=== PATIENT | female | born 1935 | race African-American/Black ===

== ENCOUNTER 2018-01-10 18:03 | Inpatient (IN) ==
--- NOTE | 2018-01-10 20:25 | XR ---
EXAM DATE: 01/10/2018 8:13 PM EDT AGE/SEX: 82 years / Female INDICATIONS: . Chest discomfort; fall today. CLINICAL DATA: This is the patient's initial encounter. Patient reports that signs and symptoms have been present for 1 day and indicates a pain score of 0/10. MEDICAL/SURGICAL HISTORY: None. . Defibrillator. COMPARISON: [facility] [place], CHEST SINGLE AP, 09/27/2014. . FINDINGS: PA and lateral views of the chest demonstrate the lungs to be symmetrically aerated without evidence of mass, infiltrate or effusion. Minimal basilar atelectasis. The cardiomediastinal contours are enla rged. Pacer lead in right ventricle. CONCLUSION: Minimal basilar atelectasis. Cardiomegaly. Pacer lead in right ventricle. Electronically signed by: Juice Jones MD 01/10/2018 8:24 PM EDT
--- NOTE | 2018-01-10 20:54 | ED ---
HPI General Chief complaint: Nausea/Vomiting/Diarrhea Stated complaint: Fall Time Seen by Provider: 01/10/18 19:28 Source: patient Mode of arrival: ambulatory Limitations: no limitations History of Present Illness HPI Narrative: Patient is a 82-year-old female that presents for the evaluation of diarrhea. The patient states she developed some abdominal pain that was mainly located to the bilateral lower quadrants. The patient states that the pain is dull and she rates the pain a 10/10 on a pain scale. She states that the abdominal pain feels better when she is laying down. The patient also states that she has been having diarrhea that started yesterday and has been constant ever since. Patient denies any blood in the stool. Upon further evaluation of the patient she reveals that she fell while in her home on Sunday. The patient reports that she lives alone but at the time of the fall another person was present within the home to assist her. The patient states that she began to feel weak in her legs and feels as if she just collapsed. The patient reports that she remembers falling and does not feel that she lost consciousness. Upon review of symptoms the patient reports fatigue but denies any chest pain, nausea, or vomiting. She does state that she has been feeling some shortness of breath and feels as if she has been more confused lately. She also reports generalized muscle weakness in both her arms and legs. The patient' s God-daughter is present with the patient and helps the patient provide the history. Related Data Home Medications Medication Instructions Recorded Confirmed acetaminophen [Tylenol] 325 mg PO Q6H PRN 01/10/18 01/10/18 aspirin [Aspirin Low Dose] 81 mg PO DAILY 01/10/18 01/10/18 atorvastatin 40 mg PO DAILY 01/10/18 01/10/18 bumetanide 2 mg PO DAILY 01/10/18 01/10/18 calcitriol 0.25 mcg PO Q OTHER DAY 01/10/18 01/10/18 carvedilol 12.5 mg PO BID 01/10/18 01/10/18 ciclopirox 1 applic TOPICAL BID 01/10/18 01/10/18 gabapentin 300 mg PO QPM 01/10/18 01/10/18 insulin glargine [Lantus U-100 10 unit SUB-Q HS 01/10/18 01/10/18 Insulin] insulin glargine [Lantus U-100 15 unit SUB-Q AC 01/10/18 01/10/18 Insulin] insulin lispro [Humalog KwikPen 100 unit SUB-Q DAILY 01/10/18 01/10/18 Insulin] levothyroxine 25 mcg PO DAILY 01/10/18 01/10/18 rivaroxaban [Xarelto] 15 mg PO DAILY 01/10/18 01/10/18 sulfasalazine 0.5 g PO BID 01/10/18 01/10/18 Allergies Allergy/AdvReac Type Severity Reaction Status Date / Time amoxicillin Allergy Rash Verified 01/10/18 18:45 methylprednisolone Allergy Itching Verified 01/10/18 18:45 lisinopril AdvReac Cough Verified 01/10/18 18:45 MRI PRECAUTION AdvReac Severe PACEMAKER Uncoded 05/04/16 10:37 (RV) 02/08/10 Review of Systems ROS: all other systems reviewed are negative [facility] Medical History Medical History Anemia (Acute) Atherosclerosis of aorta (Acute) CVA (cerebral vascular accident) (Acute) Cardiac defibrillator in place (Acute) Cardiomyopathy (Acute) Cervicalgia (Acute) Chronic kidney disease (Acute) Depression (Acute) Diabetes (Acute) GERD (gastroesophageal reflux disease) (Acute) Gastroenteritis (Acute) HTN (hypertension) (Acute) Hemiplegia affecting dominant side, post-stroke (Acute) Hyperlipidemia (Acute) Hypoglycemia (Acute) Hypothyroid (Acute) Left ventricular failure (Acute) Morbid obesity (Acute) Myocardial infarct, old (Acute) Other cervical disc degeneration, unspecified cervical region (Acute) Peripheral neuropathy (Acute) Social History Social History Substance History: No History of Abuse Smoking Status: Never smoker How Often Do You Have a Drink Containing Alcohol: Never Recent Travel in [facility] within the Last 8 Weeks: No Recent Out of Country Travel within the Last 8 Weeks: No Immunization History Tetanus Immunization: Unsure Hx Influenza Vaccine This Season: Yes Exam Narrative Exam Narrative: GENERAL: Well appearing. SKIN: Focused skin assessment warm/dry. HEAD: Atraumatic. Normocephalic. EYES: Pupils equal and round. No scleral icterus. No injection or drainage. ENT: No nasal bleeding or discharge. Mucous membranes pink and moist. Tongue is midline. No uvula deviation. NECK: Trachea midline. No JVD. CARDIOVASCULAR: Regular rate and rhythm. No murmur appreciated. RESPIRATORY: No accessory muscle use. Clear to auscultation. Breath sounds equal bilaterally. GASTROINTESTINAL: Abdomen soft, non-tender, nondistended. Hepatic and splenic margins not palpable. MUSCULOSKELETAL: No obvious deformities. No clubbing. No cyanosis. No edema. Full range of motion of the upper and lower extremities bilaterally. Patient does have 1+ pitting edema in the lower extremities. NEUROLOGICAL: Awake and alert. No obvious cranial nerve deficits. Motor grossly within normal limits. Normal speech. PSYCHIATRIC: Appropriate mood and affect; insight and judgment normal. Procedures Hemaprompt Stool Procedural Steps Taken: specimen placed in appropriate test area, developer placed on specimen and control areas and controls appropriately positive and negative Hemaprompt Stool Result: positive Course Initial Documented Vital Signs Temperature 97.9 F 01/10/18 18:11 Pulse Rate 77 01/10/18 18:11 Respiratory Rate 16 01/10/18 18:11 Blood Pressure 136/63 01/10/18 18:11 Pulse Oximetry 97 01/10/18 18:11 Last Documented Vital Signs Temperature 97.9 F 01/10/18 18:11 Pulse Rate 82 01/10/18 21:23 Respiratory Rate 17 01/10/18 21:23 Blood Pressure 124/58 L 01/10/18 21:23 Pulse Oximetry 100 01/10/18 21:23 Medical Decision Making [facility] Narrative Medical decision making narrative: 82-year-old female that presents to the ED for evaluation of nausea vomiting diarrhea as well as weakness and multiple falls and confusion. Patient was properly examined and was found to have signs and symptoms which appear to be consistent with what appears to be infectious diarrhea as well as confusion. She does appear to be slightly altered. Labs and imaging were ordered. Labs and imaging showed what appears to be colitis, CHF exacerbation, hyperglycemia, acute kidney injury, positive troponin. At this time recommendations for admission. Patient was started on Protonix. Patient did had positive Hemoccult. Likely from the colitis. Patient is not significantly anemic. She does take Xarelto however. Patient was started on Flagyl, given 500 bolus of fluid. Family and patient understand need for admission and further treatment. They agree with plan. Patient was admitted after Dr. Guillermo agreed to admission. Medical Screen Exam Complete: Yes Emergency Medical Condition: Yes Differential Diagnosis Differential Diagnosis: C. difficile versus diarrhea versus nausea and vomiting versus abdominal pain versus diverticulitis versus weakness versus altered mental status Medical Records Medical records reviewed: Yes I reviewed the patient's medical records. Lab Data Lab results reviewed: Yes I reviewed the patient's lab results. Lab results narrative: lactic acid elevated troponin elevated CK elevated BNP in the 2500s Result diagrams: 01/10/18 20:55 01/10/18 20:55 Lab Results 01/10/18 01/10/18 01/10/18 Range/Units 20:55 20:55 20:55 WBC 6.6 (4.0-11.0) th/mm3 RBC 3.68 L (4.00-5.30) mil/mm3 Hgb 11.1 L (11.6-15.3) gm/dL Hct 34.6 L (35.0-46.0) % MCV 94.1 (80.0-100.0) fL MCH 30.2 (27.0-34.0) pg MCHC 32.1 (32.0-36.0) % RDW 18.9 H (11.6-17.2) % Plt Count 239 (150-450) th/mm3 MPV 7.6 (7.0-11.0) fL Neut % (Auto) 66.5 (16.0-70.0) % Lymph % (Auto) 18.2 (9.0-44.0) % [place] % (Auto) 13.7 H (0.0-8.0) % Eos % (Auto) 0.9 (0.0-4.0) % Baso % (Auto) 0.7 (0.0-2.0) % Neut # (Auto) 4.4 (1.8-7.7) th/mm3 Lymph # (Auto) 1.2 (1.0-4.8) th/mm3 [place] # (Auto) 0.9 (0.0-0.9) th/mm3 Eos # (Auto) 0.1 (0.0-0.4) th/mm3 Baso # (Auto) 0.0 (0.0-0.2) th/mm3 WBC Differential . Differential Comment Auto diff final PT (9.8-11.6) sec INR Ratio APTT (24.3-30.1) sec Sodium 139 (136-145) meq/L Potassium 3.6 (3.5-5.1) meq/L Chloride 101 (98-107) meq/L Carbon Dioxide 26.1 (21.0-32.0) meq/L Anion Gap 12 (5-15) meq/L BUN 52 H (7-18) mg/dL Creatinine 2.94 H (0.50-1.00) mg/dL Estimated GFR 19 L (>89) mL/min POC Glucose (68-110) mg/dl Random Glucose 353 H (74-106) mg/dL Lactic Acid 2.6 H (0.4-2.0) mmol/L Calcium 8.3 L (8.5-10.1) mg/dL Total Bilirubin 1.2 H (0.2-1.0) mg/dL AST 44 H (15-37) U/L ALT 23 (10-53) U/L Alkaline Phosphatase 138 H (45-117) U/L Total Creatine Kinase 945 H (26-192) U/L CK-MB (CK-2) 6.8 H (0.5-3.6) ng/mL CK-MB (CK-2) % 0.7 (0.0-4.0) % Troponin I 0.08 H (0.02-0.05) ng/mL B-Natriuretic Peptide (0-100) pg/mL Total Protein 6.5 (6.4-8.2) g/dL Albumin 2.8 L (3.4-5.0) g/dL Lipase 55 L (73-393) U/L Urine Color (Yellw/Straw) Urine Clarity (Clear) Urine pH (5.0-8.5) Ur Specific [place] (1.002-1.035) Urine Protein (Neg-Trace) mg/dL Urine Glucose (UA) (Negative) mg/dL Urine Ketones (Negative) mg/dL Urine Occult Blood (Negative) Urine Nitrate (Negative) Urine Bilirubin (Negative) Urine Urobilinogen (Less than 2) mg/dL Ur Leukocyte Esterase (Negative) Urine RBC (0-3) /hpf Urine WBC (0-5) /hpf Ur Squamous Epith Cells (0-5) /hpf Urine Bacteria (None) /hpf Hyaline Casts (0-3) /lpf Micro UA Comment Ur Microscopic Review Urine Culture Comments 01/10/18 01/10/18 01/10/18 Range/Units 20:55 20:55 21:05 WBC (4.0-11.0) th/mm3 RBC (4.00-5.30) mil/mm3 Hgb (11.6-15.3) gm/dL Hct (35.0-46.0) % MCV (80.0-100.0) fL MCH (27.0-34.0) pg MCHC (32.0-36.0) % RDW (11.6-17.2) % Plt Count (150-450) th/mm3 MPV (7.0-11.0) fL Neut % (Auto) (16.0-70.0) % Lymph % (Auto) (9.0-44.0) % [place] % (Auto) (0.0-8.0) % Eos % (Auto) (0.0-4.0) % Baso % (Auto) (0.0-2.0) % Neut # (Auto) (1.8-7.7) th/mm3 Lymph # (Auto) (1.0-4.8) th/mm3 [place] # (Auto) (0.0-0.9) th/mm3 Eos # (Auto) (0.0-0.4) th/mm3 Baso # (Auto) (0.0-0.2) th/mm3 WBC Differential Differential Comment PT 14.1 H (9.8-11.6) sec INR 1.4 Ratio APTT 30.3 H (24.3-30.1) sec Sodium (136-145) meq/L Potassium (3.5-5.1) meq/L Chloride (98-107) meq/L Carbon Dioxide (21.0-32.0) meq/L Anion Gap (5-15) meq/L BUN (7-18) mg/dL Creatinine (0.50-1.00) mg/dL Estimated GFR (>89) mL/min POC Glucose (68-110) mg/dl Random Glucose (74-106) mg/dL Lactic Acid (0.4-2.0) mmol/L Calcium (8.5-10.1) mg/dL Total Bilirubin (0.2-1.0) mg/dL AST (15-37) U/L ALT (10-53) U/L Alkaline Phosphatase (45-117) U/L Total Creatine Kinase (26-192) U/L CK-MB (CK-2) (0.5-3.6) ng/mL CK-MB (CK-2) % (0.0-4.0) % Troponin I (0.02-0.05) ng/mL B-Natriuretic Peptide 2587 H (0-100) pg/mL Total Protein (6.4-8.2) g/dL Albumin (3.4-5.0) g/dL Lipase (73-393) U/L Urine Color Yellow (Yellw/Straw) Urine Clarity Clear (Clear) Urine pH 5.0 (5.0-8.5) Ur Specific [place] 1.013 (1.002-1.035) Urine Protein Negative (Neg-Trace) mg/dL Urine Glucose (UA) 500 or greater (Negative) mg/dL Urine Ketones Negative (Negative) mg/dL Urine Occult Blood Negative (Negative) Urine Nitrate Negative (Negative) Urine Bilirubin Negative (Negative) Urine Urobilinogen 4 or greater (Less than 2) mg/dL Ur Leukocyte Esterase Negative (Negative) Urine RBC Less than 1 (0-3) /hpf Urine WBC Less than 1 (0-5) /hpf Ur Squamous Epith Cells 1 (0-5) /hpf Urine Bacteria Moderate H (None) /hpf Hyaline Casts 50 (0-3) /lpf Micro UA Comment Culture indicated Ur Microscopic Review Not Reportable Urine Culture Comments Culture indicated 01/10/18 Range/Units 21:36 WBC (4.0-11.0) th/mm3 RBC (4.00-5.30) mil/mm3 Hgb (11.6-15.3) gm/dL Hct (35.0-46.0) % MCV (80.0-100.0) fL MCH (27.0-34.0) pg MCHC (32.0-36.0) % RDW (11.6-17.2) % Plt Count (150-450) th/mm3 MPV (7.0-11.0) fL Neut % (Auto) (16.0-70.0) % Lymph % (Auto) (9.0-44.0) % [place] % (Auto) (0.0-8.0) % Eos % (Auto) (0.0-4.0) % Baso % (Auto) (0.0-2.0) % Neut # (Auto) (1.8-7.7) th/mm3 Lymph # (Auto) (1.0-4.8) th/mm3 [place] # (Auto) (0.0-0.9) th/mm3 Eos # (Auto) (0.0-0.4) th/mm3 Baso # (Auto) (0.0-0.2) th/mm3 WBC Differential Differential Comment PT (9.8-11.6) sec INR Ratio APTT (24.3-30.1) sec Sodium (136-145) meq/L Potassium (3.5-5.1) meq/L Chloride (98-107) meq/L Carbon Dioxide (21.0-32.0) meq/L Anion Gap (5-15) meq/L BUN (7-18) mg/dL Creatinine (0.50-1.00) mg/dL Estimated GFR (>89) mL/min POC Glucose 376 H (68-110) mg/dl Random Glucose (74-106) mg/dL Lactic Acid (0.4-2.0) mmol/L Calcium (8.5-10.1) mg/dL Total Bilirubin (0.2-1.0) mg/dL AST (15-37) U/L ALT (10-53) U/L Alkaline Phosphatase (45-117) U/L Total Creatine Kinase (26-192) U/L CK-MB (CK-2) (0.5-3.6) ng/mL CK-MB (CK-2) % (0.0-4.0) % Troponin I (0.02-0.05) ng/mL B-Natriuretic Peptide (0-100) pg/mL Total Protein (6.4-8.2) g/dL Albumin (3.4-5.0) g/dL Lipase (73-393) U/L Urine Color (Yellw/Straw) Urine Clarity (Clear) Urine pH (5.0-8.5) Ur Specific [place] (1.002-1.035) Urine Protein (Neg-Trace) mg/dL Urine Glucose (UA) (Negative) mg/dL Urine Ketones (Negative) mg/dL Urine Occult Blood (Negative) Urine Nitrate (Negative) Urine Bilirubin (Negative) Urine Urobilinogen (Less than 2) mg/dL Ur Leukocyte Esterase (Negative) Urine RBC (0-3) /hpf Urine WBC (0-5) /hpf Ur Squamous Epith Cells (0-5) /hpf Urine Bacteria (None) /hpf Hyaline Casts (0-3) /lpf Micro UA Comment Ur Microscopic Review Urine Culture Comments Imaging Data Attestation: I personally reviewed and interpreted this imaging study as follows : Radiologist's impression: Chest X-Ray 01/10/18 19:53 CONCLUSION: Minimal basilar atelectasis. Cardiomegaly. Pacer lead in right ventricle. Head CT 01/10/18 19:57 CONCLUSION: 1. No acute intracranial abnormalities. . Abdomen/Pelvis CT 01/10/18 21:48 CONCLUSION: 1. Questionable mild thickening of the left colon which may indicate a mild colitis. 2. Moderate anasarca. Small left pleural effusion. Multiple layering gallstones. ECG Data EKG Prior to Arrival: No Attestation: I personally reviewed and interpreted this ECG as follows: Interpretation: EKG shows sinus rhythm with no sign of acute ischemia and arrhythmia read by me and attending. Discharge Plan Physicians Team ED Provider: Toni Leggett ED Midlevel Provider: Jose Moya Primary Care Provider: UNKNOWN, Rxs /Orders / Referrals /Forms Prescriptions: No Action atorvastatin 40 mg Tablet 40 mg PO DAILY RF: 0 acetaminophen [Tylenol] 325 mg Tablet 325 mg PO Q6H PRN (Reason: Pain) RF: 0 carvedilol 12.5 mg Tablet 12.5 mg PO BID RF: 0 insulin glargine [Lantus U-100 Insulin] 100 unit/mL Solution 10 unit SUB-Q HS RF: 0 insulin glargine [Lantus U-100 Insulin] 100 unit/mL Solution 15 unit SUB-Q AC RF: 0 sulfasalazine 500 mg Tablet 0.5 g PO BID RF: 0 bumetanide 2 mg Tablet 2 mg PO DAILY RF: 0 aspirin [Aspirin Low Dose] 81 mg Tablet,Delayed Release (Dr/Ec) 81 mg PO DAILY RF: 0 levothyroxine 25 mcg Tablet 25 mcg PO DAILY RF: 0 calcitriol 0.25 mcg Capsule 0.25 mcg PO Q OTHER DAY RF: 0 insulin lispro [Humalog KwikPen Insulin] 100 unit/mL Insulin Pen 100 unit SUB-Q DAILY RF: 0 ciclopirox 0.77 % Cream 1 applic TOPICAL BID RF: 0 gabapentin 300 mg Tablet Extended Release 24 Hr 300 mg PO QPM RF: 0 rivaroxaban [Xarelto] 15 mg Tablet 15 mg PO DAILY RF: 0 Discharge Interventions Interventions: Vital Signs Last Done: 01/10/18 21:23 Status ED Status: With Doctor
[2018-01-10 21:15] LABS: Baso % (Auto) 0.7 % (0.0-2.0); Eos # (Auto) 0.1 th/mm3 (0.0-0.4); Eos % (Auto) 0.9 % (0.0-4.0); Hematocrit 34.6 % (35.0-46.0); Hemoglobin 11.1 gm/dL (11.6-15.3); Lymph # (Auto) 1.2 th/mm3 (1.0-4.8); Lymph % (Auto) 18.2 % (9.0-44.0); Mean Corpuscular HGB Conc 32.1 % (32.0-36.0); Mean Corpuscular Hemoglobin 30.2 pg (27.0-34.0); Mean Corpuscular Volume 94.1 fL (80.0-100.0); Mean Platelet Volume 7.6 fL (7.0-11.0); Mono # (Auto) 0.9 th/mm3 (0.0-0.9); Mono % (Auto) 13.7 % (0.0-8.0); Neut # (Auto) 4.4 th/mm3 (1.8-7.7); Neut % (Auto) 66.5 % (16.0-70.0); Platelet Count 239 th/mm3 (150-450); Red Blood Count 3.68 mil/mm3 (4.00-5.30); Red Cell Distribution Width 18.9 % (11.6-17.2); White Blood Count 6.6 th/mm3 (4.0-11.0)
[2018-01-10 21:20] LABS: Activated Partial Thrombo Time 30.3 sec (24.3-30.1); INR 1.4 Ratio; Prothrombin Time 14.1 sec (9.8-11.6)
[2018-01-10 21:37] LABS: Albumin 2.8 g/dL (3.4-5.0); Anion Gap 12 meq/L (5-15); Blood Urea Nitrogen 52 mg/dL (7-18); Calcium 8.3 mg/dL (8.5-10.1); Carbon Dioxide 26.1 meq/L (21.0-32.0); Chloride 101 meq/L (98-107); Glomerular Filtration Rate 19 mL/min (>89); Glucose,Random 353 mg/dL (74-106); Lipase 55 U/L (73-393); Potassium 3.6 meq/L (3.5-5.1); Sodium 139 meq/L (136-145)
[2018-01-10 21:38] LABS: Alanine Aminotransferase 23 U/L (10-53); Aspartate Aminotransferase 44 U/L (15-37)
[2018-01-10 21:42] LABS: Bacteria,Urine Moderate /hpf; Bilirubin,Urine Negative (Negative); Clarity,Urine Clear (Clear); Color,Urine Yellow (Yellw/Straw); Glucose,Urine (UA) 500 or Greater mg/dL (Negative); Hyaline Casts,Urine 50 /lpf (0-3); Leukocyte Esterase,Urine Negative (Negative); Nitrite,Urine Negative (Negative); Specific Gravity,Urine 1.013 (1.002-1.035); Squamous Epithelial Cell,Urine 1 /hpf (0-5); Urobilinogen,Urine 4 or Greater mg/dL (Less than 2)
[2018-01-10 21:42] LABS: Alkaline Phosphatase 138 U/L (45-117); Creatine Kinase 945 U/L (26-192); Total Protein 6.5 g/dL (6.4-8.2); Troponin I 0.08 ng/mL (0.02-0.05)
[2018-01-10 21:54] LABS: CKMB Percent 0.7 % (0.0-4.0); Creatine Kinase MB 6.8 ng/mL (0.5-3.6)
[2018-01-10] MEDS ORDERED: Sodium Chlor 0.9% Inj 500 ML IV.SIG SCH (22:00)
--- NOTE | 2018-01-10 22:07 | CT ---
EXAM DATE: 01/10/2018 10:04 PM EDT AGE/SEX: 82 years / Female INDICATIONS: Weakness. CLINICAL DATA: This is the patient's initial encounter. Patient reports that signs and symptoms have been present for 1 day and indicates a pain score of 5/10. MEDICAL/SURGICAL HISTORY: Hypertension. Diabetes. Renal disease. Defibrillator. RADIATION DOSE: 56.35 CTDI (mGy) COMPARISON: . TECHNIQUE: CT of the head without contrast. Using automated exposure control and adjustment of the mA and/or kV according to patient size, radiation dose was kept as low as reasonably achievable to ob tain optimal diagnostic quality images. DICOM format image data is available electronically for revi ew and comparison. FINDINGS: Cerebrum: The ventricles are normal for age. No evidence of midline shift, mass lesion, hemorrhage or acute infarction. No extraaxial fluid collections are seen. Posterior Fossa: The cerebellum and brainstem are intact. The 4th ventricle is midline. The cerebe llopontine angle is unremarkable. Extracranial: The visualized portion of the orbits is intact. Skull: The calvaria is intact. No evidence of skull fracture. CONCLUSION: 1. No acute intracranial abnormalities. . Electronically signed by: Juice Jones MD 01/10/2018 10:06 PM EDT
[2018-01-10] MEDS ORDERED: Morphine Inj 4 MG/ML Vial IV.PUSH ONE (22:22)
--- NOTE | 2018-01-10 22:28 | CT ---
EXAM DATE: 01/10/2018 10:20 PM EDT AGE/SEX: 82 years / Female INDICATIONS: Weakness. Nausea and diarrhea. Left lower quadrant abdominal pain. CLINICAL DATA: This is the patient's initial encounter. Patient reports that signs and symptoms have been present for 1 day and indicates a pain score of 5/10. MEDICAL/SURGICAL HISTORY: Hypertension. Gastroesophageal reflux disease. Diabetes. Renal dis ease. Defibrillator. RADIATION DOSE: 18.00 CTDI (mGy) COMPARISON: [facility] – [place], CT ABDOMEN & PELVIS W/O CONTRAST, 04/07/2015. . TECHNIQUE: Multiple contiguous axial images were obtained through the abdomen. Images were obtained using multiple row detector helical technique. Using automated exposure control and adjustment of the mA and/or kV according to patient size, radiation dose was kept as low as reasonably achievable to o btain optimal diagnostic quality images. DICOM format image data is available electronically for rev iew and comparison. FINDINGS: There is a small left-sided pleural effusion with some basilar atelectasis. No right effusion. Heart size enlarged. Pacer lead overlies right ventricle. No acute findings in the liver, spleen, kidneys or pancreas. Adrenal glands are mildly enlarged stabl e from 2015. Multiple layering gallstones. No pelvic mass or free fluid. Moderate anasarca. CONCLUSION: 1. Questionable mild thickening of the left colon which may indicate a mild colitis. 2. Moderate anasarca. Small left pleural effusion. Multiple layering gallstones. Electronically signed by: Juice Jones MD 01/10/2018 10:27 PM EDT
[2018-01-10] MEDS ORDERED: Pantoprazole Inj 40 MG Vial IV.PUSH ONE (22:35)
[2018-01-10] MEDS ORDERED: Acetaminophen 325 MG Tablet PO PRN (23:26)
[2018-01-10] MEDS ORDERED: Bisacodyl 10 MG Supp RECTAL PRN (23:26)
[2018-01-10] MEDS ORDERED: Dextrose 50% in Water 50 ML Vial IV.PUSH PRN (23:46)
--- NOTE | 2018-01-10 23:50 | P.HP ---
History of Present Illness Service: [facility] Primary Care Physician: UNKNOWN History of Present Illness: 82-year-old female with past medical history significant for anemia, CHF with defibrillator placement, previous CVA, chronic kidney disease, diabetes, GERD, hypertension, hyperlipidemia, hypothyroidism and CAD presents to the emergency department for the evaluation of diarrhea. The patient states she developed abdominal pain and diarrhea that began yesterday. She denies any dark, tarry stools. She also reports that she had a fall while in her home on Sunday. The patient's goddaughter is bedside who reports that the patient has not been taking care of herself well and it is unknown if she has been compliant with her medications. She reports increased weakness, confusion and bilateral lower extremity pain. The patient is anticoagulated on Xarelto however denies any history of blood clots or atrial fibrillation. She denies chest pain or shortness of breath. No emesis. No fever/chills. No lateralizing signs/ symptoms. Endorses intermittent weakness. No lateralizing signs/symptoms. Inpatient Certification: I certify that the inpatient services were ordered in accordance with Medicare regulations governing the order. This includes certification that hospital inpatient services are reasonable and necessary and in the case of services not specified as inpatient-only under 42 CFR 419.22(n), that they are appropriately provided as inpatient services in accordance to with the 2-midnight benchmark under 43 CFR 412.3(e) Estimated Total Length of Stay (Days): 3 Plans for Post Hospital Care: Not yet determined Review of Systems All other systems reviewed negative except as stated in HPI [facility] - History History Provided By: Patient, Family Member - Medical History Medical History: Medical History (Last Updated 01/10/18 @ 23:41 by Lizeth Guillermo MD) Anemia Atherosclerosis of aorta CVA (cerebral vascular accident) Cardiac defibrillator in place Cardiomyopathy Cervicalgia Chronic kidney disease Depression Diabetes GERD (gastroesophageal reflux disease) Gastroenteritis HTN (hypertension) Hemiplegia affecting dominant side, post-stroke History of implantable cardiac defibrillator (ICD) Hyperlipidemia Hypoglycemia Hypothyroid Left ventricular failure Morbid obesity Myocardial infarct, old Other cervical disc degeneration, unspecified cervical region Peripheral neuropathy - Surgical History Surgical History: Surgical History (Last Updated 01/10/18 @ 23:41 by Lizeth Guillermo MD) History of neck surgery - Tobacco History Smoking Status: Never smoker - Alcohol History How Often Do You Have a Drink Containing Alcohol: Never - Substance Use History Substance History: No History of Abuse - Travel History Recent Travel in the [place] Within the Last 8 Weeks: No Recent Travel Out of the Country Within the Last 8 Weeks: No - Immunization History Tetanus Immunization: Unsure Hx Influenza Vaccine This Season: Yes Medications and Allergies Active Medications: Active Medications Sodium Chloride (Ns Inj) 500 mls @ 0 mls/hr IV.SIG BOLUS EDIL Last Admin: 01/10/18 22:00 Dose: 500 mls/hr Sodium Chloride (Ns Flush) 2 ml IV.FLUSH PRN PRN PRN Reason: FLUSH AFTER USING IV ACCESS Allergies Allergy/AdvReac Type Severity Reaction Status Date / Time amoxicillin Allergy Rash Verified 01/10/18 18:45 methylprednisolone Allergy Itching Verified 01/10/18 18:45 lisinopril AdvReac Cough Verified 01/10/18 18:45 MRI PRECAUTION AdvReac Severe PACEMAKER Uncoded 05/04/16 10:37 (RV) 02/08/10 Home Medications Medication Instructions Recorded Confirmed Type acetaminophen [Tylenol] 325 mg PO Q6H PRN 01/10/18 01/10/18 History aspirin [Aspirin Low Dose] 81 mg PO DAILY 01/10/18 01/10/18 History atorvastatin 40 mg PO DAILY 01/10/18 01/10/18 History bumetanide 2 mg PO DAILY 01/10/18 01/10/18 History calcitriol 0.25 mcg PO Q OTHER DAY 01/10/18 01/10/18 History carvedilol 12.5 mg PO BID 01/10/18 01/10/18 History ciclopirox 1 applic TOPICAL BID 01/10/18 01/10/18 History gabapentin 300 mg PO QPM 01/10/18 01/10/18 History insulin glargine [Lantus U-100 10 unit SUB-Q HS 01/10/18 01/10/18 History Insulin] insulin glargine [Lantus U-100 15 unit SUB-Q AC 01/10/18 01/10/18 History Insulin] insulin lispro [Humalog KwikPen 100 unit SUB-Q DAILY 01/10/18 01/10/18 History Insulin] levothyroxine 25 mcg PO DAILY 01/10/18 01/10/18 History rivaroxaban [Xarelto] 15 mg PO DAILY 01/10/18 01/10/18 History sulfasalazine 0.5 g PO BID 01/10/18 01/10/18 History Exam Vital signs: Vital Signs 01/10/18 18:11 01/10/18 21:23 Temperature 97.9 F Pulse Rate 77 82 Respiratory Rate 16 17 Blood Pressure 136/63 124/58 L Pulse Oximetry 97 100 Intake & Output 01/10/18 01/10/18 01/11/18 06:59 18:59 06:59 Weight 101.605 kg Narrative: Gen.: No acute distress Head: Normocephalic. Atraumatic. EENT: Pupils equal round and reactive to light. Nose without drainage. Airway intact. Throat without injection. Cardiovascular: Regular rate and rhythm. No murmurs, rubs or gallops. Respiratory: Lungs clear to auscultation bilaterally. No wheezes or rhonchi. Abdomen: Soft, nontender, nondistended. No peritoneal signs. Musculoskeletal: No gross deformities. 1+ pitting edema in the bilateral lower extremities. Skin: No obvious rashes or erythema. Neuro: Sensory and motor grossly intact. Cranial nerves II through XII grossly intact. Results - Labs CBC & Chem 7: 01/10/18 20:55 01/10/18 20:55 Labs: Laboratory Results - last 24 hr 01/10/18 01/10/18 01/10/18 20:55 20:55 20:55 WBC 6.6 RBC 3.68 L Hgb 11.1 L Hct 34.6 L MCV 94.1 MCH 30.2 MCHC 32.1 RDW 18.9 H Plt Count 239 MPV 7.6 Neut % (Auto) 66.5 Lymph % (Auto) 18.2 [place] % (Auto) 13.7 H Eos % (Auto) 0.9 Baso % (Auto) 0.7 Neut # (Auto) 4.4 Lymph # (Auto) 1.2 [place] # (Auto) 0.9 Eos # (Auto) 0.1 Baso # (Auto) 0.0 WBC Differential . Differential Comment Auto diff final PT INR APTT Sodium 139 Potassium 3.6 Chloride 101 Carbon Dioxide 26.1 Anion Gap 12 BUN 52 H Creatinine 2.94 H Estimated GFR 19 L POC Glucose Random Glucose 353 H Lactic Acid 2.6 H Calcium 8.3 L Total Bilirubin 1.2 H AST 44 H ALT 23 Alkaline Phosphatase 138 H Total Creatine Kinase 945 H CK-MB (CK-2) 6.8 H CK-MB (CK-2) % 0.7 Troponin I 0.08 H B-Natriuretic Peptide Total Protein 6.5 Albumin 2.8 L Lipase 55 L Urine Color Urine Clarity Urine pH Ur Specific Golf Urine Protein Urine Glucose (UA) Urine Ketones Urine Occult Blood Urine Nitrate Urine Bilirubin Urine Urobilinogen Ur Leukocyte Esterase Urine RBC Urine WBC Ur Squamous Epith Cells Urine Bacteria Hyaline Casts Micro UA Comment Ur Microscopic Review Urine Culture Comments 01/10/18 01/10/18 01/10/18 20:55 20:55 21:05 WBC RBC Hgb Hct MCV MCH MCHC RDW Plt Count MPV Neut % (Auto) Lymph % (Auto) [place] % (Auto) Eos % (Auto) Baso % (Auto) Neut # (Auto) Lymph # (Auto) [place] # (Auto) Eos # (Auto) Baso # (Auto) WBC Differential Differential Comment PT 14.1 H INR 1.4 APTT 30.3 H Sodium Potassium Chloride Carbon Dioxide Anion Gap BUN Creatinine Estimated GFR POC Glucose Random Glucose Lactic Acid Calcium Total Bilirubin AST ALT Alkaline Phosphatase Total Creatine Kinase CK-MB (CK-2) CK-MB (CK-2) % Troponin I B-Natriuretic Peptide 2587 H Total Protein Albumin Lipase Urine Color Yellow Urine Clarity Clear Urine pH 5.0 Ur Specific Golf 1.013 Urine Protein Negative Urine Glucose (UA) 500 or greater Urine Ketones Negative Urine Occult Blood Negative Urine Nitrate Negative Urine Bilirubin Negative Urine Urobilinogen 4 or greater Ur Leukocyte Esterase Negative Urine RBC Less than 1 Urine WBC Less than 1 Ur Squamous Epith Cells 1 Urine Bacteria Moderate H Hyaline Casts 50 Micro UA Comment Culture indicated Ur Microscopic Review Not Reportable Urine Culture Comments Culture indicated 01/10/18 21:36 WBC RBC Hgb Hct MCV MCH MCHC RDW Plt Count MPV Neut % (Auto) Lymph % (Auto) [place] % (Auto) Eos % (Auto) Baso % (Auto) Neut # (Auto) Lymph # (Auto) [place] # (Auto) Eos # (Auto) Baso # (Auto) WBC Differential Differential Comment PT INR APTT Sodium Potassium Chloride Carbon Dioxide Anion Gap BUN Creatinine Estimated GFR POC Glucose 376 H Random Glucose Lactic Acid Calcium Total Bilirubin AST ALT Alkaline Phosphatase Total Creatine Kinase CK-MB (CK-2) CK-MB (CK-2) % Troponin I B-Natriuretic Peptide Total Protein Albumin Lipase Urine Color Urine Clarity Urine pH Ur Specific [place] Urine Protein Urine Glucose (UA) Urine Ketones Urine Occult Blood Urine Nitrate Urine Bilirubin Urine Urobilinogen Ur Leukocyte Esterase Urine RBC Urine WBC Ur Squamous Epith Cells Urine Bacteria Hyaline Casts Micro UA Comment Ur Microscopic Review Urine Culture Comments - Imaging Impressions Chest X-Ray 01/10/18 19:53 CONCLUSION: Minimal basilar atelectasis. Cardiomegaly. Pacer lead in right ventricle. Head CT 01/10/18 19:57 CONCLUSION: 1. No acute intracranial abnormalities. . Abdomen/Pelvis CT 01/10/18 21:48 CONCLUSION: 1. Questionable mild thickening of the left colon which may indicate a mild colitis. 2. Moderate anasarca. Small left pleural effusion. Multiple layering gallstones. Caprini VTE Risk Assessment Caprini VTE Risk Assessment: Moderate/High Risk (score >= 2) Caprini Risk Assessment Model: Point Value = 1 Point Value = 2 Point Value = 3 Point Value = 5 Age 41-60 Minor surgery BMI > 25 kg/m2 Swollen legs Varicose veins or History of unexplained or recurrent spontaneous Oral contraceptives or hormone replacement Sepsis (< 1 month) Serious lung disease, including pneumonia (< 1 month) Abnormal pulmonary function Acute myocardial infarction Congestive heart failure (< 1 month) History of inflammatory bowel disease Medical patient at bed rest Age 61-74 Arthroscopic surgery Major open surgery (> 45 min) Laparoscopic surgery (> 45 min) Malignancy Confined to bed (> 72 hours) Immobilizing plaster cast Central venous access Age >= 75 History of VTE Family history of VTE Factor V Leiden Prothrombin [id number] Lupus anticoagulant Anticardiolipin antibodies Elevated serum homocysteine Heparin-induced thrombocytopenia Other congenital or acquired thrombophilia Stroke (< 1 month) Elective arthroplasty Hip, pelvis, or leg fracture Acute spinal cord injury (< 1 month) Prophylaxis Regimen: Total Risk Factor Score Risk Level Prophylaxis Regimen 0-1 Low Early ambulation 2 Moderate Order ONE of the following: *Sequential Compression Device (SCD) *Heparin 5000 units SQ BID 3-4 Higher Order ONE of the following medications: *Heparin 5000 units SQ TID *Enoxaparin/Lovenox 40 mg SQ daily (WT < 150 kg, CrCl > 30 mL/min) *Enoxaparin/Lovenox 30 mg SQ daily (WT < 150 kg, CrCl > 10-29 mL/min) *Enoxaparin/Lovenox 30 mg SQ BID (WT < 150 kg, CrCl > 30 mL/min) AND/OR *Sequential Compression Device (SCD) 5 or more Highest Order ONE of the following medications: *Heparin 5000 units SQ TID (Preferred with Epidurals) *Enoxaparin/Lovenox 40 mg SQ daily (WT < 150 kg, CrCl > 30 mL/min) *Enoxaparin/Lovenox 30 mg SQ daily (WT < 150 kg, CrCl > 10-29 mL/min) *Enoxaparin/Lovenox 30 mg SQ BID (WT < 150 kg, CrCl > 30 mL/min) AND *Sequential Compression Device (SCD) Assessment and Plan - Plan Assessment and plan: 1. Abdominal pain/diarrhea CT the abdomen/pelvis shows questionable mild thickening of the left colon which may indicate a mild colitis C. difficile panel pending Cipro/Flagyl Hemoccult positive in the emergency department Gastroenterology consulted, appreciate recommendations IV Protonix 2. Chronic kidney disease Creatinine 2.9 Most recent creatinine was 2.2 in 2016 Monitor renal function 3. CHF EF of 25-30% BNP 2587 Chest x-ray without signs of pulmonary edema, personally reviewed Status post defibrillator placement Continue home medications IV Bumex 4. Diabetes mellitus Continue home Lantus Sliding-scale insulin Monitor blood glucose 5. Hypertension/hyperlipidemia/hypothyroidism Continue home medication 6. History of CVA Patient anticoagulated on Xarelto Unclear exactly why as patient and her granddaughter do not know but they do state that she takes it daily 7. Elevated troponin Likely secondary to heart failure ACS rule out pending; serial troponins/EKGs 8. Elevated lactic acid Status post 500 cc bolus in the ED Repeat pending No signs of sepsis FEN N.p.o. Electrolytes: Monitor and replete as needed Xarelto
[2018-01-11] MEDS: Pantoprazole Inj 40 MG Vial IV.PUSH SCH ×2 (00:31→12:29)
[2018-01-11] MEDS: Ciprofloxacin 400 MG/200 ML 400 MG/200 ML PIGGYBACK IV.SIG SCH (00:32)
[2018-01-11] MEDS: Insulin NovoLIN Regular Correctional Sugar Inj SQ SCH ×5 (03:34→20:47)
[2018-01-11 05:13] LABS: Hematocrit 34.4 % (35.0-46.0); Hemoglobin 11.2 gm/dL (11.6-15.3); Mean Corpuscular HGB Conc 32.4 % (32.0-36.0); Mean Corpuscular Hemoglobin 30.2 pg (27.0-34.0); Mean Corpuscular Volume 93.1 fL (80.0-100.0); Mean Platelet Volume 7.6 fL (7.0-11.0); Platelet Count 231 th/mm3 (150-450); Red Cell Distribution Width 18.5 % (11.6-17.2); White Blood Count 6.3 th/mm3 (4.0-11.0)
[2018-01-11 05:35] LABS: Alanine Aminotransferase 22 U/L (10-53); Albumin 2.8 g/dL (3.4-5.0); Anion Gap 13 meq/L (5-15); Aspartate Aminotransferase 40 U/L (15-37); Blood Urea Nitrogen 53 mg/dL (7-18); Carbon Dioxide 24.2 meq/L (21.0-32.0); Chloride 101 meq/L (98-107); Glomerular Filtration Rate 20 mL/min (>89); Glucose,Random 236 mg/dL (74-106); Potassium 3.5 meq/L (3.5-5.1); Sodium 138 meq/L (136-145)
[2018-01-11 05:40] LABS: Alkaline Phosphatase 121 U/L (45-117); Creatine Kinase 854 U/L (26-192); Total Protein 6.6 g/dL (6.4-8.2); Troponin I 0.08 ng/mL (0.02-0.05)
[2018-01-11 05:52] LABS: CKMB Percent 0.7 % (0.0-4.0); Creatine Kinase MB 5.6 ng/mL (0.5-3.6)
[2018-01-11 06:36] LABS: Eosinophils 2 % (0-4); Lymphocytes 16 % (9-44); Monocytes 11 % (0-8); Platelet Estimate Normal (Normal); Platelet Morphology Normal (Normal)
[2018-01-11] MEDS: Insulin Detemir Inj 1,000 UNIT/10 ML Vial SQ SCH ×3 (09:09→20:47)
[2018-01-11] MEDS: Carvedilol 12.5 MG Tablet PO SCH ×3 (09:11→22:16)
[2018-01-11] MEDS: Senna/Docusate Sodium 8.6/50 MG Tablet PO SCH ×2 (09:11→20:47)
[2018-01-11] MEDS: Rivaroxaban 15 MG Tablet PO SCH ×2 (09:12→09:42)
--- NOTE | 2018-01-11 10:02 | P.CONGI ---
History of Present Illness Consult date: 01/11/18 Consult reason: Diarrhea,Colitis and Heme positive stools Chief complaint: Acute Colitis, BOUCHRA, CHF Exacerbation, DM History of Present Illness: is an 82-year-old female with past medical history significant for Anemia, congestive heart failure, CVA ,chronic kidney disease, diabetes, GERD hypertension, hyperlipidemia, hypothyroidism and coronary artery disease. Patient presented to the emergency room yesterday January 10, 2018 with complaint of Diarrhea. Patient reports onset of diarrhea 4 days ago with nausea and no vomiting she reports that stools were brown with no obvious noted blood. Stools were heme positive upon arrival to ER with hemoglobin 11.1 hematocrit 34.6. Patient states she has not had any further loose stools since yesterday afternoon. Patient currently on Xarelto for atrial fibrillation and Hx CVA. I spoke with patient's RN who stated patient is in sinus rhythm at this time. Patient states that along with diarrhea for 4 days she has felt achy and weak reports chills but denies fever. Patient denies any use of antibiotics recently denies any sick contacts and also denies any travel outside of the country. Denies any known family history of gastrointestinal cancers. Patient states last colonoscopy was done 5 years ago and she was not informed that she had any polyps. EGD was done at that time per patient which she states was also normal. She states she does not currently have a GI doctor following her. Patient denies smoking or EtOH use. She denies the use of NSAIDs and states she takes aspirin 81 mg daily. 01/11/2018 labs reveal WBC 6.3 hemoglobin 11.2 hematocrit 34.4 INR 1.4 total bilirubin 1.1 AST 40 ALT 22 alkaline phosphatase 121 with a total creatinine kinase of 854 and a troponin of 0.08 of note patient had elevated BNP of 2587. I spoke with patient's RN who stated patient is in sinus rhythm at this time. 01/10/[address] of the abdomen and pelvis with the following findings--> There is a small left-sided pleural effusion with some basilar atelectasis. No right effusion. Heart size enlarged. Pacer lead overlies right ventricle.No acute findings in the liver, spleen, kidneys or pancreas. Adrenal glands are mildly enlarged stable from 2015. Multiple layering gallstones.No pelvic mass or free fluid. Moderate anasarca. Conclusion --> Questionable mild thickening of the left colon which may indicate a mild colitis. Moderate anasarca. Small left pleural effusion. Multiple layering gallstones. Due to CT findings of questionable colitis patient is currently receiving ciprofloxacin 400 mg IV every 24 hours as well as Flagyl 500 mg IV every 8 hours. <Betzaida Barone - Last Filed: 01/11/18 15:00> Review of Systems Constitutional: Reports lack of energy, Reports weakness, Denies anorexia, Denies excessive sweating, Denies fever(s), Denies weight loss Cardiovascular: Reports leg swelling, Denies chest pain, Denies chest pain at rest, Denies chest pain with activity, Denies fainting, Denies generalized swelling, Denies shortness of breath Respiratory: Denies cough, Denies shortness of breath Gastrointestinal: Reports nausea, Denies abdominal pain, Denies black, tarry stools, Denies bright, red blood in stools, Denies difficulty swallowing, Denies feeling full early, Denies heartburn, Denies incontinent of stools, Denies pain with swallowing, Denies vomiting Genitourinary: Denies blood in urine Musculoskeletal: Reports joint pain, Reports muscle weakness Neurologic: Denies dizziness, Denies fainting Hematologic/Lymphatic: Denies easy bleeding <Betzaida Barone - Last Filed: 01/11/18 15:00> PMFSH - History History Provided By: Patient - Medical History Medical History: Medical History (Last Reviewed 01/11/18 @ 06:40 by Suresh Jain) Anemia Atherosclerosis of aorta CVA (cerebral vascular accident) Cardiac defibrillator in place Cardiomyopathy Cervicalgia Chronic kidney disease Depression Diabetes GERD (gastroesophageal reflux disease) Gastroenteritis HTN (hypertension) Hemiplegia affecting dominant side, post-stroke History of implantable cardiac defibrillator (ICD) Hyperlipidemia Hypoglycemia Hypothyroid Left ventricular failure Morbid obesity Myocardial infarct, old Other cervical disc degeneration, unspecified cervical region Peripheral neuropathy - Surgical History Surgical History: Surgical History (Last Reviewed 01/11/18 @ 06:40 by Suresh Jain) History of neck surgery - Tobacco History Second Hand Smoke Exposure: No Smoking Status: Never smoker - Alcohol History How Often Do You Have a Drink Containing Alcohol: Never - Substance Use History Substance History: No History of Abuse - Travel History Recent Travel in the [place] Within the Last 8 Weeks: No Recent Travel Out of the Country Within the Last 8 Weeks: No - Immunization History Tetanus Immunization: Unsure Hx Influenza Vaccine This Season: Yes <Betzaida Barone - Last Filed: 01/11/18 15:00> - Medical History Medical History: Medical History (Last Reviewed 01/11/18 @ 06:40 by Suresh Jain) Anemia Atherosclerosis of aorta CVA (cerebral vascular accident) Cardiac defibrillator in place Cardiomyopathy Cervicalgia Chronic kidney disease Depression Diabetes GERD (gastroesophageal reflux disease) Gastroenteritis HTN (hypertension) Hemiplegia affecting dominant side, post-stroke History of implantable cardiac defibrillator (ICD) Hyperlipidemia Hypoglycemia Hypothyroid Left ventricular failure Morbid obesity Myocardial infarct, old Other cervical disc degeneration, unspecified cervical region Peripheral neuropathy - Surgical History Surgical History: Surgical History (Last Reviewed 01/11/18 @ 06:40 by Suresh Jain) History of neck surgery <Ryan Loya - Last Filed: 01/11/18 19:26> Medications and Allergies Active Medications: Active Medications Acetaminophen (Tylenol) 650 mg PO Q4H PRN PRN Reason: Temp > 100.4 Al Hydroxide/Mg Hydroxide (Milk Of Asanalyssa Sims) 30 ml PO Q12H PRN PRN Reason: Mild Constipation Aspirin (Ecotrin) 81 mg PO DAILY [facility] Last Admin: 01/11/18 09:11 Dose: 81 mg Atorvastatin Calcium (Lipitor) 40 mg PO DAILY [facility] Last Admin: 01/11/18 09:11 Dose: 40 mg Bisacodyl (Dulcolax Supp) 10 mg RECTAL DAILY PRN PRN Reason: SEVERE CONSITIPATION Bumetanide (Bumex Inj) 1 mg IV.PUSH BID@0900,1800 [facility] Last Admin: 01/11/18 09:11 Dose: 1 mg Carvedilol (Coreg) 12.5 mg PO BID [facility] Last Admin: 01/11/18 09:11 Dose: 12.5 mg Dextrose (D50w Vial) 50 ml IV.PUSH UNSCH PRN PRN Reason: PER HYPOGLYCEMIA PROTOCOL Gabapentin (Neurontin) 300 mg PO QPM [facility] Glucagon (Glucagon Inj) 1 mg OTHER PRN PRN PRN Reason: for Hypoglycemia Protocol Sodium Chloride (Ns Inj) 500 mls @ 0 mls/hr IV.SIG BOLUS [facility] Last Infusion: 01/11/18 00:11 Dose: Infused Ciprofloxacin/Dextrose (Cipro 400 Mg/200 Ml Inj) 400 mg in 200 mls @ 200 mls/ hr IV.SIG Q24H [facility] Last Infusion: 01/11/18 01:39 Dose: Infused Metronidazole/Sodium Chloride (Flagyl 500 Mg Inj) 100 mls @ 100 mls/hr IV.SIG Q8H [facility] Last Admin: 01/11/18 09:10 Dose: 100 mls/hr Insulin Detemir (Levemir Inj) 10 unit SQ HS EDIL Insulin Detemir (Levemir Inj) 15 unit SQ AC [facility] Last Admin: 01/11/18 09:09 Dose: Not Given Insulin Human Regular (Novolin R Correctional Sugar Inj) 0 units SQ ACHS AND 3AM [facility]; Protocol Last Admin: 01/11/18 09:20 Dose: Not Given Lactulose (Lactulose Liq) 30 ml PO DAILY PRN PRN Reason: SEVERE CONSITIPATION Levothyroxine Sodium (Synthroid) 25 mcg PO DAILY@0600 [facility] Last Admin: 01/11/18 05:29 Dose: Not Given Ondansetron HCl (Zofran Inj) 4 mg IV.PUSH Q6H PRN PRN Reason: NAUSEA OR VOMITING Pantoprazole Sodium (Protonix Inj) 40 mg IV.PUSH Q12H [facility] Last Admin: 01/11/18 00:31 Dose: Not Given Rivaroxaban (Xarelto) 15 mg PO DAILY [facility] Last Admin: 01/11/18 09:12 Dose: Not Given Senna/Docusate Sodium (Conchis-Colace) 1 tab PO BID [facility] Last Admin: 01/11/18 09:11 Dose: Not Given Sennosides (Senokot) 17.2 mg PO Q12H PRN PRN Reason: Moderate Constipation Sodium Chloride (Ns Flush) 2 ml IV.FLUSH PRN PRN PRN Reason: FLUSH AFTER USING IV ACCESS <Betzaida Barone - Last Filed: 01/11/18 15:00> Active Medications: Active Medications Acetaminophen (Tylenol) 650 mg PO Q4H PRN PRN Reason: Temp > 100.4 Al Hydroxide/Mg Hydroxide (Milk Of Magnesia Liq) 30 ml PO Q12H PRN PRN Reason: Mild Constipation Aspirin (Ecotrin) 81 mg PO DAILY [facility] Last Admin: 01/11/18 09:11 Dose: 81 mg Atorvastatin Calcium (Lipitor) 40 mg PO DAILY [facility] Last Admin: 01/11/18 09:11 Dose: 40 mg Bisacodyl (Dulcolax Supp) 10 mg RECTAL DAILY PRN PRN Reason: SEVERE CONSITIPATION Bumetanide (Bumex Inj) 1 mg IV.PUSH BID@0900,1800 [facility] Last Admin: 01/11/18 17:38 Dose: 1 mg Carvedilol (Coreg) 12.5 mg PO BID [facility] Last Admin: 01/11/18 09:11 Dose: 12.5 mg Dextrose (D50w Vial) 50 ml IV.PUSH UNSCH PRN PRN Reason: PER HYPOGLYCEMIA PROTOCOL Gabapentin (Neurontin) 300 mg PO QPM [facility] Last Admin: 01/11/18 17:38 Dose: 300 mg Glucagon (Glucagon Inj) 1 mg OTHER PRN PRN PRN Reason: for Hypoglycemia Protocol Sodium Chloride (Ns Inj) 500 mls @ 0 mls/hr IV.SIG BOLUS [facility] Last Infusion: 01/11/18 00:11 Dose: Infused Ciprofloxacin/Dextrose (Cipro 400 Mg/200 Ml Inj) 400 mg in 200 mls @ 200 mls/ hr IV.SIG Q24H [facility] Last Infusion: 01/11/18 01:39 Dose: Infused Metronidazole/Sodium Chloride (Flagyl 500 Mg Inj) 100 mls @ 100 mls/hr IV.SIG Q8H [facility] Last Infusion: 01/11/18 18:36 Dose: Infused Insulin Detemir (Levemir Inj) 5 unit SQ BID [facility] Insulin Human Regular (Novolin R Correctional Sugar Inj) 0 units SQ ACHS AND 3AM EDIL; Protocol Last Admin: 01/11/18 17:39 Dose: 5 units Lactulose (Lactulose Liq) 30 ml PO DAILY PRN PRN Reason: SEVERE CONSITIPATION Levothyroxine Sodium (Synthroid) 25 mcg PO DAILY@0600 [facility] Last Admin: 01/11/18 05:29 Dose: Not Given Ondansetron HCl (Zofran Inj) 4 mg IV.PUSH Q6H PRN PRN Reason: NAUSEA OR VOMITING Pantoprazole Sodium (Protonix Inj) 40 mg IV.PUSH Q12H [facility] Last Admin: 01/11/18 12:29 Dose: 40 mg Rivaroxaban (Xarelto) 15 mg PO DAILY [facility] Last Admin: 01/11/18 09:42 Dose: 15 mg Senna/Docusate Sodium (Conchis-Colace) 1 tab PO BID [facility] Last Admin: 01/11/18 09:11 Dose: Not Given Sennosides (Senokot) 17.2 mg PO Q12H PRN PRN Reason: Moderate Constipation Sodium Chloride (Ns Flush) 2 ml IV.FLUSH PRN PRN PRN Reason: FLUSH AFTER USING IV ACCESS <Ryan Loya E - Last Filed: 01/11/18 19:26> Allergies Allergy/AdvReac Type Severity Reaction Status Date / Time amoxicillin Allergy Rash Verified 01/10/18 18:45 methylprednisolone Allergy Itching Verified 01/10/18 18:45 lisinopril AdvReac Cough Verified 01/10/18 18:45 MRI PRECAUTION AdvReac Severe PACEMAKER Uncoded 05/04/16 10:37 (RV) 02/08/10 Home Medications Medication Instructions Recorded Confirmed Type acetaminophen [Tylenol] 325 mg PO Q6H PRN 01/10/18 01/10/18 History aspirin [Aspirin Low Dose] 81 mg PO DAILY 01/10/18 01/10/18 History atorvastatin 40 mg PO DAILY 01/10/18 01/10/18 History bumetanide 2 mg PO DAILY 01/10/18 01/10/18 History calcitriol 0.25 mcg PO Q OTHER DAY 01/10/18 01/10/18 History carvedilol 12.5 mg PO BID 01/10/18 01/10/18 History ciclopirox 1 applic TOPICAL BID 01/10/18 01/10/18 History gabapentin 300 mg PO QPM 01/10/18 01/10/18 History insulin glargine [Lantus U-100 10 unit SUB-Q HS 01/10/18 01/10/18 History Insulin] insulin glargine [Lantus U-100 15 unit SUB-Q AC 01/10/18 01/10/18 History Insulin] insulin lispro [Humalog KwikPen 100 unit SUB-Q DAILY 01/10/18 01/10/18 History Insulin] levothyroxine 25 mcg PO DAILY 01/10/18 01/10/18 History rivaroxaban [Xarelto] 15 mg PO DAILY 01/10/18 01/10/18 History sulfasalazine 0.5 g PO BID 01/10/18 01/10/18 History Exam Vital signs: Vital Signs 01/10/18 18:11 01/10/18 21:23 01/11/18 00:38 Temperature 97.9 F Pulse Rate 77 82 77 Respiratory Rate 16 17 17 Blood Pressure 136/63 124/58 L 106/54 L Pulse Oximetry 97 100 97 01/11/18 01:25 01/11/18 02:05 01/11/18 04:00 Temperature 97.7 F 97.3 F L Pulse Rate 76 79 76 Respiratory Rate 17 18 18 Blood Pressure 111/53 L 126/56 L 150/66 H Pulse Oximetry 97 94 L 95 01/11/18 08:00 Temperature 97.8 F Pulse Rate 75 Respiratory Rate 20 Blood Pressure 138/68 Pulse Oximetry 99 Intake & Output 01/10/18 01/11/18 01/11/18 18:59 06:59 18:59 Intake Total 800 / 800 Output Total 0 / 0 Balance 800 / 800 Weight 101.605 kg 103.2 kg Intake: IV 800 / 800 Cipro 400 MG/200 ML Inj 400 mg 200 / 200 In 200 ml @ 200 mls/hr IV.SIG Q24H [facility] Rx#:[id number] NS Inj 500 ML @ Wide Open IV. 500 / 500 SIG BOLUS [facility] Rx#:[id number] Flagyl 500 MG Inj 100 ML @ 100 100 / 100 mls/hr IV.SIG ONCE ONE Rx#: [id number] Oral 0 / 0 Output: Urine 0 / 0 Other: # Bowel Movements 0 - Constitutional no acute distress - Routine HEENT Exam Head: Present: normocephalic Eye: Absent: conjunctival icterus ENT: Present: mucous membranes dry - Routine Neck Exam Present: supple - Routine Chest/Breast/Axilla Exam Chest wall: Absent: tenderness - Routine Respiratory Exam Present: CTA bilaterally. Absent: accessory muscle use - Routine Cardiovascular Exam Present: RRR - Routine Abdominal Exam Present: soft, normoactive bowel sounds. Absent: tenderness, distended, guarding, firm - Routine Extremities Exam Present: edema, pulses intact. Absent: cyanosis - Routine Skin Exam Present: dry, warm. Absent: jaundice - Routine Neurological Exam Present: alert, oriented X3 <Barone,Betzaida - Last Filed: 01/11/18 15:00> Vital signs: Vital Signs 01/10/18 21:23 01/11/18 00:38 01/11/18 01:25 Temperature Pulse Rate 82 77 76 Respiratory Rate 17 17 17 Blood Pressure 124/58 L 106/54 L 111/53 L Pulse Oximetry 100 97 97 01/11/18 02:05 01/11/18 04:00 01/11/18 08:00 Temperature 97.7 F 97.3 F L 97.8 F Pulse Rate 79 76 72 Respiratory Rate 18 18 20 Blood Pressure 126/56 L 150/66 H 138/68 Pulse Oximetry 94 L 95 99 01/11/18 12:00 01/11/18 16:00 Temperature 97.5 F L 97.8 F Pulse Rate 76 71 Respiratory Rate 21 22 Blood Pressure 155/67 H 123/65 Pulse Oximetry 99 98 Intake & Output 01/11/18 01/11/18 01/12/18 06:59 18:59 06:59 Intake Total 800 / 800 200 / 200 Output Total 0 / 0 Balance 800 / 800 200 / 200 Weight 103.2 kg Intake: IV 800 / 800 200 / 200 Cipro 400 MG/200 ML Inj 400 mg 200 / 200 In 200 ml @ 200 mls/hr IV.SIG Q24H [facility] Rx#:[id number] NS Inj 500 ML @ Wide Open IV. 500 / 500 SIG BOLUS [facility] Rx#:[id number] Flagyl 500 MG Inj 100 ML @ 100 100 / 100 200 / 200 mls/hr IV.SIG Q8H [facility] Rx#: [id number] Oral 0 / 0 0 / 0 Output: Urine 0 / 0 Other: # Incontinent Voids 2 # Bowel Movements 0 <Ryan Loya E - Last Filed: 01/11/18 19:26> Results - Labs CBC & Chem 7: 01/11/18 04:56 01/11/18 04:56 Labs: Laboratory Results - last 24 hr 01/10/18 01/10/18 01/10/18 20:55 20:55 20:55 WBC 6.6 RBC 3.68 L Hgb 11.1 L Hct 34.6 L MCV 94.1 MCH 30.2 MCHC 32.1 RDW 18.9 H Plt Count 239 MPV 7.6 Prelim Diff (Auto) Neut % (Auto) 66.5 Lymph % (Auto) 18.2 [place] % (Auto) 13.7 H Eos % (Auto) 0.9 Baso % (Auto) 0.7 Neut # (Auto) 4.4 Lymph # (Auto) 1.2 [place] # (Auto) 0.9 Eos # (Auto) 0.1 Baso # (Auto) 0.0 WBC Differential . Seg Neuts % (Manual) Lymphocytes % (Manual) Monocytes % (Manual) Eosinophils % (Manual) Basophils % (Manual) Abs Neuts (Manual) Differential Comment Auto diff final Platelet Estimate Platelet Morphology PT INR APTT Sodium 139 Potassium 3.6 Chloride 101 Carbon Dioxide 26.1 Anion Gap 12 BUN 52 H Creatinine 2.94 H Estimated GFR 19 L POC Glucose Random Glucose 353 H Lactic Acid 2.6 H Calcium 8.3 L Total Bilirubin 1.2 H AST 44 H ALT 23 Alkaline Phosphatase 138 H Total Creatine Kinase 945 H CK-MB (CK-2) 6.8 H CK-MB (CK-2) % 0.7 Troponin I 0.08 H B-Natriuretic Peptide Total Protein 6.5 Albumin 2.8 L Lipase 55 L Urine Color Urine Clarity Urine pH Ur Specific [place] Urine Protein Urine Glucose (UA) Urine Ketones Urine Occult Blood Urine Nitrate Urine Bilirubin Urine Urobilinogen Ur Leukocyte Esterase Urine RBC Urine WBC Ur Squamous Epith Cells Urine Bacteria Hyaline Casts Micro UA Comment Ur Microscopic Review Urine Culture Comments Stl C.difficile Tox PCR St C. diff Tox Epid 027 01/10/18 01/10/18 01/10/18 20:55 20:55 20:55 WBC RBC Hgb Hct MCV MCH MCHC RDW Plt Count MPV Prelim Diff (Auto) Neut % (Auto) Lymph % (Auto) [place] % (Auto) Eos % (Auto) Baso % (Auto) Neut # (Auto) Lymph # (Auto) [place] # (Auto) Eos # (Auto) Baso # (Auto) WBC Differential Seg Neuts % (Manual) Lymphocytes % (Manual) Monocytes % (Manual) Eosinophils % (Manual) Basophils % (Manual) Abs Neuts (Manual) Differential Comment Platelet Estimate Platelet Morphology PT 14.1 H INR 1.4 APTT 30.3 H Sodium Potassium Chloride Carbon Dioxide Anion Gap BUN Creatinine Estimated GFR POC Glucose Random Glucose Lactic Acid Calcium Total Bilirubin AST ALT Alkaline Phosphatase Total Creatine Kinase CK-MB (CK-2) CK-MB (CK-2) % Troponin I B-Natriuretic Peptide 2587 H Total Protein Albumin Lipase Urine Color Urine Clarity Urine pH Ur Specific [place] Urine Protein Urine Glucose (UA) Urine Ketones Urine Occult Blood Urine Nitrate Urine Bilirubin Urine Urobilinogen Ur Leukocyte Esterase Urine RBC Urine WBC Ur Squamous Epith Cells Urine Bacteria Hyaline Casts Micro UA Comment Ur Microscopic Review Urine Culture Comments Stl C.difficile Tox PCR Cancelled St C. diff Tox Epid 027 Cancelled 01/10/18 01/10/18 01/11/18 21:05 21:36 00:37 WBC RBC Hgb Hct MCV MCH MCHC RDW Plt Count MPV Prelim Diff (Auto) Neut % (Auto) Lymph % (Auto) [place] % (Auto) Eos % (Auto) Baso % (Auto) Neut # (Auto) Lymph # (Auto) [place] # (Auto) Eos # (Auto) Baso # (Auto) WBC Differential Seg Neuts % (Manual) Lymphocytes % (Manual) Monocytes % (Manual) Eosinophils % (Manual) Basophils % (Manual) Abs Neuts (Manual) Differential Comment Platelet Estimate Platelet Morphology PT INR APTT Sodium Potassium Chloride Carbon Dioxide Anion Gap BUN Creatinine Estimated GFR POC Glucose 376 H 255 H Random Glucose Lactic Acid Calcium Total Bilirubin AST ALT Alkaline Phosphatase Total Creatine Kinase CK-MB (CK-2) CK-MB (CK-2) % Troponin I B-Natriuretic Peptide Total Protein Albumin Lipase Urine Color Yellow Urine Clarity Clear Urine pH 5.0 Ur Specific [place] 1.013 Urine Protein Negative Urine Glucose (UA) 500 or greater Urine Ketones Negative Urine Occult Blood Negative Urine Nitrate Negative Urine Bilirubin Negative Urine Urobilinogen 4 or greater Ur Leukocyte Esterase Negative Urine RBC Less than 1 Urine WBC Less than 1 Ur Squamous Epith Cells 1 Urine Bacteria Moderate H Hyaline Casts 50 Micro UA Comment Culture indicated Ur Microscopic Review Not Reportable Urine Culture Comments Culture indicated Stl C.difficile Tox PCR St C. diff Tox Epid 027 01/11/18 01/11/18 01/11/18 03:10 04:56 04:56 WBC 6.3 RBC 3.70 L Hgb 11.2 L Hct 34.4 L MCV 93.1 MCH 30.2 MCHC 32.4 RDW 18.5 H Plt Count 231 MPV 7.6 Prelim Diff (Auto) Manual diff required Neut % (Auto) Lymph % (Auto) [place] % (Auto) Eos % (Auto) Baso % (Auto) Neut # (Auto) Lymph # (Auto) [place] # (Auto) Eos # (Auto) Baso # (Auto) WBC Differential Manual diff final Seg Neuts % (Manual) 70 Lymphocytes % (Manual) 16 Monocytes % (Manual) 11 H Eosinophils % (Manual) 2 Basophils % (Manual) 1 Abs Neuts (Manual) 4.4 Differential Comment . Platelet Estimate Normal Platelet Morphology Normal PT INR APTT Sodium 138 Potassium 3.5 Chloride 101 Carbon Dioxide 24.2 Anion Gap 13 BUN 53 H Creatinine 2.80 H Estimated GFR 20 L POC Glucose 248 H Random Glucose 236 H D Lactic Acid Calcium 8.0 L Total Bilirubin 1.1 H AST 40 H ALT 22 Alkaline Phosphatase 121 H Total Creatine Kinase 854 H CK-MB (CK-2) 5.6 H CK-MB (CK-2) % 0.7 Troponin I 0.08 H B-Natriuretic Peptide Total Protein 6.6 Albumin 2.8 L Lipase Urine Color Urine Clarity Urine pH Ur Specific [place] Urine Protein Urine Glucose (UA) Urine Ketones Urine Occult Blood Urine Nitrate Urine Bilirubin Urine Urobilinogen Ur Leukocyte Esterase Urine RBC Urine WBC Ur Squamous Epith Cells Urine Bacteria Hyaline Casts Micro UA Comment Ur Microscopic Review Urine Culture Comments Stl C.difficile Tox PCR St C. diff Tox Epid 027 01/11/18 09:20 WBC RBC Hgb Hct MCV MCH MCHC RDW Plt Count MPV Prelim Diff (Auto) Neut % (Auto) Lymph % (Auto) [place] % (Auto) Eos % (Auto) Baso % (Auto) Neut # (Auto) Lymph # (Auto) [place] # (Auto) Eos # (Auto) Baso # (Auto) WBC Differential Seg Neuts % (Manual) Lymphocytes % (Manual) Monocytes % (Manual) Eosinophils % (Manual) Basophils % (Manual) Abs Neuts (Manual) Differential Comment Platelet Estimate Platelet Morphology PT INR APTT Sodium Potassium Chloride Carbon Dioxide Anion Gap BUN Creatinine Estimated GFR POC Glucose 175 H Random Glucose Lactic Acid Calcium Total Bilirubin AST ALT Alkaline Phosphatase Total Creatine Kinase CK-MB (CK-2) CK-MB (CK-2) % Troponin I B-Natriuretic Peptide Total Protein Albumin Lipase Urine Color Urine Clarity Urine pH Ur Specific [place] Urine Protein Urine Glucose (UA) Urine Ketones Urine Occult Blood Urine Nitrate Urine Bilirubin Urine Urobilinogen Ur Leukocyte Esterase Urine RBC Urine WBC Ur Squamous Epith Cells Urine Bacteria Hyaline Casts Micro UA Comment Ur Microscopic Review Urine Culture Comments Stl C.difficile Tox PCR St C. diff Tox Epid 027 - Imaging Impressions Chest X-Ray 01/10/18 19:53 CONCLUSION: Minimal basilar atelectasis. Cardiomegaly. Pacer lead in right ventricle. Head CT 01/10/18 19:57 CONCLUSION: 1. No acute intracranial abnormalities. . Abdomen/Pelvis CT 01/10/18 21:48 CONCLUSION: 1. Questionable mild thickening of the left colon which may indicate a mild colitis. 2. Moderate anasarca. Small left pleural effusion. Multiple layering gallstones. <Betzaida Barone - Last Filed: 01/11/18 15:00> - Labs CBC & Chem 7: 01/11/18 04:56 01/11/18 04:56 Labs: Laboratory Results - last 24 hr 01/10/18 01/10/18 01/10/18 20:55 20:55 20:55 WBC 6.6 RBC 3.68 L Hgb 11.1 L Hct 34.6 L MCV 94.1 MCH 30.2 MCHC 32.1 RDW 18.9 H Plt Count 239 MPV 7.6 Prelim Diff (Auto) Neut % (Auto) 66.5 Lymph % (Auto) 18.2 [place] % (Auto) 13.7 H Eos % (Auto) 0.9 Baso % (Auto) 0.7 Neut # (Auto) 4.4 Lymph # (Auto) 1.2 [place] # (Auto) 0.9 Eos # (Auto) 0.1 Baso # (Auto) 0.0 WBC Differential . Seg Neuts % (Manual) Lymphocytes % (Manual) Monocytes % (Manual) Eosinophils % (Manual) Basophils % (Manual) Abs Neuts (Manual) Differential Comment Auto diff final Platelet Estimate Platelet Morphology PT INR APTT Sodium 139 Potassium 3.6 Chloride 101 Carbon Dioxide 26.1 Anion Gap 12 BUN 52 H Creatinine 2.94 H Estimated GFR 19 L POC Glucose Random Glucose 353 H Lactic Acid 2.6 H Calcium 8.3 L Total Bilirubin 1.2 H AST 44 H ALT 23 Alkaline Phosphatase 138 H Total Creatine Kinase 945 H CK-MB (CK-2) 6.8 H CK-MB (CK-2) % 0.7 Troponin I 0.08 H B-Natriuretic Peptide Total Protein 6.5 Albumin 2.8 L Lipase 55 L Urine Color Urine Clarity Urine pH Ur Specific [place] Urine Protein Urine Glucose (UA) Urine Ketones Urine Occult Blood Urine Nitrate Urine Bilirubin Urine Urobilinogen Ur Leukocyte Esterase Urine RBC Urine WBC Ur Squamous Epith Cells Urine Bacteria Hyaline Casts Micro UA Comment Ur Microscopic Review Urine Culture Comments Stl C.difficile Tox PCR St C. diff Tox Epid 027 01/10/18 01/10/18 01/10/18 20:55 20:55 20:55 WBC RBC Hgb Hct MCV MCH MCHC RDW Plt Count MPV Prelim Diff (Auto) Neut % (Auto) Lymph % (Auto) [place] % (Auto) Eos % (Auto) Baso % (Auto) Neut # (Auto) Lymph # (Auto) [place] # (Auto) Eos # (Auto) Baso # (Auto) WBC Differential Seg Neuts % (Manual) Lymphocytes % (Manual) Monocytes % (Manual) Eosinophils % (Manual) Basophils % (Manual) Abs Neuts (Manual) Differential Comment Platelet Estimate Platelet Morphology PT 14.1 H INR 1.4 APTT 30.3 H Sodium Potassium Chloride Carbon Dioxide Anion Gap BUN Creatinine Estimated GFR POC Glucose Random Glucose Lactic Acid Calcium Total Bilirubin AST ALT Alkaline Phosphatase Total Creatine Kinase CK-MB (CK-2) CK-MB (CK-2) % Troponin I B-Natriuretic Peptide 2587 H Total Protein Albumin Lipase Urine Color Urine Clarity Urine pH Ur Specific [place] Urine Protein Urine Glucose (UA) Urine Ketones Urine Occult Blood Urine Nitrate Urine Bilirubin Urine Urobilinogen Ur Leukocyte Esterase Urine RBC Urine WBC Ur Squamous Epith Cells Urine Bacteria Hyaline Casts Micro UA Comment Ur Microscopic Review Urine Culture Comments Stl C.difficile Tox PCR Cancelled St C. diff Tox Epid 027 Cancelled 01/10/18 01/10/18 01/11/18 21:05 21:36 00:37 WBC RBC Hgb Hct MCV MCH MCHC RDW Plt Count MPV Prelim Diff (Auto) Neut % (Auto) Lymph % (Auto) [place] % (Auto) Eos % (Auto) Baso % (Auto) Neut # (Auto) Lymph # (Auto) [place] # (Auto) Eos # (Auto) Baso # (Auto) WBC Differential Seg Neuts % (Manual) Lymphocytes % (Manual) Monocytes % (Manual) Eosinophils % (Manual) Basophils % (Manual) Abs Neuts (Manual) Differential Comment Platelet Estimate Platelet Morphology PT INR APTT Sodium Potassium Chloride Carbon Dioxide Anion Gap BUN Creatinine Estimated GFR POC Glucose 376 H 255 H Random Glucose Lactic Acid Calcium Total Bilirubin AST ALT Alkaline Phosphatase Total Creatine Kinase CK-MB (CK-2) CK-MB (CK-2) % Troponin I B-Natriuretic Peptide Total Protein Albumin Lipase Urine Color Yellow Urine Clarity Clear Urine pH 5.0 Ur Specific [place] 1.013 Urine Protein Negative Urine Glucose (UA) 500 or greater Urine Ketones Negative Urine Occult Blood Negative Urine Nitrate Negative Urine Bilirubin Negative Urine Urobilinogen 4 or greater Ur Leukocyte Esterase Negative Urine RBC Less than 1 Urine WBC Less than 1 Ur Squamous Epith Cells 1 Urine Bacteria Moderate H Hyaline Casts 50 Micro UA Comment Culture indicated Ur Microscopic Review Not Reportable Urine Culture Comments Culture indicated Stl C.difficile Tox PCR St C. diff Tox Epid 027 01/11/18 01/11/18 01/11/18 03:10 04:56 04:56 WBC 6.3 RBC 3.70 L Hgb 11.2 L Hct 34.4 L MCV 93.1 MCH 30.2 MCHC 32.4 RDW 18.5 H Plt Count 231 MPV 7.6 Prelim Diff (Auto) Manual diff required Neut % (Auto) Lymph % (Auto) [place] % (Auto) Eos % (Auto) Baso % (Auto) Neut # (Auto) Lymph # (Auto) [place] # (Auto) Eos # (Auto) Baso # (Auto) WBC Differential Manual diff final Seg Neuts % (Manual) 70 Lymphocytes % (Manual) 16 Monocytes % (Manual) 11 H Eosinophils % (Manual) 2 Basophils % (Manual) 1 Abs Neuts (Manual) 4.4 Differential Comment . Platelet Estimate Normal Platelet Morphology Normal PT INR APTT Sodium 138 Potassium 3.5 Chloride 101 Carbon Dioxide 24.2 Anion Gap 13 BUN 53 H Creatinine 2.80 H Estimated GFR 20 L POC Glucose 248 H Random Glucose 236 H D Lactic Acid Calcium 8.0 L Total Bilirubin 1.1 H AST 40 H ALT 22 Alkaline Phosphatase 121 H Total Creatine Kinase 854 H CK-MB (CK-2) 5.6 H CK-MB (CK-2) % 0.7 Troponin I 0.08 H B-Natriuretic Peptide Total Protein 6.6 Albumin 2.8 L Lipase Urine Color Urine Clarity Urine pH Ur Specific [place] Urine Protein Urine Glucose (UA) Urine Ketones Urine Occult Blood Urine Nitrate Urine Bilirubin Urine Urobilinogen Ur Leukocyte Esterase Urine RBC Urine WBC Ur Squamous Epith Cells Urine Bacteria Hyaline Casts Micro UA Comment Ur Microscopic Review Urine Culture Comments Stl C.difficile Tox PCR St C. diff Tox Epid 027 01/11/18 01/11/1818 09:20 12:32 12:53 WBC RBC Hgb Hct MCV MCH MCHC RDW Plt Count MPV Prelim Diff (Auto) Neut % (Auto) Lymph % (Auto) [place] % (Auto) Eos % (Auto) Baso % (Auto) Neut # (Auto) Lymph # (Auto) [place] # (Auto) Eos # (Auto) Baso # (Auto) WBC Differential Seg Neuts % (Manual) Lymphocytes % (Manual) Monocytes % (Manual) Eosinophils % (Manual) Basophils % (Manual) Abs Neuts (Manual) Differential Comment Platelet Estimate Platelet Morphology PT INR APTT Sodium Potassium Chloride Carbon Dioxide Anion Gap BUN Creatinine Estimated GFR POC Glucose 175 H 182 H Random Glucose Lactic Acid Calcium Total Bilirubin AST ALT Alkaline Phosphatase Total Creatine Kinase 750 H CK-MB (CK-2) 4.6 H CK-MB (CK-2) % 0.6 Troponin I 0.08 H B-Natriuretic Peptide Total Protein Albumin Lipase Urine Color Urine Clarity Urine pH Ur Specific [place] Urine Protein Urine Glucose (UA) Urine Ketones Urine Occult Blood Urine Nitrate Urine Bilirubin Urine Urobilinogen Ur Leukocyte Esterase Urine RBC Urine WBC Ur Squamous Epith Cells Urine Bacteria Hyaline Casts Micro UA Comment Ur Microscopic Review Urine Culture Comments Stl C.difficile Tox PCR St C. diff Tox Epid 027 01/11/18 01/11/18 01/11/18 12:53 17:38 18:05 WBC RBC Hgb Hct MCV MCH MCHC RDW Plt Count MPV Prelim Diff (Auto) Neut % (Auto) Lymph % (Auto) [place] % (Auto) Eos % (Auto) Baso % (Auto) Neut # (Auto) Lymph # (Auto) [place] # (Auto) Eos # (Auto) Baso # (Auto) WBC Differential Seg Neuts % (Manual) Lymphocytes % (Manual) Monocytes % (Manual) Eosinophils % (Manual) Basophils % (Manual) Abs Neuts (Manual) Differential Comment Platelet Estimate Platelet Morphology PT INR APTT Sodium Potassium Chloride Carbon Dioxide Anion Gap BUN Creatinine Estimated GFR POC Glucose 256 H Random Glucose Lactic Acid 1.9 Calcium Total Bilirubin AST ALT Alkaline Phosphatase Total Creatine Kinase 665 H CK-MB (CK-2) 3.5 CK-MB (CK-2) % 0.5 Troponin I 0.07 H B-Natriuretic Peptide Total Protein Albumin Lipase Urine Color Urine Clarity Urine pH Ur Specific [place] Urine Protein Urine Glucose (UA) Urine Ketones Urine Occult Blood Urine Nitrate Urine Bilirubin Urine Urobilinogen Ur Leukocyte Esterase Urine RBC Urine WBC Ur Squamous Epith Cells Urine Bacteria Hyaline Casts Micro UA Comment Ur Microscopic Review Urine Culture Comments Stl C.difficile Tox PCR St C. diff Tox Epid 027 - Imaging Impressions Chest X-Ray 01/10/18 19:53 CONCLUSION: Minimal basilar atelectasis. Cardiomegaly. Pacer lead in right ventricle. Head CT 01/10/18 19:57 CONCLUSION: 1. No acute intracranial abnormalities. . Abdomen/Pelvis CT 01/10/18 21:48 CONCLUSION: 1. Questionable mild thickening of the left colon which may indicate a mild colitis. 2. Moderate anasarca. Small left pleural effusion. Multiple layering gallstones. <Ryan Loya - Last Filed: 01/11/18 19:26> Assessment and Plan (1) Heme + stool Status: Acute Code(s): R19.5 - Other fecal abnormalities (2) Colitis Status: Acute Code(s): K52.9 - Noninfective gastroenteritis and colitis, unspecified - Plan Mrs. Reid is an 82-year-old female with past medical history significant for anemia, congestive heart failure, CVA ,chronic kidney disease, diabetes, GERD hypertension, hyperlipidemia, hypothyroidism and coronary artery disease. Patient presented to the emergency room yesterday January 10, 2018 with complaint of diarrhea. Patient reports onset of diarrhea 4 days ago with nausea and no vomiting she reports that stools were brown with no obvious noted blood. Stools were heme positive upon arrival to ER with hemoglobin 11.1 hematocrit 34.6. Patient states she has not had any further loose stools since yesterday afternoon. Patient currently on Xarelto for atrial fibrillation. I spoke with patient's RN who stated patient is in sinus rhythm at this time. Patient states that along with diarrhea for 4 days she has felt achy and weak reports chills but denies fever. Patient denies any use of antibiotics recently denies any sick contacts and also denies any travel outside of the country. Denies any known family history of gastrointestinal cancers. Patient states last colonoscopy was done 5 years ago and she was not informed that she had any polyps. EGD was done at that time per patient which she states was also normal. She denies any difficulty swallowing medications or liquids but does report that she does have occasionally a sensation of food feeling stuck in her throat that is resolved by increase fluid intake. Denies coughing choking heartburn or pain with swallowing. She states she does not currently have a GI doctor following her. Patient denies smoking or EtOH use. She denies the use of NSAIDs and states she takes aspirin 81 mg daily. 01/11/2018 labs reveal WBC 6.3 hemoglobin 11.2 hematocrit 34.4 INR 1.4 total bilirubin 1.1 AST 40 ALT 22 alkaline phosphatase 121 with a total creatinine kinase of 854 and a troponin of 0.08 of note patient had elevated BNP of 2587. I spoke with patient's RN who stated patient is in sinus rhythm at this time. 01/10/[address] of the abdomen and pelvis with the following findings-->There is a small left-sided pleural effusion with some basilar atelectasis. No right effusion. Heart size enlarged. Pacer lead overlies right ventricle.No acute findings in the liver, spleen, kidneys or pancreas. Adrenal glands are mildly enlarged stable from 2014. Multiple layering gallstones.No pelvic mass or free fluid. Moderate anasarca. Conclusion --> Questionable mild thickening of the left colon which may indicate a mild colitis. Moderate anasarca. Small left pleural effusion. Multiple layering gallstones. Due to CT findings of questionable colitis patient is currently receiving ciprofloxacin 400 mg IV every 24 hours as well as Flagyl 500 mg IV every 8 hours. Plan: -May have clear liquids today-diabetic diet -Continue to monitor labs with close attention to hemoglobin and hematocrit -Continue IV antibiotics-for colitis -Continue PPI -Avoid NSAIDs and high-dose aspirin -May need to hold Xarelto if Colonoscopy planned -Further recommendations to follow This patient has been seen by myself and Dr. Loya and this note is written on his behalf <Betzaida Barone - Last Filed: 01/11/18 15:00> (1) Heme + stool Status: Acute Code(s): R19.5 - Other fecal abnormalities (2) Colitis Status: Acute Code(s): K52.9 - Noninfective gastroenteritis and colitis, unspecified - Plan Patient seen and examined Agree with above continue with current supportive care Monitor labs Plan on colonoscopy on Sunday <Ryan Loya - Last Filed: 01/11/18 19:26>
--- NOTE | 2018-01-11 12:31 | P.PNIM ---
Subjective Interval history: The patient is lying down in bed. She does not have any significant complaints other than loose stools. No complaints of shortness of breath. Physical Exam Vital signs: Vital Signs 01/10/18 18:11 01/10/18 21:23 01/11/18 00:38 Temperature 97.9 F Pulse Rate 77 82 77 Respiratory Rate 16 17 17 Blood Pressure 136/63 124/58 L 106/54 L Pulse Oximetry 97 100 97 01/11/18 01:25 01/11/18 02:05 01/11/18 04:00 Temperature 97.7 F 97.3 F L Pulse Rate 76 79 76 Respiratory Rate 17 18 18 Blood Pressure 111/53 L 126/56 L 150/66 H Pulse Oximetry 97 94 L 95 01/11/18 08:00 01/11/18 12:00 Temperature 97.8 F 97.5 F L Pulse Rate 72 74 Respiratory Rate 20 21 Blood Pressure 138/68 155/67 H Pulse Oximetry 99 99 Intake & Output 01/10/18 01/11/18 01/11/18 18:59 06:59 18:59 Intake Total 800 / 800 100 / 100 Output Total 0 / 0 Balance 800 / 800 100 / 100 Weight 101.605 kg 103.2 kg Intake: IV 800 / 800 100 / 100 Cipro 400 MG/200 ML Inj 400 mg 200 / 200 In 200 ml @ 200 mls/hr IV.SIG Q24H EDIL Rx#:[id number] NS Inj 500 ML @ Wide Open IV. 500 / 500 SIG BOLUS EDIL Rx#:[id number] Flagyl 500 MG Inj 100 ML @ 100 100 / 100 100 / 100 mls/hr IV.SIG Q8H EDIL Rx#: [id number] Oral 0 / 0 Output: Urine 0 / 0 Other: # Bowel Movements 0 Narrative: General patient in no acute distress HEENT extraocular movements are intact, clear oropharyngeal mucosa, no JVD Cardiovascular S1-S2 audible, RRR, no murmurs rubs or gallops Respiratory clear to auscultation bilaterally Abdomen soft, obese, nontender, nondistended, normal bowel sounds Extremities 2+ pitting edema bilateral lower extremities up to the shins. Neuro patient moves all 4 extremities sensation is intact bilaterally. Patient states she is ambulatory at baseline. Results - Labs CBC & Chem 7: 01/11/18 04:56 01/11/18 04:56 Laboratory Results - last 24 hr 01/10/18 01/10/18 01/10/18 20:55 20:55 20:55 WBC 6.6 RBC 3.68 L Hgb 11.1 L Hct 34.6 L MCV 94.1 MCH 30.2 MCHC 32.1 RDW 18.9 H Plt Count 239 MPV 7.6 Prelim Diff (Auto) Neut % (Auto) 66.5 Lymph % (Auto) 18.2 [place] % (Auto) 13.7 H Eos % (Auto) 0.9 Baso % (Auto) 0.7 Neut # (Auto) 4.4 Lymph # (Auto) 1.2 [place] # (Auto) 0.9 Eos # (Auto) 0.1 Baso # (Auto) 0.0 WBC Differential . Seg Neuts % (Manual) Lymphocytes % (Manual) Monocytes % (Manual) Eosinophils % (Manual) Basophils % (Manual) Abs Neuts (Manual) Differential Comment Auto diff final Platelet Estimate Platelet Morphology PT INR APTT Sodium 139 Potassium 3.6 Chloride 101 Carbon Dioxide 26.1 Anion Gap 12 BUN 52 H Creatinine 2.94 H Estimated GFR 19 L POC Glucose Random Glucose 353 H Lactic Acid 2.6 H Calcium 8.3 L Total Bilirubin 1.2 H AST 44 H ALT 23 Alkaline Phosphatase 138 H Total Creatine Kinase 945 H CK-MB (CK-2) 6.8 H CK-MB (CK-2) % 0.7 Troponin I 0.08 H B-Natriuretic Peptide Total Protein 6.5 Albumin 2.8 L Lipase 55 L Urine Color Urine Clarity Urine pH Ur Specific [place] Urine Protein Urine Glucose (UA) Urine Ketones Urine Occult Blood Urine Nitrate Urine Bilirubin Urine Urobilinogen Ur Leukocyte Esterase Urine RBC Urine WBC Ur Squamous Epith Cells Urine Bacteria Hyaline Casts Micro UA Comment Ur Microscopic Review Urine Culture Comments Stl C.difficile Tox PCR St C. diff Tox Epid 027 01/10/18 01/10/18 01/10/18 20:55 20:55 20:55 WBC RBC Hgb Hct MCV MCH MCHC RDW Plt Count MPV Prelim Diff (Auto) Neut % (Auto) Lymph % (Auto) [place] % (Auto) Eos % (Auto) Baso % (Auto) Neut # (Auto) Lymph # (Auto) [place] # (Auto) Eos # (Auto) Baso # (Auto) WBC Differential Seg Neuts % (Manual) Lymphocytes % (Manual) Monocytes % (Manual) Eosinophils % (Manual) Basophils % (Manual) Abs Neuts (Manual) Differential Comment Platelet Estimate Platelet Morphology PT 14.1 H INR 1.4 APTT 30.3 H Sodium Potassium Chloride Carbon Dioxide Anion Gap BUN Creatinine Estimated GFR POC Glucose Random Glucose Lactic Acid Calcium Total Bilirubin AST ALT Alkaline Phosphatase Total Creatine Kinase CK-MB (CK-2) CK-MB (CK-2) % Troponin I B-Natriuretic Peptide 2587 H Total Protein Albumin Lipase Urine Color Urine Clarity Urine pH Ur Specific [place] Urine Protein Urine Glucose (UA) Urine Ketones Urine Occult Blood Urine Nitrate Urine Bilirubin Urine Urobilinogen Ur Leukocyte Esterase Urine RBC Urine WBC Ur Squamous Epith Cells Urine Bacteria Hyaline Casts Micro UA Comment Ur Microscopic Review Urine Culture Comments Stl C.difficile Tox PCR Cancelled St C. diff Tox Epid 027 Cancelled 01/10/18 01/10/18 01/11/18 21:05 21:36 00:37 WBC RBC Hgb Hct MCV MCH MCHC RDW Plt Count MPV Prelim Diff (Auto) Neut % (Auto) Lymph % (Auto) [place] % (Auto) Eos % (Auto) Baso % (Auto) Neut # (Auto) Lymph # (Auto) [place] # (Auto) Eos # (Auto) Baso # (Auto) WBC Differential Seg Neuts % (Manual) Lymphocytes % (Manual) Monocytes % (Manual) Eosinophils % (Manual) Basophils % (Manual) Abs Neuts (Manual) Differential Comment Platelet Estimate Platelet Morphology PT INR APTT Sodium Potassium Chloride Carbon Dioxide Anion Gap BUN Creatinine Estimated GFR POC Glucose 376 H 255 H Random Glucose Lactic Acid Calcium Total Bilirubin AST ALT Alkaline Phosphatase Total Creatine Kinase CK-MB (CK-2) CK-MB (CK-2) % Troponin I B-Natriuretic Peptide Total Protein Albumin Lipase Urine Color Yellow Urine Clarity Clear Urine pH 5.0 Ur Specific [place] 1.013 Urine Protein Negative Urine Glucose (UA) 500 or greater Urine Ketones Negative Urine Occult Blood Negative Urine Nitrate Negative Urine Bilirubin Negative Urine Urobilinogen 4 or greater Ur Leukocyte Esterase Negative Urine RBC Less than 1 Urine WBC Less than 1 Ur Squamous Epith Cells 1 Urine Bacteria Moderate H Hyaline Casts 50 Micro UA Comment Culture indicated Ur Microscopic Review Not Reportable Urine Culture Comments Culture indicated Stl C.difficile Tox PCR St C. diff Tox Epid 027 01/11/18 01/11/18 01/11/18 03:10 04:56 04:56 WBC 6.3 RBC 3.70 L Hgb 11.2 L Hct 34.4 L MCV 93.1 MCH 30.2 MCHC 32.4 RDW 18.5 H Plt Count 231 MPV 7.6 Prelim Diff (Auto) Manual diff required Neut % (Auto) Lymph % (Auto) [place] % (Auto) Eos % (Auto) Baso % (Auto) Neut # (Auto) Lymph # (Auto) [place] # (Auto) Eos # (Auto) Baso # (Auto) WBC Differential Manual diff final Seg Neuts % (Manual) 70 Lymphocytes % (Manual) 16 Monocytes % (Manual) 11 H Eosinophils % (Manual) 2 Basophils % (Manual) 1 Abs Neuts (Manual) 4.4 Differential Comment . Platelet Estimate Normal Platelet Morphology Normal PT INR APTT Sodium 138 Potassium 3.5 Chloride 101 Carbon Dioxide 24.2 Anion Gap 13 BUN 53 H Creatinine 2.80 H Estimated GFR 20 L POC Glucose 248 H Random Glucose 236 H D Lactic Acid Calcium 8.0 L Total Bilirubin 1.1 H AST 40 H ALT 22 Alkaline Phosphatase 121 H Total Creatine Kinase 854 H CK-MB (CK-2) 5.6 H CK-MB (CK-2) % 0.7 Troponin I 0.08 H B-Natriuretic Peptide Total Protein 6.6 Albumin 2.8 L Lipase Urine Color Urine Clarity Urine pH Ur Specific [place] Urine Protein Urine Glucose (UA) Urine Ketones Urine Occult Blood Urine Nitrate Urine Bilirubin Urine Urobilinogen Ur Leukocyte Esterase Urine RBC Urine WBC Ur Squamous Epith Cells Urine Bacteria Hyaline Casts Micro UA Comment Ur Microscopic Review Urine Culture Comments Stl C.difficile Tox PCR St C. diff Tox Epid 027 01/11/18 09:20 WBC RBC Hgb Hct MCV MCH MCHC RDW Plt Count MPV Prelim Diff (Auto) Neut % (Auto) Lymph % (Auto) [place] % (Auto) Eos % (Auto) Baso % (Auto) Neut # (Auto) Lymph # (Auto) [place] # (Auto) Eos # (Auto) Baso # (Auto) WBC Differential Seg Neuts % (Manual) Lymphocytes % (Manual) Monocytes % (Manual) Eosinophils % (Manual) Basophils % (Manual) Abs Neuts (Manual) Differential Comment Platelet Estimate Platelet Morphology PT INR APTT Sodium Potassium Chloride Carbon Dioxide Anion Gap BUN Creatinine Estimated GFR POC Glucose 175 H Random Glucose Lactic Acid Calcium Total Bilirubin AST ALT Alkaline Phosphatase Total Creatine Kinase CK-MB (CK-2) CK-MB (CK-2) % Troponin I B-Natriuretic Peptide Total Protein Albumin Lipase Urine Color Urine Clarity Urine pH Ur Specific [place] Urine Protein Urine Glucose (UA) Urine Ketones Urine Occult Blood Urine Nitrate Urine Bilirubin Urine Urobilinogen Ur Leukocyte Esterase Urine RBC Urine WBC Ur Squamous Epith Cells Urine Bacteria Hyaline Casts Micro UA Comment Ur Microscopic Review Urine Culture Comments Stl C.difficile Tox PCR St C. diff Tox Epid 027 - Imaging Impressions Chest X-Ray 01/10/18 19:53 CONCLUSION: Minimal basilar atelectasis. Cardiomegaly. Pacer lead in right ventricle. Head CT 01/10/18 19:57 CONCLUSION: 1. No acute intracranial abnormalities. . Abdomen/Pelvis CT 01/10/18 21:48 CONCLUSION: 1. Questionable mild thickening of the left colon which may indicate a mild colitis. 2. Moderate anasarca. Small left pleural effusion. Multiple layering gallstones. Assessment and Plan - Plan 82-year-old female with past medical history significant for anemia, CHF with defibrillator placement, previous CVA, chronic kidney disease, diabetes, GERD, hypertension, hyperlipidemia, hypothyroidism and CAD presents to the emergency department for the evaluation of diarrhea and abdominal pain. States that she lives at home alone and was having loose stools and came into our emergency department because she needed a place to go for help. Assessment and plan: 1. Abdominal pain/diarrhea CT scan of the abdomen and pelvis shows some thickening of the left side of the colon which is concerning for possible colitis. C. difficile has been ordered and is currently pending. The patient is on antibiotics with Cipro and Flagyl. GI has been consulted and they recommend continuing antibiotics, Protonix. They also recommend monitoring the patient's hemoglobin level. There is no significant drop in the patient's hemoglobin from yesterday to today. Patient states that she has brown colored stool over the past few days while at home. 2. Elevated troponin Likely secondary to heart failure. The patient denies having any chest pain. EKG shows sinus rhythm with T-wave inversions in the lateral leads. When compared to an EKG in 2015 the patient also had a similar EKG. We will follow- up the next set of troponins. Continue aspirin, statin, beta-alexa. Cardiology will be consulted to evaluate the patient for elevated troponin level if there is a significant elevation of the patient's troponins. 2. Chronic kidney disease The patient has a creatinine of 2.8 today slightly lower than yesterday. I will continue to monitor the patient's serum creatinine. This is likely progression of chronic kidney disease when her creatinine was 2.2 and 2016. 3. CHF The patient has an ejection fraction of 25-30%. Status post defibrillator placement. BNP was elevated on admission. Chest x-ray does not show any significant pulmonary vascular congestion. She has no compulsive shortness of breath and is currently on room air. She was lying flat in the bed when I evaluated her and she did not have any complaints. Continue aspirin, statin, beta-alexa. She does have some lower extremity edema. Continue IV diuretics. We will switch to p.o. diuretics after she is diuresed. 4. Diabetes mellitus She was initially placed n.p.o. because of the abdominal pain and diarrhea. I decreased patient's insulin dose regimen. We will adjust the patient's insulin medication regimen as needed. Continue Accu-Cheks q. before meals at bedtime. 5. Hypertension/hyperlipidemia/hypothyroidism Continue home medication 6. History of CVA Patient anticoagulated on Xarelto. We will continue Xarelto. At this time is unclear why the patient was started on Xarelto will try to discuss this with the family to obtain more information. 8. Elevated lactic acid Status post 500 cc bolus in the ED Repeat pending No signs of sepsis
[2018-01-11 13:35] LABS: Troponin I 0.08 ng/mL (0.02-0.05)
[2018-01-11 13:47] LABS: CKMB Percent 0.6 % (0.0-4.0); Creatine Kinase MB 4.6 ng/mL (0.5-3.6)
[2018-01-11] MEDS: Gabapentin 300 MG Capsule PO SCH (17:38)
[2018-01-11 18:55] LABS: Troponin I 0.07 ng/mL (0.02-0.05)
[2018-01-11 19:07] LABS: CKMB Percent 0.5 % (0.0-4.0); Creatine Kinase MB 3.5 ng/mL (0.5-3.6)
[2018-01-11] MEDS ORDERED: Insulin Detemir Inj 1,000 UNIT/10 ML Vial SQ SCH (21:00)
[2018-01-12] MEDS: Pantoprazole Inj 40 MG Vial IV.PUSH SCH ×3 (00:42→23:55)
[2018-01-12] MEDS: Ciprofloxacin 400 MG/200 ML 400 MG/200 ML PIGGYBACK IV.SIG SCH (00:42)
--- NOTE | 2018-01-12 00:58 | ECG ---
Date Performed: 01/11/2018 Time Performed: 06:52:56 PTAGE: 82 years EKG: Sinus rhythm . Prolonged QT interval Leftward axis Possible anterior infarct - age undetermined Inferior/lateral S T-T changes may be due to myocardial ischemia Abnormal ECG PREVIOUS TRACING : 01/10/2018 20.22 Since the previous tracing, no significant change noted DOCTOR: Chet Trevino Interpretating Date/Time 01/12/2018 00:57:26
--- NOTE | 2018-01-12 02:06 | MB ---
cc: Chet Trevino DO DATE: 01/11/2018 REASON FOR CONSULTATION: Elevated troponin. HISTORY OF PRESENT ILLNESS: Parul Reid is a pleasant 82-year-old female who sees my partner, Dr. Espinoza, in the office and presented to [facility] due to overall weakness as well as a fall. Apparently, this has been going on for the past few weeks and she just feels generally overall weak. She has recently had diarrhea and that also is part of the reason why she came in. While here, she was noted to have some mild edema and BNP was checked, which was elevated. At that time, they decided to check a troponin and it was minimally elevated at 0.08. I was asked to see the patient due to the elevation in troponin. In seeing her, she is hemodynamically stable without chest pain or shortness of breath. PAST MEDICAL HISTORY: 1. Anemia. 2. History of CVA. 3. Cardiomyopathy. 4. Cervicalgia. 5. Chronic kidney disease. 6. Depression. 7. Diabetes. 8. GERD. 9. Gastroenteritis. 10. Hypertension. 11. Hyperlipidemia. 12. Hypothyroidism. 13. Morbid obesity. 14. Peripheral neuropathy. PAST SURGICAL HISTORY: 1. AICD generator replacement (09/24/2015) with a Med[employer]onic Evera device. 2. Neck surgery. ALLERGIES: 1. AMOXICILLIN. 2. METHYLPREDNISOLONE. 3. LISINOPRIL. MEDICATIONS: 1. Lantus 10 units every night, 15 units every morning. 2. Lipitor 40 mg daily. 3. Xarelto 15 mg daily. 4. Calcitriol 0.25 mcg every other day. 5. Gabapentin 300 mg every night. 6. Bumex 2 mg daily. 7. Coreg 12.5 mg b.i.d. 8. Humalog sliding scale. 9. Sulfasalazine 0.5 g b.i.d. 10. Synthroid 25 mcg daily. 11. Aspirin 81 mg daily. FAMILY HISTORY: Denies sudden cardiac within the family. SOCIAL HISTORY: The patient denies tobacco, alcohol or drug abuse. REVIEW OF SYSTEMS: Fourteen systems were reviewed including osteopathic. Pertinent positives and negatives above, otherwise negative. PHYSICAL EXAMINATION: VITAL SIGNS: Temperature 97.8, heart rate 71, blood pressure 123/65, respirations 20, pulse oximetry 98% on room air. GENERAL: The patient appears well, in no acute distress. Alert, awake and oriented x3. HEENT: Extraocular muscles intact. Mucous membranes moist. NECK: Supple. No JVD at 45 degrees. No carotid bruits heard bilaterally. Carotid upstroke is brisk in nature. HEART: Regular rate and rhythm. Positive first and second heart sounds with no noted murmurs, gallops or rubs. LUNGS: Clear to auscultation bilaterally. No wheezes, rales or rhonchi. ABDOMEN: Soft, nontender, nondistended. No organomegaly noted. EXTREMITIES: Show 1+ pitting edema bilaterally. Femoral and distal pulses are intact bilaterally. NEUROLOGIC: No focal deficits. SKIN: Warm, dry and intact. OSTEOPATHIC: Mild lordosis. No kyphoscoliosis or paraspinal tender points. LABORATORY DATA: Hemoglobin 11.2, hematocrit 34.4, platelets 231. Potassium 3.5, BUN 53, creatinine 2.8. Troponin 0.08. BNP 2587. Electrocardiogram (01/11/2018 at 06:52): Sinus rhythm, mild QT prolongation, leftward axis, anterior infarct, age undetermined, nonspecific ST-T wave changes, no significant change from 09/24/2015. IMPRESSION: 1. Minimally elevated troponin. 2. Elevated BNP without significant signs of congestive heart failure. 3. Acute kidney injury on chronic kidney disease. 4. Abdominal pain with diarrhea. 5. Chronic systolic heart failure with implantable cardioverter-defibrillator in place. 6. Diabetes mellitus. 7. Hypertension. 8. Hyperlipidemia. 9. Obesity with a body mass index of 39. 10. Lactic acidosis. RECOMMENDATIONS: 1. Ms. Reid presented with overall weakness and inability to take care of herself. 2. Troponin was checked and minimally elevated, but this is nonspecific, especially with her elevated creatinine. Overall, she has no symptoms of chest pain or shortness of breath and so would not consider further workup at this time. 3. She does have a history of systolic heart failure and has an ICD in place. 4. She is on Xarelto for an unknown reason, but most likely it is due to her previous stroke as I see no indication of atrial fibrillation in the hospital or office records. 5. No further cardiovascular workup at this time. Thank you for allowing me to see Parul Reid. If there are any questions, please do not hesitate to call. Chet Trevino DO VGP/rw , 11:27 PM , 11:41 PM
[2018-01-12] MEDS: Insulin NovoLIN Regular Correctional Sugar Inj SQ SCH ×5 (03:48→21:14)
[2018-01-12] MEDS: Carvedilol 12.5 MG Tablet PO SCH ×2 (08:51→21:13)
[2018-01-12] MEDS: Rivaroxaban 15 MG Tablet PO SCH (08:52)
[2018-01-12] MEDS: Senna/Docusate Sodium 8.6/50 MG Tablet PO SCH ×2 (08:52→21:13)
[2018-01-12] MEDS: Insulin Detemir Inj 1,000 UNIT/10 ML Vial SQ SCH ×2 (08:56→21:13)
--- NOTE | 2018-01-12 12:15 | P.PNGI ---
Subjective Interval history: Patient is resting in the bed and appears to be feeling gradually better without any nausea vomiting and no acute abdominal pain. Discussed with patient plan colonoscopy Sunday a.m. <Katherin De La Torre - Last Filed: 01/12/18 12:33> Physical Exam Vital signs: Vital Signs 01/11/18 16:00 01/11/18 20:00 01/11/18 22:28 Temperature 97.8 F 97.9 F Pulse Rate 71 69 Respiratory Rate 22 18 Blood Pressure 123/65 96/47 L 105/49 L Pulse Oximetry 98 96 01/12/18 00:00 01/12/18 04:00 01/12/18 08:00 Temperature 97.8 F 97.6 F 97.5 F L Pulse Rate 69 68 68 Respiratory Rate 18 18 16 Blood Pressure 110/53 L 107/56 L 117/64 Pulse Oximetry 97 96 96 Intake & Output 01/11/18 01/12/18 01/12/18 18:59 06:59 18:59 Intake Total 200 / 200 300 / 300 100 / 100 Output Total 0 / 0 Balance 200 / 200 300 / 300 100 / 100 Weight 104.8 kg Intake: IV 200 / 200 300 / 300 100 / 100 Cipro 400 MG/200 ML Inj 400 mg 200 / 200 In 200 ml @ 200 mls/hr IV.SIG Q24H [facility] Rx#:[id number] Flagyl 500 MG Inj 100 ML @ 100 200 / 200 100 / 100 100 / 100 mls/hr IV.SIG Q8H [facility] Rx#: [id number] Oral 0 / 0 0 / 0 Output: Urine 0 / 0 Other: # Incontinent Voids 2 # Bowel Movements 0 - Constitutional morbidly obese, cooperative (Weakness and fatigue) - Routine HEENT Exam Head: Present: normocephalic ENT: Present: mucous membranes moist - Routine Neck Exam Present: supple - Routine Respiratory Exam Present: accessory muscle use (No obvious shortness of breath or wheezing) - Routine Cardiovascular Exam Present: S1, S2 - Routine Abdominal Exam Present: soft (Round, obese, no obvious distention or acute abdominal pain) - Routine Skin Exam Present: intact - Routine Neurological Exam Present: alert <MiamiSamanthaKatherin M - Last Filed: 01/12/18 12:33> Vital signs: Vital Signs 01/11/18 22:28 01/12/18 00:00 01/12/18 04:00 Temperature 97.8 F 97.6 F Pulse Rate 69 68 Respiratory Rate 18 18 Blood Pressure 105/49 L 110/53 L 107/56 L Pulse Oximetry 97 96 01/12/18 08:00 01/12/18 12:00 01/12/18 16:00 Temperature 97.5 F L 97.9 F 98.1 F Pulse Rate 68 65 63 Respiratory Rate 16 18 18 Blood Pressure 117/64 127/63 138/59 L Pulse Oximetry 96 96 95 01/12/18 20:00 Temperature 98.0 F Pulse Rate 64 Respiratory Rate 20 Blood Pressure 122/58 L Pulse Oximetry 94 L Intake & Output 01/12/18 01/12/18 01/13/18 06:59 18:59 06:59 Intake Total 300 / 300 680 / 680 Output Total 0 / 0 0 / 0 Balance 300 / 300 680 / 680 Weight 104.8 kg Intake: IV 300 / 300 200 / 200 Cipro 400 MG/200 ML Inj 400 mg 200 / 200 In 200 ml @ 200 mls/hr IV.SIG Q24H [facility] Rx#:[id number] Flagyl 500 MG Inj 100 ML @ 100 100 / 100 200 / 200 mls/hr IV.SIG Q8H [facility] Rx#: [id number] Oral 0 / 0 480 / 480 Output: Urine 0 / 0 0 / 0 Other: # Bowel Movements 0 0 <Ryan Loya E - Last Filed: 01/12/18 22:24> Results - Labs CBC & Chem 7: 01/11/18 04:56 01/11/18 04:56 Laboratory Results - last 24 hr 01/11/18 01/11/18 01/11/18 12:32 12:53 12:53 POC Glucose 182 H Lactic Acid 1.9 Total Creatine Kinase 750 H CK-MB (CK-2) 4.6 H CK-MB (CK-2) % 0.6 Troponin I 0.08 H 01/11/18 01/11/18 01/11/18 17:38 18:05 20:30 POC Glucose 256 H 215 H Lactic Acid Total Creatine Kinase 665 H CK-MB (CK-2) 3.5 CK-MB (CK-2) % 0.5 Troponin I 0.07 H 01/12/18 01/12/18 03:37 07:26 POC Glucose 172 H 101 Lactic Acid Total Creatine Kinase CK-MB (CK-2) CK-MB (CK-2) % Troponin I Microbiology 01/10/18 21:05 Clean Catch Urine Urine Culture - Final No growth in 48 hours <Katherin De La Torre - Last Filed: 01/12/18 12:33> - Labs CBC & Chem 7: 01/12/18 13:53 01/11/18 04:56 Laboratory Results - last 24 hr 01/12/18 01/12/18 01/12/18 03:37 07:26 13:53 WBC 6.3 RBC 3.30 L Hgb 10.1 L Hct 31.2 L MCV 94.3 MCH 30.6 MCHC 32.4 RDW 17.9 H Plt Count 220 MPV 7.9 Neut % (Auto) 49.9 Lymph % (Auto) 27.8 Hawkins % (Auto) 18.7 H Eos % (Auto) 2.3 Baso % (Auto) 1.3 Neut # (Auto) 3.2 Lymph # (Auto) 1.8 Hawkins # (Auto) 1.2 H Eos # (Auto) 0.1 Baso # (Auto) 0.1 WBC Differential . Differential Comment Auto diff final POC Glucose 172 H 101 01/12/18 19:54 WBC RBC Hgb Hct MCV MCH MCHC RDW Plt Count MPV Neut % (Auto) Lymph % (Auto) Hawkins % (Auto) Eos % (Auto) Baso % (Auto) Neut # (Auto) Lymph # (Auto) Hawkins # (Auto) Eos # (Auto) Baso # (Auto) WBC Differential Differential Comment POC Glucose 214 H Microbiology 01/10/18 21:05 Clean Catch Urine Urine Culture - Final No growth in 48 hours <Ryan Loya - Last Filed: 01/12/18 22:24> Assessment and Plan (1) Heme + stool Status: Acute Code(s): R19.5 - Other fecal abnormalities (2) Colitis Status: Acute Code(s): K52.9 - Noninfective gastroenteritis and colitis, unspecified - Plan Mrs. Reid is an 82-year-old female with past medical history significant for anemia, congestive heart failure, CVA ,chronic kidney disease, diabetes, GERD hypertension, hyperlipidemia, hypothyroidism and coronary artery disease. Patient presented to the emergency room yesterday January 10, 2018 with complaint of diarrhea. Patient reports onset of diarrhea 4 days ago with nausea and no vomiting she reports that stools were brown with no obvious noted blood. Stools were heme positive upon arrival to ER with hemoglobin 11.1 hematocrit 34.6. Patient states she has not had any further loose stools since yesterday afternoon. Patient currently on Xarelto for atrial fibrillation. I spoke with patient's RN who stated patient is in sinus rhythm at this time. Patient states that along with diarrhea for 4 days she has felt achy and weak reports chills but denies fever. Patient denies any use of antibiotics recently denies any sick contacts and also denies any travel outside of the country. Denies any known family history of gastrointestinal cancers. Patient states last colonoscopy was done 5 years ago and she was not informed that she had any polyps. EGD was done at that time per patient which she states was also normal. She denies any difficulty swallowing medications or liquids but does report that she does have occasionally a sensation of food feeling stuck in her throat that is resolved by increase fluid intake. Denies coughing choking heartburn or pain with swallowing. She states she does not currently have a GI doctor following her. Patient denies smoking or EtOH use. She denies the use of NSAIDs and states she takes aspirin 81 mg daily. 01/11/2018 labs reveal WBC 6.3 hemoglobin 11.2 hematocrit 34.4 INR 1.4 total bilirubin 1.1 AST 40 ALT 22 alkaline phosphatase 121 with a total creatinine kinase of 854 and a troponin of 0.08 of note patient had elevated BNP of 2587. I spoke with patient's RN who stated patient is in sinus rhythm at this time. 01/10/[address] of the abdomen and pelvis with the following findings-->There is a small left-sided pleural effusion with some basilar atelectasis. No right effusion. Heart size enlarged. Pacer lead overlies right ventricle.No acute findings in the liver, spleen, kidneys or pancreas. Adrenal glands are mildly enlarged stable from 2014. Multiple layering gallstones.No pelvic mass or free fluid. Moderate anasarca. Conclusion --> Questionable mild thickening of the left colon which may indicate a mild colitis. Moderate anasarca. Small left pleural effusion. Multiple layering gallstones. Due to CT findings of questionable colitis patient is currently receiving ciprofloxacin 400 mg IV every 24 hours as well as Flagyl 500 mg IV every 8 hours. 01/12/2018 patient is sitting up in the bed states she is feeling somewhat better today. Mild decreased appetite but no nausea no vomiting. currently plan for colonoscopy Sunday a.m. will maintain clear liquid ADA diet , hold Xarelto. Current labs show hemoglobin 11.2 stable Plan: Diet clear liquids ADA Hold Xarelto for now Consent for colonoscopy Sunday am. Monitor labs Flagyl, Cipro PPI, bowel regimen Supportive care Further recommendations to follow after colonoscopy Patient has been seen by myself and Dr. Loya, note is written on his behalf <Katherin De La Torre - Last Filed: 01/12/18 12:33> (1) Heme + stool Status: Acute Code(s): R19.5 - Other fecal abnormalities (2) Colitis Status: Acute Code(s): K52.9 - Noninfective gastroenteritis and colitis, unspecified - Plan patient seen and examined agree with above continue current supportive care monitor labs Colonoscopy on Sunday <Ryan Loya - Last Filed: 01/12/18 22:24>
--- NOTE | 2018-01-12 13:08 | ECG ---
Date Performed: 01/10/2018 Time Performed: 20:22:07 PTAGE: 82 years EKG: Sinus rhythm MARKED LEFT AXIS DEVIATION POSSIBLE ANTERIOR MYOCARDIAL INFARCTION MODERATE T-WAVE ABNORMALITY, CONS IDER LATERAL ISCHEMIA ABNORMAL ECG PREVIOUS TRACING : 09/24/2015 07.33 Since the previous tracing, no significant change noted DOCTOR: Chet Trevino Interpretating Date/Time 01/12/2018 13:08:17
--- NOTE | 2018-01-12 14:01 | P.PNCA ---
Subjective Interval history: No events overnight No chest pain/SOB Medications and Allergies Active Medications: Active Medications Acetaminophen (Tylenol) 650 mg PO Q4H PRN PRN Reason: Temp > 100.4 Al Hydroxide/Mg Hydroxide (Milk Of Magnesia Liq) 30 ml PO Q12H PRN PRN Reason: Mild Constipation Aspirin (Ecotrin) 81 mg PO DAILY [facility] Last Admin: 01/12/18 08:52 Dose: 81 mg Atorvastatin Calcium (Lipitor) 40 mg PO DAILY [facility] Last Admin: 01/12/18 08:52 Dose: 40 mg Bisacodyl (Dulcolax Supp) 10 mg RECTAL DAILY PRN PRN Reason: SEVERE CONSITIPATION Bumetanide (Bumex Inj) 1 mg IV.PUSH BID@0900,1800 [facility] Last Admin: 01/12/18 08:58 Dose: 1 mg Carvedilol (Coreg) 12.5 mg PO BID [facility] Last Admin: 01/12/18 08:51 Dose: 12.5 mg Dextrose (D50w Vial) 50 ml IV.PUSH UNSCH PRN PRN Reason: PER HYPOGLYCEMIA PROTOCOL Gabapentin (Neurontin) 300 mg PO QPM [facility] Last Admin: 01/11/18 17:38 Dose: 300 mg Glucagon (Glucagon Inj) 1 mg OTHER PRN PRN PRN Reason: for Hypoglycemia Protocol Sodium Chloride (Ns Inj) 500 mls @ 0 mls/hr IV.SIG BOLUS [facility] Last Infusion: 01/11/18 00:11 Dose: Infused Ciprofloxacin/Dextrose (Cipro 400 Mg/200 Ml Inj) 400 mg in 200 mls @ 200 mls/ hr IV.SIG Q24H [facility] Last Infusion: 01/12/18 02:50 Dose: Infused Metronidazole/Sodium Chloride (Flagyl 500 Mg Inj) 100 mls @ 100 mls/hr IV.SIG Q8H [facility] Last Infusion: 01/12/18 09:52 Dose: Infused Insulin Detemir (Levemir Inj) 5 unit SQ BID [facility] Last Admin: 01/12/18 08:56 Dose: 5 unit Insulin Human Regular (Novolin R Correctional Sugar Inj) 0 units SQ ACHS AND 3AM [facility]; Protocol Last Admin: 01/12/18 12:18 Dose: Not Given Lactulose (Lactulose Liq) 30 ml PO DAILY PRN PRN Reason: SEVERE CONSITIPATION Levothyroxine Sodium (Synthroid) 25 mcg PO DAILY@0600 [facility] Last Admin: 01/12/18 06:14 Dose: 25 mcg Ondansetron HCl (Zofran Inj) 4 mg IV.PUSH Q6H PRN PRN Reason: NAUSEA OR VOMITING Pantoprazole Sodium (Protonix Inj) 40 mg IV.PUSH Q12H [facility] Last Admin: 01/12/18 12:34 Dose: 40 mg Polyethylene Glycol/Electrolytes (Colyte Liq) 240 ml PO Q15M ONE Stop: 01/12/18 15:01 Senna/Docusate Sodium (Conchis-Colace) 1 tab PO BID [facility] Last Admin: 01/12/18 08:52 Dose: 1 tab Sennosides (Senokot) 17.2 mg PO Q12H PRN PRN Reason: Moderate Constipation Sodium Chloride (Ns Flush) 2 ml IV.FLUSH PRN PRN PRN Reason: FLUSH AFTER USING IV ACCESS Allergies Allergy/AdvReac Type Severity Reaction Status Date / Time amoxicillin Allergy Rash Verified 01/10/18 18:45 methylprednisolone Allergy Itching Verified 01/10/18 18:45 lisinopril AdvReac Cough Verified 01/10/18 18:45 MRI PRECAUTION AdvReac Severe PACEMAKER Uncoded 05/04/16 10:37 (RV) 02/08/10 Home Medications Medication Instructions Recorded Confirmed Type acetaminophen [Tylenol] 325 mg PO Q6H PRN 01/10/18 01/10/18 History aspirin [Aspirin Low Dose] 81 mg PO DAILY 01/10/18 01/10/18 History atorvastatin 40 mg PO DAILY 01/10/18 01/10/18 History bumetanide 2 mg PO DAILY 01/10/18 01/10/18 History calcitriol 0.25 mcg PO Q OTHER DAY 01/10/18 01/10/18 History carvedilol 12.5 mg PO BID 01/10/18 01/10/18 History ciclopirox 1 applic TOPICAL BID 01/10/18 01/10/18 History gabapentin 300 mg PO QPM 01/10/18 01/10/18 History insulin glargine [Lantus U-100 10 unit SUB-Q HS 01/10/18 01/10/18 History Insulin] insulin glargine [Lantus U-100 15 unit SUB-Q AC 01/10/18 01/10/18 History Insulin] insulin lispro [Humalog KwikPen 100 unit SUB-Q DAILY 01/10/18 01/10/18 History Insulin] levothyroxine 25 mcg PO DAILY 01/10/18 01/10/18 History rivaroxaban [Xarelto] 15 mg PO DAILY 01/10/18 01/10/18 History sulfasalazine 0.5 g PO BID 01/10/18 01/10/18 History Physical Exam Vital signs: Vital Signs 01/11/18 16:00 01/11/18 20:00 01/11/18 22:28 Temperature 97.8 F 97.9 F Pulse Rate 71 69 Respiratory Rate 22 18 Blood Pressure 123/65 96/47 L 105/49 L Pulse Oximetry 98 96 01/12/18 00:00 01/12/18 04:00 01/12/18 08:00 Temperature 97.8 F 97.6 F 97.5 F L Pulse Rate 69 68 68 Respiratory Rate 18 18 16 Blood Pressure 110/53 L 107/56 L 117/64 Pulse Oximetry 97 96 96 01/12/18 12:00 Temperature 97.9 F Pulse Rate 65 Respiratory Rate 18 Blood Pressure 127/63 Pulse Oximetry 96 Intake & Output 01/11/18 01/12/18 01/12/18 18:59 06:59 18:59 Intake Total 200 / 200 300 / 300 100 / 100 Output Total 0 / 0 Balance 200 / 200 300 / 300 100 / 100 Weight 104.8 kg Intake: IV 200 / 200 300 / 300 100 / 100 Cipro 400 MG/200 ML Inj 400 mg 200 / 200 In 200 ml @ 200 mls/hr IV.SIG Q24H [facility] Rx#:[id number] Flagyl 500 MG Inj 100 ML @ 100 200 / 200 100 / 100 100 / 100 mls/hr IV.SIG Q8H [facility] Rx#: [id number] Oral 0 / 0 0 / 0 Output: Urine 0 / 0 Other: # Incontinent Voids 2 # Bowel Movements 0 Narrative: General patient in no acute distress HEENT extraocular movements are intact, clear oropharyngeal mucosa, no JVD Cardiovascular S1-S2 audible, RRR, no murmurs rubs or gallops Respiratory clear to auscultation bilaterally Abdomen soft, obese, nontender, nondistended, normal bowel sounds Extremities 2+ pitting edema bilateral lower extremities up to the shins. Neuro patient moves all 4 extremities sensation is intact bilaterally. Patient states she is ambulatory at baseline. Results 01/11/18 04:56 01/11/18 04:56 Cardiac Enzymes 01/10/18 01/10/18 01/11/18 Range/Units 20:55 20:55 04:56 AST 44 H 40 H (15-37) U/L CK-MB (CK-2) 6.8 H 5.6 H (0.5-3.6) ng/mL Troponin I 0.08 H 0.08 H (0.02-0.05) ng/mL B-Natriuretic Peptide 2587 H (0-100) pg/mL 01/11/18 01/11/18 Range/Units 12:53 18:05 AST (15-37) U/L CK-MB (CK-2) 4.6 H 3.5 (0.5-3.6) ng/mL Troponin I 0.08 H 0.07 H (0.02-0.05) ng/mL B-Natriuretic Peptide (0-100) pg/mL Coagulation 01/10/18 01/10/18 Range/Units 20:55 20:55 PT 14.1 H (9.8-11.6) sec APTT 30.3 H (24.3-30.1) sec B-Natriuretic Peptide 2587 H (0-100) pg/mL CBC 01/10/18 01/11/18 Range/Units 20:55 04:56 WBC 6.6 6.3 (4.0-11.0) th/mm3 RBC 3.68 L 3.70 L (4.00-5.30) mil/mm3 Hgb 11.1 L 11.2 L (11.6-15.3) gm/dL Hct 34.6 L 34.4 L (35.0-46.0) % Plt Count 239 231 (150-450) th/mm3 Neut # (Auto) 4.4 (1.8-7.7) th/mm3 Lymph # (Auto) 1.2 (1.0-4.8) th/mm3 Leon # (Auto) 0.9 (0.0-0.9) th/mm3 Eos # (Auto) 0.1 (0.0-0.4) th/mm3 Baso # (Auto) 0.0 (0.0-0.2) th/mm3 Comprehensive Metabolic Panel 01/10/18 01/11/18 Range/Units 20:55 04:56 Sodium 139 138 (136-145) meq/L Potassium 3.6 3.5 (3.5-5.1) meq/L Chloride 101 101 (98-107) meq/L Carbon Dioxide 26.1 24.2 (21.0-32.0) meq/L BUN 52 H 53 H (7-18) mg/dL Creatinine 2.94 H 2.80 H (0.50-1.00) mg/dL Calcium 8.3 L 8.0 L (8.5-10.1) mg/dL AST 44 H 40 H (15-37) U/L ALT 23 22 (10-53) U/L Alkaline Phosphatase 138 H 121 H (45-117) U/L Total Protein 6.5 6.6 (6.4-8.2) g/dL Albumin 2.8 L 2.8 L (3.4-5.0) g/dL Intake and Output 01/11/18 01/12/18 01/12/18 22:59 06:59 14:59 Intake Total 100 / 100 300 / 300 100 / 100 Output Total 0 / 0 Balance 100 / 100 300 / 300 100 / 100 Intake: IV 100 / 100 300 / 300 100 / 100 Cipro 400 MG/200 ML Inj 400 mg 200 / 200 In 200 ml @ 200 mls/hr IV.SIG Q24H [facility] Rx#:[id number] Flagyl 500 MG Inj 100 ML @ 100 100 / 100 100 / 100 100 / 100 mls/hr IV.SIG Q8H [facility] Rx#: [id number] Oral 0 / 0 0 / 0 Output: Urine 0 / 0 Other: # Incontinent Voids 2 # Bowel Movements 0 Weight 104.8 kg - Imaging and Cardiology Imaging: Impressions Chest X-Ray 01/10/18 19:53 CONCLUSION: Minimal basilar atelectasis. Cardiomegaly. Pacer lead in right ventricle. Head CT 01/10/18 19:57 CONCLUSION: 1. No acute intracranial abnormalities. . Abdomen/Pelvis CT 01/10/18 21:48 CONCLUSION: 1. Questionable mild thickening of the left colon which may indicate a mild colitis. 2. Moderate anasarca. Small left pleural effusion. Multiple layering gallstones. Assessment and Plan - Assessment (1) Colitis Code(s): K52.9 - Noninfective gastroenteritis and colitis, unspecified Status : Acute (2) Acute kidney injury Code(s): N17.9 - Acute kidney failure, unspecified Status: Acute (3) Elevated troponin I level Code(s): R74.8 - Abnormal levels of other serum enzymes Status: Acute (4) Heme + stool Code(s): R19.5 - Other fecal abnormalities Status: Acute - Plan 1) Colitis Per GI 2) Minimally elevated troponin Non-specific with elevated creatinine No symptoms EKG with no significant change from previous 3) Chronic systolic heart failure with ICD in place 4) Hx of CVA 5) No further cardiovascular work up Will see PRN, call with questions
--- NOTE | 2018-01-12 14:41 | ECG ---
Date Performed: 01/11/2018 Time Performed: 15:51:24 PTAGE: 82 years EKG: Sinus rhythm POSSIBLE ANTERIOR MYOCARDIAL INFARCTION , PROBABLY OLD MODERATE T-WAVE ABNORMALITY, CONSIDER LATERAL ISCHEMIA ABNORMAL ECG Since the PREVIOUS TRACING , no significant change noted PREVIOUS TRACIN01/11/2018 06.52 DOCTOR: Carly Rahman Interpretating Date/Time 01/12/2018 14:35:53
[2018-01-12] MEDS ORDERED: PEG 3350/E-Lyte Soln 4000 ML Bottle PO ONE (15:00)
[2018-01-12 15:17] LABS: Baso # (Auto) 0.1 th/mm3 (0.0-0.2); Baso % (Auto) 1.3 % (0.0-2.0); Eos # (Auto) 0.1 th/mm3 (0.0-0.4); Eos % (Auto) 2.3 % (0.0-4.0); Hematocrit 31.2 % (35.0-46.0); Hemoglobin 10.1 gm/dL (11.6-15.3); Lymph # (Auto) 1.8 th/mm3 (1.0-4.8); Lymph % (Auto) 27.8 % (9.0-44.0); Mean Corpuscular HGB Conc 32.4 % (32.0-36.0); Mean Corpuscular Hemoglobin 30.6 pg (27.0-34.0); Mean Corpuscular Volume 94.3 fL (80.0-100.0); Mean Platelet Volume 7.9 fL (7.0-11.0); Mono # (Auto) 1.2 th/mm3 (0.0-0.9); Mono % (Auto) 18.7 % (0.0-8.0); Neut # (Auto) 3.2 th/mm3 (1.8-7.7); Neut % (Auto) 49.9 % (16.0-70.0); Platelet Count 220 th/mm3 (150-450); Red Cell Distribution Width 17.9 % (11.6-17.2); White Blood Count 6.3 th/mm3 (4.0-11.0)
--- NOTE | 2018-01-12 15:30 | P.PNIM ---
Subjective Interval history: Patient laying down in bed. She does not have current complaints. No chest pain, no shortness of breath. Physical Exam Vital signs: Vital Signs 01/11/18 16:00 01/11/18 20:00 01/11/18 22:28 Temperature 97.8 F 97.9 F Pulse Rate 71 69 Respiratory Rate 22 18 Blood Pressure 123/65 96/47 L 105/49 L Pulse Oximetry 98 96 01/12/18 00:00 01/12/18 04:00 01/12/18 08:00 Temperature 97.8 F 97.6 F 97.5 F L Pulse Rate 69 68 68 Respiratory Rate 18 18 16 Blood Pressure 110/53 L 107/56 L 117/64 Pulse Oximetry 97 96 96 01/12/18 12:00 Temperature 97.9 F Pulse Rate 65 Respiratory Rate 18 Blood Pressure 127/63 Pulse Oximetry 96 Intake & Output 01/11/18 01/12/18 01/12/18 18:59 06:59 18:59 Intake Total 200 / 200 300 / 300 100 / 100 Output Total 0 / 0 Balance 200 / 200 300 / 300 100 / 100 Weight 104.8 kg Intake: IV 200 / 200 300 / 300 100 / 100 Cipro 400 MG/200 ML Inj 400 mg 200 / 200 In 200 ml @ 200 mls/hr IV.SIG Q24H [facility] Rx#:[id number] Flagyl 500 MG Inj 100 ML @ 100 200 / 200 100 / 100 100 / 100 mls/hr IV.SIG Q8H ED[facility] Rx#: [id number] Oral 0 / 0 0 / 0 Output: Urine 0 / 0 Other: # Incontinent Voids 2 # Bowel Movements 0 Narrative: General patient in no acute distress HEENT extraocular movements are intact, clear oropharyngeal mucosa, no JVD Cardiovascular S1-S2 audible, RRR, no murmurs rubs or gallops Respiratory clear to auscultation bilaterally Abdomen soft, obese, nontender, nondistended, normal bowel sounds Extremities 2+ pitting edema bilateral lower extremities up to the shins. Neuro patient moves all 4 extremities sensation is intact bilaterally. Patient states she is ambulatory at baseline. Results - Labs CBC & Chem 7: 01/12/18 13:53 01/11/18 04:56 Laboratory Results - last 24 hr 01/11/18 01/11/18 01/11/18 17:38 18:05 20:30 WBC RBC Hgb Hct MCV MCH MCHC RDW Plt Count MPV Neut % (Auto) Lymph % (Auto) [place] % (Auto) Eos % (Auto) Baso % (Auto) Neut # (Auto) Lymph # (Auto) [place] # (Auto) Eos # (Auto) Baso # (Auto) WBC Differential Differential Comment POC Glucose 256 H 215 H Total Creatine Kinase 665 H CK-MB (CK-2) 3.5 CK-MB (CK-2) % 0.5 Troponin I 0.07 H 01/12/18 01/12/18 01/12/18 03:37 07:26 13:53 WBC 6.3 RBC 3.30 L Hgb 10.1 L Hct 31.2 L MCV 94.3 MCH 30.6 MCHC 32.4 RDW 17.9 H Plt Count 220 MPV 7.9 Neut % (Auto) 49.9 Lymph % (Auto) 27.8 [place] % (Auto) 18.7 H Eos % (Auto) 2.3 Baso % (Auto) 1.3 Neut # (Auto) 3.2 Lymph # (Auto) 1.8 [place] # (Auto) 1.2 H Eos # (Auto) 0.1 Baso # (Auto) 0.1 WBC Differential . Differential Comment Auto diff final POC Glucose 172 H 101 Total Creatine Kinase CK-MB (CK-2) CK-MB (CK-2) % Troponin I Microbiology 01/10/18 21:05 Clean Catch Urine Urine Culture - Final No growth in 48 hours Assessment and Plan - Plan 82-year-old female with past medical history significant for anemia, CHF with defibrillator placement, previous CVA, chronic kidney disease, diabetes, GERD, hypertension, hyperlipidemia, hypothyroidism and CAD presents to the emergency department for the evaluation of diarrhea and abdominal pain. States that she lives at home alone and was having loose stools and came into our emergency department because she needed a place to go for help. Assessment and plan: 1. Abdominal pain/colitis CT scan of the abdomen and pelvis shows some thickening of the left side of the colon which is concerning for possible colitis. The patient is on antibiotics with Cipro and Flagyl. GI has been consulted and they recommend continuing antibiotics, Protonix. Recommendations from GI are to continue to hold Xarelto for colonoscopy on Sunday. N.p.o. past midnight on Sunday. 2. Elevated troponin Likely secondary to heart failure. EKG shows sinus rhythm with T-wave inversions in the lateral leads. When compared to an EKG in 2015 the patient also had a similar EKG. Continue aspirin, statin, beta-alexa. Cardiology was consulted and also believes that the patient's elevated troponins are possibly due to patient's CHF and acute kidney injury. 2. Chronic kidney disease The patient has a creatinine of 2.8 today slightly lower than yesterday. I will continue to monitor the patient's serum creatinine. This is likely progression of chronic kidney disease when her creatinine was 2.2 and 2016. Follow-up a.m. basic metabolic panel. 3. CHF The patient has an ejection fraction of 25-30%. Status post defibrillator placement. BNP was elevated on admission. Chest x-ray does not show any significant pulmonary vascular congestion. She has no compulsive shortness of breath and is currently on room air. She was lying flat in the bed when I evaluated her and she did not have any complaints. Continue aspirin, statin, beta-alexa. She does have some lower extremity edema. Continue IV diuretics. We will switch to p.o. diuretics after she is diuresed. 4. Diabetes mellitus She was initially placed n.p.o. because of the abdominal pain and diarrhea. I decreased patient's insulin dose regimen. We will adjust the patient's insulin medication regimen as needed. Continue Accu-Cheks q. before meals at bedtime. 5. Hypertension/hyperlipidemia/hypothyroidism Continue home medication 6. History of CVA Patient anticoagulated on Xarelto. Xarelto was discontinued and the plan is that have the patient undergo colonoscopy on Sunday as per GI recommendations. It appears that the patient was placed on Xarelto for atrial fibrillation after being diagnosed the CVA. I will discuss this case further in detail with the patient's family. 8. Elevated lactic acid Lactic acid normalized.
[2018-01-12] MEDS: Acetaminophen 325 MG Tablet PO PRN (17:23)
[2018-01-12] MEDS: Gabapentin 300 MG Capsule PO SCH (17:31)
[2018-01-13] MEDS: Ciprofloxacin 400 MG/200 ML 400 MG/200 ML PIGGYBACK IV.SIG SCH (00:52)
[2018-01-13] MEDS: Insulin NovoLIN Regular Correctional Sugar Inj SQ SCH ×5 (03:02→20:13)
[2018-01-13 07:42] LABS: Calcium 7.8 mg/dL (8.5-10.1); Carbon Dioxide 25.4 meq/L (21.0-32.0); Magnesium 1.5 mg/dL (1.5-2.5); Potassium 3.5 meq/L (3.5-5.1)
[2018-01-13] MEDS: Carvedilol 12.5 MG Tablet PO SCH ×2 (08:44→20:12)
[2018-01-13] MEDS: Insulin Detemir Inj 1,000 UNIT/10 ML Vial SQ SCH (08:45)
[2018-01-13] MEDS: Senna/Docusate Sodium 8.6/50 MG Tablet PO SCH ×2 (08:45→20:12)
[2018-01-13] MEDS: Pantoprazole Inj 40 MG Vial IV.PUSH SCH ×2 (11:39→23:34)
--- NOTE | 2018-01-13 13:50 | P.PNGI ---
Subjective Interval history: Patient's resting in the bed notes some nausea but no vomiting, mild lower abdominal discomfort, HGB 10.1 <Katherin De La Torre - Last Filed: 01/13/18 13:55> Physical Exam Vital signs: Vital Signs 01/12/18 16:00 01/12/18 20:00 01/13/18 00:00 Temperature 98.1 F 98.0 F 97.5 F L Pulse Rate 63 65 62 Respiratory Rate 18 20 18 Blood Pressure 138/59 L 122/58 L 111/54 L Pulse Oximetry 95 94 L 99 01/13/18 04:00 01/13/18 08:00 01/13/18 12:00 Temperature 97.4 F L 98.1 F Pulse Rate 62 69 66 Respiratory Rate 20 18 Blood Pressure 121/59 L 131/64 Pulse Oximetry 95 94 L Intake & Output 01/12/18 01/13/18 01/13/18 18:59 06:59 18:59 Intake Total 680 / 680 910 / 910 100 / 100 Output Total 0 / 0 Balance 680 / 680 910 / 910 100 / 100 Weight 107.8 kg Intake: IV 200 / 200 310 / 310 100 / 100 Cipro 400 MG/200 ML Inj 400 mg 210 / 210 In 200 ml @ 200 mls/hr IV.SIG Q24H [facility] Rx#:[id number] Flagyl 500 MG Inj 100 ML @ 100 200 / 200 100 / 100 100 / 100 mls/hr IV.SIG Q8H ED[facility] Rx#: [id number] Oral 480 / 480 600 / 600 Output: Urine 0 / 0 Other: # Bowel Movements 0 5 - Constitutional mild distress, cachectic, chronically ill appearing - Routine HEENT Exam Head: Present: normocephalic - Routine Respiratory Exam Present: accessory muscle use - Routine Cardiovascular Exam Present: S1, S2 - Routine Abdominal Exam Present: soft (Round, no obvious distention, soft bowel sounds, mild abdominal cramping lower of the known) <Katherin De La Torre M - Last Filed: 01/13/18 13:55> Vital signs: Vital Signs 01/12/18 20:00 01/13/18 00:00 01/13/18 04:00 Temperature 98.0 F 97.5 F L 97.4 F L Pulse Rate 65 62 62 Respiratory Rate 20 18 20 Blood Pressure 122/58 L 111/54 L 121/59 L Pulse Oximetry 94 L 99 95 01/13/18 08:00 01/13/18 12:00 01/13/18 16:00 Temperature 98.1 F 98 F 98.7 F Pulse Rate 69 67 66 Respiratory Rate 18 18 18 Blood Pressure 131/64 105/62 113/58 L Pulse Oximetry 94 L 94 L 94 L Intake & Output 01/12/18 01/13/18 01/13/18 18:59 06:59 18:59 Intake Total 680 / 680 910 / 910 200 / 200 Output Total 0 / 0 Balance 680 / 680 910 / 910 200 / 200 Weight 107.8 kg Intake: IV 200 / 200 310 / 310 200 / 200 Cipro 400 MG/200 ML Inj 400 mg 210 / 210 In 200 ml @ 200 mls/hr IV.SIG Q24H ED[facility] Rx#:[id number] Flagyl 500 MG Inj 100 ML @ 100 200 / 200 100 / 100 200 / 200 mls/hr IV.SIG Q8H EDIL Rx#: [id number] Oral 480 / 480 600 / 600 Output: Urine 0 / 0 Other: # Bowel Movements 0 5 <Ryan Loya E - Last Filed: 01/13/18 17:38> Results - Labs CBC & Chem 7: 01/12/18 13:53 01/13/18 06:30 Laboratory Results - last 24 hr 01/12/18 01/12/18 01/13/18 13:53 19:54 03:00 WBC 6.3 RBC 3.30 L Hgb 10.1 L Hct 31.2 L MCV 94.3 MCH 30.6 MCHC 32.4 RDW 17.9 H Plt Count 220 MPV 7.9 Neut % (Auto) 49.9 Lymph % (Auto) 27.8 [place] % (Auto) 18.7 H Eos % (Auto) 2.3 Baso % (Auto) 1.3 Neut # (Auto) 3.2 Lymph # (Auto) 1.8 [place] # (Auto) 1.2 H Eos # (Auto) 0.1 Baso # (Auto) 0.1 WBC Differential . Differential Comment Auto diff final Sodium Potassium Chloride Carbon Dioxide Anion Gap BUN Creatinine Estimated GFR POC Glucose 214 H 128 H Random Glucose Calcium Magnesium 01/13/18 01/13/18 06:30 11:10 WBC RBC Hgb Hct MCV MCH MCHC RDW Plt Count MPV Neut % (Auto) Lymph % (Auto) [place] % (Auto) Eos % (Auto) Baso % (Auto) Neut # (Auto) Lymph # (Auto) [place] # (Auto) Eos # (Auto) Baso # (Auto) WBC Differential Differential Comment Sodium 135 L Potassium 3.5 Chloride 99 Carbon Dioxide 25.4 Anion Gap 11 BUN 58 H Creatinine 3.06 H Estimated GFR 18 L POC Glucose 138 H Random Glucose 111 H Calcium 7.8 L Magnesium 1.5 Microbiology 01/10/18 21:05 Clean Catch Urine Urine Culture - Final No growth in 48 hours <Katherin De La Torre - Last Filed: 01/13/18 13:55> - Labs CBC & Chem 7: 01/12/18 13:53 01/13/18 06:30 Laboratory Results - last 24 hr 01/12/18 01/13/18 01/13/18 19:54 03:00 06:30 Sodium 135 L Potassium 3.5 Chloride 99 Carbon Dioxide 25.4 Anion Gap 11 BUN 58 H Creatinine 3.06 H Estimated GFR 18 L POC Glucose 214 H 128 H Random Glucose 111 H Calcium 7.8 L Magnesium 1.5 01/13/18 01/13/18 11:10 17:16 Sodium Potassium Chloride Carbon Dioxide Anion Gap BUN Creatinine Estimated GFR POC Glucose 138 H 178 H Random Glucose Calcium Magnesium <Ryan Loya - Last Filed: 01/13/18 17:38> Assessment and Plan (1) Heme + stool Status: Acute Code(s): R19.5 - Other fecal abnormalities (2) Colitis Status: Acute Code(s): K52.9 - Noninfective gastroenteritis and colitis, unspecified - Plan 01/12/2018 patient is sitting up in the bed states she is feeling somewhat better today. Mild decreased appetite but no nausea no vomiting. currently plan for colonoscopy Sunday a.m. will maintain clear liquid ADA diet , hold Xarelto. Current labs show hemoglobin 11.2 stable 01/13/2018 patient is tolerating clear liquids , notes mild nausea , no vomiting current hemoglobin mildly decreased at 10.1 was 11.2 last check. No obvious rectal bleeding or hematemesis. Does note some lower abdominal discomfort off and on. Plan for colonoscopy Sunday. Encouraged prep today slowly Plan: Diet clear liquids ADA Hold Xarelto Consent for colonoscopy Sunday am. GoLYTELY prep Monitor labs Flagyl, Cipro continue for now PPI, Supportive care Further recommendations to follow after colonoscopy Patient has been seen by myself and Dr. Loya, note is written on his behalf <Katherin De La Torre - Last Filed: 01/13/18 13:55> (1) Heme + stool Status: Acute Code(s): R19.5 - Other fecal abnormalities (2) Colitis Status: Acute Code(s): K52.9 - Noninfective gastroenteritis and colitis, unspecified - Plan Patient seen and examined Agree with above Continue with current supportive care Monitor labs Plan for colonoscopy tomorrow <Ryan Loya - Last Filed: 01/13/18 17:38>
[2018-01-13] MEDS ORDERED: PEG 3350/E-Lyte Soln 4000 ML Bottle PO ONE (14:00)
[2018-01-13] MEDS ORDERED: Magnesium Sulfate Inj 4 GM in Sodium Chlor 0.9% Inj 92 ML IV.SIG ONE (15:11)
--- NOTE | 2018-01-13 15:14 | P.PNIM ---
Subjective Interval history: Patient is laying down in bed. She does not have any specific complaints today. Physical Exam Vital signs: Vital Signs 01/12/18 16:00 01/12/18 20:00 01/13/18 00:00 Temperature 98.1 F 98.0 F 97.5 F L Pulse Rate 63 65 62 Respiratory Rate 18 20 18 Blood Pressure 138/59 L 122/58 L 111/54 L Pulse Oximetry 95 94 L 99 01/13/18 04:00 01/13/18 08:00 01/13/18 12:00 Temperature 97.4 F L 98.1 F Pulse Rate 62 69 66 Respiratory Rate 20 18 Blood Pressure 121/59 L 131/64 Pulse Oximetry 95 94 L Intake & Output 01/12/18 01/13/18 01/13/18 18:59 06:59 18:59 Intake Total 680 / 680 910 / 910 100 / 100 Output Total 0 / 0 Balance 680 / 680 910 / 910 100 / 100 Weight 107.8 kg Intake: IV 200 / 200 310 / 310 100 / 100 Cipro 400 MG/200 ML Inj 400 mg 210 / 210 In 200 ml @ 200 mls/hr IV.SIG Q24H ED[facility] Rx#:[id number] Flagyl 500 MG Inj 100 ML @ 100 200 / 200 100 / 100 100 / 100 mls/hr IV.SIG Q8H ED[facility] Rx#: [id number] Oral 480 / 480 600 / 600 Output: Urine 0 / 0 Other: # Bowel Movements 0 5 Narrative: General patient in no acute distress HEENT extraocular movements are intact, clear oropharyngeal mucosa, no JVD Cardiovascular S1-S2 audible, RRR, no murmurs rubs or gallops Respiratory clear to auscultation bilaterally Abdomen soft, obese, nontender, nondistended, normal bowel sounds Extremities 2+ pitting edema bilateral lower extremities up to the shins. Neuro patient moves all 4 extremities sensation is intact bilaterally. Patient states she is ambulatory at baseline. Results - Labs CBC & Chem 7: 01/12/18 13:53 01/13/18 06:30 Laboratory Results - last 24 hr 01/12/18 01/12/18 01/13/18 13:53 19:54 03:00 WBC 6.3 RBC 3.30 L Hgb 10.1 L Hct 31.2 L MCV 94.3 MCH 30.6 MCHC 32.4 RDW 17.9 H Plt Count 220 MPV 7.9 Neut % (Auto) 49.9 Lymph % (Auto) 27.8 [place] % (Auto) 18.7 H Eos % (Auto) 2.3 Baso % (Auto) 1.3 Neut # (Auto) 3.2 Lymph # (Auto) 1.8 [place] # (Auto) 1.2 H Eos # (Auto) 0.1 Baso # (Auto) 0.1 WBC Differential . Differential Comment Auto diff final Sodium Potassium Chloride Carbon Dioxide Anion Gap BUN Creatinine Estimated GFR POC Glucose 214 H 128 H Random Glucose Calcium Magnesium 01/13/18 01/13/18 06:30 11:10 WBC RBC Hgb Hct MCV MCH MCHC RDW Plt Count MPV Neut % (Auto) Lymph % (Auto) [place] % (Auto) Eos % (Auto) Baso % (Auto) Neut # (Auto) Lymph # (Auto) [place] # (Auto) Eos # (Auto) Baso # (Auto) WBC Differential Differential Comment Sodium 135 L Potassium 3.5 Chloride 99 Carbon Dioxide 25.4 Anion Gap 11 BUN 58 H Creatinine 3.06 H Estimated GFR 18 L POC Glucose 138 H Random Glucose 111 H Calcium 7.8 L Magnesium 1.5 Assessment and Plan - Plan 82-year-old female with past medical history significant for anemia, CHF with defibrillator placement, previous CVA, chronic kidney disease, diabetes, GERD, hypertension, hyperlipidemia, hypothyroidism and CAD presents to the emergency department for the evaluation of diarrhea and abdominal pain. States that she lives at home alone and was having loose stools and came into our emergency department because she needed a place to go for help. Assessment and plan: 1. Abdominal pain/colitis CT scan of the abdomen and pelvis shows some thickening of the left side of the colon which is concerning for possible colitis. The patient is on antibiotics with Cipro and Flagyl. GI has been consulted and they recommend continuing antibiotics, Protonix. Recommendations from GI are to continue to hold Xarelto for colonoscopy on Sunday. N.p.o. past midnight tonight. The patient's basal insulin was stopped and she will be n.p.o. for colonoscopy tomorrow a.m. GI is following the patient and his start the patient on GoLYTELY for prep for tomorrow. 2. Elevated troponin Likely secondary to heart failure. EKG shows sinus rhythm with T-wave inversions in the lateral leads. When compared to an EKG in 2015 the patient also had a similar EKG. Continue aspirin, statin, beta-alexa. Cardiology was consulted and also believes that the patient's elevated troponins are possibly due to patient's CHF and acute kidney injury. 2. Chronic kidney disease The patient has a creatinine of 3.0 today. I will continue to monitor the patient's serum creatinine. This is likely progression of chronic kidney disease when her creatinine was 2.2 and 2016. Follow-up a.m. basic metabolic panel. If the creatinine continues to up trend consider stopping Bumex. 3. Systolic CHF The patient has an ejection fraction of 25-30%. Status post defibrillator placement. BNP was elevated on admission. Chest x-ray does not show any significant pulmonary vascular congestion. She has no compulsive shortness of breath and is currently on room air. She was lying flat in the bed when I evaluated her and she did not have any complaints. Continue aspirin, statin, beta-alexa. She does have some lower extremity edema. Continue IV diuretics. She has actually gained weight over the past few days as per the documentation. We will switch to p.o. diuretics after she is diuresed. Ins and outs are difficult to assess as the patient is incontinent. We will continue to monitor her weight. 4. Diabetes mellitus Continue to monitor the patient's blood sugars. Basal insulin has been held for tonight she will be n.p.o. past midnight for colonoscopy tomorrow a.m. 5. Hypertension/hyperlipidemia/hypothyroidism Continue home medication 6. History of CVA Patient anticoagulated on Xarelto. Xarelto was discontinued and the plan is that have the patient undergo colonoscopy on Sunday as per GI recommendations. It appears that the patient was placed on Xarelto for atrial fibrillation after being diagnosed the CVA. I will discuss this case further in detail with the patient's family.
[2018-01-13] MEDS: Mag Sulf 1 gm/100 ml Premix 100 ML IV.SIG SCH ×4 (16:56→20:12)
[2018-01-13] MEDS: Gabapentin 300 MG Capsule PO SCH (17:16)
[2018-01-14] MEDS: Ciprofloxacin 400 MG/200 ML 400 MG/200 ML PIGGYBACK IV.SIG SCH (00:44)
[2018-01-14] MEDS: Insulin NovoLIN Regular Correctional Sugar Inj SQ SCH ×5 (02:58→22:40)
[2018-01-14 06:12] LABS: Calcium 7.2 mg/dL (8.5-10.1); Magnesium 2.5 mg/dL (1.5-2.5); Potassium 3.2 meq/L (3.5-5.1)
[2018-01-14 06:25] LABS: Total Protein 5.8 g/dL (6.4-8.2)
[2018-01-14] MEDS ORDERED: Sodium Chlor 0.9% Inj 500 ML IV.CONT ONE (09:00)
[2018-01-14] MEDS ORDERED: Metoprolol Tartrate 25 MG Tablet PO ONE (09:00)
[2018-01-14] MEDS ORDERED: Chlorhexidine Gluconate 2% 1 Pack (2 Cloths) TOPICAL ONE (09:00)
--- NOTE | 2018-01-14 09:40 | GIPROC ---
[facility] [address] [facility]. [facility], [address] COLONOSCOPY PROCEDURE REPORT EXAM DATE: 01/14/2018 PATIENT NAME: Parul Reid MR #: [id number] BIRTHDATE: 1935 ENDOSCOPIST: Dayanara Hawthorne MD ORDER #: [id number] FIRER LOCOMOTIVE: Shazia Ascencio Stienbarger, Terrie, and Andres Dinh STATUS: inpatient INDICATIONS: The patient is a 82 yr old female here for a colonoscopy due to abdominal pain and iron deficiency anemia PROCEDURE PERFORMED: Colonoscopy with biopsy MEDICATIONS: None and Per Anesthesia. PREP QUALITY: The Arthur Bowel Prep Score was Right colon 2, Mid colon 3, and Left colon 3. Total = 8. PREP TYPE:GoLytely ESTIMATED BLOOD LOSS: None CONSENT: The patient understands the risks and benefits of the procedure and understands that these risks include, but are not limited to: sedation, allergic reaction, infection, perforation and/or bleeding. Alternative means of evaluation and treatment include, among others: physical exam, x-rays, and/or surgical intervention. The patient elects to proceed with this endoscopic procedure. medical equipment was checked for proper function. Hand hygiene and appropriate measures for infection prevention was taken. After the risks, benefits and alternatives of the procedure were thoroughly explained, Informed consent was verified, confirmed and timeout was successfully executed by the treatment team. A digital exam revealed external hemorrhoids The Pentax [id number] endoscope was introduced through the anus and advanced to the cecum, which was identified by both the appendix and ileocecal valve. The instrument was then slowly withdrawn as the colon was fully examined. COLON FINDINGS: Moderate diverticulosis was noted in the sigmoid colon. No bleeding was noted from the diverticulosis. A polypoid shaped sessile polyp ranging between 3-5mm in size was found in the transverse colon. A polypectomy was performed with cold forceps. The resection was complete and the polyp tissue was completely retrieved. Retroflexed views revealed internal hemorrhoids and Retroflexed views revealed medium internal hemorrhoids The scope was then completely withdrawn from the patient and the procedure terminated. PROCEDURE WITHDRAWAL TIME:7minutes ADVERSE EVENTS: There were no complications. IMPRESSIONS: 1. Moderate diverticulosis was noted in the sigmoid colon 2. A sessile polyp ranging between 3-5mm in size was found in the transverse colon; polypectomy was performed with cold forceps 3. Retroflexed views revealed internal hemorrhoids 4. Retroflexed views revealed medium internal hemorrhoids 5. Revealed external hemorrhoids RECOMMENDATIONS: 1. Await biopsy results. Biopsy results will not be ready for 7-10 days. If you don't hear from us in two weeks, call our office for results. 2. Continue surveillance 3. Yearly hemoccult 4. Benefiber 2 tsp daily 5. No seeds, nuts and popcorn in diet 6. Xray for Small bowel follow through RECALL: Return 1 year Colonoscopy, pending biopsy results Dayanara Hawthorne MD eSigned: Dayanara Hawthorne MD 01/14/2018 9:40 AM cc: PATIENT NAME: Parul Reid MR#: [id number]
[2018-01-14] MEDS: Carvedilol 12.5 MG Tablet PO SCH ×2 (10:21→22:40)
[2018-01-14] MEDS: Senna/Docusate Sodium 8.6/50 MG Tablet PO SCH ×2 (10:21→22:39)
--- NOTE | 2018-01-14 11:47 | P.PNIM ---
Subjective Interval history: Patient reports feeling tired but no other complaints. Physical Exam Vital signs: Vital Signs 01/13/18 12:00 01/13/18 16:00 01/13/18 20:00 Temperature 98 F 98.7 F 98.0 F Pulse Rate 67 66 63 Respiratory Rate 18 18 18 Blood Pressure 105/62 113/58 L 120/51 L Pulse Oximetry 94 L 94 L 97 01/13/18 23:53 01/14/18 00:00 01/14/18 04:00 Temperature 96.1 F L 96.7 F L Pulse Rate 62 60 59 L Respiratory Rate 18 20 Blood Pressure 131/63 119/58 L Pulse Oximetry 98 95 01/14/18 08:00 01/14/18 09:40 01/14/18 09:49 Temperature 97.3 F L 96.8 F L Pulse Rate 61 58 L Respiratory Rate 16 18 Blood Pressure 120/61 123/59 L Pulse Oximetry 94 L 97 99 01/14/18 10:00 Temperature Pulse Rate Respiratory Rate Blood Pressure Pulse Oximetry 96 Intake & Output 01/13/18 01/14/18 01/14/18 18:59 06:59 18:59 Intake Total 880 / 880 1300 / 1300 300 / 300 Balance 880 / 880 1300 / 1300 300 / 300 Weight 111.1 kg Intake: IV 400 / 400 500 / 500 100 / 100 Cipro 400 MG/200 ML Inj 400 mg 200 / 200 In 200 ml @ 200 mls/hr IV.SIG Q24H [facility] Rx#:[id number] Magnesium Sulfate 1 gm/D5W 100 200 / 200 200 / 200 ml Premix 100 ML @ 100 mls/hr IV.SIG Q1H [facility] Rx#:[id number] Flagyl 500 MG Inj 100 ML @ 100 200 / 200 100 / 100 100 / 100 mls/hr IV.SIG Q8H [facility] Rx#: [id number] Oral 480 / 480 800 / 800 Anesthesia Amount 200 / 200 Other: # Bowel Movements 6 Narrative: General patient in no acute distress HEENT extraocular movements are intact, clear oropharyngeal mucosa, no JVD Cardiovascular S1-S2 audible, RRR, no murmurs rubs or gallops Respiratory: clear to auscultation bilaterally. No wheezing. Abdomen soft, obese, nontender, nondistended, normal bowel sounds Extremities 2+ pitting edema bilateral lower extremities up to the shins. Neuro patient moves all 4 extremities sensation is intact bilaterally. Patient states she is ambulatory at baseline. Results - Labs CBC & Chem 7: 01/12/18 13:53 01/14/18 05:07 Laboratory Results - last 24 hr 01/13/18 01/13/18 01/14/18 17:16 19:45 02:56 Sodium Potassium Chloride Carbon Dioxide Anion Gap BUN Creatinine Estimated GFR POC Glucose 178 H 188 H 139 H Random Glucose Calcium Prot Corrected Calcium Magnesium Total Protein 01/14/18 01/14/18 01/14/18 05:07 08:04 11:18 Sodium 137 Potassium 3.2 L Chloride 99 Carbon Dioxide 24.0 Anion Gap 14 BUN 53 H Creatinine 3.12 H Estimated GFR 17 L POC Glucose 118 H 106 Random Glucose 135 H Calcium 7.2 L* Prot Corrected Calcium 7.9 L Magnesium 2.5 D Total Protein 5.8 L D Assessment and Plan - Plan 82-year-old female with past medical history significant for anemia, CHF with defibrillator placement, previous CVA, chronic kidney disease, diabetes, GERD, hypertension, hyperlipidemia, hypothyroidism and CAD presents to the emergency department for the evaluation of diarrhea and abdominal pain. States that she lives at home alone and was having loose stools and came into our emergency department because she needed a place to go for help. Assessment and plan: 1. Abdominal pain/colitis CT scan of the abdomen and pelvis shows some thickening of the left side of the colon which is concerning for possible colitis. The patient is on antibiotics with Cipro and Flagyl. GI has been consulted and they recommend continuing antibiotics, Protonix. Patient underwent colonoscopy this morning which revealed diverticulosis, polyps and hemorrhoids. Biopsies were taken. Resume diet. Monitor progress. 2. Elevated troponin Likely secondary to heart failure. EKG shows sinus rhythm with T-wave inversions in the lateral leads. When compared to an EKG in 2015 the patient also had a similar EKG. Continue aspirin, statin, beta-alexa. Cardiology was consulted and also believes that the patient's elevated troponins are possibly due to patient's CHF and acute kidney injury. 2. Chronic kidney disease Creatinine worse. This is likely progression of chronic kidney disease when her creatinine was 2.2 and 2016. Follow-up a.m. basic metabolic panel. Creatinine worse today. Change to PO Bumex 3. Systolic CHF The patient has an ejection fraction of 25-30%. Status post defibrillator placement. BNP was elevated on admission. Chest x-ray does not show any significant pulmonary vascular congestion. She has no compulsive shortness of breath and is currently on room air. Transition to PO Bumex. Monitor I/O 4. Diabetes mellitus Continue to monitor the patient's blood sugars. Insulin therapy as ordered. 5. Hypertension/hyperlipidemia/hypothyroidism Continue home medication 6. History of CVA Patient anticoagulated on Xarelto. It appears that the patient was placed on Xarelto for atrial fibrillation after being diagnosed the CVA. Plan to resume Xarelto in AM as there are no signs of active bleeding at this point. Discharge Planning: Will likely need SNF. PT to eval.
[2018-01-14] MEDS: Pantoprazole Inj 40 MG Vial IV.PUSH SCH (11:55)
[2018-01-14] MEDS: Gabapentin 300 MG Capsule PO SCH (18:17)
[2018-01-15] MEDS: Ciprofloxacin 400 MG/200 ML 400 MG/200 ML PIGGYBACK IV.SIG SCH (00:43)
[2018-01-15] MEDS: Pantoprazole Inj 40 MG Vial IV.PUSH SCH ×2 (00:46→15:27)
[2018-01-15] MEDS: Insulin NovoLIN Regular Correctional Sugar Inj SQ SCH ×5 (03:10→22:13)
[2018-01-15] MEDS: Rivaroxaban 15 MG Tablet PO SCH (08:58)
[2018-01-15] MEDS: Senna/Docusate Sodium 8.6/50 MG Tablet PO SCH ×2 (08:59→20:42)
[2018-01-15] MEDS: Carvedilol 12.5 MG Tablet PO SCH ×2 (09:01→20:42)
[2018-01-15 09:04] LABS: Hematocrit 31.8 % (35.0-46.0); Hemoglobin 10.4 gm/dL (11.6-15.3); Mean Corpuscular HGB Conc 32.8 % (32.0-36.0); Mean Corpuscular Hemoglobin 30.4 pg (27.0-34.0); Mean Corpuscular Volume 92.6 fL (80.0-100.0); Mean Platelet Volume 7.3 fL (7.0-11.0); Platelet Count 268 th/mm3 (150-450); Red Blood Count 3.43 mil/mm3 (4.00-5.30); Red Cell Distribution Width 18.2 % (11.6-17.2); White Blood Count 5.5 th/mm3 (4.0-11.0)
[2018-01-15 09:29] LABS: Calcium 7.8 mg/dL (8.5-10.1); Carbon Dioxide 22.6 meq/L (21.0-32.0); Potassium 3.5 meq/L (3.5-5.1)
[2018-01-15 11:01] LABS: INR 1.3 Ratio; Prothrombin Time 13.2 sec (9.8-11.6)
--- NOTE | 2018-01-15 12:07 | P.PNGI ---
Subjective Interval history: Patient's resting in the bed chief complaint some nausea and patient states vomiting but none noted now N.p.o. for small bowel follow-through today current hemoglobin 10.4 <Katherin De La Torre - Last Filed: 01/15/18 12:00> Physical Exam Vital signs: Vital Signs 01/14/18 16:00 01/14/18 20:00 01/15/18 00:00 Temperature 97.4 F L 98.7 F 97.8 F Pulse Rate 58 L 61 62 Respiratory Rate 16 18 18 Blood Pressure 140/65 125/55 L 128/64 Pulse Oximetry 100 97 96 01/15/18 04:00 01/15/18 08:00 Temperature 97.6 F 97.9 F Pulse Rate 62 63 Respiratory Rate 18 18 Blood Pressure 107/51 L 101/46 L Pulse Oximetry 100 96 Intake & Output 01/14/18 01/15/18 01/15/18 18:59 06:59 18:59 Intake Total 540 / 540 400 / 400 100 / 100 Output Total 650 / 650 Balance 540 / 540 -250 / -250 100 / 100 Weight 112.2 kg Intake: IV 100 / 100 400 / 400 100 / 100 Cipro 400 MG/200 ML Inj 400 mg 200 / 200 In 200 ml @ 200 mls/hr IV.SIG Q24H [facility] Rx#:[id number] Flagyl 500 MG Inj 100 ML @ 100 100 / 100 200 / 200 100 / 100 mls/hr IV.SIG Q8H [facility] Rx#: [id number] Oral 240 / 240 Anesthesia Amount 200 / 200 Output: Urine 650 / 650 Other: # Voids 2 # Bowel Movements 2 - Constitutional moderate distress, obese - Routine HEENT Exam Head: Present: normocephalic ENT: Present: mucous membranes dry - Routine Cardiovascular Exam Present: S1, S2 - Routine Abdominal Exam Present: soft (Obese, mild soreness but no obvious pain or discomfort) <Katherin De La Torre - Last Filed: 01/15/18 12:00> Vital signs: Vital Signs 01/14/18 20:00 01/15/18 00:00 01/15/18 04:00 Temperature 98.7 F 97.8 F 97.6 F Pulse Rate 61 62 62 Respiratory Rate 18 18 18 Blood Pressure 125/55 L 128/64 107/51 L Pulse Oximetry 97 96 100 01/15/18 08:00 01/15/18 12:00 01/15/18 16:00 Temperature 97.9 F 97.7 F 97.5 F L Pulse Rate 64 64 62 Respiratory Rate 18 18 18 Blood Pressure 101/46 L 101/49 L 105/63 Pulse Oximetry 96 96 97 Intake & Output 01/14/18 01/15/18 01/15/18 18:59 06:59 18:59 Intake Total 540 / 540 400 / 400 200 / 200 Output Total 650 / 650 Balance 540 / 540 -250 / -250 200 / 200 Weight 112.2 kg Intake: IV 100 / 100 400 / 400 200 / 200 Cipro 400 MG/200 ML Inj 400 mg 200 / 200 In 200 ml @ 200 mls/hr IV.SIG Q24H [facility] Rx#:[id number] Flagyl 500 MG Inj 100 ML @ 100 100 / 100 200 / 200 200 / 200 mls/hr IV.SIG Q8H [facility] Rx#: [id number] Oral 240 / 240 Anesthesia Amount 200 / 200 Output: Urine 650 / 650 Other: # Voids 2 # Bowel Movements 2 <Dayanara Hawthorne - Last Filed: 01/15/18 17:33> Results - Labs CBC & Chem 7: 01/15/18 08:20 01/15/18 08:20 Laboratory Results - last 24 hr 01/14/18 01/15/18 01/15/18 20:32 02:57 07:20 WBC RBC Hgb Hct MCV MCH MCHC RDW Plt Count MPV PT INR Sodium Potassium Chloride Carbon Dioxide Anion Gap BUN Creatinine Estimated GFR POC Glucose 229 H 271 H 218 H Random Glucose Calcium 01/15/18 01/15/18 01/15/18 08:20 08:20 09:58 WBC 5.5 RBC 3.43 L Hgb 10.4 L Hct 31.8 L MCV 92.6 MCH 30.4 MCHC 32.8 RDW 18.2 H Plt Count 268 MPV 7.3 PT 13.2 H INR 1.3 Sodium 132 L Potassium 3.5 Chloride 97 L Carbon Dioxide 22.6 Anion Gap 12 BUN 56 H Creatinine 3.18 H Estimated GFR 17 L POC Glucose Random Glucose 214 H Calcium 7.8 L 01/15/18 11:32 WBC RBC Hgb Hct MCV MCH MCHC RDW Plt Count MPV PT INR Sodium Potassium Chloride Carbon Dioxide Anion Gap BUN Creatinine Estimated GFR POC Glucose 206 H Random Glucose Calcium <Katherin De La Torre - Last Filed: 01/15/18 12:00> - Labs CBC & Chem 7: 01/15/18 08:20 01/15/18 08:20 Laboratory Results - last 24 hr 01/14/18 01/15/18 01/15/18 20:32 02:57 07:20 WBC RBC Hgb Hct MCV MCH MCHC RDW Plt Count MPV PT INR Sodium Potassium Chloride Carbon Dioxide Anion Gap BUN Creatinine Estimated GFR POC Glucose 229 H 271 H 218 H Random Glucose Calcium 01/15/18 01/15/18 01/15/18 08:20 08:20 09:58 WBC 5.5 RBC 3.43 L Hgb 10.4 L Hct 31.8 L MCV 92.6 MCH 30.4 MCHC 32.8 RDW 18.2 H Plt Count 268 MPV 7.3 PT 13.2 H INR 1.3 Sodium 132 L Potassium 3.5 Chloride 97 L Carbon Dioxide 22.6 Anion Gap 12 BUN 56 H Creatinine 3.18 H Estimated GFR 17 L POC Glucose Random Glucose 214 H Calcium 7.8 L 01/15/18 11:32 WBC RBC Hgb Hct MCV MCH MCHC RDW Plt Count MPV PT INR Sodium Potassium Chloride Carbon Dioxide Anion Gap BUN Creatinine Estimated GFR POC Glucose 206 H Random Glucose Calcium <Dayanara Hawthorne - Last Filed: 01/15/18 17:33> Assessment and Plan (1) Heme + stool Status: Acute Code(s): R19.5 - Other fecal abnormalities (2) Colitis Status: Acute Code(s): K52.9 - Noninfective gastroenteritis and colitis, unspecified - Plan 01/12/2018 patient is sitting up in the bed states she is feeling somewhat better today. Mild decreased appetite but no nausea no vomiting. currently plan for colonoscopy Sunday a.m. will maintain clear liquid ADA diet , hold Xarelto. Current labs show hemoglobin 11.2 stable 01/13/2018 patient is tolerating clear liquids , notes mild nausea , no vomiting current hemoglobin mildly decreased at 10.1 was 11.2 last check. No obvious rectal bleeding or hematemesis. Does note some lower abdominal discomfort off and on. Plan for colonoscopy Sunday. Encouraged prep today slowly 01/15/2018. Patient is status post colonoscopy on 01/14/2018 for iron deficiency anemia. Noted moderate diverticulosis polyps with polypectomy, external and internal hemorrhoids. Discussed with patient findings but patient is still not feeling well this morning and still having some nausea and vomiting. Recheck PT /INR originally 1.4 current hemoglobin 10.4. Change patient to n.p.o. for small bowel follow-through. Plan: Diet n.p.o. Small bowel follow-through ordered this a.m. Anti-medics for nausea Monitor labs special attention to hemoglobin and any obvious bleeding Continue to hold Xarelto for now Further recommendations to follow Continue Flagyl and Cipro PPI Patient will need yearly Hemoccult checks Also discussed with her no nuts, seeds or popcorn Patient has been seen by myself and Dr. Hawthorne, note is written on his behalf <Katherin De La Torre - Last Filed: 01/15/18 12:00> (1) Heme + stool Status: Acute Code(s): R19.5 - Other fecal abnormalities (2) Colitis Status: Acute Code(s): K52.9 - Noninfective gastroenteritis and colitis, unspecified - Plan Seen and examined with PIG CASTING MACHINE OPERATOR, states more discomfort and nausea after SBFT. Says could not complete study because she had to have a BM but couldnot do it in radiology. Await results. Monitor labs. The exam, history, and the medical decision-making described in the above note were completed with the assistance of the mid-level provider. I reviewed and agree with the findings presented. I attest that I had a [id number] encounter with the patient on the same day, and personally performed and documented my assessment and findings in the medical record. <Dayanara Hawthorne - Last Filed: 01/15/18 17:33>
--- NOTE | 2018-01-15 14:19 | P.PNIM ---
Subjective Interval history: Patient reports nausea today but denies abdominal pain. Will have a small bowel x-rays today. Physical Exam Vital signs: Vital Signs 01/14/18 16:00 01/14/18 20:00 01/15/18 00:00 Temperature 97.4 F L 98.7 F 97.8 F Pulse Rate 58 L 61 62 Respiratory Rate 16 18 18 Blood Pressure 140/65 125/55 L 128/64 Pulse Oximetry 100 97 96 01/15/18 04:00 01/15/18 08:00 01/15/18 12:00 Temperature 97.6 F 97.9 F 97.7 F Pulse Rate 62 64 64 Respiratory Rate 18 18 18 Blood Pressure 107/51 L 101/46 L 101/49 L Pulse Oximetry 100 96 96 Intake & Output 01/14/18 01/15/18 01/15/18 18:59 06:59 18:59 Intake Total 540 / 540 400 / 400 100 / 100 Output Total 650 / 650 Balance 540 / 540 -250 / -250 100 / 100 Weight 112.2 kg Intake: IV 100 / 100 400 / 400 100 / 100 Cipro 400 MG/200 ML Inj 400 mg 200 / 200 In 200 ml @ 200 mls/hr IV.SIG Q24H [facility] Rx#:[id number] Flagyl 500 MG Inj 100 ML @ 100 100 / 100 200 / 200 100 / 100 mls/hr IV.SIG Q8H [facility] Rx#: [id number] Oral 240 / 240 Anesthesia Amount 200 / 200 Output: Urine 650 / 650 Other: # Voids 2 # Bowel Movements 2 Narrative: General patient in no acute distress HEENT extraocular movements are intact, clear oropharyngeal mucosa, no JVD Cardiovascular S1-S2 audible, RRR, no murmurs rubs or gallops Respiratory: clear to auscultation bilaterally. No wheezing. Abdomen soft, obese, nontender, nondistended, normal bowel sounds Extremities 2+ pitting edema bilateral lower extremities up to the shins. Neuro patient moves all 4 extremities sensation is intact bilaterally. Patient states she is ambulatory at baseline. Results - Labs CBC & Chem 7: 01/15/18 08:20 01/15/18 08:20 Laboratory Results - last 24 hr 01/14/18 01/15/18 01/15/18 20:32 02:57 07:20 WBC RBC Hgb Hct MCV MCH MCHC RDW Plt Count MPV PT INR Sodium Potassium Chloride Carbon Dioxide Anion Gap BUN Creatinine Estimated GFR POC Glucose 229 H 271 H 218 H Random Glucose Calcium 01/15/18 01/15/18 01/15/18 08:20 08:20 09:58 WBC 5.5 RBC 3.43 L Hgb 10.4 L Hct 31.8 L MCV 92.6 MCH 30.4 MCHC 32.8 RDW 18.2 H Plt Count 268 MPV 7.3 PT 13.2 H INR 1.3 Sodium 132 L Potassium 3.5 Chloride 97 L Carbon Dioxide 22.6 Anion Gap 12 BUN 56 H Creatinine 3.18 H Estimated GFR 17 L POC Glucose Random Glucose 214 H Calcium 7.8 L 01/15/18 11:32 WBC RBC Hgb Hct MCV MCH MCHC RDW Plt Count MPV PT INR Sodium Potassium Chloride Carbon Dioxide Anion Gap BUN Creatinine Estimated GFR POC Glucose 206 H Random Glucose Calcium Assessment and Plan - Plan 82-year-old female with past medical history significant for anemia, CHF with defibrillator placement, previous CVA, chronic kidney disease, diabetes, GERD, hypertension, hyperlipidemia, hypothyroidism and CAD presents to the emergency department for the evaluation of diarrhea and abdominal pain. States that she lives at home alone and was having loose stools and came into our emergency department because she needed a place to go for help. Assessment and plan: 1. Abdominal pain/colitis CT scan of the abdomen and pelvis shows some thickening of the left side of the colon which is concerning for possible colitis. The patient is on antibiotics with Cipro and Flagyl. GI has been consulted and they recommend continuing antibiotics, Protonix. Patient underwent colonoscopy which revealed diverticulosis, polyps and hemorrhoids. Biopsies were taken. Resume diet. Monitor progress. Small bowel follow-through today per GI. Continue antiemetics as needed. 2. Elevated troponin Likely secondary to heart failure. EKG shows sinus rhythm with T-wave inversions in the lateral leads. When compared to an EKG in 2015 the patient also had a similar EKG. Continue aspirin, statin, beta-alexa. Cardiology was consulted and also believes that the patient's elevated troponins are possibly due to patient's CHF and acute kidney injury. 2. Chronic kidney disease Creatinine worse. This is likely progression of chronic kidney disease when her creatinine was 2.2 and 2016. Follow-up a.m. basic metabolic panel. Creatinine worse today. Changed to p.o. Bumex yesterday. Continue to monitor 3. Systolic CHF The patient has an ejection fraction of 25-30%. Status post defibrillator placement. BNP was elevated on admission. Chest x-ray does not show any significant pulmonary vascular congestion. Transition to PO Bumex. Monitor I/O 4. Diabetes mellitus Continue to monitor the patient's blood sugars. Insulin therapy as ordered. 5. Hypertension/hyperlipidemia/hypothyroidism Continue home medication 6. History of CVA Patient anticoagulated on Xarelto. It appears that the patient was placed on Xarelto for atrial fibrillation after being diagnosed the CVA. Plan to resume Xarelto in AM as there are no signs of active bleeding at this point. Follow results of small bowel follow-through. Discharge Planning: Will likely need SNF.
[2018-01-15] MEDS: Gabapentin 300 MG Capsule PO SCH (18:20)
[2018-01-16] MEDS: Acetaminophen 325 MG Tablet PO PRN (00:31)
[2018-01-16] MEDS: Ciprofloxacin 400 MG/200 ML 400 MG/200 ML PIGGYBACK IV.SIG SCH (00:34)
[2018-01-16] MEDS: Pantoprazole Inj 40 MG Vial IV.PUSH SCH ×2 (00:39→13:27)
[2018-01-16] MEDS: Insulin NovoLIN Regular Correctional Sugar Inj SQ SCH ×5 (04:31→20:33)
--- NOTE | 2018-01-16 09:24 | P.PNGI ---
Subjective Interval history: Patient awake and alert laying on stretcher, on her way to radiology for small bowel follow-through. Patient denies any discomfort at this time denies nausea vomiting no BM this a.m. per patient. <Betzaida Barone - Last Filed: 01/16/18 10:40> Physical Exam Vital signs: Vital Signs 01/15/18 12:00 01/15/18 16:00 01/15/18 20:00 Temperature 97.7 F 97.5 F L Pulse Rate 64 61 61 Respiratory Rate 18 18 Blood Pressure 101/49 L 105/63 Pulse Oximetry 96 97 01/15/18 20:20 01/16/18 00:00 01/16/18 04:00 Temperature 97.3 F L 97.4 F L 97.5 F L Pulse Rate 61 60 58 L Respiratory Rate 16 18 18 Blood Pressure 115/70 96/47 L 103/43 L Pulse Oximetry 98 97 95 01/16/18 04:30 Temperature Pulse Rate Respiratory Rate Blood Pressure 100/50 L Pulse Oximetry Intake & Output 01/15/18 01/16/18 01/16/18 18:59 06:59 18:59 Intake Total 680 / 680 300 / 300 Balance 680 / 680 300 / 300 Weight 112.6 kg Intake: IV 200 / 200 300 / 300 Cipro 400 MG/200 ML Inj 400 mg 200 / 200 In 200 ml @ 200 mls/hr IV.SIG Q24H [facility] Rx#:[id number] Flagyl 500 MG Inj 100 ML @ 100 200 / 200 100 / 100 mls/hr IV.SIG Q8H [facility] Rx#: [id number] Oral 480 / 480 0 / 0 Other: # Voids 1 1 # Bowel Movements 1 0 - Constitutional no acute distress - Routine HEENT Exam Head: Present: normocephalic - Routine Neck Exam Present: supple - Routine Respiratory Exam Present: CTA bilaterally. Absent: accessory muscle use - Routine Cardiovascular Exam Present: RRR - Routine Abdominal Exam Present: soft, normoactive bowel sounds. Absent: tenderness, distended, guarding, firm - Routine Extremities Exam Present: edema, pulses intact. Absent: cyanosis, clubbing - Routine Skin Exam Present: dry, warm - Routine Neurological Exam Present: alert, oriented X3 - Detailed Neurological Exam: Coma Scale Eye Opening: Spontaneous Verbal Response: Oriented Motor Response: Obey commands Kayla Coma Scale Total: 15 - Routine Psychiatric Exam Present: normal affect, cooperative <Betzaida Barone - Last Filed: 01/16/18 10:40> Vital signs: Vital Signs 01/15/18 16:00 01/15/18 20:00 01/15/18 20:20 Temperature 97.5 F L 97.3 F L Pulse Rate 61 61 61 Respiratory Rate 18 16 Blood Pressure 105/63 115/70 Pulse Oximetry 97 98 01/16/18 00:00 01/16/18 04:00 01/16/18 04:30 Temperature 97.4 F L 97.5 F L Pulse Rate 60 58 L Respiratory Rate 18 18 Blood Pressure 96/47 L 103/43 L 100/50 L Pulse Oximetry 97 95 01/16/18 08:00 01/16/18 12:00 Temperature 97.4 F L 97.5 F L Pulse Rate 64 63 Respiratory Rate 17 15 Blood Pressure 127/60 131/59 L Pulse Oximetry 99 99 Intake & Output 01/15/18 01/16/18 01/16/18 18:59 06:59 18:59 Intake Total 680 / 680 300 / 300 100 / 100 Balance 680 / 680 300 / 300 100 / 100 Weight 112.6 kg Intake: IV 200 / 200 300 / 300 100 / 100 Cipro 400 MG/200 ML Inj 400 mg 200 / 200 In 200 ml @ 200 mls/hr IV.SIG Q24H [facility] Rx#:[id number] Flagyl 500 MG Inj 100 ML @ 100 200 / 200 100 / 100 100 / 100 mls/hr IV.SIG Q8H [facility] Rx#: [id number] Oral 480 / 480 0 / 0 Other: # Voids 1 1 # Bowel Movements 1 0 <Dayanara Hawthorne - Last Filed: 01/16/18 15:45> Results - Labs CBC & Chem 7: 01/15/18 08:20 01/15/18 08:20 Laboratory Results - last 24 hr 01/15/18 01/15/18 01/15/18 08:20 09:58 11:32 PT 13.2 H INR 1.3 Sodium 132 L Potassium 3.5 Chloride 97 L Carbon Dioxide 22.6 Anion Gap 12 BUN 56 H Creatinine 3.18 H Estimated GFR 17 L POC Glucose 206 H Random Glucose 214 H Calcium 7.8 L 09/25/18 20:12 PT INR Sodium Potassium Chloride Carbon Dioxide Anion Gap BUN Creatinine Estimated GFR POC Glucose 175 H Random Glucose Calcium <BaroneBetzaida - Last Filed: 01/16/18 10:40> - Labs CBC & Chem 7: 01/16/18 10:16 01/16/18 10:16 Laboratory Results - last 24 hr 01/15/18 01/16/18 01/16/18 20:12 10:16 10:16 WBC 5.3 RBC 3.67 L Hgb 11.1 L Hct 33.8 L MCV 92.2 MCH 30.2 MCHC 32.7 RDW 18.0 H Plt Count 303 MPV 7.5 Sodium 132 L Potassium 3.5 Chloride 96 L Carbon Dioxide 23.4 Anion Gap 13 BUN 55 H Creatinine 3.08 H Estimated GFR 18 L POC Glucose 175 H Random Glucose 169 H Calcium 8.4 L - Imaging Impressions Upper GI and Small Bowel X-Ray 01/15/18 00:00 CONCLUSION: Slow transit time with contrast not reaching the colon by 7.5 hours. However, the contrast passes through the small intestine excluding small bowel obstruction. Additionally, the small bowel demonstrates a normal appearance. <Dayanara Hawthorne - Last Filed: 01/16/18 15:45> Assessment and Plan (1) Heme + stool Status: Acute Code(s): R19.5 - Other fecal abnormalities (2) Colitis Status: Acute Code(s): K52.9 - Noninfective gastroenteritis and colitis, unspecified - Plan 01/12/2018 patient is sitting up in the bed states she is feeling somewhat better today. Mild decreased appetite but no nausea no vomiting. currently plan for colonoscopy Sunday a.m. will maintain clear liquid ADA diet , hold Xarelto. Current labs show hemoglobin 11.2 stable 01/13/2018 patient is tolerating clear liquids , notes mild nausea , no vomiting current hemoglobin mildly decreased at 10.1 was 11.2 last check. No obvious rectal bleeding or hematemesis. Does note some lower abdominal discomfort off and on. Plan for colonoscopy Sunday. Encouraged prep today slowly 01/15/2018. Patient is status post colonoscopy on 01/14/2018 for iron deficiency anemia. Noted moderate diverticulosis polyps with polypectomy, external and internal hemorrhoids. Discussed with patient findings but patient is still not feeling well this morning and still having some nausea and vomiting. Recheck PT /INR originally 1.4 current hemoglobin 10.4. Change patient to n.p.o. for small bowel follow-through. 01/16/18-patient laying on stretcher awaiting transport to radiology for small bowel follow-through. Patient states she feels much better today. Denies nausea denies vomiting denies abdominal pain at this time. Once again I discussed colonoscopy findings and instructed patient to follow-up for biopsy results after discharge. Patient verbalized understanding. 01/16/18 1030- Small bowel follow through findings --> Slow transit time with contrast not reaching the colon by 7.5 hours. However, the contrast passes through the small intestine excluding small bowel obstruction. Additionally, the small bowel demonstrates a normal appearance. Plan: -Continue to monitor labs-CBC CMP in the a.m. -Note results of small bowel through -Monitor for any bleeding -Continue IV antibiotics Flagyl and Cipro -Continue pantoprazole -Xarelto -Supportive care -Further recommendations to follow This patient has been seen by myself and Dr. Hawthorne and this note is written on his behalf <Betzaida Barone - Last Filed: 01/16/18 10:40> (1) Heme + stool Status: Acute Code(s): R19.5 - Other fecal abnormalities (2) Colitis Status: Acute Code(s): K52.9 - Noninfective gastroenteritis and colitis, unspecified - Plan Seen and examined with PAYMENT MANAGER, sbft normal. Advance diet. Mag citrate for constipation. Can dc home with gi fu. Discussed with Dr Ansari The exam, history, and the medical decision-making described in the above note were completed with the assistance of the mid-level provider. I reviewed and agree with the findings presented. I attest that I had a [id number] encounter with the patient on the same day, and personally performed and documented my assessment and findings in the medical record. <Dayanara Hawthorne - Last Filed: 01/16/18 15:45>
--- NOTE | 2018-01-16 09:33 | FL ---
EXAM DATE: 01/16/2018 12:00 AM EDT AGE/SEX: 82 years / Female INDICATIONS: Anemia. Nausea x 2 days. CLINICAL DATA: This is the patient's subsequent encounter. Patient reports that signs and symptoms h ave been present for 4 - 6 days and indicates a pain score of 4/10. MEDICAL/SURGICAL HISTORY: Gastroesophageal reflux disease. Hypothyroidism. Diabetes. Anemia. Cardiomyopathy. CVA. Chronic kidney disease. Gastroenteritis. Hemiplegia. Myocardial infarction. Tiago crowley. Cervical spine surgery. COMPARISON: [facility] [place], CT ABDOMEN & PELVIS W/O CONTRAST, 01/10/2018. . FLUORO TIME: 0 IMAGE COUNT: 12 FINDINGS: 2 mineralogy teacher views of the abdomen prior to contrast administration demonstrate a nonobstructive bowel gas pattern. The transverse colon is mildly distended with air. There are multiple phleboliths within the pelvis as well as a nonspecific calcification in the left upper quadrant. No renal stones are presen t. Single lead cardiac pacing device/AICD is present and there are degenerative changes of the lumbar spine and hip joints. Following ingestion of oral contrast material, serial images were obtained to follow the course of co ntrast throughout the small bowel. At the jejunum demonstrates normal size and fold pattern without a bnormally displaced loops. No transition point is present. [place] visualized on the 7.5 hour image dem onstrates normal fold pattern without bowel wall thickening or abnormal distention as well. The 21 ho ur delayed image demonstrates that most of the contrast has passed beyond the colon with some remaini ng in the right colon and transverse colon. CONCLUSION: Slow transit time with contrast not reaching the colon by 7.5 hours. However, the contrast passes thr ough the small intestine excluding small bowel obstruction. Additionally, the small bowel demonstrate s a normal appearance. Electronically signed by: Clifford Boudreaux MD 01/16/2018 9:32 AM EDT
[2018-01-16] MEDS: Carvedilol 12.5 MG Tablet PO SCH ×2 (09:53→20:32)
[2018-01-16] MEDS: Rivaroxaban 15 MG Tablet PO SCH (09:53)
[2018-01-16] MEDS: Senna/Docusate Sodium 8.6/50 MG Tablet PO SCH ×2 (09:53→20:32)
[2018-01-16 11:05] LABS: Hematocrit 33.8 % (35.0-46.0); Hemoglobin 11.1 gm/dL (11.6-15.3); Mean Corpuscular HGB Conc 32.7 % (32.0-36.0); Mean Corpuscular Hemoglobin 30.2 pg (27.0-34.0); Mean Corpuscular Volume 92.2 fL (80.0-100.0); Mean Platelet Volume 7.5 fL (7.0-11.0); Platelet Count 303 th/mm3 (150-450); Red Blood Count 3.67 mil/mm3 (4.00-5.30); White Blood Count 5.3 th/mm3 (4.0-11.0)
[2018-01-16 11:25] LABS: Calcium 8.4 mg/dL (8.5-10.1); Carbon Dioxide 23.4 meq/L (21.0-32.0); Potassium 3.5 meq/L (3.5-5.1)
--- NOTE | 2018-01-16 14:20 | P.PNIM ---
Subjective Interval history: Patient reports she is feeling better. She is tolerating her diet currently. Reports she has not had a bowel movement. I discussed with GI. Patient will be given a dose of mag citrate. Physical Exam Vital signs: Vital Signs 01/15/18 16:00 01/15/18 20:00 01/15/18 20:20 Temperature 97.5 F L 97.3 F L Pulse Rate 61 61 61 Respiratory Rate 18 16 Blood Pressure 105/63 115/70 Pulse Oximetry 97 98 01/16/18 00:00 01/16/18 04:00 01/16/18 04:30 Temperature 97.4 F L 97.5 F L Pulse Rate 60 58 L Respiratory Rate 18 18 Blood Pressure 96/47 L 103/43 L 100/50 L Pulse Oximetry 97 95 01/16/18 08:00 01/16/18 12:00 Temperature 97.4 F L 97.5 F L Pulse Rate 64 63 Respiratory Rate 17 15 Blood Pressure 127/60 131/59 L Pulse Oximetry 99 99 Intake & Output 01/15/18 01/16/18 01/16/18 18:59 06:59 18:59 Intake Total 680 / 680 300 / 300 100 / 100 Balance 680 / 680 300 / 300 100 / 100 Weight 112.6 kg Intake: IV 200 / 200 300 / 300 100 / 100 Cipro 400 MG/200 ML Inj 400 mg 200 / 200 In 200 ml @ 200 mls/hr IV.SIG Q24H [facility] Rx#:[id number] Flagyl 500 MG Inj 100 ML @ 100 200 / 200 100 / 100 100 / 100 mls/hr IV.SIG Q8H [facility] Rx#: [id number] Oral 480 / 480 0 / 0 Other: # Voids 1 1 # Bowel Movements 1 0 Narrative: General patient in no acute distress HEENT extraocular movements are intact, clear oropharyngeal mucosa, no JVD Cardiovascular S1-S2 audible, RRR, no murmurs rubs or gallops Respiratory: clear to auscultation bilaterally. No wheezing. Abdomen soft, obese, nontender, nondistended, normal bowel sounds Extremities 2+ pitting edema bilateral lower extremities up to the shins. Neuro patient moves all 4 extremities sensation is intact bilaterally. Generalized weakness. Results - Labs CBC & Chem 7: 01/16/18 10:16 01/16/18 10:16 Laboratory Results - last 24 hr 01/15/18 01/16/18 01/16/18 20:12 10:16 10:16 WBC 5.3 RBC 3.67 L Hgb 11.1 L Hct 33.8 L MCV 92.2 MCH 30.2 MCHC 32.7 RDW 18.0 H Plt Count 303 MPV 7.5 Sodium 132 L Potassium 3.5 Chloride 96 L Carbon Dioxide 23.4 Anion Gap 13 BUN 55 H Creatinine 3.08 H Estimated GFR 18 L POC Glucose 175 H Random Glucose 169 H Calcium 8.4 L - Imaging Impressions Upper GI and Small Bowel X-Ray 01/15/18 00:00 CONCLUSION: Slow transit time with contrast not reaching the colon by 7.5 hours. However, the contrast passes through the small intestine excluding small bowel obstruction. Additionally, the small bowel demonstrates a normal appearance. Assessment and Plan - Plan 82-year-old female with past medical history significant for anemia, CHF with defibrillator placement, previous CVA, chronic kidney disease, diabetes, GERD, hypertension, hyperlipidemia, hypothyroidism and CAD presents to the emergency department for the evaluation of diarrhea and abdominal pain. States that she lives at home alone and was having loose stools and came into our emergency department because she needed a place to go for help. Assessment and plan: 1. Abdominal pain/colitis CT scan of the abdomen and pelvis shows some thickening of the left side of the colon which is concerning for possible colitis. The patient is on antibiotics with Cipro and Flagyl. GI has been consulted and they recommend continuing antibiotics, Protonix. Patient underwent colonoscopy which revealed diverticulosis, polyps and hemorrhoids. Biopsies were taken. Resume diet. Monitor progress. Small bowel follow-through shows slow transit time but no obstruction. Symptoms improving however she has not moved her bowels. Discussed with GI. Patient will be given a dose of mag citrate. Monitor response. 2. Elevated troponin Likely secondary to heart failure. EKG shows sinus rhythm with T-wave inversions in the lateral leads. When compared to an EKG in 2014 the patient also had a similar EKG. Continue aspirin, statin, beta-alexa. Cardiology was consulted and also believes that the patient's elevated troponins are possibly due to patient's CHF and acute kidney injury. 2. Chronic kidney disease Renal function stable. This is likely progression of chronic kidney disease when her creatinine was 2.2 in 2015. Continue p.o. Bumex. Continue to monitor 3. Systolic CHF The patient has an ejection fraction of 25-30%. Status post defibrillator placement. BNP was elevated on admission. Chest x-ray does not show any significant pulmonary vascular congestion. Continue PO Bumex. Monitor I/O 4. Diabetes mellitus Continue to monitor the patient's blood sugars. Insulin therapy as ordered. 5. Hypertension/hyperlipidemia/hypothyroidism Continue home medication 6. History of CVA Patient anticoagulated on Xarelto. It appears that the patient was placed on Xarelto for atrial fibrillation after being diagnosed the CVA Resume Xarelto since there are no signs of active bleeding. Discharge Planning: Plan to DC to SNF in a.m. if she continues to progress well.
[2018-01-16] MEDS ORDERED: Magnesium Citrate Liq 300 ML Bottle PO ONE (15:00)
[2018-01-16] MEDS: Gabapentin 300 MG Capsule PO SCH (17:34)
[2018-01-16 19:33] VITALS: RESP 18
[2018-01-17] MEDS: Pantoprazole Inj 40 MG Vial IV.PUSH SCH ×2 (00:02→13:57)
[2018-01-17] MEDS: Ciprofloxacin 400 MG/200 ML 400 MG/200 ML PIGGYBACK IV.SIG SCH ×2 (00:49→00:51)
[2018-01-17] MEDS: Insulin NovoLIN Regular Correctional Sugar Inj SQ SCH ×4 (02:53→17:18)
[2018-01-17] MEDS: Acetaminophen 325 MG Tablet PO PRN (02:57)
[2018-01-17 07:46] LABS: Baso # (Auto) 0.1 th/mm3 (0.0-0.2); Baso % (Auto) 0.9 % (0.0-2.0); Eos # (Auto) 0.4 th/mm3 (0.0-0.4); Eos % (Auto) 7.1 % (0.0-4.0); Hematocrit 32.8 % (35.0-46.0); Hemoglobin 10.6 gm/dL (11.6-15.3); Lymph # (Auto) 1.3 th/mm3 (1.0-4.8); Lymph % (Auto) 22.4 % (9.0-44.0); Mean Corpuscular HGB Conc 32.2 % (32.0-36.0); Mean Corpuscular Hemoglobin 30.1 pg (27.0-34.0); Mean Corpuscular Volume 93.2 fL (80.0-100.0); Mean Platelet Volume 7.4 fL (7.0-11.0); Mono # (Auto) 0.8 th/mm3 (0.0-0.9); Mono % (Auto) 14.4 % (0.0-8.0); Neut # (Auto) 3.1 th/mm3 (1.8-7.7); Neut % (Auto) 55.2 % (16.0-70.0); Platelet Count 291 th/mm3 (150-450); Red Blood Count 3.51 mil/mm3 (4.00-5.30); Red Cell Distribution Width 17.7 % (11.6-17.2); White Blood Count 5.6 th/mm3 (4.0-11.0)
[2018-01-17 08:16] LABS: Alanine Aminotransferase 15 U/L (10-53); Albumin 2.3 g/dL (3.4-5.0); Anion Gap 11 meq/L (5-15); Aspartate Aminotransferase 26 U/L (15-37); Blood Urea Nitrogen 55 mg/dL (7-18); Calcium 7.9 mg/dL (8.5-10.1); Carbon Dioxide 25.8 meq/L (21.0-32.0); Chloride 97 meq/L (98-107); Glomerular Filtration Rate 16 mL/min (>89); Glucose,Random 172 mg/dL (74-106); Potassium 3.7 meq/L (3.5-5.1); Sodium 134 meq/L (136-145)
[2018-01-17 08:18] LABS: Alkaline Phosphatase 120 U/L (45-117); Total Protein 5.9 g/dL (6.4-8.2)
--- NOTE | 2018-01-17 08:46 | P.PNCA ---
Subjective Interval history: No CP, dyspnea, dizziness, abdominal pain, nausea, palpitations. Medications and Allergies Active Medications: Active Medications Acetaminophen (Tylenol) 650 mg PO Q4H PRN PRN Reason: PAIN 1-10 AND/OR FEVER >101F Last Admin: 01/17/18 02:57 Dose: 650 mg Al Hydroxide/Mg Hydroxide (Milk Of Magnesia Liq) 30 ml PO Q12H PRN PRN Reason: Mild Constipation Aspirin (Ecotrin) 81 mg PO DAILY [facility] Last Admin: 01/16/18 09:53 Dose: 81 mg Atorvastatin Calcium (Lipitor) 40 mg PO DAILY [facility] Last Admin: 01/16/18 09:53 Dose: 40 mg Bisacodyl (Dulcolax Supp) 10 mg RECTAL DAILY PRN PRN Reason: SEVERE CONSITIPATION Bumetanide (Bumex) 1 mg PO DAILY [facility] Last Admin: 01/16/18 09:53 Dose: 1 mg Carvedilol (Coreg) 12.5 mg PO BID [facility] Last Admin: 01/16/18 20:32 Dose: 12.5 mg Dextrose (D50w Vial) 50 ml IV.PUSH UNSCH PRN PRN Reason: PER HYPOGLYCEMIA PROTOCOL Gabapentin (Neurontin) 300 mg PO QPM [facility] Last Admin: 01/16/18 17:34 Dose: 300 mg Glucagon (Glucagon Inj) 1 mg OTHER PRN PRN PRN Reason: for Hypoglycemia Protocol Sodium Chloride (Ns Inj) 500 mls @ 0 mls/hr IV.SIG BOLUS [facility] Last Infusion: 01/11/18 00:11 Dose: Infused Ciprofloxacin/Dextrose (Cipro 400 Mg/200 Ml Inj) 400 mg in 200 mls @ 200 mls/ hr IV.SIG Q24H [facility] Last Infusion: 01/17/18 01:50 Dose: Infused Metronidazole/Sodium Chloride (Flagyl 500 Mg Inj) 100 mls @ 100 mls/hr IV.SIG Q8H [facility] Last Infusion: 01/17/18 01:40 Dose: Infused Insulin Human Regular (Novolin R Correctional Sugar Inj) 0 units SQ ACHS AND 3AM [facility]; Protocol Last Admin: 01/17/18 02:53 Dose: 3 units Lactulose (Lactulose Liq) 30 ml PO DAILY PRN PRN Reason: SEVERE CONSITIPATION Levothyroxine Sodium (Synthroid) 25 mcg PO DAILY@0600 [facility] Last Admin: 01/17/18 05:44 Dose: 25 mcg Ondansetron HCl (Zofran Inj) 4 mg IV.PUSH Q6H PRN PRN Reason: NAUSEA OR VOMITING Last Admin: 01/16/18 15:22 Dose: 4 mg Pantoprazole Sodium (Protonix Inj) 40 mg IV.PUSH Q12H [facility] Last Admin: 01/17/18 00:02 Dose: 40 mg Rivaroxaban (Xarelto) 15 mg PO DAILY [facility] Last Admin: 01/16/18 09:53 Dose: 15 mg Senna/Docusate Sodium (Conchis-Colace) 1 tab PO BID [facility] Last Admin: 01/16/18 20:32 Dose: 1 tab Sennosides (Senokot) 17.2 mg PO Q12H PRN PRN Reason: Moderate Constipation Sodium Chloride (Ns Flush) 2 ml IV.FLUSH PRN PRN PRN Reason: FLUSH AFTER USING IV ACCESS Last Admin: 01/16/18 20:34 Dose: 2 ml Allergies Allergy/AdvReac Type Severity Reaction Status Date / Time amoxicillin Allergy Rash Verified 01/10/18 18:45 methylprednisolone Allergy Itching Verified 01/10/18 18:45 lisinopril AdvReac Cough Verified 01/10/18 18:45 MRI PRECAUTION AdvReac Severe PACEMAKER Uncoded 05/04/16 10:37 (RV) 02/08/10 Home Medications Medication Instructions Recorded Confirmed Type acetaminophen [Tylenol] 325 mg PO Q6H PRN 01/10/18 01/10/18 History aspirin [Aspirin Low Dose] 81 mg PO DAILY 01/10/18 01/10/18 History atorvastatin 40 mg PO DAILY 01/10/18 01/10/18 History bumetanide 2 mg PO DAILY 01/10/18 01/10/18 History calcitriol 0.25 mcg PO Q OTHER DAY 01/10/18 01/10/18 History carvedilol 12.5 mg PO BID 01/10/18 01/10/18 History ciclopirox 1 applic TOPICAL BID 01/10/18 01/10/18 History gabapentin 300 mg PO QPM 01/10/18 01/10/18 History insulin glargine [Lantus U-100 10 unit SUB-Q HS 01/10/18 01/10/18 History Insulin] insulin glargine [Lantus U-100 15 unit SUB-Q AC 01/10/18 01/10/18 History Insulin] insulin lispro [Humalog KwikPen 100 unit SUB-Q DAILY 01/10/18 01/10/18 History Insulin] levothyroxine 25 mcg PO DAILY 01/10/18 01/10/18 History rivaroxaban [Xarelto] 15 mg PO DAILY 01/10/18 01/10/18 History sulfasalazine 0.5 g PO BID 01/10/18 01/10/18 History Physical Exam Vital signs: Vital Signs 01/16/18 12:00 01/16/18 16:00 01/16/18 19:00 Temperature 97.5 F L 97.3 F L 97.2 F L Pulse Rate 63 64 62 Respiratory Rate 15 16 18 Blood Pressure 131/59 L 109/48 L 125/66 Pulse Oximetry 99 98 98 01/16/18 20:00 01/17/18 00:00 01/17/18 04:00 Temperature 97 F L 97.3 F L Pulse Rate 63 60 60 Respiratory Rate 18 18 Blood Pressure 117/58 L 99/50 L Pulse Oximetry 93 L 96 Intake & Output 01/16/18 01/17/18 01/17/18 18:59 06:59 18:59 Intake Total 560 / 560 660 / 660 Balance 560 / 560 660 / 660 Weight 114.4 kg Intake: IV 200 / 200 300 / 300 Cipro 400 MG/200 ML Inj 400 mg 200 / 200 In 200 ml @ 200 mls/hr IV.SIG Q24H [facility] Rx#:[id number] Flagyl 500 MG Inj 100 ML @ 100 200 / 200 100 / 100 mls/hr IV.SIG Q8H [facility] Rx#: [id number] Oral 360 / 360 360 / 360 Other: # Voids 2 5 Date of Last Bowel Movement 01/16/18 # Bowel Movements 0 3 - Constitutional no acute distress - Routine Neck Exam Absent: JVD - Routine Respiratory Exam Present: CTA bilaterally - Routine Cardiovascular Exam Present: RRR, S1, S2. Absent: murmur, gallop - Routine Abdominal Exam Present: soft, normoactive bowel sounds. Absent: tenderness, organomegaly - Routine Extremities Exam Present: edema. Absent: cyanosis, clubbing Comments: 1+ pretibial edema Results 01/17/18 05:55 01/17/18 05:55 Cardiac Enzymes 01/17/18 Range/Units 05:55 AST 26 (15-37) U/L Coagulation 01/15/18 Range/Units 09:58 PT 13.2 H (9.8-11.6) sec CBC 01/15/18 01/16/18 01/17/18 Range/Units 08:20 10:16 05:55 WBC 5.5 5.3 5.6 (4.0-11.0) th/mm3 RBC 3.43 L 3.67 L 3.51 L (4.00-5.30) mil/mm3 Hgb 10.4 L 11.1 L 10.6 L (11.6-15.3) gm/dL Hct 31.8 L 33.8 L 32.8 L (35.0-46.0) % Plt Count 268 303 291 (150-450) th/mm3 Neut # (Auto) 3.1 (1.8-7.7) th/mm3 Lymph # (Auto) 1.3 (1.0-4.8) th/mm3 [place] # (Auto) 0.8 (0.0-0.9) th/mm3 Eos # (Auto) 0.4 (0.0-0.4) th/mm3 Baso # (Auto) 0.1 (0.0-0.2) th/mm3 Comprehensive Metabolic Panel 01/15/18 01/16/18 01/17/18 Range/Units 08:20 10:16 05:55 Sodium 132 L 132 L 134 L (136-145) meq/L Potassium 3.5 3.5 3.7 (3.5-5.1) meq/L Chloride 97 L 96 L 97 L (98-107) meq/L Carbon Dioxide 22.6 23.4 25.8 (21.0-32.0) meq/L BUN 56 H 55 H 55 H (7-18) mg/dL Creatinine 3.18 H 3.08 H 3.33 H (0.50-1.00) mg/dL Calcium 7.8 L 8.4 L 7.9 L (8.5-10.1) mg/dL AST 26 (15-37) U/L ALT 15 (10-53) U/L Alkaline Phosphatase 120 H (45-117) U/L Total Protein 5.9 L (6.4-8.2) g/dL Albumin 2.3 L (3.4-5.0) g/dL Intake and Output 01/16/18 01/17/18 01/17/18 22:59 06:59 14:59 Intake Total 460 / 460 660 / 660 Balance 460 / 460 660 / 660 Intake: IV 100 / 100 300 / 300 Cipro 400 MG/200 ML Inj 400 mg 200 / 200 In 200 ml @ 200 mls/hr IV.SIG Q24H [facility] Rx#:[id number] Flagyl 500 MG Inj 100 ML @ 100 100 / 100 100 / 100 mls/hr IV.SIG Q8H [facility] Rx#: [id number] Oral 360 / 360 360 / 360 Other: # Voids 2 5 Date of Last Bowel Movement 01/16/18 # Bowel Movements 0 3 Weight 114.4 kg - Imaging and Cardiology Imaging: Impressions Upper GI and Small Bowel X-Ray 01/15/18 00:00 CONCLUSION: Slow transit time with contrast not reaching the colon by 7.5 hours. However, the contrast passes through the small intestine excluding small bowel obstruction. Additionally, the small bowel demonstrates a normal appearance. Assessment and Plan - Assessment (1) Elevated troponin I level Code(s): R74.8 - Abnormal levels of other serum enzymes Status: Acute Plan: Stable cardiac status. Agree with Dr. Trevino that minimally elevated troponin is nonspecific especially in setting of severe renal insufficiency. Patient without angina symptoms. No high grade CAD seen on cath at age 72. Recommend conservative therapy with beta alexa, aspirin. Will f/u as needed. (2) Current use of anticoagulant therapy Code(s): Z79.01 - shelter (current) use of anticoagulants Status: Chronic Plan: Office records, old records reviewed. I am unable to find indication for her Xarelto. Will try to have her PCP check into her records. Xarelto was not prescribed by our office. (3) Nonischemic cardiomyopathy Code(s): I42.8 - Other cardiomyopathies Status: Chronic Plan: EF around 25-30%. Patient compensated. No acute CHF. Suspect pedal edema mostly due to chronic deep venous insufficiency. Continue beta alexa, diuretic, no JOSE-I or ARB with her CRI. (4) Hypertension Code(s): I10 - Essential (primary) hypertension Status: Chronic Plan: Stable. Hypertension not active issue. (5) Status post implantation of automatic cardioverter/defibrillator (AICD) Code(s): Z95.810 - Presence of automatic (implantable) cardiac defibrillator Status: Chronic - Plan Code Status: full code Discussed Condition With: patient (4) Hypertension Qualifiers: Hypertension type: essential hypertension Qualified Code(s): I10 - Essential (primary) hypertension
[2018-01-17] MEDS: Rivaroxaban 15 MG Tablet PO SCH (08:51)
[2018-01-17] MEDS: Carvedilol 12.5 MG Tablet PO SCH (08:51)
[2018-01-17] MEDS: Senna/Docusate Sodium 8.6/50 MG Tablet PO SCH (08:52)
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
[2018-01-17 13:37] VITALS: BP 113/48; TEMP 97.3; O2SAT 99
[2018-01-17 16:46] VITALS: PULSE 65
[2018-01-17] MEDS: Gabapentin 300 MG Capsule PO SCH (17:00)
== END 2018-01-17 18:57 ==
LOC: NEPC 18:03 → NEDA 22:56 → N04 01-11 01:43
PROVIDERS: ADMIT Family Medicine; ATTEND Family Medicine
PROC: COLONOS (2018-01-14 09:15)

== ENCOUNTER 2018-01-21 21:59 | Inpatient (IN) ==
--- NOTE | 2018-01-21 22:23 | ED ---
HPI General Chief complaint: Recheck/Abnormal Lab/Rx Stated complaint: Poss AMS Time Seen by Provider: 01/21/18 22:07 History of Present Illness HPI narrative: Patient is an 82-year-old female presents emergency department from [facility] for evaluation of elevated BUN and creatinine increasing altered mental status over the past few days. Patient on arrival is stating "I understand" and is very repetitive to the statements. She has no physical complaints currently. EMS states that she was not very conversant on the way here but [facility] staff said that she normally can carry on a conversation completely. On arrival the patient was discussed with Dr. Bonilla who states that she is probably only about half of her normal mental status currently. He has been following her BUN and creatinine is been more elevated and would like the patient to be admitted to the hospital. Patient has no physical complaints at this time but is very limited on her responses secondary to altered mental status. Related Data Home Medications Medication Instructions Recorded Confirmed acetaminophen [Tylenol] 325 mg PO Q6H PRN 01/10/18 01/21/18 aspirin [Aspirin Low Dose] 81 mg PO DAILY 01/10/18 01/21/18 atorvastatin 40 mg PO DAILY 01/10/18 01/21/18 calcitriol 0.25 mcg PO Q OTHER DAY 01/10/18 01/21/18 carvedilol 12.5 mg PO BID 01/10/18 01/21/18 ciclopirox 1 applic TOPICAL BID 01/10/18 01/21/18 gabapentin 300 mg PO QPM 01/10/18 01/21/18 insulin glargine [Lantus U-100 10 unit SUB-Q HS 01/10/18 01/21/18 Insulin] insulin glargine [Lantus U-100 15 unit SUB-Q AC 01/10/18 01/21/18 Insulin] insulin lispro [Humalog KwikPen 100 unit SUB-Q DAILY 01/10/18 01/21/18 Insulin] levothyroxine 25 mcg PO DAILY 01/10/18 01/21/18 rivaroxaban [Xarelto] 15 mg PO DAILY 01/10/18 01/21/18 sulfasalazine 0.5 g PO BID 01/10/18 01/21/18 Previous Rx's Medication Instructions Recorded bumetanide 1 mg PO DAILY #0 tab 01/17/18 pantoprazole [Protonix] 40 mg PO DAILY #30 tab 01/17/18 Allergies Allergy/AdvReac Type Severity Reaction Status Date / Time amoxicillin Allergy Rash Verified 01/21/18 23:42 methylprednisolone Allergy Itching Verified 01/21/18 23:42 lisinopril AdvReac Cough Verified 01/21/18 23:42 MRI PRECAUTION AdvReac Severe PACEMAKER Uncoded 01/21/18 23:42 (RV) 02/08/10 Review of Systems ROS: all other systems reviewed are negative [facility] Social History Social History Substance History: No History of Abuse Second Hand Smoke Exposure: No Smoking Status: Never smoker Tobacco Type: Cigarettes How Often Do You Have a Drink Containing Alcohol: Never Recent Travel in [facility] within the Last 8 Weeks: No Recent Out of Country Travel within the Last 8 Weeks: No Exam Narrative Exam Narrative: GENERAL: Patient well-developed overweight female in no obvious distress. SKIN: Focused skin assessment warm/dry. HEAD: Atraumatic. Normocephalic. EYES: Pupils equal and round. No scleral icterus. No injection or drainage. ENT: No nasal bleeding or discharge. Mucous membranes pink and moist. NECK: Trachea midline. No JVD. CARDIOVASCULAR: Regular rate and rhythm. No murmur appreciated. RESPIRATORY: No accessory muscle use. Clear to auscultation. Breath sounds equal bilaterally. GASTROINTESTINAL: Abdomen soft, non-tender, nondistended. Hepatic and splenic margins not palpable. MUSCULOSKELETAL: No obvious deformities. No clubbing. No cyanosis. No edema. NEUROLOGICAL: Awake and alert and oriented, following commands in all 4 extremities, no obvious cranial nerve deficit. Very repetitive in questioning. PSYCHIATRIC: Unable to properly assess, very repetitive questioning, altered mental status per Course Initial Documented Vital Signs Pulse Oximetry 98 01/21/18 22:07 Last Documented Vital Signs Temperature 97.2 F L 01/23/18 16:00 Pulse Rate 70 01/24/18 04:00 Respiratory Rate 16 01/23/18 20:00 Blood Pressure 100/70 01/23/18 16:00 Pulse Oximetry 97 01/24/18 08:00 Sign Out Sign Out Data: Patient Sign Out occurred on 01/21/18 at 23:09. Patient's care was discussed, and care was transferred from Tejas Camacho MD to Dolores Huff MD. Sign Out Comment: Patient from long term facility, has elevated BUN and creatinine, Dr. Schroeder like to admit for acute kidney disease and altered mental status. Last updated by Tejas Camacho MD at 01/21/18 22:46 Post-Handoff Eval: The patient's case was checked out to me by Dr. Camacho at the conclusion of his shift. Please see his complete history and physical. The patient was pending laboratory studies. Apparently the patient was difficult to obtain IV access then and was attempted for IV access both by Dr. Camacho and multiple staff members /nurses. Blood was able to be obtained. The patient has remained stable during her initial evaluation. A vascular access consultation was requested for PICC line placement as the patient is going to require admission for careful monitoring and treatment of her diuresis with her chronic renal insufficiency. The patient's diagnostic studies are remarkable for a white count of 8.8, hemoglobin 10.6, platelets 355 with 15.1 monocytes, chemistries are remarkable for sodium of 130, chloride 94, BUN 66 which is compared to her last BUN of 57, creatinine 4.08 which is compared to her last creatinine of 3.7, GFR is similar at 13 compared to 14 previously. Glucose is 195, calcium 8.0, AST 46, troponin I is elevated at 0.08 which is suspected to be related to the patient's renal insufficiency as the patient denies having any complaints of chest pain. Total protein is 6.2, BNP is 2725 which is improved compared to her prior level of 3002. A chest x-ray showed mild basilar consolidation without change compared to prior levels, borderline to mild compensated cardiomegaly that is unchanged, CT scan of the brain shows stable senescent changes without acute intracranial abnormality. A call was placed out to the patient's primary care physician, Dr. Bonilla. The patient's case was discussed with him. He did agree to admit the patient. He agreed with the plan for in and out straight cath for urine as this could be contributing to the patient's altered mentation. The patient's urinalysis did reveal evidence of urinary tract infection with pyuria and bacteriuria. The patient was given Rocephin 1 g IM. I was made aware that a family member was at the bedside of the patient and did discuss the patient's case further with her, Stefanie Rodriguez. She explained to me that she would like to be made involved in all of the decision making regarding this patient. She explains that her cell phone number is [phone]. Medical Decision Making MDM Narrative Medical decision making narrative: Patient room to the emergency department, Dr. Schroeder would like the patient admitted for acute renal failure. She on review of records does have some elevated creatinines in the past as well. I started her on 500 cc of fluid. Chest x-ray, basic labs and will continue to assess. The patient will be discussed with the oncoming provider at 2300 shift change to follow-up labs and disposition the patient appropriately. Medical Screen Exam Complete: Yes Emergency Medical Condition: Yes Differential Diagnosis Differential Diagnosis: These, dehydration, congestive heart failure peer Lab Data Result diagrams: 01/21/18 23:17 01/24/18 07:38 Lab Results 01/21/18 01/21/18 01/21/18 Range/Units 23:17 23:17 23:18 WBC 8.8 (4.0-11.0) th/mm3 RBC 3.52 L (4.00-5.30) mil/mm3 Hgb 10.6 L (11.6-15.3) gm/dL Hct 32.1 L (35.0-46.0) % MCV 91.0 (80.0-100.0) fL MCH 30.0 (27.0-34.0) pg MCHC 32.9 (32.0-36.0) % RDW 17.7 H (11.6-17.2) % Plt Count 355 (150-450) th/mm3 MPV 7.1 (7.0-11.0) fL Neut % (Auto) 66.7 (16.0-70.0) % Lymph % (Auto) 14.5 (9.0-44.0) % [place] % (Auto) 15.1 H (0.0-8.0) % Eos % (Auto) 2.9 (0.0-4.0) % Baso % (Auto) 0.8 (0.0-2.0) % Neut # (Auto) 5.9 (1.8-7.7) th/mm3 Lymph # (Auto) 1.3 (1.0-4.8) th/mm3 [place] # (Auto) 1.3 H (0.0-0.9) th/mm3 Eos # (Auto) 0.3 (0.0-0.4) th/mm3 Baso # (Auto) 0.1 (0.0-0.2) th/mm3 WBC Differential . Differential Comment Auto diff final PT (9.8-11.6) sec INR Ratio Sodium 130 L (136-145) meq/L Potassium 4.4 (3.5-5.1) meq/L Chloride 94 L (98-107) meq/L Carbon Dioxide 23.9 (21.0-32.0) meq/L Anion Gap 12 (5-15) meq/L BUN 66 H (7-18) mg/dL Creatinine 4.08 H (0.50-1.00) mg/dL Estimated GFR 13 L (>89) mL/min POC Glucose (68-110) mg/dl Random Glucose 195 H (74-106) mg/dL Calcium 8.0 L (8.5-10.1) mg/dL Phosphorus (2.5-4.9) mg/dL Iron (50-170) mcg/dL TIBC (250-450) mcg/dL % Saturation (20-50) % Total Bilirubin 0.7 (0.2-1.0) mg/dL AST 46 H (15-37) U/L ALT 17 (10-53) U/L Alkaline Phosphatase 111 (45-117) U/L Troponin I 0.08 H (0.02-0.05) ng/mL B-Natriuretic Peptide 2725 H (0-100) pg/mL Total Protein 6.2 L D (6.4-8.2) g/dL Albumin 2.4 L (3.4-5.0) g/dL Urine Color (Yellw/Straw) Urine Clarity (Clear) Urine pH (5.0-8.5) Ur Specific [place] (1.002-1.035) Urine Protein (Neg-Trace) mg/dL Urine Glucose (UA) (Negative) mg/dL Urine Ketones (Negative) mg/dL Urine Occult Blood (Negative) Urine Nitrate (Negative) Urine Bilirubin (Negative) Urine Urobilinogen (Less than 2) mg/dL Ur Leukocyte Esterase (Negative) Urine RBC (0-3) /hpf Urine WBC (0-5) /hpf Urine WBC Clumps (None) Ur Squamous Epith Cells (0-5) /hpf Urine Bacteria (None) /hpf Hyaline Casts (0-3) /lpf Urine Mucus (Occasional) /lpf Micro UA Comment Ur Microscopic Review Urine Culture Comments 01/22/18 01/22/18 01/22/18 Range/Units 01:25 09:10 12:16 WBC (4.0-11.0) th/mm3 RBC (4.00-5.30) mil/mm3 Hgb (11.6-15.3) gm/dL Hct (35.0-46.0) % MCV (80.0-100.0) fL MCH (27.0-34.0) pg MCHC (32.0-36.0) % RDW (11.6-17.2) % Plt Count (150-450) th/mm3 MPV (7.0-11.0) fL Neut % (Auto) (16.0-70.0) % Lymph % (Auto) (9.0-44.0) % [place] % (Auto) (0.0-8.0) % Eos % (Auto) (0.0-4.0) % Baso % (Auto) (0.0-2.0) % Neut # (Auto) (1.8-7.7) th/mm3 Lymph # (Auto) (1.0-4.8) th/mm3 [place] # (Auto) (0.0-0.9) th/mm3 Eos # (Auto) (0.0-0.4) th/mm3 Baso # (Auto) (0.0-0.2) th/mm3 WBC Differential Differential Comment PT (9.8-11.6) sec INR Ratio Sodium (136-145) meq/L Potassium (3.5-5.1) meq/L Chloride (98-107) meq/L Carbon Dioxide (21.0-32.0) meq/L Anion Gap (5-15) meq/L BUN (7-18) mg/dL Creatinine (0.50-1.00) mg/dL Estimated GFR (>89) mL/min POC Glucose 172 H 191 H (68-110) mg/dl Random Glucose (74-106) mg/dL Calcium (8.5-10.1) mg/dL Phosphorus (2.5-4.9) mg/dL Iron (50-170) mcg/dL TIBC (250-450) mcg/dL % Saturation (20-50) % Total Bilirubin (0.2-1.0) mg/dL AST (15-37) U/L ALT (10-53) U/L Alkaline Phosphatase (45-117) U/L Troponin I (0.02-0.05) ng/mL B-Natriuretic Peptide (0-100) pg/mL Total Protein (6.4-8.2) g/dL Albumin (3.4-5.0) g/dL Urine Color Alexandra (Yellw/Straw) Urine Clarity Cloudy H (Clear) Urine pH 5.0 (5.0-8.5) Ur Specific [place] 1.018 (1.002-1.035) Urine Protein Negative (Neg-Trace) mg/dL Urine Glucose (UA) Negative (Negative) mg/dL Urine Ketones Negative (Negative) mg/dL Urine Occult Blood Small H (Negative) Urine Nitrate Negative (Negative) Urine Bilirubin Negative (Negative) Urine Urobilinogen Less than 2 (Less than 2) mg/dL Ur Leukocyte Esterase Small H (Negative) Urine RBC 3 (0-3) /hpf Urine WBC 43 H (0-5) /hpf Urine WBC Clumps Occasional H (None) Ur Squamous Epith Cells 6 (0-5) /hpf Urine Bacteria Many H (None) /hpf Hyaline Casts 14 (0-3) /lpf Urine Mucus Few H (Occasional) /lpf Micro UA Comment Culture indicated Ur Microscopic Review Not Reportable Urine Culture Comments Culture indicated 01/22/18 01/22/18 01/23/18 Range/Units 16:51 20:34 06:25 WBC (4.0-11.0) th/mm3 RBC (4.00-5.30) mil/mm3 Hgb (11.6-15.3) gm/dL Hct (35.0-46.0) % MCV (80.0-100.0) fL MCH (27.0-34.0) pg MCHC (32.0-36.0) % RDW (11.6-17.2) % Plt Count (150-450) th/mm3 MPV (7.0-11.0) fL Neut % (Auto) (16.0-70.0) % Lymph % (Auto) (9.0-44.0) % [place] % (Auto) (0.0-8.0) % Eos % (Auto) (0.0-4.0) % Baso % (Auto) (0.0-2.0) % Neut # (Auto) (1.8-7.7) th/mm3 Lymph # (Auto) (1.0-4.8) th/mm3 [place] # (Auto) (0.0-0.9) th/mm3 Eos # (Auto) (0.0-0.4) th/mm3 Baso # (Auto) (0.0-0.2) th/mm3 WBC Differential Differential Comment PT (9.8-11.6) sec INR Ratio Sodium 125 L (136-145) meq/L Potassium 4.7 (3.5-5.1) meq/L Chloride 93 L (98-107) meq/L Carbon Dioxide 18.9 L (21.0-32.0) meq/L Anion Gap 13 (5-15) meq/L BUN 70 H (7-18) mg/dL Creatinine 4.16 H (0.50-1.00) mg/dL Estimated GFR 12 L (>89) mL/min POC Glucose 266 H 257 H (68-110) mg/dl Random Glucose 134 H (74-106) mg/dL Calcium 8.2 L (8.5-10.1) mg/dL Phosphorus (2.5-4.9) mg/dL Iron (50-170) mcg/dL TIBC (250-450) mcg/dL % Saturation (20-50) % Total Bilirubin (0.2-1.0) mg/dL AST (15-37) U/L ALT (10-53) U/L Alkaline Phosphatase (45-117) U/L Troponin I (0.02-0.05) ng/mL B-Natriuretic Peptide (0-100) pg/mL Total Protein (6.4-8.2) g/dL Albumin (3.4-5.0) g/dL Urine Color (Yellw/Straw) Urine Clarity (Clear) Urine pH (5.0-8.5) Ur Specific [place] (1.002-1.035) Urine Protein (Neg-Trace) mg/dL Urine Glucose (UA) (Negative) mg/dL Urine Ketones (Negative) mg/dL Urine Occult Blood (Negative) Urine Nitrate (Negative) Urine Bilirubin (Negative) Urine Urobilinogen (Less than 2) mg/dL Ur Leukocyte Esterase (Negative) Urine RBC (0-3) /hpf Urine WBC (0-5) /hpf Urine WBC Clumps (None) Ur Squamous Epith Cells (0-5) /hpf Urine Bacteria (None) /hpf Hyaline Casts (0-3) /lpf Urine Mucus (Occasional) /lpf Micro UA Comment Ur Microscopic Review Urine Culture Comments 01/23/18 01/23/18 01/23/18 Range/Units 07:49 07:56 11:17 WBC (4.0-11.0) th/mm3 RBC (4.00-5.30) mil/mm3 Hgb (11.6-15.3) gm/dL Hct (35.0-46.0) % MCV (80.0-100.0) fL MCH (27.0-34.0) pg MCHC (32.0-36.0) % RDW (11.6-17.2) % Plt Count (150-450) th/mm3 MPV (7.0-11.0) fL Neut % (Auto) (16.0-70.0) % Lymph % (Auto) (9.0-44.0) % [place] % (Auto) (0.0-8.0) % Eos % (Auto) (0.0-4.0) % Baso % (Auto) (0.0-2.0) % Neut # (Auto) (1.8-7.7) th/mm3 Lymph # (Auto) (1.0-4.8) th/mm3 [place] # (Auto) (0.0-0.9) th/mm3 Eos # (Auto) (0.0-0.4) th/mm3 Baso # (Auto) (0.0-0.2) th/mm3 WBC Differential Differential Comment PT 14.7 H (9.8-11.6) sec INR 1.5 Ratio Sodium (136-145) meq/L Potassium (3.5-5.1) meq/L Chloride (98-107) meq/L Carbon Dioxide (21.0-32.0) meq/L Anion Gap (5-15) meq/L BUN (7-18) mg/dL Creatinine (0.50-1.00) mg/dL Estimated GFR (>89) mL/min POC Glucose 147 H 149 H (68-110) mg/dl Random Glucose (74-106) mg/dL Calcium (8.5-10.1) mg/dL Phosphorus (2.5-4.9) mg/dL Iron (50-170) mcg/dL TIBC (250-450) mcg/dL % Saturation (20-50) % Total Bilirubin (0.2-1.0) mg/dL AST (15-37) U/L ALT (10-53) U/L Alkaline Phosphatase (45-117) U/L Troponin I (0.02-0.05) ng/mL B-Natriuretic Peptide (0-100) pg/mL Total Protein (6.4-8.2) g/dL Albumin (3.4-5.0) g/dL Urine Color (Yellw/Straw) Urine Clarity (Clear) Urine pH (5.0-8.5) Ur Specific [place] (1.002-1.035) Urine Protein (Neg-Trace) mg/dL Urine Glucose (UA) (Negative) mg/dL Urine Ketones (Negative) mg/dL Urine Occult Blood (Negative) Urine Nitrate (Negative) Urine Bilirubin (Negative) Urine Urobilinogen (Less than 2) mg/dL Ur Leukocyte Esterase (Negative) Urine RBC (0-3) /hpf Urine WBC (0-5) /hpf Urine WBC Clumps (None) Ur Squamous Epith Cells (0-5) /hpf Urine Bacteria (None) /hpf Hyaline Casts (0-3) /lpf Urine Mucus (Occasional) /lpf Micro UA Comment Ur Microscopic Review Urine Culture Comments 01/23/18 01/23/18 01/23/18 Range/Units 11:59 17:11 22:07 WBC (4.0-11.0) th/mm3 RBC (4.00-5.30) mil/mm3 Hgb (11.6-15.3) gm/dL Hct (35.0-46.0) % MCV (80.0-100.0) fL MCH (27.0-34.0) pg MCHC (32.0-36.0) % RDW (11.6-17.2) % Plt Count (150-450) th/mm3 MPV (7.0-11.0) fL Neut % (Auto) (16.0-70.0) % Lymph % (Auto) (9.0-44.0) % [place] % (Auto) (0.0-8.0) % Eos % (Auto) (0.0-4.0) % Baso % (Auto) (0.0-2.0) % Neut # (Auto) (1.8-7.7) th/mm3 Lymph # (Auto) (1.0-4.8) th/mm3 [place] # (Auto) (0.0-0.9) th/mm3 Eos # (Auto) (0.0-0.4) th/mm3 Baso # (Auto) (0.0-0.2) th/mm3 WBC Differential Differential Comment PT (9.8-11.6) sec INR Ratio Sodium (136-145) meq/L Potassium (3.5-5.1) meq/L Chloride (98-107) meq/L Carbon Dioxide (21.0-32.0) meq/L Anion Gap (5-15) meq/L BUN (7-18) mg/dL Creatinine (0.50-1.00) mg/dL Estimated GFR (>89) mL/min POC Glucose 195 H 146 H 238 H (68-110) mg/dl Random Glucose (74-106) mg/dL Calcium (8.5-10.1) mg/dL Phosphorus (2.5-4.9) mg/dL Iron (50-170) mcg/dL TIBC (250-450) mcg/dL % Saturation (20-50) % Total Bilirubin (0.2-1.0) mg/dL AST (15-37) U/L ALT (10-53) U/L Alkaline Phosphatase (45-117) U/L Troponin I (0.02-0.05) ng/mL B-Natriuretic Peptide (0-100) pg/mL Total Protein (6.4-8.2) g/dL Albumin (3.4-5.0) g/dL Urine Color (Yellw/Straw) Urine Clarity (Clear) Urine pH (5.0-8.5) Ur Specific [place] (1.002-1.035) Urine Protein (Neg-Trace) mg/dL Urine Glucose (UA) (Negative) mg/dL Urine Ketones (Negative) mg/dL Urine Occult Blood (Negative) Urine Nitrate (Negative) Urine Bilirubin (Negative) Urine Urobilinogen (Less than 2) mg/dL Ur Leukocyte Esterase (Negative) Urine RBC (0-3) /hpf Urine WBC (0-5) /hpf Urine WBC Clumps (None) Ur Squamous Epith Cells (0-5) /hpf Urine Bacteria (None) /hpf Hyaline Casts (0-3) /lpf Urine Mucus (Occasional) /lpf Micro UA Comment Ur Microscopic Review Urine Culture Comments 01/24/18 01/24/18 01/24/18 Range/Units 07:38 09:39 12:40 WBC (4.0-11.0) th/mm3 RBC (4.00-5.30) mil/mm3 Hgb (11.6-15.3) gm/dL Hct (35.0-46.0) % MCV (80.0-100.0) fL MCH (27.0-34.0) pg MCHC (32.0-36.0) % RDW (11.6-17.2) % Plt Count (150-450) th/mm3 MPV (7.0-11.0) fL Neut % (Auto) (16.0-70.0) % Lymph % (Auto) (9.0-44.0) % [place] % (Auto) (0.0-8.0) % Eos % (Auto) (0.0-4.0) % Baso % (Auto) (0.0-2.0) % Neut # (Auto) (1.8-7.7) th/mm3 Lymph # (Auto) (1.0-4.8) th/mm3 [place] # (Auto) (0.0-0.9) th/mm3 Eos # (Auto) (0.0-0.4) th/mm3 Baso # (Auto) (0.0-0.2) th/mm3 WBC Differential Differential Comment PT (9.8-11.6) sec INR Ratio Sodium 128 L (136-145) meq/L Potassium 4.6 (3.5-5.1) meq/L Chloride 92 L (98-107) meq/L Carbon Dioxide 23.6 (21.0-32.0) meq/L Anion Gap 12 (5-15) meq/L BUN 72 H (7-18) mg/dL Creatinine 4.18 H (0.50-1.00) mg/dL Estimated GFR 12 L (>89) mL/min POC Glucose 129 H 150 H (68-110) mg/dl Random Glucose 124 H (74-106) mg/dL Calcium 7.8 L (8.5-10.1) mg/dL Phosphorus 3.7 (2.5-4.9) mg/dL Iron 38 L (50-170) mcg/dL TIBC 196 L (250-450) mcg/dL % Saturation 19.4 L (20-50) % Total Bilirubin (0.2-1.0) mg/dL AST (15-37) U/L ALT (10-53) U/L Alkaline Phosphatase (45-117) U/L Troponin I (0.02-0.05) ng/mL B-Natriuretic Peptide (0-100) pg/mL Total Protein (6.4-8.2) g/dL Albumin 2.3 L (3.4-5.0) g/dL Urine Color (Yellw/Straw) Urine Clarity (Clear) Urine pH (5.0-8.5) Ur Specific [place] (1.002-1.035) Urine Protein (Neg-Trace) mg/dL Urine Glucose (UA) (Negative) mg/dL Urine Ketones (Negative) mg/dL Urine Occult Blood (Negative) Urine Nitrate (Negative) Urine Bilirubin (Negative) Urine Urobilinogen (Less than 2) mg/dL Ur Leukocyte Esterase (Negative) Urine RBC (0-3) /hpf Urine WBC (0-5) /hpf Urine WBC Clumps (None) Ur Squamous Epith Cells (0-5) /hpf Urine Bacteria (None) /hpf Hyaline Casts (0-3) /lpf Urine Mucus (Occasional) /lpf Micro UA Comment Ur Microscopic Review Urine Culture Comments Imaging Data Radiologist's impression: Chest X-Ray 01/21/18 22:08 CONCLUSION: Mild basilar consolidation without change. Borderline to mild compensated cardiomegaly unchanged. Head CT 01/22/18 00:00 CONCLUSION: 1. Stable senescent changes without acute intracranial abnormality. . Abdomen/Bladder Ultrasound 01/24/18 18:19 CONCLUSION: 1. Small echogenic kidneys with thinned cortices consistent with medical renal disease. Discharge Plan Discharge Disposition Patient Disposition: 30 Still Patient Discharge Details Diagnosis: Altered mental status, Urinary tract infection Physicians Team ED Provider: Dolores Huff Primary Care Provider: Kulwinder Bonilla Attending Provider: Kulwinder Bonilla Other Providers: Elias Espinal,Agency ; Ramiro Rubio ; Harsha Espinoza ; Luisito Cook Status ED Status: Left Department Discharge Information Discharge Date/Time: 01/22/18 07:37
--- NOTE | 2018-01-21 22:36 | XR ---
EXAM DATE: 01/21/2018 10:08 PM EDT AGE/SEX: 82 years / Female INDICATIONS: Cough. CLINICAL DATA: This is the patient's initial encounter. Patient reports that signs and symptoms have been present for 1 day and indicates a pain score of Nonresponsive. MEDICAL/SURGICAL HISTORY: Non-responsive. Non-responsive. COMPARISON: [facility] [place], CHEST 1V SINGLE AP, 01/19/2018. . FINDINGS: Mild persistent parenchymal consolidation left retrocardiac. No large effusion seen. No pneumothorax. Heart size stable, upper limits of normal to mildly enlarged. Cardiac pacer/defibrillator again noted . CONCLUSION: Mild basilar consolidation without change. Borderline to mild compensated cardiomegaly unchanged. Electronically signed by: Clifford Stewart MD 01/21/2018 10:35 PM EDT
[2018-01-21] MEDS ORDERED: Sodium Chlor 0.9% Inj 500 ML IV.SIG SCH (23:00)
[2018-01-21 23:27] LABS: Baso # (Auto) 0.1 th/mm3 (0.0-0.2); Baso % (Auto) 0.8 % (0.0-2.0); Eos # (Auto) 0.3 th/mm3 (0.0-0.4); Eos % (Auto) 2.9 % (0.0-4.0); Hematocrit 32.1 % (35.0-46.0); Hemoglobin 10.6 gm/dL (11.6-15.3); Lymph # (Auto) 1.3 th/mm3 (1.0-4.8); Lymph % (Auto) 14.5 % (9.0-44.0); Mean Corpuscular HGB Conc 32.9 % (32.0-36.0); Mean Platelet Volume 7.1 fL (7.0-11.0); Mono # (Auto) 1.3 th/mm3 (0.0-0.9); Mono % (Auto) 15.1 % (0.0-8.0); Neut # (Auto) 5.9 th/mm3 (1.8-7.7); Neut % (Auto) 66.7 % (16.0-70.0); Platelet Count 355 th/mm3 (150-450); Red Blood Count 3.52 mil/mm3 (4.00-5.30); Red Cell Distribution Width 17.7 % (11.6-17.2); White Blood Count 8.8 th/mm3 (4.0-11.0)
[2018-01-21 23:51] LABS: Alanine Aminotransferase 17 U/L (10-53); Albumin 2.4 g/dL (3.4-5.0); Alkaline Phosphatase 111 U/L (45-117); Anion Gap 12 meq/L (5-15); Aspartate Aminotransferase 46 U/L (15-37); Blood Urea Nitrogen 66 mg/dL (7-18); Carbon Dioxide 23.9 meq/L (21.0-32.0); Chloride 94 meq/L (98-107); Glomerular Filtration Rate 13 mL/min (>89); Glucose,Random 195 mg/dL (74-106); Potassium 4.4 meq/L (3.5-5.1); Sodium 130 meq/L (136-145); Total Protein 6.2 g/dL (6.4-8.2); Troponin I 0.08 ng/mL (0.02-0.05)
--- NOTE | 2018-01-22 00:59 | CT ---
EXAM DATE: 01/22/2018 12:00 AM EDT AGE/SEX: 82 years / Female INDICATIONS: Altered mental status. CLINICAL DATA: This is the patient's initial encounter. Patient reports that signs and symptoms have been present for 1 day and indicates a pain score of 0/10. MEDICAL/SURGICAL HISTORY: Cerebrovascular disease. Diabetes. Hypertension. Anemia. None. RADIATION DOSE: 56.35 CTDI (mGy) COMPARISON: [facility] [place] HEAD W/O CONTRAST, 01/19/2018. . TECHNIQUE: CT of the head without contrast. Using automated exposure control and adjustment of the mA and/or kV according to patient size, radiation dose was kept as low as reasonably achievable to ob tain optimal diagnostic quality images. DICOM format image data is available electronically for revi ew and comparison. FINDINGS: Cerebrum: Moderate diffuse cerebral atrophy. [id number] periventricular white matter hypodensi ties. The ventricles are normal for degree of atrophy. No evidence of midline shift, mass lesion, hem orrhage or acute infarction. No extraaxial fluid collections are seen. Posterior Fossa: The cerebellum and brainstem are intact. The 4th ventricle is midline. The cerebe llopontine angle is unremarkable. Extracranial: The visualized portion of the orbits is intact. Skull: The calvaria is intact. No evidence of skull fracture. CONCLUSION: 1. Stable senescent changes without acute intracranial abnormality. . Electronically signed by: Cash Maya MD 01/22/2018 12:57 AM EDT
[2018-01-22 01:44] LABS: Bacteria,Urine Many /hpf; Bilirubin,Urine Negative (Negative); Clarity,Urine Cloudy (Clear); Color,Urine Amber (Yellw/Straw); Glucose,Urine (UA) Negative (Negative); Hyaline Casts,Urine 14 /lpf (0-3); Leukocyte Esterase,Urine Small (Negative); Mucus,Urine Few /lpf (Occasional); Nitrite,Urine Negative (Negative); Specific Gravity,Urine 1.018 (1.002-1.035); Squamous Epithelial Cell,Urine 6 /hpf (0-5)
[2018-01-22] MEDS ORDERED: cefTRIAXone Inj 1,000 MG Vial IM ONE (02:55)
[2018-01-22] MEDS ORDERED: Lidocaine 1% Inj 50 ML Vial IM ONE (02:55)
[2018-01-22] MEDS ORDERED: Insulin Detemir Inj 1,000 UNIT/10 ML Vial SQ SCH (08:00)
[2018-01-22] MEDS ORDERED: INSULIN LISPRO 100 UNIT SQ SCH (09:00)
--- NOTE | 2018-01-22 12:46 | P.HPFP ---
History of Present Illness Primary Care Physician: Kulwinder Bonilla DO History of Present Illness: Patient is an 82-year-old female presents emergency department from [facility] for evaluation of elevated BUN and creatinine increasing altered mental status over the past few days. She just dc from [place] on 01/18, for abdominal pain/colitis. She has hx of CHF last echo ef 25-30%, does have Defibrillator. Afib, DM, HTN, CKD baseline creatinine 2.6-2.9. Patient is a poor historian, history received from chart. - Diagnosis (1) Acute kidney injury (2) CHF (congestive heart failure) (3) Hypertension (4) Diabetes Inpatient Certification: I certify that the inpatient services were ordered in accordance with Medicare regulations governing the order. This includes certification that hospital inpatient services are reasonable and necessary and in the case of services not specified as inpatient-only under 42 CFR 419.22(n), that they are appropriately provided as inpatient services in accordance to with the 2-midnight benchmark under 43 CFR 412.3(e) Estimated Total Length of Stay (Days): 3 Plans for Post Hospital Care: Not yet determined [facility] - History History Provided By: Friend - Medical History Medical History: Medical History (Last Reviewed 01/21/18 @ 23:48 by Lisa Abraham) CHF (congestive heart failure) Anemia Atherosclerosis of aorta CVA (cerebral vascular accident) Cardiac defibrillator in place Cardiomyopathy Cervicalgia Chronic kidney disease Depression Diabetes GERD (gastroesophageal reflux disease) Gastroenteritis HTN (hypertension) Hemiplegia affecting dominant side, post-stroke History of implantable cardiac defibrillator (ICD) Hyperlipidemia Hypoglycemia Hypothyroid Left ventricular failure Morbid obesity Myocardial infarct, old Other cervical disc degeneration, unspecified cervical region Peripheral neuropathy - Surgical History Surgical History: Surgical History (Last Reviewed 01/21/18 @ 23:48 by Lisa Abraham) History of neck surgery - Tobacco History Second Hand Smoke Exposure: No Smoking Status: Never smoker Tobacco Type: Cigarettes - Alcohol History How Often Do You Have a Drink Containing Alcohol: Never - Substance Use History Substance History: No History of Abuse - Travel History Recent Travel in the [place] Within the Last 8 Weeks: No Recent Travel Out of the Country Within the Last 8 Weeks: No - Immunization History Tetanus Immunization: <5 Years Hx Influenza Vaccine This Season: No Medications and Allergies Active Medications: Active Medications Acetaminophen (Tylenol) 325 mg PO Q6H PRN PRN Reason: FEVER OR PAIN Aspirin (Ecotrin) 81 mg PO DAILY [facility] Atorvastatin Calcium (Lipitor) 40 mg PO DAILY [facility] Calcitriol (Rocaltrol) 0.25 mcg PO Q48H [facility] Carvedilol (Coreg) 12.5 mg PO BID [facility] Furosemide (Lasix Inj) 20 mg IV.PUSH BID@0900,1800 [facility] Gabapentin (Neurontin) 300 mg PO QPM [facility] Sodium Chloride (Ns Inj) 500 mls @ 0 mls/hr IV.SIG BOLUS [facility] Ceftriaxone Sodium 1,000 mg/ (Sodium Chloride) 100 mls @ 200 mls/hr IV.SIG Q24H [facility] Sodium Chloride (1/2 Normal Saline Inj) 1,000 mls @ 84 mls/hr IV.CONT .[id number] [facility] Insulin Detemir (Levemir Inj) 15 unit SQ AC [facility] Last Admin: 01/22/18 10:59 Dose: Not Given Insulin Detemir (Levemir Inj) 10 unit SQ HS [facility] Levothyroxine Sodium (Synthroid) 25 mcg PO DAILY@0600 [facility] Non-Formulary Medication (Ciclopirox [Ciclopirox]) 1 applic TOPICAL BID [facility] Non-Formulary Medication (Insulin Lispro [Humalog Kwikpen Insulin]) 100 unit SQ DAILY [facility] Pantoprazole Sodium (Protonix) 40 mg PO DAILY [facility] Rivaroxaban (Xarelto) 15 mg PO DAILY [facility] Sodium Chloride (Ns Flush) 2 ml IV.FLUSH PRN PRN PRN Reason: FLUSH AFTER USING IV ACCESS Sulfasalazine (Azulfidine) 500 mg PO BID [facility] Allergies Allergy/AdvReac Type Severity Reaction Status Date / Time amoxicillin Allergy Rash Verified 01/21/18 23:42 methylprednisolone Allergy Itching Verified 01/21/18 23:42 lisinopril AdvReac Cough Verified 01/21/18 23:42 MRI PRECAUTION AdvReac Severe PACEMAKER Uncoded 01/21/18 23:42 (RV) 02/08/10 Home Medications Medication Instructions Recorded Confirmed Type acetaminophen [Tylenol] 325 mg PO Q6H PRN 01/10/18 01/21/18 History aspirin [Aspirin Low Dose] 81 mg PO DAILY 01/10/18 01/21/18 History atorvastatin 40 mg PO DAILY 01/10/18 01/21/18 History calcitriol 0.25 mcg PO Q OTHER DAY 01/10/18 01/21/18 History carvedilol 12.5 mg PO BID 01/10/18 01/21/18 History ciclopirox 1 applic TOPICAL BID 01/10/18 01/21/18 History gabapentin 300 mg PO QPM 01/10/18 01/21/18 History insulin glargine [Lantus U-100 10 unit SUB-Q HS 01/10/18 01/21/18 History Insulin] insulin glargine [Lantus U-100 15 unit SUB-Q AC 01/10/18 01/21/18 History Insulin] insulin lispro [Humalog KwikPen 100 unit SUB-Q DAILY 01/10/18 01/21/18 History Insulin] levothyroxine 25 mcg PO DAILY 01/10/18 01/21/18 History rivaroxaban [Xarelto] 15 mg PO DAILY 01/10/18 01/21/18 History sulfasalazine 0.5 g PO BID 01/10/18 01/21/18 History Exam Vital signs: Vital Signs 01/21/18 22:07 01/21/18 22:15 01/22/18 00:42 Temperature 97.9 F Pulse Rate 66 86 Respiratory Rate 12 28 H Blood Pressure 105/53 L 169/112 H Pulse Oximetry 98 98 96 01/22/18 01:12 01/22/18 04:24 01/22/18 05:00 Temperature Pulse Rate 67 67 68 Respiratory Rate 18 18 18 Blood Pressure 101/45 L 158/65 H 141/61 H Pulse Oximetry 96 99 97 01/22/18 06:03 01/22/18 07:56 01/22/18 12:00 Temperature 98.2 F Pulse Rate 69 71 73 Respiratory Rate 18 16 18 Blood Pressure 157/66 H 85/34 L 129/58 L Pulse Oximetry 98 95 95 Intake & Output 01/21/18 01/22/18 01/22/18 18:59 06:59 18:59 Weight 114.169 kg - Constitutional no acute distress - Routine HEENT Exam Eye: Present: PERRL ENT: Present: mucous membranes moist - Routine Neck Exam Present: supple - Routine Respiratory Exam Present: crackles - Routine Cardiovascular Exam Present: S1, S2 - Routine Abdominal Exam Present: soft, normoactive bowel sounds - Routine Extremities Exam Present: edema, pulses intact - Routine Skin Exam Present: dry, warm Comments: blister to left denton - Routine Neurological Exam Present: alert, moving all extremities Results - Labs Result diagrams: 01/21/18 23:17 01/21/18 23:17 Abnormal lab results 01/21/18 01/21/18 01/21/18 Range/Units 23:17 23:17 23:18 RBC 3.52 L (4.00-5.30) mil/mm3 Hgb 10.6 L (11.6-15.3) gm/dL Hct 32.1 L (35.0-46.0) % RDW 17.7 H (11.6-17.2) % [place] % (Auto) 15.1 H (0.0-8.0) % [place] # (Auto) 1.3 H (0.0-0.9) th/mm3 Sodium 130 L (136-145) meq/L Chloride 94 L (98-107) meq/L BUN 66 H (7-18) mg/dL Creatinine 4.08 H (0.50-1.00) mg/dL Estimated GFR 13 L (>89) mL/min POC Glucose (68-110) mg/dl Random Glucose 195 H (74-106) mg/dL Calcium 8.0 L (8.5-10.1) mg/dL AST 46 H (15-37) U/L Troponin I 0.08 H (0.02-0.05) ng/mL B-Natriuretic Peptide 2725 H (0-100) pg/mL Total Protein 6.2 L D (6.4-8.2) g/dL Albumin 2.4 L (3.4-5.0) g/dL Urine Clarity (Clear) Urine Occult Blood (Negative) Ur Leukocyte Esterase (Negative) Urine WBC (0-5) /hpf Urine WBC Clumps (None) Urine Bacteria (None) /hpf Urine Mucus (Occasional) /lpf 01/22/18 01/22/18 01/22/18 Range/Units 01:25 09:10 12:16 RBC (4.00-5.30) mil/mm3 Hgb (11.6-15.3) gm/dL Hct (35.0-46.0) % RDW (11.6-17.2) % [place] % (Auto) (0.0-8.0) % [place] # (Auto) (0.0-0.9) th/mm3 Sodium (136-145) meq/L Chloride (98-107) meq/L BUN (7-18) mg/dL Creatinine (0.50-1.00) mg/dL Estimated GFR (>89) mL/min POC Glucose 172 H 191 H (68-110) mg/dl Random Glucose (74-106) mg/dL Calcium (8.5-10.1) mg/dL AST (15-37) U/L Troponin I (0.02-0.05) ng/mL B-Natriuretic Peptide (0-100) pg/mL Total Protein (6.4-8.2) g/dL Albumin (3.4-5.0) g/dL Urine Clarity Cloudy H (Clear) Urine Occult Blood Small H (Negative) Ur Leukocyte Esterase Small H (Negative) Urine WBC 43 H (0-5) /hpf Urine WBC Clumps Occasional H (None) Urine Bacteria Many H (None) /hpf Urine Mucus Few H (Occasional) /lpf Short CBC 01/21/18 Range/Units 23:17 WBC 8.8 (4.0-11.0) th/mm3 Hgb 10.6 L (11.6-15.3) gm/dL Hct 32.1 L (35.0-46.0) % Plt Count 355 (150-450) th/mm3 BMP 01/21/18 23:17 Sodium 130 L Potassium 4.4 Chloride 94 L Carbon Dioxide 23.9 BUN 66 H Creatinine 4.08 H Calcium 8.0 L Cardiac Enzymes 01/21/18 Range/Units 23:17 Troponin I 0.08 H (0.02-0.05) ng/mL Liver Function 01/21/18 Range/Units 23:17 Total Bilirubin 0.7 (0.2-1.0) mg/dL AST 46 H (15-37) U/L ALT 17 (10-53) U/L Alkaline Phosphatase 111 (45-117) U/L Albumin 2.4 L (3.4-5.0) g/dL Urine 01/22/18 Range/Units 01:25 Urine Color Alexandra (Yellw/Straw) Urine Clarity Cloudy H (Clear) Urine pH 5.0 (5.0-8.5) Ur Specific [place] 1.018 (1.002-1.035) Urine Protein Negative (Neg-Trace) mg/dL Urine Glucose (UA) Negative (Negative) mg/dL - Imaging Impressions Chest X-Ray 01/21/18 22:08 CONCLUSION: Mild basilar consolidation without change. Borderline to mild compensated cardiomegaly unchanged. Head CT 01/22/18 00:00 CONCLUSION: 1. Stable senescent changes without acute intracranial abnormality. . Caprini VTE Risk Assessment Caprini VTE Risk Assessment: Moderate/High Risk (score >= 2) (xarelto) Tomrini Risk Assessment Model: Point Value = 1 Point Value = 2 Point Value = 3 Point Value = 5 Age 41-60 Minor surgery BMI > 25 kg/m2 Swollen legs Varicose veins or History of unexplained or recurrent spontaneous Oral contraceptives or hormone replacement Sepsis (< 1 month) Serious lung disease, including pneumonia (< 1 month) Abnormal pulmonary function Acute myocardial infarction Congestive heart failure (< 1 month) History of inflammatory bowel disease Medical patient at bed rest Age 61-74 Arthroscopic surgery Major open surgery (> 45 min) Laparoscopic surgery (> 45 min) Malignancy Confined to bed (> 72 hours) Immobilizing plaster cast Central venous access Age >= 75 History of VTE Family history of VTE Factor V Leiden Prothrombin [id number] Lupus anticoagulant Anticardiolipin antibodies Elevated serum homocysteine Heparin-induced thrombocytopenia Other congenital or acquired thrombophilia Stroke (< 1 month) Elective arthroplasty Hip, pelvis, or leg fracture Acute spinal cord injury (< 1 month) Prophylaxis Regimen: Total Risk Factor Score Risk Level Prophylaxis Regimen 0-1 Low Early ambulation 2 Moderate Order ONE of the following: *Sequential Compression Device (SCD) *Heparin 5000 units SQ BID 3-4 Higher Order ONE of the following medications: *Heparin 5000 units SQ TID *Enoxaparin/Lovenox 40 mg SQ daily (WT < 150 kg, CrCl > 30 mL/min) *Enoxaparin/Lovenox 30 mg SQ daily (WT < 150 kg, CrCl > 10-29 mL/min) *Enoxaparin/Lovenox 30 mg SQ BID (WT < 150 kg, CrCl > 30 mL/min) AND/OR *Sequential Compression Device (SCD) 5 or more Highest Order ONE of the following medications: *Heparin 5000 units SQ TID (Preferred with Epidurals) *Enoxaparin/Lovenox 40 mg SQ daily (WT < 150 kg, CrCl > 30 mL/min) *Enoxaparin/Lovenox 30 mg SQ daily (WT < 150 kg, CrCl > 10-29 mL/min) *Enoxaparin/Lovenox 30 mg SQ BID (WT < 150 kg, CrCl > 30 mL/min) AND *Sequential Compression Device (SCD) Assessment and Plan - Assessment (1) Acute kidney injury Code(s): N17.9 - Acute kidney failure, unspecified Status: Acute Plan: Creatinine 4.08, baseline 2.6-2.9, Renal consulted IVF 75/hr HF, on diuretics (2) CHF (congestive heart failure) Code(s): I50.9 - Heart failure, unspecified Status: Acute Plan: Cont home medications, Cardiac consult, telemetry, BNP 2587, troponin 0.8 (3) Hypertension Code(s): I10 - Essential (primary) hypertension Status: Chronic Plan: Currently hypotensive Cont to monitor (4) Diabetes Code(s): E11.9 - Type 2 diabetes mellitus without complications Status: Acute Plan: Monitor BS, Cont [place] bid sliding scale H&P: Quality - VTE Deep Vein Thrombosis/Pulmonary Embolism Present on Admission: No (3) Hypertension Qualifiers: Hypertension type: essential hypertension Qualified Code(s): I10 - Essential (primary) hypertension
[2018-01-22] MEDS ORDERED: Dextrose 50% in Water 50 ML Vial IV.PUSH PRN (12:59)
[2018-01-22] MEDS: Rivaroxaban 15 MG Tablet PO SCH (13:34)
[2018-01-22] MEDS: Carvedilol 12.5 MG Tablet PO SCH ×2 (13:35→21:35)
[2018-01-22] MEDS: Calcitriol 0.25 MCG Capsule PO SCH (14:09)
[2018-01-22] MEDS: sulfaSALAzine 500 MG Tablet PO SCH ×2 (14:10→21:35)
[2018-01-22] MEDS: Sodium Chloride 0.45 % Inj 1,000 ML IV.CONT SCH (14:58)
[2018-01-22] MEDS: Clotrimazole 1% Cream 15 GM Tube TOPICAL SCH ×2 (14:59→21:34)
--- NOTE | 2018-01-22 15:38 | MB ---
cc: Harsha Espinoza MD DATE: 01/22/2018 REASON FOR CONSULTATION: Congestive heart failure. HISTORY OF PRESENT ILLNESS: The patient is an 82-year-old female with a history of severe nonischemic cardiomyopathy, diabetes, hypertension, CVA, severe chronic renal insufficiency, who was brought to the hospital mainly due to mental status changes and some confusion. The patient answers many questions with "I understand." She does deny shortness of breath, chest pain, dizziness, syncope, palpitations, change in chronic pedal edema. PAST MEDICAL HISTORY: 1. Severe nonischemic cardiomyopathy with ejection fraction of approximately 25%-30%. She did have a heart catheterization in 2007 showing mild to moderate 3-vessel coronary artery disease with ejection fraction of 30% at that time. 2. History of AICD implant 05/[address] Lucas Johnson. 3. 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 4. Severe chronic renal insufficiency. 5. History of CVA 01/2006. 6. Diabetes. 7. Hypertension. 8. Hyperlipidemia. CARDIAC MEDICATIONS AT HOME: 1. Aspirin 81 mg daily. 2. Bumex 2 mg daily. 3. Carvedilol 12.5 mg b.i.d. 4. Losartan 50 mg daily. 5. Xarelto 15 mg daily. ALLERGIES: 1. AMOXICILLIN 2. LISINOPRIL. 3. METHYLPREDNISOLONE. FAMILY HISTORY: Noncontributory. SOCIAL HISTORY: The patient has never smoked cigarettes. There is no history of alcohol abuse. REVIEW OF SYSTEMS: As in the history of present illness, otherwise negative or noncontributory. PHYSICAL EXAMINATION: VITAL SIGNS: Blood pressure 129/58 with a pulse of 73, respirations 18. GENERAL: She is a well-developed, well-nourished female in no acute distress. NECK: Jugular venous pressure is hard to assess. It appears to be normal. Carotid pulses are 2+ bilaterally and without bruits. CHEST: Reveals clear lungs carroll. CARDIAC: She has a regular rhythm and rate with a grade 2/6 systolic ejection murmur heard at the left upper sternal border. No definite gallop is audible. ABDOMEN: She has a soft, nontender abdomen. Bowel sounds are present. There is no definite hepatosplenomegaly. EXTREMITIES: Reveal no clubbing or cyanosis. There is 1+ pretibial edema bilaterally. LABORATORY DATA: Hemoglobin 10.6, platelets 355. WBC 8.8. Potassium 4.4, BUN 66, creatinine 4.08, glucose 191. Troponin 0.08. Chest x-ray shows mild basilar consolidation without change from last week. IMPRESSION: Probably overall stable cardiac status in this 82-year-old female with a history of severe nonischemic cardiomyopathy, AICD implant, cerebrovascular accident, severe chronic renal insufficiency, diabetes, hypertension, now admitted mainly with mental status changes. Chest x-ray is basically unchanged from last week. She may have an element of mild congestive heart failure. I suspect her chronic pedal edema is also in part due to chronic deep venous insufficiency. Some of her fluid retention may also be exacerbated by her renal insufficiency. There is overall no evidence for acute coronary syndrome. There is only slight elevation in troponin level, this in the setting of severe renal insufficiency. As I recall, recent interrogation of her AICD reveals no evidence for arrhythmias. RECOMMENDATIONS: 1. Continue beta alexa therapy. No JOSE inhibitor or angiotensin receptor alexa with her renal insufficiency. 2. Intravenous bumetanide diuresis, mainly to mobilize her pedal edema. 3. Await renal consultation. MD NIKKO Manning/royer , 03:16 PM , 03:26 PM MTDGriselda
--- NOTE | 2018-01-22 16:09 | P.CODE44 ---
Code 44 - Inpatient to Obs - Code 44 - Inpatient to Obs Statement: A clinical review of the case has been conducted by a member of the Utilization Review Committee. The findings indicate the patient meets criteria for observation status. The information and decision has been discussed with the attending physician Kulwinder Bonilla DO and physician provider Ashok Esposito MD.
[2018-01-22] MEDS: Gabapentin 300 MG Capsule PO SCH (18:11)
[2018-01-22] MEDS: Insulin NovoLOG Aspart Correctional Sugar Inj SQ SCH ×2 (18:12→21:36)
[2018-01-22] MEDS: Insulin Detemir Inj 1,000 UNIT/10 ML Vial SQ SCH (21:35)
[2018-01-23] MEDS: Sodium Chloride 0.45 % Inj 1,000 ML IV.CONT SCH (03:23)
[2018-01-23 07:39] LABS: Calcium 8.2 mg/dL (8.5-10.1); Carbon Dioxide 18.9 meq/L (21.0-32.0); Potassium 4.7 meq/L (3.5-5.1)
--- NOTE | 2018-01-23 08:17 | P.PNCA ---
Subjective Interval history: Denies dyspnea, CP, dizziness, nausea. Slept fairly well. Medications and Allergies Active Medications: Active Medications Acetaminophen (Tylenol) 325 mg PO Q6H PRN PRN Reason: FEVER OR PAIN Aspirin (Ecotrin) [address] [facility] Last Admin: 01/22/18 13:35 Dose: 81 mg Atorvastatin Calcium (Lipitor) [address] [facility] Last Admin: 01/22/18 13:35 Dose: 40 mg Bumetanide (Bumex Inj) 2 mg IV.PUSH BID@0900,1800 [facility] Last Admin: 01/22/18 18:11 Dose: 2 mg Calcitriol (Rocaltrol) 0.[address] [facility] Last Admin: 01/22/18 14:09 Dose: Not Given Carvedilol (Coreg) 12.[address] [facility] Last Admin: 01/22/18 21:35 Dose: 12.5 mg Clotrimazole (Lotrimin 1% Cream) [address] [facility] Last Admin: 01/22/18 21:34 Dose: 1 applicatio Dextrose (D50w Vial) 50 ml IV.PUSH UNSCH PRN PRN Reason: PER HYPOGLYCEMIA PROTOCOL Gabapentin (Neurontin) [address] [facility] Last Admin: 01/22/18 18:11 Dose: 300 mg Glucagon (Glucagon Inj) 1 mg OTHER PRN PRN PRN Reason: for Hypoglycemia Protocol Sodium Chloride (Ns Inj) 500 mls @ 0 mls/hr IV.SIG BOLUS [facility] Ceftriaxone Sodium 1,000 mg/ (Sodium Chloride) 100 mls @ 200 mls/hr IV.SIG Q24H [facility] Last Infusion: 01/22/18 15:40 Dose: Infused Sodium Chloride (1/2 Normal Saline Inj) 1,000 mls @ 84 mls/hr IV.CONT .[id number] [facility] Last Admin: 01/23/18 03:23 Dose: 84 mls/hr Insulin Aspart (Novolog Insulin Correctional Sugar Inj) [address] [facility]; Protocol Last Admin: 01/22/18 21:36 Dose: 5 unit Insulin Detemir (Levemir Inj) [address] [facility] Last Admin: 01/22/18 21:35 Dose: 10 unit Insulin Detemir (Levemir Inj) 15 unit SQ DAILY@0800 [facility] Levothyroxine Sodium (Synthroid) 25 mcg PO DAILY@0600 [facility] Last Admin: 01/23/18 06:34 Dose: 25 mcg Pantoprazole Sodium (Protonix) [address] [facility] Last Admin: 01/22/18 13:35 Dose: 40 mg Rivaroxaban (Xarelto) [address] [facility] Last Admin: 01/22/18 13:34 Dose: 15 mg Sodium Chloride (Ns Flush) 2 ml IV.FLUSH PRN PRN PRN Reason: FLUSH AFTER USING IV ACCESS Sulfasalazine (Azulfidine) [address] [facility] Last Admin: 01/22/18 21:35 Dose: 500 mg Allergies Allergy/AdvReac Type Severity Reaction Status Date / Time amoxicillin Allergy Rash Verified 01/21/18 23:42 methylprednisolone Allergy Itching Verified 01/21/18 23:42 lisinopril AdvReac Cough Verified 01/21/18 23:42 MRI PRECAUTION AdvReac Severe PACEMAKER Uncoded 01/21/18 23:42 (RV) 02/08/10 Home Medications Medication Instructions Recorded Confirmed Type acetaminophen [Tylenol] 325 mg PO Q6H PRN 01/10/18 01/21/18 History aspirin [Aspirin Low Dose] 81 mg PO DAILY 01/10/18 01/21/18 History atorvastatin 40 mg PO DAILY 01/10/18 01/21/18 History calcitriol 0.25 mcg PO Q OTHER DAY 01/10/18 01/21/18 History carvedilol 12.5 mg PO BID 01/10/18 01/21/18 History ciclopirox 1 applic TOPICAL BID 01/10/18 01/21/18 History gabapentin 300 mg PO QPM 01/10/18 01/21/18 History insulin glargine [Lantus U-100 10 unit SUB-Q HS 01/10/18 01/21/18 History Insulin] insulin glargine [Lantus U-100 15 unit SUB-Q AC 01/10/18 01/21/18 History Insulin] insulin lispro [Humalog KwikPen 100 unit SUB-Q DAILY 01/10/18 01/21/18 History Insulin] levothyroxine 25 mcg PO DAILY 01/10/18 01/21/18 History rivaroxaban [Xarelto] 15 mg PO DAILY 01/10/18 01/21/18 History sulfasalazine 0.5 g PO BID 01/10/18 01/21/18 History Physical Exam Vital signs: Vital Signs 01/22/18 12:00 01/22/18 16:00 01/22/18 20:00 Temperature 97.1 F L 97.6 F Pulse Rate 73 71 76 Respiratory Rate 18 20 18 Blood Pressure 129/58 L 99/50 L 100/60 Pulse Oximetry 95 97 99 01/23/18 00:00 01/23/18 00:07 01/23/18 04:00 Temperature 97.6 F 97.8 F Pulse Rate 73 74 76 Respiratory Rate 18 16 Blood Pressure 100/70 100/70 Pulse Oximetry 96 95 Intake & Output 01/22/18 01/23/18 01/23/18 18:59 06:59 18:59 Intake Total 100 / 100 1000 / 1000 Balance 100 / 100 1000 / 1000 Weight 120.5 kg Intake: IV 100 / 100 1000 / 1000 1/2 Normal Saline Inj 1,000 ML 1000 / 1000 @ 84 mls/hr IV.CONT .[id number] [facility] Rx#:[id number] Rocephin Inj 1,000 MG In NS Inj 100 / 100 100 ML @ 200 mls/hr IV.SIG Q24H [facility] Rx#:[id number] Other: # Urine Diapers 1 Weight On Admission 114.169 kg - Constitutional no acute distress - Routine Neck Exam Absent: JVD - Routine Respiratory Exam Present: CTA bilaterally - Routine Cardiovascular Exam Present: RRR, S1, murmur. Absent: gallop Comments: II/ systolic murmur LUSB - Routine Abdominal Exam Present: soft, normoactive bowel sounds. Absent: tenderness, organomegaly - Routine Extremities Exam Present: edema. Absent: cyanosis, clubbing Comments: 1-2+ pretibial edema - Urinary Catheter Management Straight Cath placed during this visit: no Reason for continuing: Not indwelling catheter Results 01/21/18 23:17 01/23/18 06:25 Cardiac Enzymes 01/21/18 01/21/18 Range/Units 23:17 23:18 AST 46 H (15-37) U/L Troponin I 0.08 H (0.02-0.05) ng/mL B-Natriuretic Peptide 2725 H (0-100) pg/mL Coagulation 01/21/18 Range/Units 23:18 B-Natriuretic Peptide 2725 H (0-100) pg/mL CBC 01/21/18 Range/Units 23:17 WBC 8.8 (4.0-11.0) th/mm3 RBC 3.52 L (4.00-5.30) mil/mm3 Hgb 10.6 L (11.6-15.3) gm/dL Hct 32.1 L (35.0-46.0) % Plt Count 355 (150-450) th/mm3 Neut # (Auto) 5.9 (1.8-7.7) th/mm3 Lymph # (Auto) 1.3 (1.0-4.8) th/mm3 [place] # (Auto) 1.3 H (0.0-0.9) th/mm3 Eos # (Auto) 0.3 (0.0-0.4) th/mm3 Baso # (Auto) 0.1 (0.0-0.2) th/mm3 Comprehensive Metabolic Panel 01/21/18 01/23/18 Range/Units 23:17 06:25 Sodium 130 L 125 L (136-145) meq/L Potassium 4.4 4.7 (3.5-5.1) meq/L Chloride 94 L 93 L (98-107) meq/L Carbon Dioxide 23.9 18.9 L (21.0-32.0) meq/L BUN 66 H 70 H (7-18) mg/dL Creatinine 4.08 H 4.16 H (0.50-1.00) mg/dL Calcium 8.0 L 8.2 L (8.5-10.1) mg/dL AST 46 H (15-37) U/L ALT 17 (10-53) U/L Alkaline Phosphatase 111 (45-117) U/L Total Protein 6.2 L D (6.4-8.2) g/dL Albumin 2.4 L (3.4-5.0) g/dL Intake and Output 01/22/18 01/23/18 01/23/18 22:59 06:59 14:59 Intake Total 100 / 100 1000 / 1000 Balance 100 / 100 1000 / 1000 Intake: IV 100 / 100 1000 / 1000 1/2 Normal Saline Inj 1,000 ML 1000 / 1000 @ 84 mls/hr IV.CONT .[id number] [facility] Rx#:[id number] Rocephin Inj 1,000 MG In NS Inj 100 / 100 100 ML @ 200 mls/hr IV.SIG Q24H [facility] Rx#:[id number] Other: # Urine Diapers 1 Weight 120.5 kg Weight On Admission 114.169 kg - Imaging and Cardiology Imaging: Impressions Chest X-Ray 01/21/18 22:08 CONCLUSION: Mild basilar consolidation without change. Borderline to mild compensated cardiomegaly unchanged. Head CT 01/22/18 00:00 CONCLUSION: 1. Stable senescent changes without acute intracranial abnormality. . Assessment and Plan - Assessment (1) Nonischemic cardiomyopathy Code(s): I42.8 - Other cardiomyopathies Status: Chronic Plan: Stable cardiac status. Positive fluid balance and weight up since admission. Recommend continue attempts to diurese and minimize IV fluids. Continue beta alexa. (2) Hypertension Code(s): I10 - Essential (primary) hypertension Status: Chronic Plan: Stable. Normal to low normal BP's. (3) Coronary artery disease Code(s): I25.10 - Atherosclerotic heart disease of elem coronary artery without angina pectoris Status: Chronic Plan: Stable. No angina symptoms. Mild to moderate CAD on cath at age 72. Recommend conservative therapy. Continue aspirin, beta alexa (4) Status post implantation of automatic cardioverter/defibrillator (AICD) Code(s): Z95.810 - Presence of automatic (implantable) cardiac defibrillator Status: Chronic - Plan Code Status: full code Discussed Condition With: patient (2) Hypertension Qualifiers: Hypertension type: essential hypertension Qualified Code(s): I10 - Essential (primary) hypertension (3) Coronary artery disease Qualifiers: Coronary Disease-Associated Artery/Lesion type: elem artery [place] vs. transplanted heart: elem heart Associated angina: without angina Qualified Code(s): I25.10 - Atherosclerotic heart disease of elem coronary artery without angina pectoris
[2018-01-23] MEDS: Rivaroxaban 15 MG Tablet PO SCH (08:26)
[2018-01-23] MEDS: Carvedilol 12.5 MG Tablet PO SCH ×3 (08:26→22:28)
[2018-01-23] MEDS: Insulin NovoLOG Aspart Correctional Sugar Inj SQ SCH ×4 (08:26→22:11)
[2018-01-23] MEDS: Sodium Chloride 0.9% 2 ML Flush BID IV.FLUSH SCH ×2 (08:28→21:53)
[2018-01-23] MEDS: Insulin Detemir Inj 1,000 UNIT/10 ML Vial SQ SCH ×2 (08:28→21:51)
[2018-01-23] MEDS: Clotrimazole 1% Cream 15 GM Tube TOPICAL SCH ×2 (08:29→21:52)
[2018-01-23] MEDS: Acetaminophen 325 MG Tablet PO PRN ×2 (09:49→17:57)
[2018-01-23] MEDS: Sod Chloride 0.9% Inj 1,000 ML IV.CONT SCH ×2 (09:50→22:55)
[2018-01-23] MEDS: sulfaSALAzine 500 MG Tablet PO SCH ×2 (09:50→21:51)
[2018-01-23] MEDS ORDERED: metOLazone 5 MG Tablet PO SCH (10:00)
[2018-01-23 12:08] LABS: INR 1.5 Ratio; Prothrombin Time 14.7 sec (9.8-11.6)
--- NOTE | 2018-01-23 12:52 | P.PNFP ---
Subjective Interval history: Delayed entry seen early this am 0630 No apparent distress, she is oriented to person Nurse states she comes in and out of clarity Results - Labs Result diagrams: 01/21/18 23:17 01/23/18 06:25 Abnormal lab results 01/22/18 01/22/18 01/23/18 Range/Units 16:51 20:34 06:25 PT (9.8-11.6) sec Sodium 125 L (136-145) meq/L Chloride 93 L (98-107) meq/L Carbon Dioxide 18.9 L (21.0-32.0) meq/L BUN 70 H (7-18) mg/dL Creatinine 4.16 H (0.50-1.00) mg/dL Estimated GFR 12 L (>89) mL/min POC Glucose 266 H 257 H (68-110) mg/dl Random Glucose 134 H (74-106) mg/dL Calcium 8.2 L (8.5-10.1) mg/dL 01/23/18 01/23/18 01/23/18 Range/Units 07:49 07:56 11:17 PT 14.7 H (9.8-11.6) sec Sodium (136-145) meq/L Chloride (98-107) meq/L Carbon Dioxide (21.0-32.0) meq/L BUN (7-18) mg/dL Creatinine (0.50-1.00) mg/dL Estimated GFR (>89) mL/min POC Glucose 147 H 149 H (68-110) mg/dl Random Glucose (74-106) mg/dL Calcium (8.5-10.1) mg/dL 01/23/18 Range/Units 11:59 PT (9.8-11.6) sec Sodium (136-145) meq/L Chloride (98-107) meq/L Carbon Dioxide (21.0-32.0) meq/L BUN (7-18) mg/dL Creatinine (0.50-1.00) mg/dL Estimated GFR (>89) mL/min POC Glucose 195 H (68-110) mg/dl Random Glucose (74-106) mg/dL Calcium (8.5-10.1) mg/dL BMP 01/23/18 06:25 Sodium 125 L Potassium 4.7 Chloride 93 L Carbon Dioxide 18.9 L BUN 70 H Creatinine 4.16 H Calcium 8.2 L Physical Exam Vital signs: Vital Signs 01/22/18 16:00 01/22/18 20:00 01/23/18 00:00 Temperature 97.1 F L 97.6 F 97.6 F Pulse Rate 71 76 73 Respiratory Rate 20 18 18 Blood Pressure 99/50 L 100/60 100/70 Pulse Oximetry 97 99 96 01/23/18 00:07 01/23/18 04:00 01/23/18 08:00 Temperature 97.8 F 97.7 F Pulse Rate 74 76 75 Respiratory Rate 16 13 Blood Pressure 100/70 151/62 H Pulse Oximetry 95 98 01/23/18 08:25 01/23/18 12:00 Temperature 97.1 F L Pulse Rate 66 Respiratory Rate 18 Blood Pressure 98/62 L Pulse Oximetry 97 99 Intake & Output 01/22/18 01/23/18 01/23/18 18:59 06:59 18:59 Intake Total 100 / 100 1000 / 1000 400 / 400 Balance 100 / 100 1000 / 1000 400 / 400 Weight 120.5 kg Intake: IV 100 / 100 1000 / 1000 400 / 400 1/2 Normal Saline Inj 1,000 ML 1000 / 1000 400 / 400 @ 84 mls/hr IV.CONT .[id number] [facility] Rx#:[id number] Rocephin Inj 1,000 MG In NS Inj 100 / 100 100 ML @ 200 mls/hr IV.SIG Q24H [facility] Rx#:[id number] Other: # Urine Diapers 1 Weight On Admission 114.169 kg - Constitutional no acute distress - Routine HEENT Exam Eye: Present: PERRL ENT: Present: oropharynx clear - Routine Neck Exam Present: supple - Routine Respiratory Exam Present: CTA bilaterally - Routine Cardiovascular Exam Present: S1, S2 - Routine Abdominal Exam Present: soft, normoactive bowel sounds - Routine Extremities Exam Present: edema (B/L le pedal edema) - Routine Skin Exam Present: dry, warm - Routine Neurological Exam Present: alert - Urinary Catheter Management Straight Cath placed during this visit: no Reason for continuing: Not indwelling catheter Assessment and Plan - Assessment (1) Acute kidney injury Code(s): N17.9 - Acute kidney failure, unspecified Status: Acute Plan: Creatinine 4.08, baseline 2.6-2.9, Renal consulted IVF 75/hr HF, on diuretics (2) CHF (congestive heart failure) Code(s): I50.9 - Heart failure, unspecified Status: Acute Plan: Cont home medications, telemetry, cardiac following, at baseline recommended to cont BB, Bumex (3) Hypertension Code(s): I10 - Essential (primary) hypertension Status: Chronic Plan: Currently hypotensive Cont to monitor (4) Diabetes Code(s): E11.9 - Type 2 diabetes mellitus without complications Status: Acute Plan: Monitor BS, Cont [place] bid sliding scale (5) Hyponatremia Code(s): E87.1 - Hypo-osmolality and hyponatremia Status: Acute Plan: IVF NS, renal consult pending (6) CVA (cerebral vascular accident) Code(s): I63.9 - Cerebral infarction, unspecified Status: Chronic Plan: On Xarelto for cva xarelto dc for renal functions, Heparin sq started recommended by cardiology to start warfarin - Assessment and Plan 01/23/18- Seen this am, patient is pleasant, oriented to self. Cont with declining renal functions, renal consult pending. Cardiology following, no sign of fluid overload. (3) Hypertension Qualifiers: Hypertension type: essential hypertension Qualified Code(s): I10 - Essential (primary) hypertension
[2018-01-23] MEDS: Gabapentin 300 MG Capsule PO SCH (17:57)
[2018-01-23] MEDS ORDERED: Bisacodyl 10 MG Supp RECTAL PRN (18:52)
--- NOTE | 2018-01-23 20:39 | P.CONNP ---
History of Present Illness Service: Nephrology Reason for Consult: Acute on chronic kidney disease Primary Care Provider: Kulwinder Bonilla DO Family Provider: Ravindra Eller MD History of Present Illness: This is an 82 year old lady admitted with mental status changes and worsening renal function. Her Creatinine is 4.25 today, eGFR of 12. She also has severe hyponatremia, serum Na of 125. Patient is a poor historian, appears confused. We had seen her in our office in October. She was non compliant with her followups and October visit was after 18 months. Patient's GFR at that time was 19. Patient has systolic heart failure, EF of 20-25%, has AICD placed. Patient appears to be in volume overload. Review of Systems unobtainable due to mental status PMFSH - History History Provided By: Friend - Medical History Medical History: Medical History (Last Reviewed 01/21/18 @ 23:48 by Lisa Abraham) CHF (congestive heart failure) Anemia Atherosclerosis of aorta CVA (cerebral vascular accident) Cardiac defibrillator in place Cardiomyopathy Cervicalgia Chronic kidney disease Depression Diabetes GERD (gastroesophageal reflux disease) Gastroenteritis HTN (hypertension) Hemiplegia affecting dominant side, post-stroke History of implantable cardiac defibrillator (ICD) Hyperlipidemia Hypoglycemia Hypothyroid Left ventricular failure Morbid obesity Myocardial infarct, old Other cervical disc degeneration, unspecified cervical region Peripheral neuropathy - Surgical History Surgical History: Surgical History (Last Reviewed 01/21/18 @ 23:48 by Lisa Abraham) History of neck surgery - Tobacco History Second Hand Smoke Exposure: No Smoking Status: Never smoker Tobacco Type: Cigarettes - Alcohol History How Often Do You Have a Drink Containing Alcohol: Never - Substance Use History Substance History: No History of Abuse - Travel History Recent Travel in the [place] Within the Last 8 Weeks: No Recent Travel Out of the Country Within the Last 8 Weeks: No - Immunization History Tetanus Immunization: <5 Years Hx Influenza Vaccine This Season: No Medications and Allergies Active Medications: Active Medications Acetaminophen (Tylenol) 325 mg PO Q6H PRN PRN Reason: FEVER OR PAIN Last Admin: 01/23/18 17:57 Dose: 325 mg Aspirin (Ecotrin) 81 mg PO DAILY [facility] Last Admin: 01/23/18 08:26 Dose: 81 mg Atorvastatin Calcium (Lipitor) 40 mg PO DAILY [facility] Last Admin: 01/23/18 08:27 Dose: 40 mg Bisacodyl (Dulcolax Supp) 10 mg RECTAL Q12HR PRN PRN Reason: SEE LABEL COMMENTS Bumetanide (Bumex Inj) 2 mg IV.PUSH TID [facility] Calcitriol (Rocaltrol) 0.25 mcg PO Q48H [facility] Last Admin: 01/22/18 14:09 Dose: Not Given Carvedilol (Coreg) 12.5 mg PO BID [facility] Last Admin: 01/23/18 08:26 Dose: 12.5 mg Clotrimazole (Lotrimin 1% Cream) 1 applicatio TOPICAL BID [facility] Last Admin: 01/23/18 08:29 Dose: 1 applicatio Dextrose (D50w Vial) 50 ml IV.PUSH UNSCH PRN PRN Reason: PER HYPOGLYCEMIA PROTOCOL Docusate Sodium (Colace) 100 mg PO BID [facility] Gabapentin (Neurontin) 300 mg PO QPM [facility] Last Admin: 01/23/18 17:57 Dose: 300 mg Glucagon (Glucagon Inj) 1 mg OTHER PRN PRN PRN Reason: for Hypoglycemia Protocol Heparin Sodium (Porcine) (Heparin Inj) 5,000 units SQ Q12HR [facility] Sodium Chloride (Ns Inj) 500 mls @ 0 mls/hr IV.SIG BOLUS [facility] Ceftriaxone Sodium 1,000 mg/ (Sodium Chloride) 100 mls @ 200 mls/hr IV.SIG Q24H [facility] Last Infusion: 01/23/18 16:20 Dose: Infused Insulin Aspart (Novolog Insulin Correctional Sugar Inj) 0 unit SQ ACHS [facility]; Protocol Last Admin: 01/23/18 17:57 Dose: Not Given Insulin Detemir (Levemir Inj) 10 unit SQ HS [facility] Last Admin: 01/22/18 21:35 Dose: 10 unit Insulin Detemir (Levemir Inj) 15 unit SQ DAILY@0800 [facility] Last Admin: 01/23/18 08:28 Dose: 15 unit Levothyroxine Sodium (Synthroid) 25 mcg PO DAILY@0600 [facility] Last Admin: 01/23/18 06:34 Dose: 25 mcg Pantoprazole Sodium (Protonix) 40 mg PO DAILY [facility] Last Admin: 01/23/18 08:26 Dose: 40 mg Sodium Chloride (Ns Flush) 2 ml IV.FLUSH PRN PRN PRN Reason: FLUSH AFTER USING IV ACCESS Sodium Chloride (Ns Flush) 2 ml IV.FLUSH BID [facility] Last Admin: 01/23/18 08:28 Dose: Not Given Sulfasalazine (Azulfidine) 500 mg PO BID [facility] Last Admin: 01/23/18 09:50 Dose: 500 mg Allergies Allergy/AdvReac Type Severity Reaction Status Date / Time amoxicillin Allergy Rash Verified 01/21/18 23:42 methylprednisolone Allergy Itching Verified 01/21/18 23:42 lisinopril AdvReac Cough Verified 01/21/18 23:42 MRI PRECAUTION AdvReac Severe PACEMAKER Uncoded 01/21/18 23:42 (RV) 02/08/10 Home Medications Medication Instructions Recorded Confirmed Type acetaminophen [Tylenol] 325 mg PO Q6H PRN 01/10/18 01/21/18 History aspirin [Aspirin Low Dose] 81 mg PO DAILY 01/10/18 01/21/18 History atorvastatin 40 mg PO DAILY 01/10/18 01/21/18 History calcitriol 0.25 mcg PO Q OTHER DAY 01/10/18 01/21/18 History carvedilol 12.5 mg PO BID 01/10/18 01/21/18 History ciclopirox 1 applic TOPICAL BID 01/10/18 01/21/18 History gabapentin 300 mg PO QPM 01/10/18 01/21/18 History insulin glargine [Lantus U-100 10 unit SUB-Q HS 01/10/18 01/21/18 History Insulin] insulin glargine [Lantus U-100 15 unit SUB-Q AC 01/10/18 01/21/18 History Insulin] insulin lispro [Humalog KwikPen 100 unit SUB-Q DAILY 01/10/18 01/21/18 History Insulin] levothyroxine 25 mcg PO DAILY 01/10/18 01/21/18 History rivaroxaban [Xarelto] 15 mg PO DAILY 01/10/18 01/21/18 History sulfasalazine 0.5 g PO BID 01/10/18 01/21/18 History Exam Vital signs: Vital Signs 01/23/18 00:00 01/23/18 00:07 01/23/18 04:00 Temperature 97.6 F 97.8 F Pulse Rate 73 74 76 Respiratory Rate 18 16 Blood Pressure 100/70 100/70 Pulse Oximetry 96 95 01/23/18 08:00 01/23/18 08:25 01/23/18 12:00 Temperature 97.7 F 97.1 F L Pulse Rate 75 66 Respiratory Rate 13 18 Blood Pressure 151/62 H 98/62 L Pulse Oximetry 98 97 99 01/23/18 16:00 Temperature 97.2 F L Pulse Rate 66 Respiratory Rate 12 Blood Pressure 100/70 Pulse Oximetry 97 Intake & Output 01/23/18 01/23/18 01/24/18 06:59 18:59 06:59 Intake Total 1000 / 1000 500 / 500 Output Total 200 / 200 Balance 1000 / 1000 300 / 300 Weight 120.5 kg Intake: IV 1000 / 1000 500 / 500 1/2 Normal Saline Inj 1,000 ML 1000 / 1000 400 / 400 @ 84 mls/hr IV.CONT .[id number] [facility] Rx#:[id number] Rocephin Inj 1,000 MG In NS Inj 100 / 100 100 ML @ 200 mls/hr IV.SIG Q24H [facility] Rx#:[id number] Output: Urine 200 / 200 Other: # Voids 2 # Urine Diapers 1 Weight On Admission 114.169 kg - Constitutional no acute distress, obese - Routine HEENT Exam Head: Present: normocephalic, atraumatic Eye: Present: EOMI, PERRL ENT: Present: mucous membranes moist - Routine Neck Exam Present: supple, full ROM. Absent: carotid bruit, lymphadenopathy, thyromegaly - Routine Chest/Breast/Axilla Exam Chest wall: Absent: tenderness, mass - Routine Respiratory Exam Present: rales, rhonchi, wheezes - Routine Cardiovascular Exam Present: RRR, S1, S2 - Routine Abdominal Exam Present: soft, normoactive bowel sounds - Routine Extremities Exam Present: edema - Routine Neurological Exam Present: altered mental status Results - Lab Results 01/21/18 23:17 01/23/18 06:25 Most recent lab results Calcium 8.2 mg/dL (8.5-10.1) L 01/23/18 06:25 Assessment and Plan - Assessment (1) Acute worsening of stage 4 chronic kidney disease Code(s): N28.9 - Disorder of kidney and ureter, unspecified; N18.4 - Chronic kidney disease, stage 4 (severe) Status: Acute Plan: As mentioned above, her eGFR was 19 earlier this year. Renal function has worsened. Clinically she is volume overloaded. Has systolic heart failure. Cardiorenal syndrome is to be considered. Increased renal vein pressure due to volume overload could be causing reduction in GFR. She was recently admitted with colitis. She was discharged on Cipro and Flagyl. Allergic interstitial nephritis due to Cipro is a consideration. She may have progressive renal dysfunction, now in ESRD. I will stop IVF. Avoid nephrotoxic agents. Renal US. Treat possible UTI. Change Bumex to 2 mg IV TID. If no response, or if renal function worsens, she will need dialysis. No family available. Patient herself is confused, unclear if she has any advanced directive. Her prognosis is poor as she has multiple medical problems. (2) Anemia Code(s): D64.9 - Anemia, unspecified Status: Acute Plan: may have anemia of CKD. Rule out bleeding. Obtain iron studies. (3) CHF (congestive heart failure) Code(s): I50.9 - Heart failure, unspecified Status: Acute Plan: EF 20-25%. Continue diuresis. (4) Hyponatremia Code(s): E87.1 - Hypo-osmolality and hyponatremia Status: Acute - Plan Could be due to non osmotic release of ADH. She is also on Metolazone which is a thiazide diuretic, it can cause hyponatremia. I will stop it. Increase Bumex to three times/day. - Attending Attestation Thanks for the consult. I will follow. Prognosis is guarded.
[2018-01-23] MEDS: Heparin - SQ 10,000 UNITS/ML Vial SQ SCH (21:49)
[2018-01-23] MEDS: Docusate Sodium 100 MG Capsule PO SCH (21:50)
[2018-01-24] MEDS: Acetaminophen 325 MG Tablet PO PRN ×2 (02:06→20:41)
--- NOTE | 2018-01-24 07:45 | P.PNCA ---
Subjective Interval history: Seems to deny CP, dyspnea, palpitations, dizziness, abdominal pain, nausea. Medications and Allergies Active Medications: Active Medications Acetaminophen (Tylenol) 325 mg PO Q6H PRN PRN Reason: FEVER OR PAIN Last Admin: 01/24/18 02:06 Dose: 325 mg Aspirin (Ecotrin) 81 mg PO DAILY [facility] Last Admin: 01/23/18 08:26 Dose: 81 mg Atorvastatin Calcium (Lipitor) 40 mg PO DAILY [facility] Last Admin: 01/23/18 08:27 Dose: 40 mg Bisacodyl (Dulcolax Supp) 10 mg RECTAL Q12HR PRN PRN Reason: SEE LABEL COMMENTS Bumetanide (Bumex Inj) 2 mg IV.PUSH TID [facility] Last Admin: 01/23/18 22:02 Dose: 2 mg Calcitriol (Rocaltrol) 0.25 mcg PO Q48H [facility] Last Admin: 01/22/18 14:09 Dose: Not Given Carvedilol (Coreg) 12.5 mg PO BID [facility] Last Admin: 01/23/18 22:28 Dose: Not Given Clotrimazole (Lotrimin 1% Cream) 1 applicatio TOPICAL BID [facility] Last Admin: 01/23/18 21:52 Dose: 1 applicatio Dextrose (D50w Vial) 50 ml IV.PUSH UNSCH PRN PRN Reason: PER HYPOGLYCEMIA PROTOCOL Docusate Sodium (Colace) 100 mg PO BID [facility] Last Admin: 01/23/18 21:50 Dose: 100 mg Gabapentin (Neurontin) 300 mg PO QPM [facility] Last Admin: 01/23/18 17:57 Dose: 300 mg Glucagon (Glucagon Inj) 1 mg OTHER PRN PRN PRN Reason: for Hypoglycemia Protocol Heparin Sodium (Porcine) (Heparin Inj) 5,000 units SQ Q12HR [facility] Last Admin: 01/23/18 21:49 Dose: 5,000 units Sodium Chloride (Ns Inj) 500 mls @ 0 mls/hr IV.SIG BOLUS [facility] Ceftriaxone Sodium 1,000 mg/ (Sodium Chloride) 100 mls @ 200 mls/hr IV.SIG Q24H [facility] Last Infusion: 01/23/18 16:20 Dose: Infused Insulin Aspart (Novolog Insulin Correctional Sugar Inj) 0 unit SQ ACHS [facility]; Protocol Last Admin: 01/23/18 22:11 Dose: 3 unit Insulin Detemir (Levemir Inj) 10 unit SQ HS [facility] Last Admin: 01/23/18 21:51 Dose: 10 unit Insulin Detemir (Levemir Inj) 15 unit SQ DAILY@0800 [facility] Last Admin: 01/23/18 08:28 Dose: 15 unit Levothyroxine Sodium (Synthroid) 25 mcg PO DAILY@0600 [facility] Last Admin: 01/24/18 06:10 Dose: 25 mcg Pantoprazole Sodium (Protonix) 40 mg PO DAILY [facility] Last Admin: 01/23/18 08:26 Dose: 40 mg Sodium Chloride (Ns Flush) 2 ml IV.FLUSH PRN PRN PRN Reason: FLUSH AFTER USING IV ACCESS Sodium Chloride (Ns Flush) 2 ml IV.FLUSH BID [facility] Last Admin: 01/23/18 21:53 Dose: 2 ml Sulfasalazine (Azulfidine) 500 mg PO BID [facility] Last Admin: 01/23/18 21:51 Dose: 500 mg Allergies Allergy/AdvReac Type Severity Reaction Status Date / Time amoxicillin Allergy Rash Verified 01/21/18 23:42 methylprednisolone Allergy Itching Verified 01/21/18 23:42 lisinopril AdvReac Cough Verified 01/21/18 23:42 MRI PRECAUTION AdvReac Severe PACEMAKER Uncoded 01/21/18 23:42 (RV) 02/08/10 Home Medications Medication Instructions Recorded Confirmed Type acetaminophen [Tylenol] 325 mg PO Q6H PRN 01/10/18 01/21/18 History aspirin [Aspirin Low Dose] 81 mg PO DAILY 01/10/18 01/21/18 History atorvastatin 40 mg PO DAILY 01/10/18 01/21/18 History calcitriol 0.25 mcg PO Q OTHER DAY 01/10/18 01/21/18 History carvedilol 12.5 mg PO BID 01/10/18 01/21/18 History ciclopirox 1 applic TOPICAL BID 01/10/18 01/21/18 History gabapentin 300 mg PO QPM 01/10/18 01/21/18 History insulin glargine [Lantus U-100 10 unit SUB-Q HS 01/10/18 01/21/18 History Insulin] insulin glargine [Lantus U-100 15 unit SUB-Q AC 01/10/18 01/21/18 History Insulin] insulin lispro [Humalog KwikPen 100 unit SUB-Q DAILY 01/10/18 01/21/18 History Insulin] levothyroxine 25 mcg PO DAILY 01/10/18 01/21/18 History rivaroxaban [Xarelto] 15 mg PO DAILY 01/10/18 01/21/18 History sulfasalazine 0.5 g PO BID 01/10/18 01/21/18 History Physical Exam Vital signs: Vital Signs 01/23/18 08:00 01/23/18 08:25 01/23/18 12:00 Temperature 97.7 F 97.1 F L Pulse Rate 75 66 Respiratory Rate 13 18 Blood Pressure 151/62 H 98/62 L Pulse Oximetry 98 97 99 01/23/18 16:00 01/23/18 20:00 01/23/18 22:12 Temperature 97.2 F L Pulse Rate 66 67 Respiratory Rate 12 16 Blood Pressure 100/70 Pulse Oximetry 97 97 01/24/18 00:00 01/24/18 04:00 Temperature Pulse Rate 67 70 Respiratory Rate Blood Pressure Pulse Oximetry Intake & Output 01/23/18 01/24/18 01/24/18 18:59 06:59 18:59 Intake Total 500 / 500 1000 / 1000 Output Total 200 / 200 Balance 300 / 300 1000 / 1000 Intake: IV 500 / 500 1000 / 1000 NS Inj 1,000 ML @ 42 mls/hr IV. 1000 / 1000 CONT .[id number] [facility] Rx#:[id number] 1/2 Normal Saline Inj 1,000 ML 400 / 400 @ 84 mls/hr IV.CONT .[id number] [facility] Rx#:[id number] Rocephin Inj 1,000 MG In NS Inj 100 / 100 100 ML @ 200 mls/hr IV.SIG Q24H [facility] Rx#:[id number] Output: Urine 200 / 200 Other: # Voids 2 Date of Last Bowel Movement 01/24/18 # Bowel Movements 1 - Constitutional no acute distress - Routine Respiratory Exam Present: CTA bilaterally - Routine Cardiovascular Exam Present: RRR, S1, S2, murmur Comments: II/ systolic murmur LUSB. - Routine Abdominal Exam Present: soft, normoactive bowel sounds - Routine Extremities Exam Present: edema Comments: 2+ pretibial edema - Urinary Catheter Management Straight Cath placed during this visit: no Reason for continuing: Not indwelling catheter Results 01/21/18 23:17 01/23/18 06:25 Coagulation 01/23/18 Range/Units 11:17 PT 14.7 H (9.8-11.6) sec Comprehensive Metabolic Panel 01/23/18 Range/Units 06:25 Sodium 125 L (136-145) meq/L Potassium 4.7 (3.5-5.1) meq/L Chloride 93 L (98-107) meq/L Carbon Dioxide 18.9 L (21.0-32.0) meq/L BUN 70 H (7-18) mg/dL Creatinine 4.16 H (0.50-1.00) mg/dL Calcium 8.2 L (8.5-10.1) mg/dL Intake and Output 01/23/18 01/24/18 01/24/18 22:59 06:59 14:59 Intake Total 1100 / 1100 Output Total 200 / 200 Balance 900 / 900 Intake: IV 1100 / 1100 NS Inj 1,000 ML @ 42 mls/hr IV. 1000 / 1000 CONT .[id number] [facility] Rx#:[id number] Rocephin Inj 1,000 MG In NS Inj 100 / 100 100 ML @ 200 mls/hr IV.SIG Q24H [facility] Rx#:[id number] Output: Urine 200 / 200 Other: # Voids 2 Date of Last Bowel Movement 01/24/18 # Bowel Movements 1 Assessment and Plan - Assessment (1) Nonischemic cardiomyopathy Code(s): I42.8 - Other cardiomyopathies Status: Chronic Plan: Stable cardiac status. Fluid balance continues to be positive. Will be difficult to achieve effective diuresis with her renal dysfunction. Continue beta alexa, consider dialysis. (2) Hypertension Code(s): I10 - Essential (primary) hypertension Status: Chronic Plan: Stable. Normal to low normal BP's. (3) Coronary artery disease Code(s): I25.10 - Atherosclerotic heart disease of [place] coronary artery without angina pectoris Status: Chronic Plan: Stable. No angina symptoms. Mild to moderate CAD on cath at age 72. Recommend conservative therapy. Continue aspirin, beta alexa (4) Status post implantation of automatic cardioverter/defibrillator (AICD) Code(s): Z95.810 - Presence of automatic (implantable) cardiac defibrillator Status: Chronic - Plan Code Status: full code Discussed Condition With: patient and her healthcare surrogate (2) Hypertension Qualifiers: Hypertension type: essential hypertension Qualified Code(s): I10 - Essential (primary) hypertension (3) Coronary artery disease Qualifiers: Coronary Disease-Associated Artery/Lesion type: [place] artery [place] vs. transplanted heart: [place] heart Associated angina: without angina Qualified Code(s): I25.10 - Atherosclerotic heart disease of [place] coronary artery without angina pectoris
[2018-01-24 08:43] LABS: % Iron Saturation 19.4 % (20-50); Albumin 2.3 g/dL (3.4-5.0); Calcium 7.8 mg/dL (8.5-10.1); Carbon Dioxide 23.6 meq/L (21.0-32.0); Phosphorus 3.7 mg/dL (2.5-4.9); Potassium 4.6 meq/L (3.5-5.1)
--- NOTE | 2018-01-24 09:08 | P.PNFP ---
Subjective Interval history: Alert this am, answers appropriately Denies any Cp, SOB Results - Labs Result diagrams: 01/21/18 23:17 01/24/18 07:38 Abnormal lab results 01/23/18 01/23/18 01/23/18 Range/Units 11:17 11:59 17:11 PT 14.7 H (9.8-11.6) sec Sodium (136-145) meq/L Chloride (98-107) meq/L BUN (7-18) mg/dL Creatinine (0.50-1.00) mg/dL Estimated GFR (>89) mL/min POC Glucose 195 H 146 H (68-110) mg/dl Random Glucose (74-106) mg/dL Calcium (8.5-10.1) mg/dL Iron (50-170) mcg/dL TIBC (250-450) mcg/dL % Saturation (20-50) % Albumin (3.4-5.0) g/dL 01/23/18 01/24/18 Range/Units 22:07 07:38 PT (9.8-11.6) sec Sodium 128 L (136-145) meq/L Chloride 92 L (98-107) meq/L BUN 72 H (7-18) mg/dL Creatinine 4.18 H (0.50-1.00) mg/dL Estimated GFR 12 L (>89) mL/min POC Glucose 238 H (68-110) mg/dl Random Glucose 124 H (74-106) mg/dL Calcium 7.8 L (8.5-10.1) mg/dL Iron 38 L (50-170) mcg/dL TIBC 196 L (250-450) mcg/dL % Saturation 19.4 L (20-50) % Albumin 2.3 L (3.4-5.0) g/dL BMP 01/24/18 07:38 Sodium 128 L Potassium 4.6 Chloride 92 L Carbon Dioxide 23.6 BUN 72 H Creatinine 4.18 H Calcium 7.8 L Liver Function 01/24/18 Range/Units 07:38 Albumin 2.3 L (3.4-5.0) g/dL Physical Exam Vital signs: Vital Signs 01/23/18 12:00 01/23/18 16:00 01/23/18 20:00 Temperature 97.1 F L 97.2 F L Pulse Rate 66 66 67 Respiratory Rate 18 12 16 Blood Pressure 98/62 L 100/70 Pulse Oximetry 99 97 01/23/18 22:12 01/24/18 00:00 01/24/18 04:00 Temperature Pulse Rate 67 70 Respiratory Rate Blood Pressure Pulse Oximetry 97 Intake & Output 01/23/18 01/24/18 01/24/18 18:59 06:59 18:59 Intake Total 500 / 500 1000 / 1000 Output Total 200 / 200 Balance 300 / 300 1000 / 1000 Intake: IV 500 / 500 1000 / 1000 NS Inj 1,000 ML @ 42 mls/hr IV. 1000 / 1000 CONT .[id number] [facility] Rx#:[id number] 1/2 Normal Saline Inj 1,000 ML 400 / 400 @ 84 mls/hr IV.CONT .[id number] [facility] Rx#:[id number] Rocephin Inj 1,000 MG In NS Inj 100 / 100 100 ML @ 200 mls/hr IV.SIG Q24H [facility] Rx#:[id number] Output: Urine 200 / 200 Other: # Voids 2 Date of Last Bowel Movement 01/24/18 # Bowel Movements 1 - Constitutional no acute distress - Routine HEENT Exam Eye: Present: PERRL ENT: Present: mucous membranes moist - Routine Respiratory Exam Present: diminished air movement - Routine Cardiovascular Exam Present: S1, S2 - Routine Abdominal Exam Present: soft, normoactive bowel sounds - Routine Extremities Exam Present: edema - Routine Skin Exam Present: dry, warm - Routine Neurological Exam Present: alert - Routine Psychiatric Exam Present: cooperative - Urinary Catheter Management Straight Cath placed during this visit: no Reason for continuing: Not indwelling catheter Assessment and Plan - Assessment (1) Acute kidney injury Code(s): N17.9 - Acute kidney failure, unspecified Status: Acute Plan: Creatinine 4.08, baseline 2.6-2.9, Renal consulted renal US pending possible Dialysis (2) CHF (congestive heart failure) Code(s): I50.9 - Heart failure, unspecified Status: Acute Plan: Cont home medications, telemetry, cardiac following, at baseline recommended to cont BB, Bumex tid (3) Hypertension Code(s): I10 - Essential (primary) hypertension Status: Chronic Plan: Currently hypotensive Cont to monitor (4) Diabetes Code(s): E11.9 - Type 2 diabetes mellitus without complications Status: Acute Plan: Monitor BS, Cont [place] bid sliding scale (5) Hyponatremia Code(s): E87.1 - Hypo-osmolality and hyponatremia Status: Acute Plan: 128 thia am, cont to monitor (6) CVA (cerebral vascular accident) Code(s): I63.9 - Cerebral infarction, unspecified Status: Chronic Plan: On Xarelto for cva xarelto dc for renal functions, Heparin sq started recommended by cardiology to start warfarin - Assessment and Plan 01/23/18- Seen this am, patient is pleasant, oriented to self. Cont with declining renal functions, renal consult pending. Cardiology following, no sign of fluid overload. 01/24/18- More oriented this am. person and place, follows commands. Seen by renal, work up pending, IVF stopped Bumex increased. Cardiology following, cont BB. May require dialysis to get fluid off. UTI, on Rocephin follow sensitivity. (3) Hypertension Qualifiers: Hypertension type: essential hypertension Qualified Code(s): I10 - Essential (primary) hypertension
[2018-01-24] MEDS: Insulin Detemir Inj 1,000 UNIT/10 ML Vial SQ SCH ×2 (09:38→21:19)
[2018-01-24] MEDS: Insulin NovoLOG Aspart Correctional Sugar Inj SQ SCH ×4 (09:38→21:21)
[2018-01-24] MEDS: Heparin - SQ 10,000 UNITS/ML Vial SQ SCH ×2 (09:40→21:12)
[2018-01-24] MEDS: Calcitriol 0.25 MCG Capsule PO SCH (09:40)
[2018-01-24] MEDS: Docusate Sodium 100 MG Capsule PO SCH ×2 (09:40→21:19)
[2018-01-24] MEDS: Carvedilol 12.5 MG Tablet PO SCH ×2 (09:40→21:13)
[2018-01-24] MEDS: sulfaSALAzine 500 MG Tablet PO SCH ×2 (09:40→21:13)
[2018-01-24] MEDS: Sodium Chloride 0.9% 2 ML Flush BID IV.FLUSH SCH ×2 (09:46→21:22)
[2018-01-24] MEDS: Clotrimazole 1% Cream 15 GM Tube TOPICAL SCH ×2 (09:46→21:20)
--- NOTE | 2018-01-24 10:23 | US ---
EXAM DATE: 01/24/2018 6:19 PM EDT AGE/SEX: 82 years / Female INDICATIONS: Increases lab values. CLINICAL DATA: This is the patient's initial encounter. Patient reports that signs and symptoms have been present for 1 day and indicates a pain score of 0/10. MEDICAL/SURGICAL HISTORY: Anemia. Congestive heart failure. Hypertension. Atherosclerosis. C ardiomyopathy. Chronic kidney disease. . Neck surgery. [place] [facility] [place]/28/[place]. . MEASUREMENTS: Right Kidney:__9.1 x 4.6 x 4.0 cm Left Kidney:__9.2 x 5.2 x 5.3 cm FINDINGS: Right Kidney: Increased echotexture. No mass or hydronephrosis. Left Kidney: Increased echotexture. No mass or hydronephrosis. Bladder: Within normal limits given the degree of distension. Other: None. CONCLUSION: 1. Small echogenic kidneys with thinned cortices consistent with medical renal disease. Electronically signed by: Tejas Chauhan MD 01/24/2018 10:22 AM EDT
--- NOTE | 2018-01-24 12:49 | ECHRPT ---
Indication: Cardiomyopathy, unspecified CONCLUSIONS The left ventricular systolic function is severely reduced with an estimated ejection fraction in th e range of 25-30%. Wall thickness is normal. Normal left ventricular size. There is moderate to severe tricuspid valve regurgitation. The estimated pulmonary arterial pressure is 61.3 mmHg. BP: / HR: 74 Rhythm: Sinus MEASUREMENTS (Male / Female) Normal Values Technical Quality:Good 2D ECHO LV Diastolic Diameter PLAX 5.3 cm 4.2 - 5.9 / 3.9 - 5.3 cm LV Systolic Diameter PLAX 4.5 cm IVS Diastolic Thickness 1.0 cm 0.6 - 1.0 / 0.6 - 0.9 cm LVPW Diastolic Thickness 1.0 cm 0.6 - 1.0 / 0.6 - 0.9 cm LV Relative Wall Thickness 0.4 LVOT Diameter 1.8 cm M-MODE Aortic Root Diameter MM 2.1 cm LA Systolic Diameter MM 4.0 cm LA Ao Ratio MM 1.9 AV Cusp Separation MM 1.7 cm DOPPLER AV Peak Velocity 125.0 cm/s AV Peak Gradient 6.3 mmHg LVOT Peak Velocity 60.2 cm/s LVOT Peak Gradient 1.4 mmHg AV Area Cont Eq pk 1.2 cm MR Peak Velocity 346.5 cm/s MR Peak Gradient 48.0 mmHg Mitral E Point Velocity 80.5 cm/s Mitral A Point Velocity 49.9 cm/s Mitral E to A Ratio 1.6 LV E' Lateral Velocity 6.9 cm/s Mitral E to LV E' Lateral Ratio 11.6 LV E' Septal Velocity 3.5 cm/s Mitral E to LV E' Septal Ratio 22.9 TR Peak Velocity 358.0 cm/s TR Peak Gradient 51.3 mmHg Right Atrial Pressure 10.0 mmHg Pulmonary Artery Systolic Pressu 61.3 mmHg Right Ventricular Systolic Press 61.3 mmHg PV Peak Velocity 76.0 cm/s PV Peak Gradient 2.3 mmHg FINDINGS LEFT VENTRICLE The left ventricular systolic function is severely reduced with an estimated ejection fraction in th e range of 25-30%. Wall thickness is normal. Normal left ventricular size. RIGHT VENTRICLE Normal right ventricular size and systolic function. LEFT ATRIUM The left atrial size is normal. RIGHT ATRIUM The right atrial size is normal. ATRIAL SEPTUM Normal atrial septal thickness without atrial level shunting by limited color doppler interrogation. AORTA The aortic root and proximal ascending aorta are normal in size on limited imaging. MITRAL VALVE Structurally normal mitral valve. No mitral valve stenosis or regurgitation. AORTIC VALVE Trileaflet aortic valve. No aortic valve stenosis or regurgitation. TRICUSPID VALVE There is moderate to severe tricuspid valve regurgitation. The estimated pulmonary arterial pressure is 61.3 mmHg. PULMONARY VALVE No pulmonary valve regurgitation or stenosis. VESSELS The inferior vena cava is normal in size. PERICARDIUM No pericardial effusion. Jax Powell MD, FACC (Electronically Signed) Final Date:24 January 2018 12:48
[2018-01-24] MEDS: Gabapentin 300 MG Capsule PO SCH (18:01)
[2018-01-24] MEDS: Bumetanide Inj 25 MG/100 ML BAG IV.CONT SCH (18:05)
[2018-01-25] MEDS: Bumetanide Inj 25 MG/100 ML BAG IV.CONT SCH ×2 (05:10→17:06)
[2018-01-25 08:06] LABS: Albumin 2.1 g/dL (3.4-5.0); Calcium 7.7 mg/dL (8.5-10.1); Carbon Dioxide 22.2 meq/L (21.0-32.0)
[2018-01-25 08:07] LABS: Potassium 5.5 meq/L (3.5-5.1)
[2018-01-25] MEDS: Insulin NovoLOG Aspart Correctional Sugar Inj SQ SCH ×4 (08:11→22:10)
[2018-01-25] MEDS: Insulin Detemir Inj 1,000 UNIT/10 ML Vial SQ SCH ×2 (08:11→22:09)
[2018-01-25] MEDS: Docusate Sodium 100 MG Capsule PO SCH ×3 (08:14→22:08)
--- NOTE | 2018-01-25 08:16 | P.PNCA ---
Subjective Interval history: Denies dyspnea, nausea, CP, palpitations, dizziness. Slept poorly. Medications and Allergies Active Medications: Active Medications Acetaminophen (Tylenol) 325 mg PO Q6H PRN PRN Reason: FEVER OR PAIN Last Admin: 01/24/18 20:41 Dose: 325 mg Aspirin (Ecotrin) 81 mg PO DAILY [facility] Last Admin: 01/24/18 09:40 Dose: 81 mg Atorvastatin Calcium (Lipitor) 40 mg PO DAILY [facility] Last Admin: 01/24/18 09:40 Dose: 40 mg Bisacodyl (Dulcolax Supp) 10 mg RECTAL Q12HR PRN PRN Reason: SEE LABEL COMMENTS Calcitriol (Rocaltrol) 0.25 mcg PO Q48H [facility] Last Admin: 01/24/18 09:40 Dose: 0.25 mcg Carvedilol (Coreg) 12.5 mg PO BID [facility] Last Admin: 01/24/18 21:13 Dose: Not Given Clotrimazole (Lotrimin 1% Cream) 1 applicatio TOPICAL BID [facility] Last Admin: 01/24/18 21:20 Dose: 1 applicatio Dextrose (D50w Vial) 50 ml IV.PUSH UNSCH PRN PRN Reason: PER HYPOGLYCEMIA PROTOCOL Docusate Sodium (Colace) 100 mg PO BID [facility] Last Admin: 01/24/18 21:19 Dose: Not Given Gabapentin (Neurontin) 300 mg PO QPM [facility] Last Admin: 01/24/18 18:01 Dose: Not Given Glucagon (Glucagon Inj) 1 mg OTHER PRN PRN PRN Reason: for Hypoglycemia Protocol Heparin Sodium (Porcine) (Heparin Inj) 5,000 units SQ Q12HR [facility] Last Admin: 01/24/18 21:12 Dose: 5,000 units Sodium Chloride (Ns Inj) 500 mls @ 0 mls/hr IV.SIG BOLUS [facility] Ceftriaxone Sodium 1,000 mg/ (Sodium Chloride) 100 mls @ 200 mls/hr IV.SIG Q24H [facility] Last Infusion: 01/24/18 18:06 Dose: Infused Bumetanide (Bumex Inj) 25 mg in 100 mls @ 8 mls/hr IV.CONT .[id number] [facility] Last Admin: 01/25/18 05:10 Dose: 2 mg/hr, 8 mls/hr Insulin Aspart (Novolog Insulin Correctional Sugar Inj) 0 unit SQ ACHS [facility]; Protocol Last Admin: 01/25/18 08:11 Dose: Not Given Insulin Detemir (Levemir Inj) 10 unit SQ HS [facility] Last Admin: 01/24/18 21:19 Dose: Not Given Insulin Detemir (Levemir Inj) 15 unit SQ DAILY@0800 [facility] Last Admin: 01/25/18 08:11 Dose: Not Given Levothyroxine Sodium (Synthroid) 25 mcg PO DAILY@0600 [facility] Last Admin: 01/25/18 07:21 Dose: Not Given Pantoprazole Sodium (Protonix) 40 mg PO DAILY [facility] Last Admin: 01/24/18 09:40 Dose: 40 mg Sodium Chloride (Ns Flush) 2 ml IV.FLUSH PRN PRN PRN Reason: FLUSH AFTER USING IV ACCESS Sodium Chloride (Ns Flush) 2 ml IV.FLUSH BID [facility] Last Admin: 01/24/18 21:22 Dose: 2 ml Sulfasalazine (Azulfidine) 500 mg PO BID [facility] Last Admin: 01/24/18 21:13 Dose: 500 mg Allergies Allergy/AdvReac Type Severity Reaction Status Date / Time amoxicillin Allergy Rash Verified 01/21/18 23:42 methylprednisolone Allergy Itching Verified 01/21/18 23:42 lisinopril AdvReac Cough Verified 01/21/18 23:42 MRI PRECAUTION AdvReac Severe PACEMAKER Uncoded 01/21/18 23:42 (RV) 02/08/10 Home Medications Medication Instructions Recorded Confirmed Type acetaminophen [Tylenol] 325 mg PO Q6H PRN 01/10/18 01/21/18 History aspirin [Aspirin Low Dose] 81 mg PO DAILY 01/10/18 01/21/18 History atorvastatin 40 mg PO DAILY 01/10/18 01/21/18 History calcitriol 0.25 mcg PO Q OTHER DAY 01/10/18 01/21/18 History carvedilol 12.5 mg PO BID 01/10/18 01/21/18 History ciclopirox 1 applic TOPICAL BID 01/10/18 01/21/18 History gabapentin 300 mg PO QPM 01/10/18 01/21/18 History insulin glargine [Lantus U-100 10 unit SUB-Q HS 01/10/18 01/21/18 History Insulin] insulin glargine [Lantus U-100 15 unit SUB-Q AC 01/10/18 01/21/18 History Insulin] insulin lispro [Humalog KwikPen 100 unit SUB-Q DAILY 01/10/18 01/21/18 History Insulin] levothyroxine 25 mcg PO DAILY 01/10/18 01/21/18 History rivaroxaban [Xarelto] 15 mg PO DAILY 01/10/18 01/21/18 History sulfasalazine 0.5 g PO BID 01/10/18 01/21/18 History Physical Exam Vital signs: Vital Signs 01/24/18 12:00 01/24/18 16:00 01/24/18 20:00 Temperature 98.1 F 98.0 F 98.2 F Pulse Rate 73 71 72 Respiratory Rate 18 20 Blood Pressure 95/52 L 130/57 L Pulse Oximetry 97 01/24/18 20:20 01/24/18 23:18 01/25/18 00:00 Temperature 98.6 F Pulse Rate 72 Respiratory Rate 18 20 Blood Pressure 110/62 Pulse Oximetry 98 01/25/18 00:15 01/25/18 04:00 01/25/18 05:17 Temperature 97.8 F Pulse Rate 72 Respiratory Rate 20 Blood Pressure 108/70 133/60 Pulse Oximetry 93 L 01/25/18 06:56 Temperature Pulse Rate 75 Respiratory Rate Blood Pressure 145/65 H Pulse Oximetry Intake & Output 01/24/18 01/25/18 01/25/18 18:59 06:59 18:59 Intake Total 100 / 100 320 / 320 Output Total 200 / 200 Balance -100 / -100 320 / 320 Weight 122.9 kg Intake: IV 100 / 100 Rocephin Inj 1,000 MG In NS Inj 100 / 100 100 ML @ 200 mls/hr IV.SIG Q24H [facility] Rx#:[id number] Oral 320 / 320 Output: Urine 200 / 200 Other: # Urine Diapers 2 Date of Last Bowel Movement 01/24/18 01/24/18 # Bowel Movements 1 1 - Constitutional no acute distress - Routine Respiratory Exam Present: CTA bilaterally - Routine Cardiovascular Exam Present: RRR, S1, S2, murmur Comments: II/ systolic murmur left upper sternal border - Routine Abdominal Exam Present: soft, normoactive bowel sounds - Routine Extremities Exam Present: edema Comments: 1-2+ pretibial edema - Urinary Catheter Management Straight Cath placed during this visit: no Reason for continuing: Not indwelling catheter Results 01/21/18 23:17 01/25/18 07:05 Coagulation 01/23/18 Range/Units 11:17 PT 14.7 H (9.8-11.6) sec Comprehensive Metabolic Panel 01/24/18 01/25/18 Range/Units 07:38 07:05 Sodium 128 L 127 L (136-145) meq/L Potassium 4.6 5.5 H D (3.5-5.1) meq/L Chloride 92 L 91 L (98-107) meq/L Carbon Dioxide 23.6 22.2 (21.0-32.0) meq/L BUN 72 H 71 H (7-18) mg/dL Creatinine 4.18 H 4.03 H (0.50-1.00) mg/dL Calcium 7.8 L 7.7 L (8.5-10.1) mg/dL Albumin 2.3 L 2.1 L (3.4-5.0) g/dL Intake and Output 01/24/18 01/25/18 01/25/18 22:59 06:59 14:59 Intake Total 100 / 100 320 / 320 Output Total 200 / 200 Balance -100 / -100 320 / 320 Intake: IV 100 / 100 Rocephin Inj 1,000 MG In NS Inj 100 / 100 100 ML @ 200 mls/hr IV.SIG Q24H [facility] Rx#:[id number] Oral 320 / 320 Output: Urine 200 / 200 Other: # Urine Diapers 2 Date of Last Bowel Movement 01/24/18 # Bowel Movements 1 1 Weight 122.9 kg Patient Weight 01/26/18 06:59 Weight 122.9 kg - Imaging and Cardiology Imaging: Impressions Abdomen/Bladder Ultrasound 01/24/18 18:19 CONCLUSION: 1. Small echogenic kidneys with thinned cortices consistent with medical renal disease. Assessment and Plan - Assessment (1) Nonischemic cardiomyopathy Code(s): I42.8 - Other cardiomyopathies Status: Chronic Plan: Stable cardiac status. EF on echo basically unchanged from 2016, 25-30%. Fluid balance continues to be positive and weight increasing. Will be difficult to achieve effective diuresis with her renal dysfunction. Will be difficult to mobilize her pedal edema with moderate to severe tricuspid regurgitation. No new recommendations at this time. (2) Hypertension Code(s): I10 - Essential (primary) hypertension Status: Chronic Plan: Stable. Fluctuating BP's, mostly normal. (3) Coronary artery disease Code(s): I25.10 - Atherosclerotic heart disease of [place] coronary artery without angina pectoris Status: Chronic Plan: Stable. No angina symptoms. Mild to moderate CAD on cath at age 72. Recommend conservative therapy. Continue aspirin, beta alexa (4) Status post implantation of automatic cardioverter/defibrillator (AICD) Code(s): Z95.810 - Presence of automatic (implantable) cardiac defibrillator Status: Chronic - Plan Code Status: full code Discussed Condition With: patient (2) Hypertension Qualifiers: Hypertension type: essential hypertension Qualified Code(s): I10 - Essential (primary) hypertension (3) Coronary artery disease Qualifiers: Coronary Disease-Associated Artery/Lesion type: [place] artery [place] vs. transplanted heart: [place] heart Associated angina: without angina Qualified Code(s): I25.10 - Atherosclerotic heart disease of [place] coronary artery without angina pectoris
[2018-01-25] MEDS ORDERED: Vancomycin Inj 1,000 MG in Sodium Chlor 0.9% Inj 250 ML IV.SIG SCH (09:00)
[2018-01-25] MEDS: sulfaSALAzine 500 MG Tablet PO SCH ×2 (09:53→22:08)
[2018-01-25] MEDS: Carvedilol 12.5 MG Tablet PO SCH ×2 (09:54→22:11)
[2018-01-25] MEDS: Clotrimazole 1% Cream 15 GM Tube TOPICAL SCH ×2 (09:54→22:10)
[2018-01-25] MEDS: Sodium Chloride 0.9% 2 ML Flush BID IV.FLUSH SCH ×2 (10:10→22:11)
--- NOTE | 2018-01-25 11:59 | P.PNFP ---
Subjective Interval history: Alert this am answers appropriately Denies Cp, SOB <Sherlyn Lew - 01/25/18 11:59> Results - Labs Result diagrams: 01/21/18 23:17 01/25/18 07:05 <Kulwinder Bonilla - 01/25/18 14:24> Abnormal lab results 01/24/18 01/24/18 01/25/18 Range/Units 16:32 20:47 07:05 Sodium 127 L (136-145) meq/L Potassium 5.5 H D (3.5-5.1) meq/L Chloride 91 L (98-107) meq/L BUN 71 H (7-18) mg/dL Creatinine 4.03 H (0.50-1.00) mg/dL Estimated GFR 13 L (>89) mL/min POC Glucose 167 H 220 H (68-110) mg/dl Random Glucose 169 H (74-106) mg/dL Calcium 7.7 L (8.5-10.1) mg/dL Albumin 2.1 L (3.4-5.0) g/dL 01/25/18 01/25/18 Range/Units 08:36 11:10 Sodium (136-145) meq/L Potassium (3.5-5.1) meq/L Chloride (98-107) meq/L BUN (7-18) mg/dL Creatinine (0.50-1.00) mg/dL Estimated GFR (>89) mL/min POC Glucose 205 H 216 H (68-110) mg/dl Random Glucose (74-106) mg/dL Calcium (8.5-10.1) mg/dL Albumin (3.4-5.0) g/dL BMP 01/25/18 07:05 Sodium 127 L Potassium 5.5 H D Chloride 91 L Carbon Dioxide 22.2 BUN 71 H Creatinine 4.03 H Calcium 7.7 L Liver Function 01/25/18 Range/Units 07:05 Albumin 2.1 L (3.4-5.0) g/dL <Kulwinder Bonilla - 01/25/18 14:24> Abnormal lab results 01/24/18 01/24/18 01/24/18 Range/Units 12:40 16:32 20:47 Sodium (136-145) meq/L Potassium (3.5-5.1) meq/L Chloride (98-107) meq/L BUN (7-18) mg/dL Creatinine (0.50-1.00) mg/dL Estimated GFR (>89) mL/min POC Glucose 150 H 167 H 220 H (68-110) mg/dl Random Glucose (74-106) mg/dL Calcium (8.5-10.1) mg/dL Albumin (3.4-5.0) g/dL 01/25/18 01/25/18 01/25/18 Range/Units 07:05 08:36 11:10 Sodium 127 L (136-145) meq/L Potassium 5.5 H D (3.5-5.1) meq/L Chloride 91 L (98-107) meq/L BUN 71 H (7-18) mg/dL Creatinine 4.03 H (0.50-1.00) mg/dL Estimated GFR 13 L (>89) mL/min POC Glucose 205 H 216 H (68-110) mg/dl Random Glucose 169 H (74-106) mg/dL Calcium 7.7 L (8.5-10.1) mg/dL Albumin 2.1 L (3.4-5.0) g/dL BMP 01/25/18 07:05 Sodium 127 L Potassium 5.5 H D Chloride 91 L Carbon Dioxide 22.2 BUN 71 H Creatinine 4.03 H Calcium 7.7 L Liver Function 01/25/18 Range/Units 07:05 Albumin 2.1 L (3.4-5.0) g/dL <Sherlyn Lew - 01/25/18 11:59> Physical Exam Vital signs: Vital Signs 01/24/18 16:00 01/24/18 20:00 01/24/18 20:20 Temperature 98.0 F 98.2 F Pulse Rate 71 72 Respiratory Rate 20 Blood Pressure 130/57 L 110/62 Pulse Oximetry 97 01/24/18 23:18 01/25/18 00:00 01/25/18 00:15 Temperature 98.6 F Pulse Rate 72 Respiratory Rate 18 20 Blood Pressure 108/70 Pulse Oximetry 98 01/25/18 04:00 01/25/18 05:17 01/25/18 06:56 Temperature 97.8 F Pulse Rate 72 75 Respiratory Rate 20 Blood Pressure 133/60 145/65 H Pulse Oximetry 93 L 01/25/18 08:00 01/25/18 12:00 Temperature 98.2 F 97.9 F Pulse Rate 75 75 Respiratory Rate 16 16 Blood Pressure 137/87 127/59 L Pulse Oximetry 95 95 Intake & Output 01/24/18 01/25/18 01/25/18 18:59 06:59 18:59 Intake Total 100 / 100 320 / 320 Output Total 200 / 200 Balance -100 / -100 320 / 320 Weight 122.9 kg Intake: IV 100 / 100 Rocephin Inj 1,000 MG In NS Inj 100 / 100 100 ML @ 200 mls/hr IV.SIG Q24H [facility] Rx#:[id number] Oral 320 / 320 Output: Urine 200 / 200 Other: # Urine Diapers 2 Date of Last Bowel Movement 01/24/18 01/24/18 01/24/18 # Bowel Movements 1 1 <Kulwinder Bonilla - 01/25/18 14:24> Vital Signs 01/24/18 12:00 01/24/18 16:00 01/24/18 20:00 Temperature 98.1 F 98.0 F 98.2 F Pulse Rate 73 71 72 Respiratory Rate 18 20 Blood Pressure 95/52 L 130/57 L Pulse Oximetry 97 01/24/18 20:20 01/24/18 23:18 01/25/18 00:00 Temperature 98.6 F Pulse Rate 72 Respiratory Rate 18 20 Blood Pressure 110/62 Pulse Oximetry 98 01/25/18 00:15 01/25/18 04:00 01/25/18 05:17 Temperature 97.8 F Pulse Rate 72 Respiratory Rate 20 Blood Pressure 108/70 133/60 Pulse Oximetry 93 L 01/25/18 06:56 01/25/18 08:00 Temperature 98.2 F Pulse Rate 75 75 Respiratory Rate 16 Blood Pressure 145/65 H 137/87 Pulse Oximetry 97 Intake & Output 01/24/18 01/25/18 01/25/18 18:59 06:59 18:59 Intake Total 100 / 100 320 / 320 Output Total 200 / 200 Balance -100 / -100 320 / 320 Weight 122.9 kg Intake: IV 100 / 100 Rocephin Inj 1,000 MG In NS Inj 100 / 100 100 ML @ 200 mls/hr IV.SIG Q24H [facility] Rx#:[id number] Oral 320 / 320 Output: Urine 200 / 200 Other: # Urine Diapers 2 Date of Last Bowel Movement 01/24/18 01/24/18 01/24/18 # Bowel Movements 1 1 <Sherlyn Lew - 01/25/18 11:59> - Constitutional no acute distress <Sherlyn Lew 01/25/18 11:59> - Routine HEENT Exam Eye: Present: PERRL <LouannSherlyn 01/25/18 11:59> ENT: Present: mucous membranes moist <LouannSherlyn 01/25/18 11:59> - Routine Respiratory Exam Present: CTA bilaterally <Sherlyn Lew 01/25/18 11:59> - Routine Cardiovascular Exam Present: S1, S2 <LouannSherlyn 01/25/18 11:59> - Routine Abdominal Exam Present: soft, normoactive bowel sounds <LouannSherlyn 01/25/18 11:59> - Routine Extremities Exam Present: edema <LouannSherlyn 01/25/18 11:59> - Routine Skin Exam Present: dry, warm <LouannSherlyn 01/25/18 11:59> - Routine Neurological Exam Present: alert <LouannSherlyn 01/25/18 11:59> - Routine Psychiatric Exam Present: cooperative <LouannSherlyn 01/25/18 11:59> - Urinary Catheter Management Straight Cath placed during this visit: no <Kulwinder Bonilla - 01/25/18 14:24> no <LouannSherlyn - 01/25/18 11:59> Reason for continuing: Not indwelling catheter <LouannSherlyn 01/25/18 11:59> Assessment and Plan - Assessment (1) Acute kidney injury Code(s): N17.9 - Acute kidney failure, unspecified Status: Acute (2) CHF (congestive heart failure) Code(s): I50.9 - Heart failure, unspecified Status: Acute Plan: probable acute on chronic congestive heart failure (3) Hypertension Code(s): I10 - Essential (primary) hypertension Status: Chronic (4) Diabetes Code(s): E11.9 - Type 2 diabetes mellitus without complications Status: Acute (5) Hyponatremia Code(s): E87.1 - Hypo-osmolality and hyponatremia Status: Acute (6) CVA (cerebral vascular accident) Code(s): I63.9 - Cerebral infarction, unspecified Status: Chronic <Kulwinder Bonilla - 01/25/18 14:24> (1) Acute kidney injury Code(s): N17.9 - Acute kidney failure, unspecified Status: Acute Plan: Creatinine 4.08, baseline 2.6-2.9, Renal following (2) CHF (congestive heart failure) Code(s): I50.9 - Heart failure, unspecified Status: Acute Plan: Cont home medications, telemetry, cardiac following, at baseline recommended to cont BB, Bumex IV drip (3) Hypertension Code(s): I10 - Essential (primary) hypertension Status: Chronic Plan: Currently hypotensive Cont to monitor (4) Diabetes Code(s): E11.9 - Type 2 diabetes mellitus without complications Status: Acute Plan: Monitor BS, Cont [place] bid sliding scale (5) Hyponatremia Code(s): E87.1 - Hypo-osmolality and hyponatremia Status: Acute Plan: 127, this am, On IV bumex, dialysis pending cont to monitor (6) CVA (cerebral vascular accident) Code(s): I63.9 - Cerebral infarction, unspecified Status: Chronic Plan: On Xarelto for cva xarelto dc for renal functions, Heparin sq started recommended by cardiology to start warfarin PermCath pending <Sherlyn Lew - 01/25/18 11:49> - Assessment and Plan 01/23/18- Seen this am, patient is pleasant, oriented to self. Cont with declining renal functions, renal consult pending. Cardiology following, no sign of fluid overload. 01/24/18- More oriented this am. person and place, follows commands. Seen by renal, work up pending, IVF stopped Bumex increased. Cardiology following, cont BB. May require dialysis to get fluid off. UTI, on Rocephin follow sensitivity. 01/25/18-alert following commands this am.Denies CP, SOB. On Iv bumex weight 122kg this am. NPO for PermCath later today. Ua growing yeast, pending final, dc rocephin. BP stable. <Sherlyn Lew - 01/25/18 11:59> <LouannSherlyn - Last Filed: 01/25/18 11:49> (3) Hypertension Qualifiers: Hypertension type: essential hypertension Qualified Code(s): I10 - Essential (primary) hypertension <Bonilla,Kulwinder - Last Filed: 01/25/18 14:24> (2) CHF (congestive heart failure) Qualifiers: Heart failure chronicity: acute on chronic (3) Hypertension Qualifiers: Hypertension type: essential hypertension Qualified Code(s): I10 - Essential (primary) hypertension <LouannSherlyn - Last Filed: 01/25/18 11:49> (3) Hypertension Qualifiers: Hypertension type: essential hypertension Qualified Code(s): I10 - Essential (primary) hypertension <Bonilla,Kulwinder - Last Filed: 01/25/18 14:24> (2) CHF (congestive heart failure) Qualifiers: Heart failure chronicity: acute on chronic (3) Hypertension Qualifiers: Hypertension type: essential hypertension Qualified Code(s): I10 - Essential (primary) hypertension
--- NOTE | 2018-01-25 15:23 | P.PNNP ---
Subjective Interval history: Placed on Bumex drip. Urine output about 400 ml so far. Creatinine is slightly lower today, but potassium is 5.5. I saw her yesterday as well. Discussed at length with health care assistant who was upset that nephrology did not follow her since admission. I did inform her that I saw her the same day I was notified of renal consult. I had not been informed of renal consult earlier. A decision was made to start Bumex drip yesterday. I spent 30 minutes with the patient and the caregiver yesterday. The caregiver wants to continue aggressive care. Today the patient is lucid. She reports that she would like to avoid dialysis if possible, but if it becomes necessary, she will agree to it. Physical Exam Vital signs: Vital Signs 01/24/18 16:00 01/24/18 20:00 01/24/18 20:20 Temperature 98.0 F 98.2 F Pulse Rate 71 72 Respiratory Rate 20 Blood Pressure 130/57 L 110/62 Pulse Oximetry 97 01/24/18 23:18 01/25/18 00:00 01/25/18 00:15 Temperature 98.6 F Pulse Rate 72 Respiratory Rate 18 20 Blood Pressure 108/70 Pulse Oximetry 98 01/25/18 04:00 01/25/18 05:17 01/25/18 06:56 Temperature 97.8 F Pulse Rate 72 75 Respiratory Rate 20 Blood Pressure 133/60 145/65 H Pulse Oximetry 93 L 01/25/18 08:00 01/25/18 12:00 Temperature 98.2 F 97.9 F Pulse Rate 75 75 Respiratory Rate 16 16 Blood Pressure 137/87 127/59 L Pulse Oximetry 95 95 Intake & Output 01/24/18 01/25/18 01/25/18 18:59 06:59 18:59 Intake Total 100 / 100 320 / 320 Output Total 200 / 200 Balance -100 / -100 320 / 320 Weight 122.9 kg Intake: IV 100 / 100 Rocephin Inj 1,000 MG In NS Inj 100 / 100 100 ML @ 200 mls/hr IV.SIG Q24H [facility] Rx#:[id number] Oral 320 / 320 Output: Urine 200 / 200 Other: # Urine Diapers 2 Date of Last Bowel Movement 01/24/18 01/24/18 01/24/18 # Bowel Movements 1 1 - Constitutional no acute distress - Routine HEENT Exam Head: Present: normocephalic, atraumatic Eye: Present: EOMI, PERRL ENT: Present: mucous membranes moist - Routine Neck Exam Present: supple - Routine Respiratory Exam Present: CTA bilaterally - Routine Cardiovascular Exam Present: RRR, S1, S2 - Routine Abdominal Exam Present: soft, normoactive bowel sounds - Routine Extremities Exam Present: edema - Routine Neurological Exam Present: alert, oriented X3 - Urinary Catheter Management Straight Cath placed during this visit: no Reason for continuing: Not indwelling catheter Assessment and Plan - Assessment (1) Acute worsening of stage 4 chronic kidney disease Code(s): N28.9 - Disorder of kidney and ureter, unspecified; N18.4 - Chronic kidney disease, stage 4 (severe) Status: Acute Plan: GFR was 19 earlier this year. Renal function has worsened. Clinically she is volume overloaded. Has systolic heart failure. Cardiorenal syndrome is to be considered. Increased renal vein pressure due to volume overload could be causing reduction in GFR. She was recently admitted with colitis. She was discharged on Cipro and Flagyl. Allergic interstitial nephritis due to Cipro is a consideration. She may have progressive renal dysfunction, now in ESRD. Avoid nephrotoxic agents. Renal US. Treat possible UTI. Continue Bumex drip. If no response, or if renal function worsens, she will need dialysis. (2) Anemia Code(s): D64.9 - Anemia, unspecified Status: Acute Plan: may have anemia of CKD. Rule out bleeding. (3) CHF (congestive heart failure) Code(s): I50.9 - Heart failure, unspecified Status: Acute Qualifiers: Heart failure chronicity: acute on chronic Plan: EF 20-25%. Continue diuresis. (4) Hyponatremia Code(s): E87.1 - Hypo-osmolality and hyponatremia Status: Acute (5) Hyperkalemia Code(s): E87.5 - Hyperkalemia Status: Acute Plan: insulin and dextrose. Low potassium diet. Monitor. Continue diuresis. - Plan Could be due to non osmotic release of ADH. She was also on Metolazone which is a thiazide diuretic, it can cause hyponatremia. I have stopped it. We can consider Tolvaptan. Continue loop diuretic.
[2018-01-25] MEDS: Gabapentin 300 MG Capsule PO SCH (18:17)
[2018-01-25 19:12] LABS: Calcium 7.9 mg/dL (8.5-10.1); Potassium 4.2 meq/L (3.5-5.1)
[2018-01-25] MEDS: Heparin - SQ 10,000 UNITS/ML Vial SQ SCH (22:09)
[2018-01-26] MEDS: Bumetanide Inj 25 MG/100 ML BAG IV.CONT SCH ×2 (05:35→17:33)
[2018-01-26] MEDS: Calcitriol 0.25 MCG Capsule PO SCH (09:46)
[2018-01-26] MEDS: Heparin - SQ 10,000 UNITS/ML Vial SQ SCH ×2 (09:47→21:50)
[2018-01-26] MEDS: Docusate Sodium 100 MG Capsule PO SCH ×2 (09:47→21:51)
[2018-01-26] MEDS: sulfaSALAzine 500 MG Tablet PO SCH ×2 (09:47→21:51)
[2018-01-26] MEDS: Carvedilol 12.5 MG Tablet PO SCH ×2 (09:47→21:51)
[2018-01-26] MEDS: Insulin NovoLOG Aspart Correctional Sugar Inj SQ SCH ×4 (09:48→22:09)
[2018-01-26] MEDS: Insulin Detemir Inj 1,000 UNIT/10 ML Vial SQ SCH ×2 (09:48→22:09)
[2018-01-26] MEDS: Clotrimazole 1% Cream 15 GM Tube TOPICAL SCH ×2 (09:49→21:59)
[2018-01-26] MEDS: Sodium Chloride 0.9% 2 ML Flush BID IV.FLUSH SCH ×2 (09:49→21:51)
--- NOTE | 2018-01-26 09:50 | P.PNCA ---
Subjective Interval history: Denies CP, dyspnea, palpitations, dizziness, nausea, abdominal pain. Slept well. Medications and Allergies Active Medications: Active Medications Acetaminophen (Tylenol) 325 mg PO Q6H PRN PRN Reason: FEVER OR PAIN Last Admin: 01/24/18 20:41 Dose: 325 mg Aspirin (Ecotrin) 81 mg PO DAILY [facility] Last Admin: 01/25/18 12:21 Dose: 81 mg Atorvastatin Calcium (Lipitor) 40 mg PO DAILY [facility] Last Admin: 01/25/18 09:54 Dose: 40 mg Bisacodyl (Dulcolax Supp) 10 mg RECTAL Q12HR PRN PRN Reason: SEE LABEL COMMENTS Calcitriol (Rocaltrol) 0.25 mcg PO Q48H [facility] Last Admin: 01/24/18 09:40 Dose: 0.25 mcg Carvedilol (Coreg) 12.5 mg PO BID [facility] Last Admin: 01/25/18 22:11 Dose: Not Given Clotrimazole (Lotrimin 1% Cream) 1 applicatio TOPICAL BID [facility] Last Admin: 01/25/18 22:10 Dose: 1 applicatio Dextrose (D50w Vial) 50 ml IV.PUSH UNSCH PRN PRN Reason: PER HYPOGLYCEMIA PROTOCOL Docusate Sodium (Colace) 100 mg PO BID [facility] Last Admin: 01/25/18 22:08 Dose: 100 mg Gabapentin (Neurontin) 300 mg PO QPM [facility] Last Admin: 01/25/18 18:17 Dose: 300 mg Glucagon (Glucagon Inj) 1 mg OTHER PRN PRN PRN Reason: for Hypoglycemia Protocol Heparin Sodium (Porcine) (Heparin Inj) 5,000 units SQ Q12HR [facility] Last Admin: 01/25/18 22:09 Dose: 5,000 units Sodium Chloride (Ns Inj) 500 mls @ 0 mls/hr IV.SIG BOLUS [facility] Bumetanide (Bumex Inj) 25 mg in 100 mls @ 8 mls/hr IV.CONT .[id number] [facility] Last Admin: 01/26/18 05:35 Dose: 2 mg/hr, 8 mls/hr Vancomycin HCl 1,000 mg/ (Sodium Chloride) 250 mls @ 250 mls/hr IV.SIG INTERVENTIONAL TECHNOLOGIST [facility] Stop: 01/29/18 08:59 Insulin Aspart (Novolog Insulin Correctional Sugar Inj) 0 unit SQ ACHS [facility]; Protocol Last Admin: 01/25/18 22:10 Dose: 1 unit Insulin Detemir (Levemir Inj) 10 unit SQ HS [facility] Last Admin: 01/25/18 22:09 Dose: 10 unit Insulin Detemir (Levemir Inj) 15 unit SQ DAILY@0800 [facility] Last Admin: 01/25/18 08:11 Dose: Not Given Levothyroxine Sodium (Synthroid) 25 mcg PO DAILY@0600 [facility] Last Admin: 01/26/18 05:37 Dose: 25 mcg Pantoprazole Sodium (Protonix) 40 mg PO DAILY [facility] Last Admin: 01/25/18 09:54 Dose: 40 mg Sodium Chloride (Ns Flush) 2 ml IV.FLUSH PRN PRN PRN Reason: FLUSH AFTER USING IV ACCESS Sodium Chloride (Ns Flush) 2 ml IV.FLUSH BID [facility] Last Admin: 01/25/18 22:11 Dose: Not Given Sulfasalazine (Azulfidine) 500 mg PO BID [facility] Last Admin: 01/25/18 22:08 Dose: 500 mg Allergies Allergy/AdvReac Type Severity Reaction Status Date / Time amoxicillin Allergy Rash Verified 01/21/18 23:42 methylprednisolone Allergy Itching Verified 01/21/18 23:42 lisinopril AdvReac Cough Verified 01/21/18 23:42 MRI PRECAUTION AdvReac Severe PACEMAKER Uncoded 01/21/18 23:42 (RV) 02/08/10 Home Medications Medication Instructions Recorded Confirmed Type acetaminophen [Tylenol] 325 mg PO Q6H PRN 01/10/18 01/21/18 History aspirin [Aspirin Low Dose] 81 mg PO DAILY 01/10/18 01/21/18 History atorvastatin 40 mg PO DAILY 01/10/18 01/21/18 History calcitriol 0.25 mcg PO Q OTHER DAY 01/10/18 01/21/18 History carvedilol 12.5 mg PO BID 01/10/18 01/21/18 History ciclopirox 1 applic TOPICAL BID 01/10/18 01/21/18 History gabapentin 300 mg PO QPM 01/10/18 01/21/18 History insulin glargine [Lantus U-100 10 unit SUB-Q HS 01/10/18 01/21/18 History Insulin] insulin glargine [Lantus U-100 15 unit SUB-Q AC 01/10/18 01/21/18 History Insulin] insulin lispro [Humalog KwikPen 100 unit SUB-Q DAILY 01/10/18 01/21/18 History Insulin] levothyroxine 25 mcg PO DAILY 01/10/18 01/21/18 History rivaroxaban [Xarelto] 15 mg PO DAILY 01/10/18 01/21/18 History sulfasalazine 0.5 g PO BID 01/10/18 01/21/18 History Physical Exam Vital signs: Vital Signs 01/25/18 12:00 01/25/18 16:00 01/25/18 16:13 Temperature 97.9 F 97.8 F Pulse Rate 75 74 73 Respiratory Rate 16 16 Blood Pressure 127/59 L 115/59 L Pulse Oximetry 95 96 01/25/18 17:31 01/25/18 20:00 01/25/18 23:13 Temperature 97.8 F Pulse Rate 72 Respiratory Rate 18 16 Blood Pressure 117/56 L Pulse Oximetry 96 98 01/26/18 00:00 01/26/18 04:00 Temperature 97.4 F L 97.4 F L Pulse Rate 75 76 Respiratory Rate 18 18 Blood Pressure 103/50 L 103/50 L Pulse Oximetry 96 98 Intake & Output 01/25/18 01/26/18 01/26/18 18:59 06:59 18:59 Intake Total 2180 / 2180 100 / 100 Output Total 750 / 750 400 / 400 Balance 1430 / 1430 -300 / -300 Weight 122.9 kg 123.8 kg Intake: IV 100 / 100 100 / 100 Bumex Inj 25 mg In 100 ml @ 2 100 / 100 100 / 100 MG/HR 8 mls/hr IV.CONT .[id number] [facility] Rx#:[id number] Oral 1999 Other 80 / 80 Output: Urine 750 / 750 400 / 400 Other: Other Intake Source Saline Solution Date of Last Bowel Movement 01/25/18 01/25/18 # Bowel Movements 1 - Constitutional no acute distress - Routine Neck Exam Absent: JVD - Routine Respiratory Exam Present: CTA bilaterally - Routine Cardiovascular Exam Present: RRR, S1, S2, murmur. Absent: gallop Comments: II/ systolic murmur left upper sternal border - Routine Abdominal Exam Present: soft, normoactive bowel sounds. Absent: tenderness, organomegaly - Routine Extremities Exam Present: edema. Absent: cyanosis, clubbing Comments: 1+ pretibial edema - Urinary Catheter Management Straight Cath placed during this visit: no Reason for continuing: Not indwelling catheter Results 01/21/18 23:17 01/25/18 18:04 Comprehensive Metabolic Panel 01/25/18 01/25/18 Range/Units 07:05 18:04 Sodium 127 L 125 L (136-145) meq/L Potassium 5.5 H D 4.2 D (3.5-5.1) meq/L Chloride 91 L 90 L (98-107) meq/L Carbon Dioxide 22.2 20.0 L (21.0-32.0) meq/L BUN 71 H 72 H (7-18) mg/dL Creatinine 4.03 H 4.00 H (0.50-1.00) mg/dL Calcium 7.7 L 7.9 L (8.5-10.1) mg/dL Albumin 2.1 L (3.4-5.0) g/dL Intake and Output 01/25/18 01/26/18 01/26/18 22:59 06:59 14:59 Intake Total 2180 / 2180 100 / 100 Output Total 750 / 750 400 / 400 Balance 1430 / 1430 -300 / -300 Intake: IV 100 / 100 100 / 100 Bumex Inj 25 mg In 100 ml @ 2 100 / 100 100 / 100 MG/HR 8 mls/hr IV.CONT .[id number] [facility] Rx#:[id number] Oral 1999 Other 80 / 80 Output: Urine 750 / 750 400 / 400 Other: Other Intake Source Saline Solution Date of Last Bowel Movement 01/25/18 # Bowel Movements 1 Weight 123.8 kg - Imaging and Cardiology Imaging: Impressions Abdomen/Bladder Ultrasound 01/24/18 18:19 CONCLUSION: 1. Small echogenic kidneys with thinned cortices consistent with medical renal disease. Assessment and Plan - Assessment (1) Nonischemic cardiomyopathy Code(s): I42.8 - Other cardiomyopathies Status: Chronic Plan: Stable cardiac status. EF on echo this admission basically unchanged from 2016 , 25-30%. Fluid balance continues to be positive. Will be difficult to achieve effective diuresis with her renal dysfunction. Will be difficult to fully mobilize her pedal edema with moderate to severe tricuspid regurgitation. No new recommendations at this time. Again, consider dialysis. Patient appears agreeable. (2) Hypertension Code(s): I10 - Essential (primary) hypertension Status: Chronic Plan: Stable. Normotensive. (3) Coronary artery disease Code(s): I25.10 - Atherosclerotic heart disease of [place] coronary artery without angina pectoris Status: Chronic Plan: Stable. No angina symptoms. Mild to moderate CAD on cath at age 72. Recommend conservative therapy. Continue aspirin, beta alexa (4) Status post implantation of automatic cardioverter/defibrillator (AICD) Code(s): Z95.810 - Presence of automatic (implantable) cardiac defibrillator Status: Chronic - Plan Code Status: full code Discussed Condition With: patient (2) Hypertension Qualifiers: Hypertension type: essential hypertension Qualified Code(s): I10 - Essential (primary) hypertension (3) Coronary artery disease Qualifiers: Coronary Disease-Associated Artery/Lesion type: [place] artery [place] vs. transplanted heart: [place] heart Associated angina: without angina Qualified Code(s): I25.10 - Atherosclerotic heart disease of [place] coronary artery without angina pectoris
--- NOTE | 2018-01-26 12:27 | P.PNNP ---
Subjective Interval history: Patient feeling tired Physical Exam Vital signs: Vital Signs 01/25/18 16:00 01/25/18 16:13 01/25/18 17:31 Temperature 97.8 F Pulse Rate 74 73 Respiratory Rate 16 Blood Pressure 115/59 L Pulse Oximetry 96 96 01/25/18 20:00 01/25/18 23:13 01/26/18 00:00 Temperature 97.8 F 97.4 F L Pulse Rate 72 75 Respiratory Rate 18 16 18 Blood Pressure 117/56 L 103/50 L Pulse Oximetry 98 96 01/26/18 04:00 01/26/18 08:00 Temperature 97.4 F L 97.4 F L Pulse Rate 76 75 Respiratory Rate 18 20 Blood Pressure 103/50 L 166/77 H Pulse Oximetry 98 93 L Intake & Output 01/25/18 01/26/18 01/26/18 18:59 06:59 18:59 Intake Total 2180 / 2180 100 / 100 Output Total 750 / 750 400 / 400 Balance 1430 / 1430 -300 / -300 Weight 122.9 kg 123.8 kg Intake: IV 100 / 100 100 / 100 Bumex Inj 25 mg In 100 ml @ 2 100 / 100 100 / 100 MG/HR 8 mls/hr IV.CONT .[id number] [facility] Rx#:[id number] Oral 1999 Other 80 / 80 Output: Urine 750 / 750 400 / 400 Other: Other Intake Source Saline Solution Date of Last Bowel Movement 01/25/18 01/25/18 01/25/18 # Bowel Movements 1 Narrative: GENERAL: Well-nourished, well-developed patient. SKIN: Warm and dry. HEAD: Normocephalic. EYES: No scleral icterus. No injection or drainage. NECK: Supple, trachea midline. No JVD or lymphadenopathy. CARDIOVASCULAR: Regular rate and rhythm without murmurs, gallops, or rubs. RESPIRATORY: Breath sounds diminished at bases. GASTROINTESTINAL: Abdomen soft, non-tender, nondistended. EXTREMITIES: As above NEUROLOGICAL: Awake, alert, and oriented x 3. Non-focal. - Urinary Catheter Management Straight Cath placed during this visit: no Reason for continuing: Not indwelling catheter Assessment and Plan - Assessment (1) Acute worsening of stage 4 chronic kidney disease Code(s): N28.9 - Disorder of kidney and ureter, unspecified; N18.4 - Chronic kidney disease, stage 4 (severe) Status: Acute Plan: GFR was 19 earlier this year. Renal function has worsened. Clinically she is volume overloaded. Has systolic heart failure. Cardiorenal syndrome is to be considered. Increased renal vein pressure due to volume overload could be causing reduction in GFR. She was recently admitted with colitis. She was discharged on Cipro and Flagyl. Allergic interstitial nephritis due to Cipro is a consideration. She may have progressive renal dysfunction, now in ESRD. Avoid nephrotoxic agents. Renal US. Treat possible UTI. Continue Bumex drip. Urine output 1150 If no response, or if renal function worsens, she will need dialysis. Dr. Cook to follow (2) Anemia Code(s): D64.9 - Anemia, unspecified Status: Acute Plan: may have anemia of CKD. Rule out bleeding. (3) CHF (congestive heart failure) Code(s): I50.9 - Heart failure, unspecified Status: Acute Qualifiers: Heart failure chronicity: acute on chronic Plan: EF 20-25%. Continue diuresis. (4) Hyponatremia Code(s): E87.1 - Hypo-osmolality and hyponatremia Status: Acute (5) Hyperkalemia Code(s): E87.5 - Hyperkalemia Status: Acute Plan: insulin and dextrose. Low potassium diet. Monitor. Continue diuresis. - Plan Could be due to non osmotic release of ADH. She was also on Metolazone which is a thiazide diuretic, it can cause hyponatremia. I have stopped it. We can consider Tolvaptan. Continue loop diuretic.
--- NOTE | 2018-01-26 12:37 | P.PN ---
Subjective Interval history: patient is awake and alert, dnies any chest pain or shortness of breath- not moving much thouhg no nausea or vomiting still with generalized edema- Piroutee in place- minimal urine output Physical Exam Vital signs: Vital Signs 01/25/18 16:00 01/25/18 16:13 01/25/18 17:31 Temperature 97.8 F Pulse Rate 74 73 Respiratory Rate 16 Blood Pressure 115/59 L Pulse Oximetry 96 96 01/25/18 20:00 01/25/18 23:13 01/26/18 00:00 Temperature 97.8 F 97.4 F L Pulse Rate 72 75 Respiratory Rate 18 16 18 Blood Pressure 117/56 L 103/50 L Pulse Oximetry 98 96 01/26/18 04:00 01/26/18 08:00 Temperature 97.4 F L 97.4 F L Pulse Rate 76 75 Respiratory Rate 18 20 Blood Pressure 103/50 L 166/77 H Pulse Oximetry 98 93 L Intake & Output 01/25/18 01/26/18 01/26/18 18:59 06:59 18:59 Intake Total 2180 / 2180 100 / 100 Output Total 750 / 750 400 / 400 Balance 1430 / 1430 -300 / -300 Weight 122.9 kg 123.8 kg Intake: IV 100 / 100 100 / 100 Bumex Inj 25 mg In 100 ml @ 2 100 / 100 100 / 100 MG/HR 8 mls/hr IV.CONT .[id number] [facility] Rx#:[id number] Oral 1999 Other 80 / 80 Output: Urine 750 / 750 400 / 400 Other: Other Intake Source Saline Solution Date of Last Bowel Movement 01/25/18 01/25/18 01/25/18 # Bowel Movements 1 Narrative: awake and alert, generalized edema, no acte ditress, oriented to eprson and place, HEAD: Normocephalic. EYES: No scleral icterus. No injection or drainage. NECK: Supple, trachea midline. No JVD or lymphadenopathy. CARDIOVASCULAR: Regular rate and rhythm without murmurs, gallops, or rubs. RESPIRATORY: Breath sounds diminished at bases. GASTROINTESTINAL: Abdomen soft, non-tender, nondistended. EXTREMITIES: ++ edema NEUROLOGICAL: Awake, alert, and oriented x 3. Non-focal. - Urinary Catheter Management Straight Cath placed during this visit: no Reason for continuing: Not indwelling catheter Results - Labs CBC & Chem 7: 01/21/18 23:17 01/26/18 13:05 Laboratory Results - last 24 hr 01/25/18 01/25/18 01/25/18 14:44 18:04 18:11 Sodium 125 L Potassium 4.2 D Chloride 90 L Carbon Dioxide 20.0 L Anion Gap 15 BUN 72 H Creatinine 4.00 H Estimated GFR 13 L POC Glucose 252 H 165 H Random Glucose 179 H Calcium 7.9 L 01/25/18 01/26/18 21:03 09:44 Sodium Potassium Chloride Carbon Dioxide Anion Gap BUN Creatinine Estimated GFR POC Glucose 177 H 109 Random Glucose Calcium Microbiology 01/22/18 01:25 Clean Catch Urine Urine Culture - Final Selin glabrata Assessment and Plan - Plan 82 years old female CKD stage 4- wrosening reanl functions now near ESRD- minimal urine output HYponatremia - on Bumex drip - will likely need hemodailays- patient agreeable - will need perm cath placed - get a stat BMP today -Nephrology Dr. 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
[2018-01-26 13:48] LABS: Calcium 8.1 mg/dL (8.5-10.1); Carbon Dioxide 20.8 meq/L (21.0-32.0); Potassium 4.2 meq/L (3.5-5.1)
[2018-01-26] MEDS: Gabapentin 300 MG Capsule PO SCH (17:34)
[2018-01-27] MEDS: Bumetanide Inj 25 MG/100 ML BAG IV.CONT SCH ×2 (06:35→18:00)
[2018-01-27 07:05] LABS: Calcium 7.8 mg/dL (8.5-10.1); Carbon Dioxide 24.5 meq/L (21.0-32.0); Potassium 3.8 meq/L (3.5-5.1)
[2018-01-27] MEDS: Carvedilol 12.5 MG Tablet PO SCH ×2 (08:26→20:07)
[2018-01-27] MEDS: sulfaSALAzine 500 MG Tablet PO SCH ×2 (08:26→20:08)
[2018-01-27] MEDS: Heparin - SQ 10,000 UNITS/ML Vial SQ SCH ×2 (08:27→20:07)
[2018-01-27] MEDS: Insulin NovoLOG Aspart Correctional Sugar Inj SQ SCH ×2 (08:27→17:44)
[2018-01-27] MEDS: Sodium Chloride 0.9% 2 ML Flush BID IV.FLUSH SCH ×2 (08:27→20:08)
[2018-01-27] MEDS: Insulin Detemir Inj 1,000 UNIT/10 ML Vial SQ SCH (08:27)
[2018-01-27] MEDS: Docusate Sodium 100 MG Capsule PO SCH ×2 (08:27→20:07)
[2018-01-27] MEDS: Clotrimazole 1% Cream 15 GM Tube TOPICAL SCH ×2 (08:28→20:09)
[2018-01-27] MEDS: Acetaminophen 325 MG Tablet PO PRN (09:13)
--- NOTE | 2018-01-27 11:24 | P.PN ---
Subjective Interval history: awake and alert, appears comfortab;e denies any chest discomfort of shortnes of breath voiding still with generalized edema on exam Physical Exam Vital signs: Vital Signs 01/26/18 12:00 01/26/18 13:09 01/26/18 16:00 Temperature 97.6 F 97.3 F L Pulse Rate 73 76 Respiratory Rate 20 20 Blood Pressure 142/64 H 151/66 H Pulse Oximetry 96 96 94 L 01/26/18 20:00 01/27/18 00:00 01/27/18 04:00 Temperature 98 F 98.1 F 98 F Pulse Rate 71 76 72 Respiratory Rate 18 18 18 Blood Pressure 157/63 H 142/65 H 122/60 Pulse Oximetry 98 98 95 01/27/18 08:00 01/27/18 09:38 Temperature 98.7 F Pulse Rate 73 Respiratory Rate 21 Blood Pressure 126/60 Pulse Oximetry 96 96 Intake & Output 01/26/18 01/27/18 01/27/18 18:59 06:59 18:59 Intake Total 620 / 620 100 / 100 120 / 120 Output Total 500 / 500 600 / 600 Balance 120 / 120 -500 / -500 120 / 120 Weight 123.8 kg Intake: IV 100 / 100 100 / 100 Bumex Inj 25 mg In 100 ml @ 2 100 / 100 100 / 100 MG/HR 8 mls/hr IV.CONT .[id number] [facility] [place] Rx#:[id number] Oral 520 / 520 120 / 120 Output: Urine 500 / 500 600 / 600 Other: # Voids 500 Date of Last Bowel Movement 01/25/18 01/26/18 Narrative: awake and alert, generalized edema, no acte ditress, oriented x3.speech cealr HEAD: Normocephalic. EYES: No scleral icterus. No injection or drainage. NECK: Supple, trachea midline. No JVD or lymphadenopathy. CARDIOVASCULAR: Regular rate and rhythm RESPIRATORY: Breath sounds diminished at bases. GASTROINTESTINAL: Abdomen soft, non-tender, nondistended. EXTREMITIES: ++ edema NEUROLOGICAL: Awake, alert, and oriented x 3. Non-focal. - Urinary Catheter Management Straight Cath placed during this visit: no Reason for continuing: Not indwelling catheter Results - Labs CBC & Chem 7: 01/21/18 23:17 01/27/18 06:04 Laboratory Results - last 24 hr 01/26/18 01/26/18 01/26/18 13:04 13:05 16:44 Sodium 124 L* Potassium 4.2 Chloride 90 L Carbon Dioxide 20.8 L Anion Gap 13 BUN 72 H Creatinine 3.61 H Estimated GFR 15 L POC Glucose 158 H 186 H Random Glucose 135 H Calcium 8.1 L 01/26/18 01/27/18 01/27/18 21:58 06:04 07:30 Sodium 128 L Potassium 3.8 Chloride 90 L Carbon Dioxide 24.5 Anion Gap 14 BUN 71 H Creatinine 3.34 H Estimated GFR 16 L POC Glucose 167 H 68 Random Glucose 63 L Calcium 7.8 L 01/27/18 01/27/18 01/27/18 07:31 07:54 08:19 Sodium Potassium Chloride Carbon Dioxide Anion Gap BUN Creatinine Estimated GFR POC Glucose 63 L 69 73 Random Glucose Calcium Assessment and Plan - Plan 82 years old female CKD stage 4- wrosening reanl functions now near ESRD- HYponatremia - Na trending up - on Bumex drip - will likely need hemodailays- patient agreeable "yes" - will need perm cath placed - ff BMP - Nephrology Dr. 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
--- NOTE | 2018-01-27 11:38 | P.PNCA ---
Subjective Interval history: Somnolent. Denies dyspnea, CP. Medications and Allergies Active Medications: Active Medications Acetaminophen (Tylenol) 325 mg PO Q6H PRN PRN Reason: FEVER OR PAIN Last Admin: 01/27/18 09:13 Dose: 325 mg Aspirin (Ecotrin) 81 mg PO DAILY [facility] Last Admin: 01/27/18 08:26 Dose: 81 mg Atorvastatin Calcium (Lipitor) 40 mg PO DAILY [facility] Last Admin: 01/27/18 08:26 Dose: 40 mg Bisacodyl (Dulcolax Supp) 10 mg RECTAL Q12HR PRN PRN Reason: SEE LABEL COMMENTS Calcitriol (Rocaltrol) 0.25 mcg PO Q48H [facility] Last Admin: 01/26/18 09:46 Dose: 0.25 mcg Carvedilol (Coreg) 12.5 mg PO BID [facility] Last Admin: 01/27/18 08:26 Dose: 12.5 mg Clotrimazole (Lotrimin 1% Cream) 1 applicatio TOPICAL BID [facility] Last Admin: 01/27/18 08:28 Dose: 1 applicatio Dextrose (D50w Vial) 50 ml IV.PUSH UNSCH PRN PRN Reason: PER HYPOGLYCEMIA PROTOCOL Docusate Sodium (Colace) 100 mg PO BID [facility] Last Admin: 01/27/18 08:27 Dose: 100 mg Gabapentin (Neurontin) 300 mg PO QPM [facility] Last Admin: 01/26/18 17:34 Dose: 300 mg Glucagon (Glucagon Inj) 1 mg OTHER PRN PRN PRN Reason: for Hypoglycemia Protocol Heparin Sodium (Porcine) (Heparin Inj) 5,000 units SQ Q12HR [facility] Last Admin: 01/27/18 08:27 Dose: 5,000 units Sodium Chloride (Ns Inj) 500 mls @ 0 mls/hr IV.SIG BOLUS [facility] Bumetanide (Bumex Inj) 25 mg in 100 mls @ 8 mls/hr IV.CONT .[id number] [facility] Last Admin: 01/27/18 06:35 Dose: 2 mg/hr, 8 mls/hr Vancomycin HCl 1,000 mg/ (Sodium Chloride) 250 mls @ 250 mls/hr IV.SIG [employer] [facility] Stop: 01/29/18 08:59 Insulin Aspart (Novolog Insulin Correctional Sugar Inj) 0 unit SQ ACHS [facility]; Protocol Last Admin: 01/27/18 08:27 Dose: Not Given Insulin Detemir (Levemir Inj) 7 unit SQ DAILY@0800 [facility] Levothyroxine Sodium (Synthroid) 25 mcg PO DAILY@0600 [facility] Last Admin: 01/27/18 06:08 Dose: 25 mcg Pantoprazole Sodium (Protonix) 40 mg PO DAILY [facility] Last Admin: 01/27/18 08:26 Dose: 40 mg Sodium Chloride (Ns Flush) 2 ml IV.FLUSH PRN PRN PRN Reason: FLUSH AFTER USING IV ACCESS Sodium Chloride (Ns Flush) 2 ml IV.FLUSH BID [facility] Last Admin: 01/27/18 08:27 Dose: Not Given Sulfasalazine (Azulfidine) 500 mg PO BID [facility] Last Admin: 01/27/18 08:26 Dose: 500 mg Allergies Allergy/AdvReac Type Severity Reaction Status Date / Time amoxicillin Allergy Rash Verified 01/21/18 23:42 methylprednisolone Allergy Itching Verified 01/21/18 23:42 lisinopril AdvReac Cough Verified 01/21/18 23:42 MRI PRECAUTION AdvReac Severe PACEMAKER Uncoded 01/21/18 23:42 (RV) 02/08/10 Home Medications Medication Instructions Recorded Confirmed Type acetaminophen [Tylenol] 325 mg PO Q6H PRN 01/10/18 01/21/18 History aspirin [Aspirin Low Dose] 81 mg PO DAILY 01/10/18 01/21/18 History atorvastatin 40 mg PO DAILY 01/10/18 01/21/18 History calcitriol 0.25 mcg PO Q OTHER DAY 01/10/18 01/21/18 History carvedilol 12.5 mg PO BID 01/10/18 01/21/18 History ciclopirox 1 applic TOPICAL BID 01/10/18 01/21/18 History gabapentin 300 mg PO QPM 01/10/18 01/21/18 History insulin glargine [Lantus U-100 10 unit SUB-Q HS 01/10/18 01/21/18 History Insulin] insulin glargine [Lantus U-100 15 unit SUB-Q AC 01/10/18 01/21/18 History Insulin] insulin lispro [Humalog KwikPen 100 unit SUB-Q DAILY 01/10/18 01/21/18 History Insulin] levothyroxine 25 mcg PO DAILY 01/10/18 01/21/18 History rivaroxaban [Xarelto] 15 mg PO DAILY 01/10/18 01/21/18 History sulfasalazine 0.5 g PO BID 01/10/18 01/21/18 History Physical Exam Vital signs: Vital Signs 01/26/18 12:00 01/26/18 13:09 01/26/18 16:00 Temperature 97.6 F 97.3 F L Pulse Rate 73 76 Respiratory Rate 20 20 Blood Pressure 142/64 H 151/66 H Pulse Oximetry 96 96 94 L 01/26/18 20:00 01/27/18 00:00 01/27/18 04:00 Temperature 98 F 98.1 F 98 F Pulse Rate 71 76 72 Respiratory Rate 18 18 18 Blood Pressure 157/63 H 142/65 H 122/60 Pulse Oximetry 98 98 95 01/27/18 08:00 01/27/18 09:38 Temperature 98.7 F Pulse Rate 73 Respiratory Rate 21 Blood Pressure 126/60 Pulse Oximetry 96 96 Intake & Output 01/26/18 01/27/18 01/27/18 18:59 06:59 18:59 Intake Total 620 / 620 100 / 100 120 / 120 Output Total 500 / 500 600 / 600 Balance 120 / 120 -500 / -500 120 / 120 Weight 123.8 kg Intake: IV 100 / 100 100 / 100 Bumex Inj 25 mg In 100 ml @ 2 100 / 100 100 / 100 MG/HR 8 mls/hr IV.CONT .[id number] [facility] Rx#:[id number] Oral 520 / 520 120 / 120 Output: Urine 500 / 500 600 / 600 Other: # Voids 500 Date of Last Bowel Movement 01/25/18 01/26/18 - Constitutional no acute distress - Routine Neck Exam Absent: JVD - Routine Respiratory Exam Present: CTA bilaterally - Routine Cardiovascular Exam Present: RRR, S1, S2, murmur. Absent: gallop Comments: II/ systolic murmur left upper sternal border - Routine Abdominal Exam Present: soft, normoactive bowel sounds. Absent: tenderness, organomegaly - Routine Extremities Exam Present: edema. Absent: cyanosis, clubbing Comments: 1+ pretibial edema - Urinary Catheter Management Straight Cath placed during this visit: no Reason for continuing: Not indwelling catheter Results 01/21/18 23:17 01/27/18 06:04 Comprehensive Metabolic Panel 01/25/18 01/26/18 01/27/18 Range/Units 18:04 13:05 06:04 Sodium 125 L 124 L* 128 L (136-145) meq/L Potassium 4.2 D 4.2 3.8 (3.5-5.1) meq/L Chloride 90 L 90 L 90 L (98-107) meq/L Carbon Dioxide 20.0 L 20.8 L 24.5 (21.0-32.0) meq/L BUN 72 H 72 H 71 H (7-18) mg/dL Creatinine 4.00 H 3.61 H 3.34 H (0.50-1.00) mg/dL Calcium 7.9 L 8.1 L 7.8 L (8.5-10.1) mg/dL Intake and Output 01/26/18 01/27/18 01/27/18 22:59 06:59 14:59 Intake Total 620 / 620 100 / 100 120 / 120 Output Total 500 / 500 600 / 600 Balance 120 / 120 -500 / -500 120 / 120 Intake: IV 100 / 100 100 / 100 Bumex Inj 25 mg In 100 ml @ 2 100 / 100 100 / 100 MG/HR 8 mls/hr IV.CONT .[id number] [facility] Rx#:[id number] Oral 520 / 520 120 / 120 Output: Urine 500 / 500 600 / 600 Other: # Voids 500 Date of Last Bowel Movement 01/26/18 Weight 123.8 kg Assessment and Plan - Assessment (1) Nonischemic cardiomyopathy Code(s): I42.8 - Other cardiomyopathies Status: Chronic Plan: Stable cardiac status. EF on echo this admission basically unchanged from 2016 , 25-30%. Creatinine trending downward. Will be difficult to fully mobilize her pedal edema with moderate to severe tricuspid regurgitation. No new recommendations at this time. Will f/u as needed. (2) Hypertension Code(s): I10 - Essential (primary) hypertension Status: Chronic Plan: Stable. Normotensive. (3) Coronary artery disease Code(s): I25.10 - Atherosclerotic heart disease of [place] coronary artery without angina pectoris Status: Chronic Plan: Stable. No angina symptoms. Mild to moderate CAD on cath at age 72. Recommend conservative therapy. Continue aspirin, beta alexa (4) Status post implantation of automatic cardioverter/defibrillator (AICD) Code(s): Z95.810 - Presence of automatic (implantable) cardiac defibrillator Status: Chronic - Plan Code Status: full code (2) Hypertension Qualifiers: Hypertension type: essential hypertension Qualified Code(s): I10 - Essential (primary) hypertension (3) Coronary artery disease Qualifiers: Coronary Disease-Associated Artery/Lesion type: [place] artery [place] vs. transplanted heart: [place] heart Associated angina: without angina Qualified Code(s): I25.10 - Atherosclerotic heart disease of [place] coronary artery without angina pectoris
--- NOTE | 2018-01-27 15:11 | P.PNNP ---
Subjective Interval history: Patient is on Bumex drip edema persist Physical Exam Vital signs: Vital Signs 01/26/18 16:00 01/26/18 20:00 01/27/18 00:00 Temperature 97.3 F L 98 F 98.1 F Pulse Rate 76 71 76 Respiratory Rate 20 18 18 Blood Pressure 151/66 H 157/63 H 142/65 H Pulse Oximetry 94 L 98 98 01/27/18 04:00 01/27/18 08:00 01/27/18 09:38 Temperature 98 F 98.7 F Pulse Rate 72 73 Respiratory Rate 18 21 Blood Pressure 122/60 126/60 Pulse Oximetry 95 96 96 01/27/18 12:00 Temperature 97.3 F L Pulse Rate 68 Respiratory Rate 20 Blood Pressure 133/63 Pulse Oximetry 96 Intake & Output 01/26/18 01/27/18 01/27/18 18:59 06:59 18:59 Intake Total 620 / 620 100 / 100 360 / 360 Output Total 500 / 500 600 / 600 200 / 200 Balance 120 / 120 -500 / -500 160 / 160 Weight 123.8 kg Intake: IV 100 / 100 100 / 100 Bumex Inj 25 mg In 100 ml @ 2 100 / 100 100 / 100 MG/HR 8 mls/hr IV.CONT .[id number] [facility] Rx#:[id number] Oral 520 / 520 360 / 360 Output: Urine 500 / 500 600 / 600 200 / 200 Other: # Voids 500 Date of Last Bowel Movement 01/25/18 01/26/18 Narrative: awake and alert, generalized edema, no acte ditress, oriented x3.speech cealr HEAD: Normocephalic. EYES: No scleral icterus. No injection or drainage. NECK: Supple, trachea midline. No JVD or lymphadenopathy. CARDIOVASCULAR: Regular rate and rhythm RESPIRATORY: Breath sounds diminished at bases. GASTROINTESTINAL: Abdomen soft, non-tender, nondistended. EXTREMITIES: ++ edema NEUROLOGICAL: Awake, alert, and oriented x 3. Non-focal. - Urinary Catheter Management Straight Cath placed during this visit: no Reason for continuing: Not indwelling catheter Assessment and Plan - Assessment (1) Acute worsening of stage 4 chronic kidney disease Code(s): N28.9 - Disorder of kidney and ureter, unspecified; N18.4 - Chronic kidney disease, stage 4 (severe) Status: Acute Plan: GFR was 19 earlier this year. Renal function has worsened. Clinically she is volume overloaded. Has systolic heart failure. Cardiorenal syndrome is to be considered. Increased renal vein pressure due to volume overload could be causing reduction in GFR. She was recently admitted with colitis. She was discharged on Cipro and Flagyl. Allergic interstitial nephritis due to Cipro is a consideration. She may have progressive renal dysfunction, now in ESRD. Avoid nephrotoxic agents. Renal US. Treat possible UTI. Continue Bumex drip. Urine output 1100 Creatinine declined to 3.34, sodium [address] Cook to follow (2) Anemia Code(s): D64.9 - Anemia, unspecified Status: Acute Plan: may have anemia of CKD. Rule out bleeding. (3) CHF (congestive heart failure) Code(s): I50.9 - Heart failure, unspecified Status: Acute Qualifiers: Heart failure chronicity: acute on chronic Plan: EF 20-25%. Continue diuresis. (4) Hyponatremia Code(s): E87.1 - Hypo-osmolality and hyponatremia Status: Acute (5) Hyperkalemia Code(s): E87.5 - Hyperkalemia Status: Acute Plan: insulin and dextrose. Low potassium diet. Monitor. Continue diuresis.
[2018-01-27] MEDS: Gabapentin 300 MG Capsule PO SCH (17:53)
[2018-01-28] MEDS: Insulin NovoLOG Aspart Correctional Sugar Inj SQ SCH ×5 (00:10→21:38)
[2018-01-28] MEDS: Bumetanide Inj 25 MG/100 ML BAG IV.CONT SCH ×2 (07:23→20:11)
[2018-01-28 08:46] LABS: Albumin 2.2 g/dL (3.4-5.0); Carbon Dioxide 23.6 meq/L (21.0-32.0); Potassium 3.9 meq/L (3.5-5.1)
--- NOTE | 2018-01-28 08:48 | P.PNNP ---
Subjective Interval history: patient is alert, oriented. Non oliguric. Edema has improved. Renal function is pending today. Physical Exam Vital signs: Vital Signs 01/27/18 09:38 01/27/18 12:00 01/27/18 15:59 Temperature 97.3 F L Pulse Rate 68 Respiratory Rate 20 Blood Pressure 133/63 98/82 L Pulse Oximetry 96 96 01/27/18 19:43 01/27/18 20:00 01/27/18 20:10 Temperature 97.4 F L Pulse Rate 68 70 Respiratory Rate 20 Blood Pressure 119/84 Pulse Oximetry 95 95 01/28/18 00:00 01/28/18 00:03 01/28/18 04:00 Temperature 97.9 F 97.8 F Pulse Rate 71 71 74 Respiratory Rate 20 20 Blood Pressure 117/57 L 91/55 L Pulse Oximetry 93 L 94 L 01/28/18 04:33 01/28/18 08:00 Temperature 97.1 F L Pulse Rate 72 75 Respiratory Rate 20 Blood Pressure 89/42 L Pulse Oximetry 94 L Intake & Output 01/27/18 01/28/18 01/28/18 18:59 06:59 18:59 Intake Total 600 / 600 91 / 91 Output Total 750 / 750 750 / 750 Balance -150 / -150 -659 / -659 Weight 122.4 kg Intake: IV / 91 Bumex Inj 25 mg In 100 ml @ 2 91 / 91 MG/HR 8 mls/hr IV.CONT .[id number] [facility] Rx#:[id number] Oral 600 / 600 Output: Urine 750 / 750 750 / 750 Other: Date of Last Bowel Movement 01/27/18 01/27/18 - Constitutional no acute distress, obese - Routine HEENT Exam Head: Present: normocephalic, atraumatic Eye: Present: EOMI, PERRL ENT: Present: mucous membranes moist - Routine Neck Exam Absent: JVD, carotid bruit, lymphadenopathy, thyromegaly - Routine Respiratory Exam Present: CTA bilaterally. Absent: accessory muscle use - Routine Cardiovascular Exam Present: RRR, S1, S2 - Routine Abdominal Exam Present: soft, normoactive bowel sounds. Absent: tenderness, distended - Routine Extremities Exam Present: edema. Absent: extremity cold to touch - Routine Skin Exam Present: intact - Routine Neurological Exam Present: alert, oriented X3, moving all extremities - Urinary Catheter Management Straight Cath placed during this visit: no Reason for continuing: Not indwelling catheter Assessment and Plan - Assessment (1) Acute worsening of stage 4 chronic kidney disease Code(s): N28.9 - Disorder of kidney and ureter, unspecified; N18.4 - Chronic kidney disease, stage 4 (severe) Status: Acute Plan: GFR was 19 earlier this year. BOUCHRA due to decompensated heart failure, currently on Bumex drip. Has systolic heart failure. Cardiorenal syndrome is to be considered. Increased renal vein pressure due to volume overload could be causing reduction in GFR. She was recently admitted with colitis. She was discharged on Cipro and Flagyl. Allergic interstitial nephritis due to Cipro is a consideration. Avoid nephrotoxic agents. Treat possible UTI. Renal function had improved as of 01/27. No immediate need for dialysis. (2) Anemia Code(s): D64.9 - Anemia, unspecified Status: Acute Plan: may have anemia of CKD. Rule out bleeding. (3) CHF (congestive heart failure) Code(s): I50.9 - Heart failure, unspecified Status: Acute Qualifiers: Heart failure chronicity: acute on chronic Plan: EF 20-25%. Continue diuresis. (4) Hyponatremia Code(s): E87.1 - Hypo-osmolality and hyponatremia Status: Acute Plan: Likely due to non osmotic release of ADH resulting from cardiomyopathy. Monitor. If lower, will consider use of Tolvaptan. (5) Hyperkalemia Code(s): E87.5 - Hyperkalemia Status: Acute Plan: Improved.
[2018-01-28] MEDS: Calcitriol 0.25 MCG Capsule PO SCH (08:54)
[2018-01-28] MEDS: Carvedilol 12.5 MG Tablet PO SCH ×2 (08:55→21:38)
[2018-01-28] MEDS: sulfaSALAzine 500 MG Tablet PO SCH ×2 (08:55→20:12)
[2018-01-28] MEDS: Docusate Sodium 100 MG Capsule PO SCH ×2 (08:55→20:12)
[2018-01-28] MEDS: Insulin Detemir Inj 1,000 UNIT/10 ML Vial SQ SCH (08:56)
[2018-01-28] MEDS: Heparin - SQ 10,000 UNITS/ML Vial SQ SCH ×2 (08:56→20:12)
[2018-01-28] MEDS: Sodium Chloride 0.9% 2 ML Flush BID IV.FLUSH SCH ×2 (08:57→21:38)
[2018-01-28] MEDS: Clotrimazole 1% Cream 15 GM Tube TOPICAL SCH ×2 (08:57→21:38)
--- NOTE | 2018-01-28 16:24 | P.PNFP ---
Subjective Interval history: resting quietly more verbal and oriented today Results - Labs Result diagrams: 01/21/18 23:17 01/28/18 07:30 Abnormal lab results 01/27/18 01/27/18 01/28/18 Range/Units 16:47 20:14 00:04 Sodium (136-145) meq/L Chloride (98-107) meq/L BUN (7-18) mg/dL Creatinine (0.50-1.00) mg/dL Estimated GFR (>89) mL/min POC Glucose 128 H 155 H 157 H (68-110) mg/dl Random Glucose (74-106) mg/dL Calcium (8.5-10.1) mg/dL Albumin (3.4-5.0) g/dL 01/28/18 01/28/18 01/28/18 Range/Units 07:30 07:48 11:16 Sodium 127 L (136-145) meq/L Chloride 89 L (98-107) meq/L BUN 69 H (7-18) mg/dL Creatinine 3.10 H (0.50-1.00) mg/dL Estimated GFR 17 L (>89) mL/min POC Glucose 140 H 161 H (68-110) mg/dl Random Glucose 134 H (74-106) mg/dL Calcium 8.0 L (8.5-10.1) mg/dL Albumin 2.2 L (3.4-5.0) g/dL BMP 01/28/18 07:30 Sodium 127 L Potassium 3.9 Chloride 89 L Carbon Dioxide 23.6 BUN 69 H Creatinine 3.10 H Calcium 8.0 L Liver Function 01/28/18 Range/Units 07:30 Albumin 2.2 L (3.4-5.0) g/dL Physical Exam Vital signs: Vital Signs 01/27/18 19:43 01/27/18 20:00 01/27/18 20:10 Temperature 97.4 F L Pulse Rate 68 70 Respiratory Rate 20 Blood Pressure 119/84 Pulse Oximetry 95 95 01/28/18 00:00 01/28/18 00:03 01/28/18 04:00 Temperature 97.9 F 97.8 F Pulse Rate 71 71 74 Respiratory Rate 20 20 Blood Pressure 117/57 L 91/55 L Pulse Oximetry 93 L 94 L 01/28/18 04:33 01/28/18 08:00 10/08/18 12:00 Temperature 97.1 F L 98.1 F Pulse Rate 72 75 72 Respiratory Rate 20 20 Blood Pressure 89/42 L 96/44 L Pulse Oximetry 94 L 94 L 01/28/18 12:03 Temperature Pulse Rate Respiratory Rate Blood Pressure Pulse Oximetry 97 Intake & Output 01/27/18 01/28/18 01/28/18 18:59 06:59 18:59 Intake Total 600 / 600 91 / 91 Output Total 750 / 750 750 / 750 Balance -150 / -150 -659 / -659 Weight 122.4 kg Intake: IV Bumex Inj 25 mg In 100 ml @ 2 MG/HR 8 mls/hr IV.CONT .[id number] [facility] Rx#:[id number] Oral 600 / 600 Output: Urine 750 / 750 750 / 750 Other: Date of Last Bowel Movement 01/27/18 01/27/18 - Constitutional no acute distress - Routine HEENT Exam Head: Present: normocephalic, atraumatic Eye: Present: EOMI, PERRL ENT: Present: mucous membranes moist - Routine Neck Exam Present: supple - Routine Respiratory Exam Present: CTA bilaterally - Routine Cardiovascular Exam Present: RRR - Routine Abdominal Exam Present: soft Comments: obesde - Routine Extremities Exam Comments: decreased edema - Urinary Catheter Management Straight Cath placed during this visit: no Reason for continuing: Not indwelling catheter Assessment and Plan - Assessment (1) Acute kidney injury Code(s): N17.9 - Acute kidney failure, unspecified Status: Acute Plan: Creatinine 4.08, baseline 2.6-2.9, Renal following (2) CHF (congestive heart failure) Code(s): I50.9 - Heart failure, unspecified Status: Acute Plan: probable acute on chronic congestive heart failure (3) Hypertension Code(s): I10 - Essential (primary) hypertension Status: Chronic Plan: Currently hypotensive Cont to monitor (4) Diabetes Code(s): E11.9 - Type 2 diabetes mellitus without complications Status: Acute Plan: Monitor BS, Cont [place] bid sliding scale (5) Hyponatremia Code(s): E87.1 - Hypo-osmolality and hyponatremia Status: Acute Plan: 127, this am, On IV bumex, dialysis pending cont to monitor (6) CVA (cerebral vascular accident) Code(s): I63.9 - Cerebral infarction, unspecified Status: Chronic Plan: On Xarelto for cva xarelto dc for renal functions, Heparin sq started recommended by cardiology to start warfarin PermCath pending - Assessment and Plan 01/23/18- Seen this am, patient is pleasant, oriented to self. Cont with declining renal functions, renal consult pending. Cardiology following, no sign of fluid overload. 01/24/18- More oriented this am. person and place, follows commands. Seen by renal, work up pending, IVF stopped Bumex increased. Cardiology following, cont BB. May require dialysis to get fluid off. UTI, on Rocephin follow sensitivity. 01/25/18-alert following commands this am.Denies CP, SOB. On Iv bumex weight 122kg this am. NPO for PermCath later today. Ua growing yeast, pending final, dc rocephin. BP stable. 01/28 na remains low 127 renal follow ing will ck bmp in am (2) CHF (congestive heart failure) Qualifiers: Heart failure chronicity: acute on chronic (3) Hypertension Qualifiers: Hypertension type: essential hypertension Qualified Code(s): I10 - Essential (primary) hypertension
[2018-01-28] MEDS: Gabapentin 300 MG Capsule PO SCH (17:06)
[2018-01-28 20:15] LABS: Calcium 7.7 mg/dL (8.5-10.1); Carbon Dioxide 21.2 meq/L (21.0-32.0); Potassium 3.9 meq/L (3.5-5.1)
--- NOTE | 2018-01-29 08:25 | P.PNFP ---
Subjective Interval history: Complains of R hip pain voices she fell 2 weeks ago Denies CP, SOB Results - Labs Result diagrams: 01/21/18 23:17 01/28/18 19:10 Abnormal lab results 01/28/18 01/28/18 01/28/18 Range/Units 07:30 11:16 16:23 Sodium 127 L (136-145) meq/L Chloride 89 L (98-107) meq/L BUN 69 H (7-18) mg/dL Creatinine 3.10 H (0.50-1.00) mg/dL Estimated GFR 17 L (>89) mL/min POC Glucose 161 H 229 H (68-110) mg/dl Random Glucose 134 H (74-106) mg/dL Calcium 8.0 L (8.5-10.1) mg/dL Albumin 2.2 L (3.4-5.0) g/dL 01/28/18 01/28/18 01/29/18 Range/Units 19:10 21:28 07:28 Sodium 125 L (136-145) meq/L Chloride 91 L (98-107) meq/L BUN 70 H (7-18) mg/dL Creatinine 2.99 H (0.50-1.00) mg/dL Estimated GFR 18 L (>89) mL/min POC Glucose 192 H 114 H (68-110) mg/dl Random Glucose 184 H (74-106) mg/dL Calcium 7.7 L (8.5-10.1) mg/dL Albumin (3.4-5.0) g/dL BMP 01/28/18 01/28/18 07:30 19:10 Sodium 127 L 125 L Potassium 3.9 3.9 Chloride 89 L 91 L Carbon Dioxide 23.6 21.2 BUN 69 H 70 H Creatinine 3.10 H 2.99 H Calcium 8.0 L 7.7 L Liver Function 01/28/18 Range/Units 07:30 Albumin 2.2 L (3.4-5.0) g/dL Physical Exam Vital signs: Vital Signs 01/28/18 12:00 01/28/18 12:03 01/28/18 16:00 Temperature 98.1 F 97.5 F L Pulse Rate 72 67 Respiratory Rate 20 20 Blood Pressure 96/44 L 115/45 L Pulse Oximetry 94 L 97 94 L 01/28/18 20:00 10/08/18 23:56 01/29/18 00:00 Temperature 97.6 F 97.7 F Pulse Rate 72 71 72 Respiratory Rate 18 18 Blood Pressure 96/51 L 92/48 L Pulse Oximetry 97 97 01/29/18 03:55 01/29/18 04:00 Temperature 98.3 F Pulse Rate 70 70 Respiratory Rate 18 Blood Pressure 92/47 L Pulse Oximetry 97 Intake & Output 01/28/18 01/29/18 01/29/18 18:59 06:59 18:59 Intake Total 100 / 100 Output Total 600 / 600 300 / 300 Balance -600 / -600 -200 / -200 Weight 124.4 kg Intake: IV 100 / 100 Bumex Inj 25 mg In 100 ml @ 2 100 / 100 MG/HR 8 mls/hr IV.CONT .[id number] [facility] Rx#:[id number] Output: Urine 600 / 600 300 / 300 Other: # Incontinent Voids 1 Date of Last Bowel Movement 01/27/18 01/28/18 # Bowel Movements 1 # Incontinent Bowel Movements 1 - Constitutional no acute distress - Routine HEENT Exam ENT: Present: mucous membranes moist - Routine Neck Exam Present: supple - Routine Respiratory Exam Present: CTA bilaterally - Routine Cardiovascular Exam Present: S1, S2 - Routine Abdominal Exam Present: soft, normoactive bowel sounds - Routine Extremities Exam Present: edema, pulses intact - Routine Skin Exam Present: dry, warm - Routine Neurological Exam Present: alert - Urinary Catheter Management Straight Cath placed during this visit: no Reason for continuing: Not indwelling catheter Assessment and Plan - Assessment (1) Acute kidney injury Code(s): N17.9 - Acute kidney failure, unspecified Status: Acute Plan: Creatinine improved, trending down baseline 2.6-2.9, Renal following (2) CHF (congestive heart failure) Code(s): I50.9 - Heart failure, unspecified Status: Acute Plan: cardiology following, cont cardiac medications (3) Hypertension Code(s): I10 - Essential (primary) hypertension Status: Chronic Plan: Cont to monitor (4) Diabetes Code(s): E11.9 - Type 2 diabetes mellitus without complications Status: Acute Plan: Monitor BS, Cont [place] bid sliding scale (5) Hyponatremia Code(s): E87.1 - Hypo-osmolality and hyponatremia Status: Acute Plan: 125, this am, On IV Bumex, Thiazide diuretic DC, Renal following (6) CVA (cerebral vascular accident) Code(s): I63.9 - Cerebral infarction, unspecified Status: Chronic Plan: On Xarelto for cva xarelto dc for renal functions, on heprin, recommended by cardiology to start warfarin - Assessment and Plan 01/23/18- Seen this am, patient is pleasant, oriented to self. Cont with declining renal functions, renal consult pending. Cardiology following, no sign of fluid overload. 01/24/18- More oriented this am. person and place, follows commands. Seen by renal, work up pending, IVF stopped Bumex increased. Cardiology following, cont BB. May require dialysis to get fluid off. UTI, on Rocephin follow sensitivity. 01/25/18-alert following commands this am.Denies CP, SOB. On Iv bumex weight 122kg this am. NPO for PermCath later today. Ua growing yeast, pending final, dc rocephin. BP stable. 01/28 na remains low 127 renal follow ing will ck bmp in am 01/29/18- Complains of right hip pain this am, she state she had a fall 2 weeks ago will gat xray. Edema improved, creatinine improved. Was on Xarelto for cva, due to renal functions, will need Coumadin. Will start Coumadin with INR goal of 2.0, Na 125, medications adjusted. dc planning back to rehab once cleared by renal and cardiology (2) CHF (congestive heart failure) Qualifiers: Heart failure chronicity: acute on chronic (3) Hypertension Qualifiers: Hypertension type: essential hypertension Qualified Code(s): I10 - Essential (primary) hypertension
[2018-01-29] MEDS: Bumetanide Inj 25 MG/100 ML BAG IV.CONT SCH (08:28)
[2018-01-29] MEDS: Heparin - SQ 10,000 UNITS/ML Vial SQ SCH ×2 (08:29→20:37)
[2018-01-29] MEDS: Insulin Detemir Inj 1,000 UNIT/10 ML Vial SQ SCH (08:32)
[2018-01-29] MEDS: sulfaSALAzine 500 MG Tablet PO SCH ×2 (08:34→20:38)
[2018-01-29] MEDS: Carvedilol 12.5 MG Tablet PO SCH ×2 (08:34→20:55)
[2018-01-29] MEDS: Insulin NovoLOG Aspart Correctional Sugar Inj SQ SCH ×4 (08:35→20:50)
[2018-01-29] MEDS: Docusate Sodium 100 MG Capsule PO SCH ×2 (08:35→20:38)
--- NOTE | 2018-01-29 08:43 | P.PNNP ---
Subjective Interval history: Swelling has improved,but not gone. No shortness of breath. Hyponatremia as of yesterday. Physical Exam Vital signs: Vital Signs 01/28/18 12:00 01/28/18 12:03 01/28/18 16:00 Temperature 98.1 F 97.5 F L Pulse Rate 72 67 Respiratory Rate 20 20 Blood Pressure 96/44 L 115/45 L Pulse Oximetry 94 L 97 94 L 01/28/18 20:00 01/28/18 23:56 01/29/18 00:00 Temperature 97.6 F 97.7 F Pulse Rate 72 71 72 Respiratory Rate 18 18 Blood Pressure 96/51 L 92/48 L Pulse Oximetry 97 97 01/29/18 03:55 01/29/18 04:00 Temperature 98.3 F Pulse Rate 70 70 Respiratory Rate 18 Blood Pressure 92/47 L Pulse Oximetry 97 Intake & Output 01/28/18 01/29/18 01/29/18 18:59 06:59 18:59 Intake Total 100 / 100 Output Total 600 / 600 300 / 300 Balance -600 / -600 -200 / -200 Weight 124.4 kg Intake: IV 100 / 100 Bumex Inj 25 mg In 100 ml @ 2 100 / 100 MG/HR 8 mls/hr IV.CONT .[id number] [facility] Rx#:[id number] Output: Urine 600 / 600 300 / 300 Other: # Incontinent Voids 1 Date of Last Bowel Movement 01/27/18 01/28/18 # Bowel Movements 1 # Incontinent Bowel Movements 1 Narrative: awake and alert, generalized edema, no acte ditress, oriented x3.speech clear. HEAD: Normocephalic. EYES: No scleral icterus. No injection or drainage. NECK: Supple, trachea midline. No JVD or lymphadenopathy. CARDIOVASCULAR: Regular rate and rhythm RESPIRATORY: Breath sounds diminished at bases. GASTROINTESTINAL: Abdomen soft, non-tender, nondistended. EXTREMITIES: ++ edema NEUROLOGICAL: Awake, alert, and oriented x 3. Non-focal. - Urinary Catheter Management Straight Cath placed during this visit: no Reason for continuing: Not indwelling catheter Assessment and Plan - Assessment (1) Acute worsening of stage 4 chronic kidney disease Code(s): N28.9 - Disorder of kidney and ureter, unspecified; N18.4 - Chronic kidney disease, stage 4 (severe) Status: Acute Plan: GFR was 19 earlier this year. BOUCHRA due to decompensated heart failure, currently on Bumex drip. Change it to Bumex 2 mg IV BID. Has systolic heart failure. Cardiorenal syndrome is to be considered. Increased renal vein pressure due to volume overload could be causing reduction in GFR. She was recently admitted with colitis. She was discharged on Cipro and Flagyl. Allergic interstitial nephritis due to Cipro is a consideration. Avoid nephrotoxic agents. Renal function had improved as of 01/27. No immediate need for dialysis. (2) Anemia Code(s): D64.9 - Anemia, unspecified Status: Acute Plan: may have anemia of CKD. Rule out bleeding. (3) CHF (congestive heart failure) Code(s): I50.9 - Heart failure, unspecified Status: Acute Qualifiers: Heart failure chronicity: acute on chronic Plan: EF 20-25%. Continue diuresis. (4) Hyponatremia Code(s): E87.1 - Hypo-osmolality and hyponatremia Status: Acute Plan: Likely due to non osmotic release of ADH resulting from cardiomyopathy. I will administer a dose of Tolvaptan. No need for dietary water restriction while on Tolvaptan. (5) Hyperkalemia Code(s): E87.5 - Hyperkalemia Status: Acute Plan: Improved. - Plan Overall prognosis is poor.
[2018-01-29] MEDS: Sodium Chloride 0.9% 2 ML Flush BID IV.FLUSH SCH ×2 (10:07→20:39)
[2018-01-29] MEDS: Clotrimazole 1% Cream 15 GM Tube TOPICAL SCH ×2 (10:07→20:39)
[2018-01-29 10:19] LABS: Hematocrit 29.2 % (35.0-46.0); Hemoglobin 9.6 gm/dL (11.6-15.3); Mean Corpuscular HGB Conc 32.9 % (32.0-36.0); Mean Corpuscular Hemoglobin 30.1 pg (27.0-34.0); Mean Corpuscular Volume 91.6 fL (80.0-100.0); Platelet Count 304 th/mm3 (150-450); Red Blood Count 3.19 mil/mm3 (4.00-5.30); Red Cell Distribution Width 17.5 % (11.6-17.2); White Blood Count 7.5 th/mm3 (4.0-11.0)
[2018-01-29 10:30] LABS: INR 1.1 Ratio; Prothrombin Time 11.1 sec (9.8-11.6)
[2018-01-29 10:43] LABS: Albumin 2.2 g/dL (3.4-5.0); Calcium 7.8 mg/dL (8.5-10.1); Carbon Dioxide 25.7 meq/L (21.0-32.0); Potassium 3.6 meq/L (3.5-5.1)
--- NOTE | 2018-01-29 13:54 | XR ---
EXAM DATE: 01/29/2018 12:00 AM EDT AGE/SEX: 82 years / Female INDICATIONS: Fall, right hip pain. CLINICAL DATA: This is the patient's subsequent encounter. Patient reports that signs and symptoms h ave been present for 3 days and indicates a pain score of 8/10. MEDICAL/SURGICAL HISTORY: None. None. COMPARISON: [facility] [place], PELVIS AP 1V, 01/19/2018. . FINDINGS: Bony structures are intact and in normal alignment. Joints are intact without dislocation or signifi cant arthropathy. Osseous density is normal. Soft tissues are unremarkable. No radiopaque foreign bodies seen. Mild vascular calcifications are present. CONCLUSION: No acute fracture or malalignment. Electronically signed by: Gideon Clark MD 01/29/2018 1:53 PM EDT
--- NOTE | 2018-01-29 13:57 | P.PNWCN ---
Wound Care Nurse Consult Description: wound consult ordered by for wound management. Communicated with: Jessica DANIEL, Additional information: patient was not seen by wound care team .[employer] instructed RN to refer to wound care guidelines for skin tears.
[2018-01-29] MEDS: Gabapentin 300 MG Capsule PO SCH (17:46)
[2018-01-29] MEDS: Acetaminophen 325 MG Tablet PO PRN (20:38)
[2018-01-30] MEDS: Acetaminophen 325 MG Tablet PO PRN (05:33)
[2018-01-30 06:22] LABS: Hematocrit 27.2 % (35.0-46.0); Hemoglobin 9.1 gm/dL (11.6-15.3); Mean Corpuscular HGB Conc 33.3 % (32.0-36.0); Mean Corpuscular Hemoglobin 30.2 pg (27.0-34.0); Mean Corpuscular Volume 90.7 fL (80.0-100.0); Mean Platelet Volume 6.9 fL (7.0-11.0); Platelet Count 301 th/mm3 (150-450); Red Blood Count 3.01 mil/mm3 (4.00-5.30); Red Cell Distribution Width 16.8 % (11.6-17.2); White Blood Count 7.2 th/mm3 (4.0-11.0)
[2018-01-30 06:29] LABS: INR 1.1 Ratio
[2018-01-30 06:50] LABS: Albumin 2.1 g/dL (3.4-5.0); Calcium 7.8 mg/dL (8.5-10.1); Carbon Dioxide 24.3 meq/L (21.0-32.0); Phosphorus 3.9 mg/dL (2.5-4.9); Potassium 3.5 meq/L (3.5-5.1)
--- NOTE | 2018-01-30 06:54 | P.PNFP ---
Subjective Interval history: Resting in bed Slept well Denies Cp, SOB Results - Labs Result diagrams: 01/30/18 05:10 01/30/18 05:10 Abnormal lab results 01/29/18 01/29/18 01/29/18 Range/Units 07:28 09:54 09:54 RBC 3.19 L (4.00-5.30) mil/mm3 Hgb 9.6 L (11.6-15.3) gm/dL Hct 29.2 L (35.0-46.0) % RDW 17.5 H (11.6-17.2) % MPV (7.0-11.0) fL Sodium 128 L (136-145) meq/L Chloride 90 L (98-107) meq/L BUN 71 H (7-18) mg/dL Creatinine 2.77 H (0.50-1.00) mg/dL Estimated GFR 20 L (>89) mL/min POC Glucose 114 H (68-110) mg/dl Calcium 7.8 L (8.5-10.1) mg/dL Albumin 2.2 L (3.4-5.0) g/dL 01/29/18 01/29/18 01/30/18 Range/Units 11:49 20:42 05:10 RBC 3.01 L (4.00-5.30) mil/mm3 Hgb 9.1 L (11.6-15.3) gm/dL Hct 27.2 L (35.0-46.0) % RDW (11.6-17.2) % MPV 6.9 L (7.0-11.0) fL Sodium (136-145) meq/L Chloride (98-107) meq/L BUN (7-18) mg/dL Creatinine (0.50-1.00) mg/dL Estimated GFR (>89) mL/min POC Glucose 172 H 159 H (68-110) mg/dl Calcium (8.5-10.1) mg/dL Albumin (3.4-5.0) g/dL Short CBC 01/29/18 01/30/18 Range/Units 09:54 05:10 WBC 7.5 7.2 (4.0-11.0) th/mm3 Hgb 9.6 L 9.1 L (11.6-15.3) gm/dL Hct 29.2 L 27.2 L (35.0-46.0) % Plt Count 304 301 (150-450) th/mm3 BMP 01/29/18 01/29/18 09:54 09:54 Sodium Cancelled 128 L Potassium Cancelled 3.6 Chloride Cancelled 90 L Carbon Dioxide Cancelled 25.7 BUN Cancelled 71 H Creatinine Cancelled 2.77 H Calcium Cancelled 7.8 L Liver Function 01/29/18 01/29/18 Range/Units 09:54 09:54 Albumin Cancelled 2.2 L - Imaging Impressions Hip X-Ray 01/29/18 00:00 CONCLUSION: No acute fracture or malalignment. Physical Exam Vital signs: Vital Signs 01/29/18 08:00 01/29/18 12:00 01/29/18 16:00 Temperature 98.5 F 98.2 F 97.6 F Pulse Rate 71 68 72 Respiratory Rate 14 16 17 Blood Pressure 116/72 107/48 L 107/43 L Pulse Oximetry 96 97 96 01/29/18 18:02 01/29/18 19:54 01/29/18 20:00 Temperature 98.0 F Pulse Rate 73 70 71 Respiratory Rate 18 Blood Pressure 102/46 L Pulse Oximetry 95 01/30/18 00:00 01/30/18 04:00 Temperature 98.5 F 98.1 F Pulse Rate 71 74 Respiratory Rate 18 18 Blood Pressure 101/46 L 100/42 L Pulse Oximetry 96 95 Intake & Output 01/29/18 01/29/18 01/30/18 06:59 18:59 06:59 Intake Total 100 / 100 1060 / 1060 Output Total 300 / 300 400 / 400 Balance -200 / -200 660 / 660 Weight 124.4 kg 123.7 kg Intake: IV 100 / 100 100 / 100 Bumex Inj 25 mg In 100 ml @ 2 100 / 100 100 / 100 MG/HR 8 mls/hr IV.CONT .[id number] [facility] Rx#:[id number] Oral 960 / 960 Output: Urine 300 / 300 400 / 400 Other: # Incontinent Voids 1 3 Date of Last Bowel Movement 01/28/18 01/28/18 01/29/18 # Bowel Movements 0 # Incontinent Bowel Movements 1 1 - Constitutional no acute distress - Routine HEENT Exam Eye: Present: PERRL - Routine Neck Exam Present: supple - Routine Respiratory Exam Present: CTA bilaterally - Routine Cardiovascular Exam Present: S1, S2 - Routine Abdominal Exam Present: soft, normoactive bowel sounds - Routine Extremities Exam Present: edema, pulses intact - Routine Skin Exam Present: dry, warm - Routine Psychiatric Exam Present: cooperative - Urinary Catheter Management Straight Cath placed during this visit: no Reason for continuing: Not indwelling catheter Assessment and Plan - Assessment (1) Acute kidney injury Code(s): N17.9 - Acute kidney failure, unspecified Status: Acute Plan: Creatinine improved, trending down baseline 2.6-2.9, Renal following (2) CHF (congestive heart failure) Code(s): I50.9 - Heart failure, unspecified Status: Acute Plan: cardiology following, cont cardiac medications (3) Hypertension Code(s): I10 - Essential (primary) hypertension Status: Chronic Plan: Cont to monitor (4) Diabetes Code(s): E11.9 - Type 2 diabetes mellitus without complications Status: Acute Plan: Monitor BS, Cont [place] bid sliding scale (5) Hyponatremia Code(s): E87.1 - Hypo-osmolality and hyponatremia Status: Acute Plan: 125, this am, On IV Bumex, Thiazide diuretic DC, Renal following (6) CVA (cerebral vascular accident) Code(s): I63.9 - Cerebral infarction, unspecified Status: Chronic Plan: On Xarelto for cva xarelto dc for renal functions, on heprin, recommended by cardiology to start warfarin - Assessment and Plan 01/23/18- Seen this am, patient is pleasant, oriented to self. Cont with declining renal functions, renal consult pending. Cardiology following, no sign of fluid overload. 01/24/18- More oriented this am. person and place, follows commands. Seen by renal, work up pending, IVF stopped Bumex increased. Cardiology following, cont BB. May require dialysis to get fluid off. UTI, on Rocephin follow sensitivity. 01/25/18-alert following commands this am.Denies CP, SOB. On Iv bumex weight 122kg this am. NPO for PermCath later today. Ua growing yeast, pending final, dc rocephin. BP stable. 01/28 na remains low 127 renal follow ing will ck bmp in am 01/29/18- Complains of right hip pain this am, she state she had a fall 2 weeks ago will gat xray. Edema improved, creatinine improved. Was on Xarelto for cva, due to renal functions, will need Coumadin. Will start Coumadin with INR goal of 2.0, Na 125, medications adjusted. dc planning back to rehab once cleared by renal and cardiology 01/30/18- No complaints this am slept well, Denies CP, SOB. Xray of r hip negative of fx. Patient denies hip pain thia am. NA 125 today, renal following. Iv Bumex stopped. She still has some pitting edema, but is improved. Started on Samsca. Cont w/ PT activity, DC back to rehab once cleared by Renal. (2) CHF (congestive heart failure) Qualifiers: Heart failure chronicity: acute on chronic (3) Hypertension Qualifiers: Hypertension type: essential hypertension Qualified Code(s): I10 - Essential (primary) hypertension
--- NOTE | 2018-01-30 08:21 | P.PNNP ---
Subjective Interval history: patient is resting comfortably. No respiratory distress. Lower extremity edema has improved, but not completely. Hyponatremia is persisting. Physical Exam Vital signs: Vital Signs 01/29/18 12:00 01/29/18 16:00 01/29/18 18:02 Temperature 98.2 F 97.6 F Pulse Rate 68 72 73 Respiratory Rate 16 17 Blood Pressure 107/48 L 107/43 L Pulse Oximetry 97 96 01/29/18 19:54 01/29/18 20:00 01/30/18 00:00 Temperature 98.0 F 98.5 F Pulse Rate 70 71 71 Respiratory Rate 18 18 Blood Pressure 102/46 L 101/46 L Pulse Oximetry 95 96 01/30/18 04:00 01/30/18 07:47 Temperature 98.1 F Pulse Rate 74 Respiratory Rate 18 16 Blood Pressure 100/42 L Pulse Oximetry 95 Intake & Output 01/29/18 01/30/18 01/30/18 18:59 06:59 18:59 Intake Total 1060 / 1060 Output Total 400 / 400 Balance 660 / 660 Weight 123.7 kg Intake: IV 100 / 100 Bumex Inj 25 mg In 100 ml @ 2 100 / 100 MG/HR 8 mls/hr IV.CONT .[id number] [facility] Rx#:[id number] Oral 960 / 960 Output: Urine 400 / 400 Other: # Incontinent Voids 3 Date of Last Bowel Movement 01/28/18 01/29/18 # Bowel Movements 0 # Incontinent Bowel Movements 1 Narrative: awake and alert, generalized edema, no acte distress, oriented x3.speech clear. HEAD: Normocephalic. EYES: No scleral icterus. No injection or drainage. NECK: Supple, trachea midline. No JVD or lymphadenopathy. CARDIOVASCULAR: Regular rate and rhythm RESPIRATORY: Breath sounds diminished at bases. GASTROINTESTINAL: Abdomen soft, non-tender, nondistended. EXTREMITIES: ++ edema NEUROLOGICAL: Awake, alert, and oriented x 3. - Urinary Catheter Management Straight Cath placed during this visit: no Reason for continuing: Not indwelling catheter Assessment and Plan - Assessment (1) Acute worsening of stage 4 chronic kidney disease Code(s): N28.9 - Disorder of kidney and ureter, unspecified; N18.4 - Chronic kidney disease, stage 4 (severe) Status: Acute Plan: Baseline GFR is around 19. BOUCHRA improved, on Bumex 2 mg IV BID. Has systolic heart failure. Cardiorenal syndrome is to be considered. Increased renal vein pressure due to volume overload could have caused reduction in GFR. She was recently admitted with colitis. She was discharged on Cipro and Flagyl. Allergic interstitial nephritis due to Cipro is a consideration. Avoid nephrotoxic agents. No immediate indication for dialysis. (2) Anemia Code(s): D64.9 - Anemia, unspecified Status: Acute Plan: may have anemia of CKD. Rule out bleeding. (3) CHF (congestive heart failure) Code(s): I50.9 - Heart failure, unspecified Status: Acute Qualifiers: Heart failure chronicity: acute on chronic Plan: EF 20-25%. Continue diuresis. (4) Hyponatremia Code(s): E87.1 - Hypo-osmolality and hyponatremia Status: Acute Plan: Likely due to non osmotic release of ADH resulting from cardiomyopathy. Another dose of Tolvaptan today. Avoid thiazide diuretics such as Metolazone. FDC, patient needs fluid restriction. (5) Hyperkalemia Code(s): E87.5 - Hyperkalemia Status: Acute Plan: Improved. - Plan Overall prognosis is poor. No plans for initiation of dialysis. She can be discharged on Bumex 2 mg PO BID
[2018-01-30] MEDS: Docusate Sodium 100 MG Capsule PO SCH ×2 (09:03→23:32)
[2018-01-30] MEDS: Calcitriol 0.25 MCG Capsule PO SCH (09:03)
[2018-01-30] MEDS: sulfaSALAzine 500 MG Tablet PO SCH ×2 (09:03→23:32)
[2018-01-30] MEDS: Insulin NovoLOG Aspart Correctional Sugar Inj SQ SCH ×4 (09:04→23:33)
[2018-01-30] MEDS: Insulin Detemir Inj 1,000 UNIT/10 ML Vial SQ SCH (09:04)
[2018-01-30] MEDS: Heparin - SQ 10,000 UNITS/ML Vial SQ SCH ×2 (09:05→23:33)
[2018-01-30] MEDS: Sodium Chloride 0.9% 2 ML Flush BID IV.FLUSH SCH ×2 (09:06→23:34)
[2018-01-30] MEDS: Carvedilol 12.5 MG Tablet PO SCH ×2 (09:08→23:31)
[2018-01-30] MEDS: Clotrimazole 1% Cream 15 GM Tube TOPICAL SCH ×2 (09:17→23:33)
[2018-01-30] MEDS: Gabapentin 300 MG Capsule PO SCH (17:30)
[2018-01-31] MEDS: Acetaminophen 325 MG Tablet PO PRN (05:46)
[2018-01-31 07:36] LABS: INR 1.7 Ratio; Prothrombin Time 17.4 sec (9.8-11.6)
[2018-01-31 08:04] LABS: Albumin 2.1 g/dL (3.4-5.0); Calcium 8.1 mg/dL (8.5-10.1); Carbon Dioxide 22.9 meq/L (21.0-32.0); Potassium 3.6 meq/L (3.5-5.1)
[2018-01-31 08:50] VITALS: RESP 22
[2018-01-31] MEDS: Docusate Sodium 100 MG Capsule PO SCH (08:57)
[2018-01-31] MEDS: Insulin NovoLOG Aspart Correctional Sugar Inj SQ SCH ×2 (08:57→12:05)
[2018-01-31] MEDS: sulfaSALAzine 500 MG Tablet PO SCH (08:57)
[2018-01-31] MEDS: Insulin Detemir Inj 1,000 UNIT/10 ML Vial SQ SCH (08:57)
[2018-01-31] MEDS: Carvedilol 12.5 MG Tablet PO SCH (08:58)
[2018-01-31] MEDS: Heparin - SQ 10,000 UNITS/ML Vial SQ SCH (08:59)
[2018-01-31] MEDS: Clotrimazole 1% Cream 15 GM Tube TOPICAL SCH (08:59)
[2018-01-31] MEDS: Sodium Chloride 0.9% 2 ML Flush BID IV.FLUSH SCH (08:59)
--- NOTE | 2018-01-31 12:21 | P.DS ---
Date of admission: 01/25/18 11:53 Primary care physician: Kulwinder Bonilla DO Brief History from admission: Patient is an 82-year-old female presents emergency department from halfway for evaluation of elevated BUN and creatinine increasing altered mental status over the past few days. She just dc from [place] on 01/18, for abdominal pain/colitis. She has hx of CHF last echo ef 25-30%, does have Defibrillator. Afib, DM, HTN, CKD baseline creatinine 2.6-2.9. Patient is a poor historian, history received from chart. DS: Medications - Discharge Medications Prescriptions: bumetanide 2 mg PO BID #60 tab DS: Summary Hospital Course: Ms. Reid is an 82-year-old -[place] female who was brought to the emergency department on 01/21/2018 due to altered mental status and increases in her creatinine. Patient also has a history of CHF with ejection fraction 20-25% . She was found to have volume overload. Nephrology was consulted who provided diuretics for possible cardiorenal syndrome. Nephrology provided Bumex IV BID. Patient also has chronic hyponatremia. Cardiology evaluated patient as well. Cardiology recommended no anticoagulation since no documented atrial fibrillation was found. Patient had a stroke several years ago. No clear indication for anticoagulation at this point. We will continue aspirin but discontinue Warfarin that was started in the hospital. - Time Spent with Patient Total time spent providing and/or coordinating discharge services: Greater than 30 minutes - Quality: VTE Deep Vein Thrombosis/Pulmonary Embolism Present on Admission: No Exam Vital signs: Vital Signs 01/30/18 16:00 01/30/18 20:00 01/31/18 00:00 Temperature 98.5 F 97.8 F 98.5 F Pulse Rate 72 72 70 Respiratory Rate 16 16 18 Blood Pressure 95/44 L 104/56 L 99/59 L Pulse Oximetry 95 95 94 L 01/31/18 04:00 01/31/18 08:00 Temperature 98.9 F 98.4 F Pulse Rate 74 73 Respiratory Rate 17 22 Blood Pressure 98/58 L 98/47 L Pulse Oximetry 94 L 94 L Intake & Output 01/30/18 01/31/18 01/31/18 18:59 06:59 18:59 Intake Total 480 / 480 Output Total 300 / 300 Balance 180 / 180 Weight 123.8 kg Intake: Oral 480 / 480 Output: Urine 300 / 300 Other: Date of Last Bowel Movement 01/29/18 01/31/18 Results Procedures completed during hospitalization: none Labs on day of discharge: Labs from last 24 hours 01/31/18 01/31/18 01/31/18 12:03 08:32 06:59 PT INR Sodium 125 L Potassium 3.6 Chloride 88 L Carbon Dioxide 22.9 Anion Gap 14 BUN 72 H Creatinine 2.71 H Estimated GFR 20 L POC Glucose 143 H 108 Random Glucose 99 Calcium 8.1 L Phosphorus 4.0 Albumin 2.1 L 01/31/18 01/30/18 01/30/18 06:59 23:30 16:13 PT 17.4 H INR 1.7 Sodium Potassium Chloride Carbon Dioxide Anion Gap BUN Creatinine Estimated GFR POC Glucose 121 H 119 H Random Glucose Calcium Phosphorus Albumin - Impressions ITS Impressions Chest X-Ray 01/21/18 22:08 CONCLUSION: Mild basilar consolidation without change. Borderline to mild compensated cardiomegaly unchanged. Head CT 01/22/18 00:00 CONCLUSION: 1. Stable senescent changes without acute intracranial abnormality. . Abdomen/Bladder Ultrasound 01/24/18 18:19 CONCLUSION: 1. Small echogenic kidneys with thinned cortices consistent with medical renal disease. Hip X-Ray 01/29/18 00:00 CONCLUSION: No acute fracture or malalignment. Discharge Plan - Discharge Disposition Patient Disposition: Discharge to SNF - Discharge Condition Condition: Fair - Discharge Order Discharge Orders: Discharge Order (Routine); Ordered 01/30/18 Ordered By: Kulwinder Bonilla - Discharge Details Anticipated Discharge Date: 01/31/18 - Physicians Team Primary Care Provider: Kulwinder Bonilla Attending Provider: Kulwinder Bonilla Other Providers: [facility],Agency ; [employer] ; Harsha Espinoza MD ; Luisito Cook MD ; Anusha Allen DO ; [facility],Agency
[2018-01-31 16:38] VITALS: BP 100/45; PULSE 69; TEMP 97.8; O2SAT 97
== END 2018-01-31 17:12 ==
LOC: NEPE 21:59 → NEDA 01-22 01:15 → INTOOBSV 01-22 01:15 → NEPGCP 01-22 07:33 → N05 01-22 15:03
PROVIDERS: ADMIT Family Medicine; ATTEND Family Medicine

== ENCOUNTER 2018-02-13 19:55 | Inpatient (IN) ==
--- NOTE | 2018-02-13 20:40 | ED ---
HPI General Chief Complaint: Weakness Stated Complaint: Medical Time Seen by Provider: 02/13/18 20:18 Source: patient Mode of arrival: ambulatory Limitations: no limitations History of Present Illness HPI narrative: 82-year-old female presents to the emergency department from [facility] for evaluation of "swelling" and abnormal kidney function. Patient says that she has noticed swelling of her bilateral upper and lower extremities for several days. She denies pain however. She denies fever, chills, chest pain, shortness of breath, abdominal pain, leg pain. She states that she has been eating and drinking normally. Says she follows a motorcycle repair shop supervisor but does not know the name. After a quick review of her record, there is note that and, SWIMMING [employer] SERVICEPERSON for Dr. Bonilla advise she come in for evaluation of elevated BUN/creatinine. Related Data Home Medications Medication Instructions Recorded Confirmed acetaminophen [Tylenol] 325 mg PO Q6H PRN 01/10/18 02/13/18 aspirin [Aspirin Low Dose] 81 mg PO DAILY 01/10/18 02/13/18 atorvastatin 40 mg PO DAILY 01/10/18 02/13/18 calcitriol 0.25 mcg PO Q OTHER DAY 01/10/18 02/13/18 carvedilol 12.5 mg PO BID 01/10/18 02/13/18 ciclopirox 1 applic TOPICAL BID 01/10/18 02/13/18 gabapentin 300 mg PO QPM 01/10/18 02/13/18 insulin glargine [Lantus U-100 10 unit SUB-Q HS 01/10/18 02/13/18 Insulin] insulin lispro [Humalog KwikPen 100 unit SUB-Q DAILY 01/10/18 02/13/18 Insulin] levothyroxine 25 mcg PO DAILY 01/10/18 02/13/18 rivaroxaban [Xarelto] 15 mg PO DAILY 01/10/18 02/13/18 omeprazole magnesium 40 mg PO DAILY 02/13/18 02/13/18 Previous Rx's Medication Instructions Recorded bumetanide 2 mg PO BID #60 tab 01/31/18 Allergies Allergy/AdvReac Type Severity Reaction Status Date / Time amoxicillin Allergy Rash Verified 01/21/18 23:42 methylprednisolone Allergy Itching Verified 01/21/18 23:42 lisinopril AdvReac Cough Verified 01/21/18 23:42 MRI PRECAUTION AdvReac Severe PACEMAKER Uncoded 01/21/18 23:42 (RV) 02/08/10 Review of Systems ROS: all other systems reviewed are negative PMFSH History History Provided By: Patient and Medical Record Medical History Medical History Anemia (Acute) Atherosclerosis of aorta (Acute) CHF (congestive heart failure) (Acute) CVA (cerebral vascular accident) (Acute) Cardiac defibrillator in place (Acute) Cardiomyopathy (Acute) Cervicalgia (Acute) Chronic kidney disease (Acute) Depression (Acute) Diabetes (Acute) GERD (gastroesophageal reflux disease) (Acute) Gastroenteritis (Acute) HTN (hypertension) (Acute) Hemiplegia affecting dominant side, post-stroke (Acute) History of implantable cardiac defibrillator (ICD) (Acute) Hyperlipidemia (Acute) Hypoglycemia (Acute) Hypothyroid (Acute) Left ventricular failure (Acute) Morbid obesity (Acute) Myocardial infarct, old (Acute) Other cervical disc degeneration, unspecified cervical region (Acute) Peripheral neuropathy (Acute) Social History Social History Substance History: No History of Abuse Second Hand Smoke Exposure: No Smoking Status: Never smoker Tobacco Type: Cigarettes How Often Do You Have a Drink Containing Alcohol: Never Exam Narrative Exam Narrative: GENERAL: Well-developed, well-nourished in no acute distress SKIN: Focused skin assessment warm/dry. HEAD: Atraumatic. Normocephalic. EYES: Pupils equal and round. No scleral icterus. No injection or drainage. ENT: No nasal bleeding or discharge. Mucous membranes pink and moist. NECK: Trachea midline. No JVD. No lymphadenopathy CARDIOVASCULAR: Regular rate and rhythm. No murmur appreciated. RESPIRATORY: No accessory muscle use. Clear to auscultation. Breath sounds equal bilaterally. GASTROINTESTINAL: Abdomen soft, non-tender, nondistended. Hepatic and splenic margins not palpable. Redundant skin tissue, edema noted +1 pitting edema MUSCULOSKELETAL: No obvious deformities. No clubbing. No cyanosis. +2 pitting edema noted from the bilateral upper extremities distal to the elbows. +2 pitting edema from the distal knee. Sensation intact to light touch. NEUROLOGICAL: Awake and alert. No obvious cranial nerve deficits. Motor grossly within normal limits. Normal speech. PSYCHIATRIC: Appropriate mood and affect; insight and judgment normal. Course Initial Documented Vital Signs Pulse Rate 75 02/13/18 22:17 Respiratory Rate 19 02/13/18 22:17 Blood Pressure 128/60 02/13/18 22:17 Pulse Oximetry 96 02/13/18 22:17 Last Documented Vital Signs Temperature 97.7 F 02/14/18 12:00 Pulse Rate 72 02/14/18 12:00 Respiratory Rate 16 02/14/18 12:00 Blood Pressure 114/55 L 02/14/18 12:00 Pulse Oximetry 93 L 02/14/18 12:00 Medical Decision Making MDM Narrative Medical decision making narrative: 82-year-old female presents to the emergency department for evaluation of diffuse swelling. According to notes, there is mention of elevated BUN/creatinine. Patient has no complaints of pain shortness of breath, numbness, tingling. She has no complaints other than the swelling of her bilateral upper and lower extremities. She states this is abnormal for her. The nurse Xena tried to contact the facility but did not provide much more information other than what was on the paperwork today. Labs were ordered for evaluation based off of history and physical. Vital signs are stable. Labs notable for WBC 8.3, H/H 8.2/25.7 (decreased from 9.1/27.2), BUN/Cr 114/ 3.82 (increased from 114/3.82), BNP 2291 (stable), Albumin 2.3, Mg 2.9 Performed rectal exam to evaluate for worsening anemia. Stool black, heme positive. Stool at rectum. I discussed the current situation and patient's status with the family in the room. Stefanie, daughter was able top provide more information regarding this patient. They state that patient did not have a good experience during her last visit just 2 weeks ago. They reference the timeliness of consults while in the hospital. She stated that Dr. Schroeder wanted her to come back to the emergency department if she had increased fluid retention. She also states that patient had diverticulitis previously. Dr. Mendez, her motorcycle repair shop supervisor was due to put patient on dialysis however, her kidney function improved and no longer require dialysis. She states that patient is a full code and is not currently on hospice. She says that hospice was a discussion because of her kidney function however, they were due to meet tomorrow. Pt admitted to Dr. Bonilla. Medical Screen Exam Complete: Yes Emergency Medical Condition: Yes Differential Diagnosis Differential Diagnosis: Anasarca, acute kidney injury, CHF, acute kidney failure Medical Records Medical records reviewed: Yes I reviewed the patient's medical records. Patient presented to the emergency department 01/22/2018 for elevation of BUN and creatinine along with altered mental status. Patient was found to have a urinary tract infection and admitted for urinary tract infection and acute renal failure. She was admitted where she had an echocardiogram and followed by cardiology and nephrology. Patient Xarelto and Coumadin were stopped as there was no clear history of atrial fibrillation. There was mention lower extremity edema at that time as well. She has a history of hyponatremia. History includes CHF EF 25-30% by echo 01/24/2018, A fib, DM with CKD III, HTN, nonischemic cardiomyopathy s/p defibrillator placement (2007) Heart cath in 2007 with mild to moderate three-vessel coronary artery disease. CVA 2005 Lab Data Result diagrams: 02/14/18 05:39 02/14/18 05:39 Lab Results 02/13/18 02/13/18 02/13/18 Range/Units 21:40 21:40 21:40 WBC 8.3 (4.0-11.0) th/mm3 RBC 2.76 L (4.00-5.30) mil/mm3 Hgb 8.2 L (11.6-15.3) gm/dL Hct 25.7 L (35.0-46.0) % MCV 93.1 (80.0-100.0) fL MCH 29.8 (27.0-34.0) pg MCHC 32.0 (32.0-36.0) % RDW 17.9 H (11.6-17.2) % Plt Count 309 (150-450) th/mm3 MPV 6.7 L (7.0-11.0) fL Neut % (Auto) 53.2 (16.0-70.0) % Lymph % (Auto) 19.9 (9.0-44.0) % [place] % (Auto) 12.4 H (0.0-8.0) % Eos % (Auto) 12.3 H (0.0-4.0) % Baso % (Auto) 2.2 H (0.0-2.0) % Neut # (Auto) 4.4 (1.8-7.7) th/mm3 Lymph # (Auto) 1.6 (1.0-4.8) th/mm3 [place] # (Auto) 1.0 H (0.0-0.9) th/mm3 Eos # (Auto) 1.0 H (0.0-0.4) th/mm3 Baso # (Auto) 0.2 (0.0-0.2) th/mm3 WBC Differential . Differential Comment Auto diff final PT 12.3 H (9.8-11.6) sec INR 1.2 Ratio Sodium (136-145) meq/L Potassium (3.5-5.1) meq/L Chloride (98-107) meq/L Carbon Dioxide (21.0-32.0) meq/L Anion Gap (5-15) meq/L BUN (7-18) mg/dL Creatinine (0.50-1.00) mg/dL Estimated GFR (>89) mL/min POC Glucose (68-110) mg/dl Random Glucose (74-106) mg/dL Calcium (8.5-10.1) mg/dL Magnesium (1.5-2.5) mg/dL Total Bilirubin (0.2-1.0) mg/dL AST (15-37) U/L ALT (10-53) U/L Alkaline Phosphatase (45-117) U/L B-Natriuretic Peptide 2291 H (0-100) pg/mL Total Protein (6.4-8.2) g/dL Albumin (3.4-5.0) g/dL Urine Color (Yellw/Straw) Urine Clarity (Clear) Urine pH (5.0-8.5) Ur Specific [place] (1.002-1.035) Urine Protein (Neg-Trace) mg/dL Urine Glucose (UA) (Negative) mg/dL Urine Ketones (Negative) mg/dL Urine Occult Blood (Negative) Urine Nitrate (Negative) Urine Bilirubin (Negative) Urine Urobilinogen (Less than 2) mg/dL Ur Leukocyte Esterase (Negative) Urine RBC (0-3) /hpf Urine WBC (0-5) /hpf Ur Squamous Epith Cells (0-5) /hpf Urine Bacteria (None) /hpf Micro UA Comment Ur Microscopic Review Urine Culture Comments 02/13/18 02/14/18 02/14/18 Range/Units 21:40 05:39 05:39 WBC 8.8 (4.0-11.0) th/mm3 RBC 2.88 L (4.00-5.30) mil/mm3 Hgb 8.9 L (11.6-15.3) gm/dL Hct 26.6 L (35.0-46.0) % MCV 92.2 (80.0-100.0) fL MCH 30.9 (27.0-34.0) pg MCHC 33.5 (32.0-36.0) % RDW 18.5 H (11.6-17.2) % Plt Count 321 (150-450) th/mm3 MPV 6.8 L (7.0-11.0) fL Neut % (Auto) 60.6 (16.0-70.0) % Lymph % (Auto) 15.4 (9.0-44.0) % [place] % (Auto) 12.1 H (0.0-8.0) % Eos % (Auto) 10.6 H (0.0-4.0) % Baso % (Auto) 1.3 (0.0-2.0) % Neut # (Auto) 5.3 (1.8-7.7) th/mm3 Lymph # (Auto) 1.3 (1.0-4.8) th/mm3 [place] # (Auto) 1.1 H (0.0-0.9) th/mm3 Eos # (Auto) 0.9 H (0.0-0.4) th/mm3 Baso # (Auto) 0.1 (0.0-0.2) th/mm3 WBC Differential . Differential Comment Auto diff final PT (9.8-11.6) sec INR Ratio Sodium 133 L 134 L (136-145) meq/L Potassium 4.9 4.8 (3.5-5.1) meq/L Chloride 98 98 (98-107) meq/L Carbon Dioxide 23.9 24.1 (21.0-32.0) meq/L Anion Gap 11 12 (5-15) meq/L BUN 114 H 114 H (7-18) mg/dL Creatinine 3.82 H 3.61 H (0.50-1.00) mg/dL Estimated GFR 14 L 15 L (>89) mL/min POC Glucose (68-110) mg/dl Random Glucose 147 H 130 H (74-106) mg/dL Calcium 8.3 L 8.7 (8.5-10.1) mg/dL Magnesium 2.9 H (1.5-2.5) mg/dL Total Bilirubin 0.4 (0.2-1.0) mg/dL AST 11 L (15-37) U/L ALT 11 (10-53) U/L Alkaline Phosphatase 100 (45-117) U/L B-Natriuretic Peptide (0-100) pg/mL Total Protein 6.4 (6.4-8.2) g/dL Albumin 2.3 L (3.4-5.0) g/dL Urine Color (Yellw/Straw) Urine Clarity (Clear) Urine pH (5.0-8.5) Ur Specific [place] (1.002-1.035) Urine Protein (Neg-Trace) mg/dL Urine Glucose (UA) (Negative) mg/dL Urine Ketones (Negative) mg/dL Urine Occult Blood (Negative) Urine Nitrate (Negative) Urine Bilirubin (Negative) Urine Urobilinogen (Less than 2) mg/dL Ur Leukocyte Esterase (Negative) Urine RBC (0-3) /hpf Urine WBC (0-5) /hpf Ur Squamous Epith Cells (0-5) /hpf Urine Bacteria (None) /hpf Micro UA Comment Ur Microscopic Review Urine Culture Comments 02/14/18 02/14/18 Range/Units 06:41 08:20 WBC (4.0-11.0) th/mm3 RBC (4.00-5.30) mil/mm3 Hgb (11.6-15.3) gm/dL Hct (35.0-46.0) % MCV (80.0-100.0) fL MCH (27.0-34.0) pg MCHC (32.0-36.0) % RDW (11.6-17.2) % Plt Count (150-450) th/mm3 MPV (7.0-11.0) fL Neut % (Auto) (16.0-70.0) % Lymph % (Auto) (9.0-44.0) % [place] % (Auto) (0.0-8.0) % Eos % (Auto) (0.0-4.0) % Baso % (Auto) (0.0-2.0) % Neut # (Auto) (1.8-7.7) th/mm3 Lymph # (Auto) (1.0-4.8) th/mm3 [place] # (Auto) (0.0-0.9) th/mm3 Eos # (Auto) (0.0-0.4) th/mm3 Baso # (Auto) (0.0-0.2) th/mm3 WBC Differential Differential Comment PT (9.8-11.6) sec INR Ratio Sodium (136-145) meq/L Potassium (3.5-5.1) meq/L Chloride (98-107) meq/L Carbon Dioxide (21.0-32.0) meq/L Anion Gap (5-15) meq/L BUN (7-18) mg/dL Creatinine (0.50-1.00) mg/dL Estimated GFR (>89) mL/min POC Glucose 164 H (68-110) mg/dl Random Glucose (74-106) mg/dL Calcium (8.5-10.1) mg/dL Magnesium (1.5-2.5) mg/dL Total Bilirubin (0.2-1.0) mg/dL AST (15-37) U/L ALT (10-53) U/L Alkaline Phosphatase (45-117) U/L B-Natriuretic Peptide (0-100) pg/mL Total Protein (6.4-8.2) g/dL Albumin (3.4-5.0) g/dL Urine Color Yellow (Yellw/Straw) Urine Clarity Cloudy H (Clear) Urine pH 5.0 (5.0-8.5) Ur Specific [place] 1.013 (1.002-1.035) Urine Protein Negative (Neg-Trace) mg/dL Urine Glucose (UA) Negative (Negative) mg/dL Urine Ketones Negative (Negative) mg/dL Urine Occult Blood Negative (Negative) Urine Nitrate Negative (Negative) Urine Bilirubin Negative (Negative) Urine Urobilinogen Less than 2 (Less than 2) mg/dL Ur Leukocyte Esterase Large H (Negative) Urine RBC 4 H (0-3) /hpf Urine WBC 119 H (0-5) /hpf Ur Squamous Epith Cells 2 (0-5) /hpf Urine Bacteria Few H (None) /hpf Micro UA Comment Culture indicated Ur Microscopic Review Not Reportable Urine Culture Comments Culture indicated Discharge Plan Discharge Disposition Patient Disposition: 30 Still Patient Discharge Condition Condition: Stable Discharge Details Diagnosis: Anemia, Anasarca associated with disorder of kidney, Melena Physicians Team ED Provider: Stefanie Reynolds ED Midlevel Provider: Cristiane Amaral Primary Care Provider: Kulwinder Bonilla Attending Provider: Kulwinder Bonilla Other Providers: Jeremi Domingo ; Angel Dowell ; Ramiro Rubio Status ED Status: Left Department Discharge Information Discharge Date/Time: 02/14/18 01:24
[2018-02-13 21:51] LABS: Baso # (Auto) 0.2 th/mm3 (0.0-0.2); Baso % (Auto) 2.2 % (0.0-2.0); Eos % (Auto) 12.3 % (0.0-4.0); Hematocrit 25.7 % (35.0-46.0); Hemoglobin 8.2 gm/dL (11.6-15.3); Lymph # (Auto) 1.6 th/mm3 (1.0-4.8); Lymph % (Auto) 19.9 % (9.0-44.0); Mean Corpuscular Hemoglobin 29.8 pg (27.0-34.0); Mean Corpuscular Volume 93.1 fL (80.0-100.0); Mean Platelet Volume 6.7 fL (7.0-11.0); Mono % (Auto) 12.4 % (0.0-8.0); Neut # (Auto) 4.4 th/mm3 (1.8-7.7); Neut % (Auto) 53.2 % (16.0-70.0); Platelet Count 309 th/mm3 (150-450); Red Blood Count 2.76 mil/mm3 (4.00-5.30); Red Cell Distribution Width 17.9 % (11.6-17.2); White Blood Count 8.3 th/mm3 (4.0-11.0)
[2018-02-13 21:58] LABS: INR 1.2 Ratio; Prothrombin Time 12.3 sec (9.8-11.6)
[2018-02-13 22:15] LABS: Alanine Aminotransferase 11 U/L (10-53)
[2018-02-13 22:17] LABS: Alkaline Phosphatase 100 U/L (45-117); Total Protein 6.4 g/dL (6.4-8.2)
[2018-02-13 22:23] LABS: Albumin 2.3 g/dL (3.4-5.0); Anion Gap 11 meq/L (5-15); Aspartate Aminotransferase 11 U/L (15-37); Blood Urea Nitrogen 114 mg/dL (7-18); Calcium 8.3 mg/dL (8.5-10.1); Carbon Dioxide 23.9 meq/L (21.0-32.0); Chloride 98 meq/L (98-107); Glomerular Filtration Rate 14 mL/min (>89); Glucose,Random 147 mg/dL (74-106); Magnesium 2.9 mg/dL (1.5-2.5); Potassium 4.9 meq/L (3.5-5.1); Sodium 133 meq/L (136-145)
[2018-02-13] MEDS ORDERED: Morphine Sulfate Inj 2 MG/ML Vial IV.PUSH ONE (22:52)
[2018-02-13] MEDS ORDERED: Bisacodyl 10 MG Supp RECTAL PRN (23:25)
[2018-02-14 07:07] LABS: Calcium 8.7 mg/dL (8.5-10.1); Carbon Dioxide 24.1 meq/L (21.0-32.0); Potassium 4.8 meq/L (3.5-5.1)
[2018-02-14 07:12] LABS: Baso # (Auto) 0.1 th/mm3 (0.0-0.2); Baso % (Auto) 1.3 % (0.0-2.0); Eos # (Auto) 0.9 th/mm3 (0.0-0.4); Eos % (Auto) 10.6 % (0.0-4.0); Hematocrit 26.6 % (35.0-46.0); Hemoglobin 8.9 gm/dL (11.6-15.3); Lymph # (Auto) 1.3 th/mm3 (1.0-4.8); Lymph % (Auto) 15.4 % (9.0-44.0); Mean Corpuscular HGB Conc 33.5 % (32.0-36.0); Mean Corpuscular Hemoglobin 30.9 pg (27.0-34.0); Mean Corpuscular Volume 92.2 fL (80.0-100.0); Mean Platelet Volume 6.8 fL (7.0-11.0); Mono # (Auto) 1.1 th/mm3 (0.0-0.9); Mono % (Auto) 12.1 % (0.0-8.0); Neut # (Auto) 5.3 th/mm3 (1.8-7.7); Neut % (Auto) 60.6 % (16.0-70.0); Platelet Count 321 th/mm3 (150-450); Red Blood Count 2.88 mil/mm3 (4.00-5.30); Red Cell Distribution Width 18.5 % (11.6-17.2); White Blood Count 8.8 th/mm3 (4.0-11.0)
[2018-02-14] MEDS: Carvedilol 12.5 MG Tablet PO SCH ×2 (08:21→21:11)
[2018-02-14] MEDS: Senna/Docusate Sodium 8.6/50 MG Tablet PO SCH ×2 (08:21→21:10)
[2018-02-14] MEDS ORDERED: CICLOPIROX 0.77% TOPICAL SCH (09:00)
[2018-02-14 09:03] LABS: Bacteria,Urine Few /hpf; Bilirubin,Urine Negative (Negative); Clarity,Urine Cloudy (Clear); Color,Urine Yellow (Yellw/Straw); Glucose,Urine (UA) Negative (Negative); Leukocyte Esterase,Urine Large (Negative); Nitrite,Urine Negative (Negative); Specific Gravity,Urine 1.013 (1.002-1.035); Squamous Epithelial Cell,Urine 2 /hpf (0-5)
--- NOTE | 2018-02-14 09:03 | P.HPFP ---
History of Present Illness Primary Care Physician: Kulwinder Bonilla DO History of Present Illness: 82 year old female with history of CHF EF 25-30% by echo 01/24/2018, A fib, DM with CKD III, HTN, nonischemic cardiomyopathy s/p defibrillator placement (2007 ) sent from senior care for increased swelling and worsening renal functions. She is stage 4 kidney disease followed by renal. Recently was in hospital for worsening kidney disease and ams, dialysis was discussed but was never started. She is found to be anemic and have positive Hemoccult stool. - Diagnosis (1) Anemia (2) Anasarca associated with disorder of kidney (3) CHF (congestive heart failure) (4) Diabetes (5) Acute worsening of stage 4 chronic kidney disease Inpatient Certification: I certify that the inpatient services were ordered in accordance with Medicare regulations governing the order. This includes certification that hospital inpatient services are reasonable and necessary and in the case of services not specified as inpatient-only under 42 CFR 419.22(n), that they are appropriately provided as inpatient services in accordance to with the 2-midnight benchmark under 43 CFR 412.3(e) Estimated Total Length of Stay (Days): 3 Plans for Post Hospital Care: SNF Review of Systems other ( unable to obtain, very sleepy) FOR[facility]LY [facility], [facility] - History History Provided By: Family Member - Medical History Medical History: Medical History (Last Reviewed 02/13/18 @ 21:18 by LELE Gill) Anemia Atherosclerosis of aorta CHF (congestive heart failure) CVA (cerebral vascular accident) Cardiac defibrillator in place Cardiomyopathy Cervicalgia Chronic kidney disease Depression Diabetes GERD (gastroesophageal reflux disease) Gastroenteritis HTN (hypertension) Hemiplegia affecting dominant side, post-stroke History of implantable cardiac defibrillator (ICD) Hyperlipidemia Hypoglycemia Hypothyroid Left ventricular failure Morbid obesity Myocardial infarct, old Other cervical disc degeneration, unspecified cervical region Peripheral neuropathy - Surgical History Surgical History: Surgical History (Last Reviewed 01/31/18 @ 16:34 by Lucie Mendoza) History of neck surgery - Tobacco History Second Hand Smoke Exposure: No Tobacco Use In Past 30 Days: No Smoking Status: Never smoker Tobacco Type: Cigarettes - Alcohol History How Often Do You Have a Drink Containing Alcohol: Never - Substance Use History Substance History: No History of Abuse - Immunization History Tetanus Immunization: Unsure Hx Influenza Vaccine This Season: No Medications and Allergies Active Medications: Active Medications Al Hydroxide/Mg Hydroxide (Milk Of Magnlyssa Liq) 30 ml PO Q12H PRN PRN Reason: Mild Constipation Atorvastatin Calcium (Lipitor) 40 mg PO DAILY [facility] Last Admin: 02/14/18 08:21 Dose: 40 mg Bisacodyl (Dulcolax Supp) 10 mg RECTAL DAILY PRN PRN Reason: SEVERE CONSITIPATION Bumetanide (Bumex) 2 mg PO BID [facility] Last Admin: 02/14/18 08:21 Dose: 2 mg Calcitriol (Rocaltrol) 0.25 mcg PO EVERY OTHER DAY [facility] Carvedilol (Coreg) 12.5 mg PO BID [facility] Last Admin: 02/14/18 08:21 Dose: 12.5 mg Lactulose (Lactulose Liq) 30 ml PO DAILY PRN PRN Reason: SEVERE CONSITIPATION Patient Own Med- Ciclopirox 0.77% Cream 0 each TOPICAL BID [facility] Senna/Docusate Sodium (Conchis-Colace) 1 tab PO BID [facility] Last Admin: 02/14/18 08:21 Dose: 1 tab Sennosides (Senokot) 17.2 mg PO Q12H PRN PRN Reason: Moderate Constipation Sodium Chloride (Ns Flush) 2 ml IV.FLUSH PRN PRN PRN Reason: FLUSH AFTER USING IV ACCESS Allergies Allergy/AdvReac Type Severity Reaction Status Date / Time amoxicillin Allergy Rash Verified 01/21/18 23:42 methylprednisolone Allergy Itching Verified 01/21/18 23:42 lisinopril AdvReac Cough Verified 01/21/18 23:42 MRI PRECAUTION AdvReac Severe PACEMAKER Uncoded 01/21/18 23:42 (RV) 02/08/10 Home Medications Medication Instructions Recorded Confirmed Type acetaminophen [Tylenol] 325 mg PO Q6H PRN 01/10/18 02/13/18 History aspirin [Aspirin Low Dose] 81 mg PO DAILY 01/10/18 02/13/18 History atorvastatin 40 mg PO DAILY 01/10/18 02/13/18 History calcitriol 0.25 mcg PO Q OTHER DAY 01/10/18 02/13/18 History carvedilol 12.5 mg PO BID 01/10/18 02/13/18 History ciclopirox 1 applic TOPICAL BID 01/10/18 02/13/18 History gabapentin 300 mg PO QPM 01/10/18 02/13/18 History insulin glargine [Lantus U-100 10 unit SUB-Q HS 01/10/18 02/13/18 History Insulin] insulin lispro [Humalog KwikPen 100 unit SUB-Q DAILY 01/10/18 02/13/18 History Insulin] levothyroxine 25 mcg PO DAILY 01/10/18 02/13/18 History rivaroxaban [Xarelto] 15 mg PO DAILY 01/10/18 02/13/18 History omeprazole magnesium 40 mg PO DAILY 02/13/18 02/13/18 History Exam Vital signs: Vital Signs 02/13/18 22:17 02/13/18 23:56 02/14/18 02:00 Temperature Pulse Rate 75 70 Respiratory Rate 19 18 19 Blood Pressure 128/60 127/60 Pulse Oximetry 96 96 02/14/18 02:10 02/14/18 04:00 02/14/18 08:00 Temperature 97.3 F L 97.5 F L Pulse Rate 74 77 Respiratory Rate 19 16 16 Blood Pressure 142/61 H 141/61 H Pulse Oximetry 94 L 95 Intake & Output 02/13/18 02/14/18 02/14/18 18:59 06:59 18:59 Weight 121.6 kg Other: # Incontinent Voids 1 Date of Last Bowel Movement 02/14/18 # Incontinent Bowel Movements 1 Weight On Admission 121.6 kg - Constitutional no acute distress - Routine HEENT Exam Eye: Present: PERRL ENT: Present: mucous membranes moist - Routine Neck Exam Present: supple - Routine Respiratory Exam Present: decreased breath sounds - Routine Cardiovascular Exam Present: S1, S2 - Routine Abdominal Exam Present: soft, normoactive bowel sounds, tenderness - Routine Extremities Exam Present: edema - Routine Skin Exam Present: dry, warm - Routine Neurological Exam Present: alert Results - Labs Result diagrams: 02/14/18 05:39 02/14/18 05:39 Abnormal lab results 02/13/18 02/13/18 02/13/18 Range/Units 21:40 21:40 21:40 RBC 2.76 L (4.00-5.30) mil/mm3 Hgb 8.2 L (11.6-15.3) gm/dL Hct 25.7 L (35.0-46.0) % RDW 17.9 H (11.6-17.2) % MPV 6.7 L (7.0-11.0) fL Nobles % (Auto) 12.4 H (0.0-8.0) % Eos % (Auto) 12.3 H (0.0-4.0) % Baso % (Auto) 2.2 H (0.0-2.0) % Nobles # (Auto) 1.0 H (0.0-0.9) th/mm3 Eos # (Auto) 1.0 H (0.0-0.4) th/mm3 PT 12.3 H (9.8-11.6) sec Sodium (136-145) meq/L BUN (7-18) mg/dL Creatinine (0.50-1.00) mg/dL Estimated GFR (>89) mL/min POC Glucose (68-110) mg/dl Random Glucose (74-106) mg/dL Calcium (8.5-10.1) mg/dL Magnesium (1.5-2.5) mg/dL AST (15-37) U/L B-Natriuretic Peptide 2291 H (0-100) pg/mL Albumin (3.4-5.0) g/dL 02/13/18 02/14/18 02/14/18 Range/Units 21:40 05:39 05:39 RBC 2.88 L (4.00-5.30) mil/mm3 Hgb 8.9 L (11.6-15.3) gm/dL Hct 26.6 L (35.0-46.0) % RDW 18.5 H (11.6-17.2) % MPV 6.8 L (7.0-11.0) fL Nobles % (Auto) 12.1 H (0.0-8.0) % Eos % (Auto) 10.6 H (0.0-4.0) % Baso % (Auto) (0.0-2.0) % Nobles # (Auto) 1.1 H (0.0-0.9) th/mm3 Eos # (Auto) 0.9 H (0.0-0.4) th/mm3 PT (9.8-11.6) sec Sodium 133 L 134 L (136-145) meq/L BUN 114 H 114 H (7-18) mg/dL Creatinine 3.82 H 3.61 H (0.50-1.00) mg/dL Estimated GFR 14 L 15 L (>89) mL/min POC Glucose (68-110) mg/dl Random Glucose 147 H 130 H (74-106) mg/dL Calcium 8.3 L (8.5-10.1) mg/dL Magnesium 2.9 H (1.5-2.5) mg/dL AST 11 L (15-37) U/L B-Natriuretic Peptide (0-100) pg/mL Albumin 2.3 L (3.4-5.0) g/dL 02/14/18 Range/Units 06:41 RBC (4.00-5.30) mil/mm3 Hgb (11.6-15.3) gm/dL Hct (35.0-46.0) % RDW (11.6-17.2) % MPV (7.0-11.0) fL Nobles % (Auto) (0.0-8.0) % Eos % (Auto) (0.0-4.0) % Baso % (Auto) (0.0-2.0) % Nobles # (Auto) (0.0-0.9) th/mm3 Eos # (Auto) (0.0-0.4) th/mm3 PT (9.8-11.6) sec Sodium (136-145) meq/L BUN (7-18) mg/dL Creatinine (0.50-1.00) mg/dL Estimated GFR (>89) mL/min POC Glucose 164 H (68-110) mg/dl Random Glucose (74-106) mg/dL Calcium (8.5-10.1) mg/dL Magnesium (1.5-2.5) mg/dL AST (15-37) U/L B-Natriuretic Peptide (0-100) pg/mL Albumin (3.4-5.0) g/dL Short CBC 02/13/18 02/14/18 Range/Units 21:40 05:39 WBC 8.3 8.8 (4.0-11.0) th/mm3 Hgb 8.2 L 8.9 L (11.6-15.3) gm/dL Hct 25.7 L 26.6 L (35.0-46.0) % Plt Count 309 321 (150-450) th/mm3 BMP 02/13/18 02/14/18 21:40 05:39 Sodium 133 L 134 L Potassium 4.9 4.8 Chloride 98 98 Carbon Dioxide 23.9 24.1 BUN 114 H 114 H Creatinine 3.82 H 3.61 H Calcium 8.3 L 8.7 Liver Function 02/13/18 Range/Units 21:40 Total Bilirubin 0.4 (0.2-1.0) mg/dL AST 11 L (15-37) U/L ALT 11 (10-53) U/L Alkaline Phosphatase 100 (45-117) U/L Albumin 2.3 L (3.4-5.0) g/dL Caprini VTE Risk Assessment VTE Pharmacological Exception Reason: Active bleeding (Positive hemoccult) Caprini Risk Assessment Model: Point Value = 1 Point Value = 2 Point Value = 3 Point Value = 5 Age 41-60 Minor surgery BMI > 25 kg/m2 Swollen legs Varicose veins or History of unexplained or recurrent spontaneous Oral contraceptives or hormone replacement Sepsis (< 1 month) Serious lung disease, including pneumonia (< 1 month) Abnormal pulmonary function Acute myocardial infarction Congestive heart failure (< 1 month) History of inflammatory bowel disease Medical patient at bed rest Age 61-74 Arthroscopic surgery Major open surgery (> 45 min) Laparoscopic surgery (> 45 min) Malignancy Confined to bed (> 72 hours) Immobilizing plaster cast Central venous access Age >= 75 History of VTE Family history of VTE Factor V Leiden Prothrombin [id number] Lupus anticoagulant Anticardiolipin antibodies Elevated serum homocysteine Heparin-induced thrombocytopenia Other congenital or acquired thrombophilia Stroke (< 1 month) Elective arthroplasty Hip, pelvis, or leg fracture Acute spinal cord injury (< 1 month) Prophylaxis Regimen: Total Risk Factor Score Risk Level Prophylaxis Regimen 0-1 Low Early ambulation 2 Moderate Order ONE of the following: *Sequential Compression Device (SCD) *Heparin 5000 units SQ BID 3-4 Higher Order ONE of the following medications: *Heparin 5000 units SQ TID *Enoxaparin/Lovenox 40 mg SQ daily (WT < 150 kg, CrCl > 30 mL/min) *Enoxaparin/Lovenox 30 mg SQ daily (WT < 150 kg, CrCl > 10-29 mL/min) *Enoxaparin/Lovenox 30 mg SQ BID (WT < 150 kg, CrCl > 30 mL/min) AND/OR *Sequential Compression Device (SCD) 5 or more Highest Order ONE of the following medications: *Heparin 5000 units SQ TID (Preferred with Epidurals) *Enoxaparin/Lovenox 40 mg SQ daily (WT < 150 kg, CrCl > 30 mL/min) *Enoxaparin/Lovenox 30 mg SQ daily (WT < 150 kg, CrCl > 10-29 mL/min) *Enoxaparin/Lovenox 30 mg SQ BID (WT < 150 kg, CrCl > 30 mL/min) AND *Sequential Compression Device (SCD) Assessment and Plan - Assessment (1) Anemia Code(s): D64.9 - Anemia, unspecified Status: Acute Plan: Monitor cbc, trends, positive Hemoccult GI consult pending (2) Anasarca associated with disorder of kidney Code(s): N04.9 - Nephrotic syndrome with unspecified morphologic changes Status: Acute (3) CHF (congestive heart failure) Code(s): I50.9 - Heart failure, unspecified Status: Acute Plan: Stable, cont home medications (4) Diabetes Code(s): E11.9 - Type 2 diabetes mellitus without complications Status: Acute Plan: Monitor BS, SC coverage (5) Acute worsening of stage 4 chronic kidney disease Code(s): N28.9 - Disorder of kidney and ureter, unspecified; N18.4 - Chronic kidney disease, stage 4 (severe) Status: Acute Plan: Renal consulted Dialysis? H&P: Quality - VTE Deep Vein Thrombosis/Pulmonary Embolism Present on Admission: No
--- NOTE | 2018-02-14 11:17 | MB ---
cc: Macey French MD DATE: 02/14/2018 SERVICE: GI ATTENDING PHYSICIAN: Dr. Macey French. REFERRING PHYSICIAN: Dr. Kulwinder Bonilla REASON FOR CONSULTATION: Anemia and heme-positive stool. HISTORY OF PRESENT ILLNESS: This is a very pleasant 82-year-old female who is a resident of a [facility]. She has had a longstanding history of anemia, who currently is a resident of [facility]. She was there having complaints of worsening abdominal swelling and lower extremity swelling as well as abnormal kidney function and according to the family, she has generally not been doing well and therefore she was brought in for further workup and evaluation. She was actually recently hospitalized in December for similar issues along with anemia. She was evaluated for the anemia. In the ER, she underwent a rectal examination, which was noted to be heme positive stools and she was noted to have anemia. GI was consulted for further workup and evaluation. In review of the chart, she was recently here in December of this month with similar issues and was evaluated by [facility] and underwent a complete colonoscopy, which was noted to have moderate diverticulosis, several colon polyps which were removed as well as internal hemorrhoids found on retroflexion. No clear obstructive masses or any pathology was noted. It appears she has a longstanding history of chronic kidney disease as well as the above-mentioned anemia. She has stage IV kidney disease. In review of the older chart, it appears she has been evaluated by Hematology for the chronic anemia and some iron overload. At that time, it appears the suspicion was that her anemia may be secondary to a mixed picture of metabolic syndrome along with anemia of chronic disease. A lot of her apparent symptoms were secondary to increased fluid retention. Initially, there was some talk of having her undergo dialysis, but her function has slightly improved and therefore, this was not urgently needed. PAST MEDICAL HISTORY: Includes stage IV chronic kidney disease, chronic anemia, nonischemic cardiomyopathy with an ejection fraction of 25%-30%, hypertension, diabetes mellitus, atrial fibrillation, history of cerebrovascular accident. PAST SURGICAL HISTORY: Defibrillator placement, history of neck surgery. ALLERGIES: AMOXICILLIN, METHYLPREDNISOLONE, LISINOPRIL. FAMILY HISTORY: No GI malignancies. SOCIAL HISTORY: No tobacco, alcohol or illicit drug use. REVIEW OF SYSTEMS: A 12-point review of system was obtained and is negative or noncontributory except as mentioned in the HPI. MEDICATION LIST: Please see MAR for complete and accurate list. PHYSICAL EXAMINATION: VITAL SIGNS: Temperature 97.3 and 76, 16, 142/61, 94% on room air. GENERAL: Alert, oriented, in no acute distress. Answers questions slowly, but is able to answer them appropriately. HEENT: Pupils equal, round, reactive to light. Atraumatic, normocephalic. Oral mucosa is moist and pink. NECK: Supple, nontender. No carotid bruits noted. CARDIOVASCULAR: Irregular rhythm; slight murmur heard. RESPIRATORY: Lungs are clear to auscultation bilaterally. No wheezing heard. Slight decreased breath sounds bilaterally. ABDOMEN: Soft, obese, nontender. Hepatosplenomegaly difficult to palpate due to the abdominal girth. Slight amount of anasarca. No rebound appreciated. EXTREMITIES: +1 and +2 edema noted; equal pulses. GENITOURINARY: No CVA or tenderness appreciated. NEUROLOGIC: Alert, oriented. PSYCHIATRIC: Cooperative, appropriate mood and affect. LABORATORY DATA: WBC 8.8, hemoglobin 8.9, platelets of 321, INR 1.2. Sodium 134, potassium 4.0, chloride 98, bicarbonate 24, BUN 114, creatinine 3.6. IMPRESSION: 1. Occult blood positive stool; may be secondary to internal hemorrhoids. The patient just underwent a complete colonoscopy about 2 or 3 weeks ago in December this year, which did not reveal any overt pathology that would require the patient to undergo repeat procedures. She has had a longstanding history of chronic anemia, which has also been evaluated in the past by hematology. 2. Chronic normocytic normochromic anemia; may be secondary to anemia of chronic disease, as well as a mixed picture of chronic anemia of blood loss. 3. Generalized anasarca. 4. Stage IV kidney disease. RECOMMENDATIONS: 1. Slowly advance diet as tolerated. 2. I do not recommend any further endoscopic workup or procedures that are necessary at this time. I do not believe that it would change any of the current management. 3. Given her multiple other comorbid conditions including cardiomyopathy with a depressed ejection fraction, chronic kidney disease, any further endoscopic procedures would likely increase her risks of an adverse outcome. Thank you for allowing [facility] to participate in the care of the patient. Please do not hesitate to contact me for any further questions. MD ALEKSEY Brito/christine/madeline , 08:23 AM , 08:35 AM
--- NOTE | 2018-02-14 17:12 | P.CONNP ---
History of Present Illness Service: Nephrology Reason for Consult: Acute on chronic kidney disease Primary Care Provider: Kulwinder Bonilla DO History of Present Illness: This is an 82 year old who I had seen earlier this month. Patient has advanced renal dysfunction, had presented with acute on chronic kidney disease with fluid overload, was diuresed, renal function stabilized. She had been discharged to rehab. She has been readmitted with worsening fluid overload. Also is anemic. Serum Creatinine was 2.71 on discharge on 01/31/18, but it had increased to 3.82 on admission yesterday. Today it is 3.6. Patient also had hyponatremia, but it has improved. She has chronic systolic heart failure: EF is about 20-25%. Has AICD. Review of Systems Constitutional: Reports anorexia, Reports weakness, Reports weight gain Cardiovascular: Reports shortness of breath when lying down, Denies chest pain Gastrointestinal: Denies abdominal pain Hematologic/Lymphatic: Denies easy bleeding PMFSH - History History Provided By: Patient, Medical Record - Medical History Medical History: Medical History (Last Reviewed 02/13/18 @ 21:18 by LELE Gill) Anemia Atherosclerosis of aorta CHF (congestive heart failure) CVA (cerebral vascular accident) Cardiac defibrillator in place Cardiomyopathy Cervicalgia Chronic kidney disease Depression Diabetes GERD (gastroesophageal reflux disease) Gastroenteritis HTN (hypertension) Hemiplegia affecting dominant side, post-stroke History of implantable cardiac defibrillator (ICD) Hyperlipidemia Hypoglycemia Hypothyroid Left ventricular failure Morbid obesity Myocardial infarct, old Other cervical disc degeneration, unspecified cervical region Peripheral neuropathy - Surgical History Surgical History: Surgical History (Last Reviewed 01/31/18 @ 16:34 by Lucie Mendoza) History of neck surgery - Tobacco History Second Hand Smoke Exposure: No Tobacco Use In Past 30 Days: No Smoking Status: Never smoker Tobacco Type: Cigarettes - Alcohol History How Often Do You Have a Drink Containing Alcohol: Never - Substance Use History Substance History: No History of Abuse - Immunization History Tetanus Immunization: Unsure Hx Influenza Vaccine This Season: No Medications and Allergies Active Medications: Active Medications Acetaminophen (Tylenol) 325 mg PO Q6H PRN PRN Reason: Pain 1-10 Al Hydroxide/Mg Hydroxide (Milk Of Magnesia Liq) 30 ml PO Q12H PRN PRN Reason: Mild Constipation Atorvastatin Calcium (Lipitor) 40 mg PO DAILY EDIL Last Admin: 02/14/18 08:21 Dose: 40 mg Bisacodyl (Dulcolax Supp) 10 mg RECTAL DAILY PRN PRN Reason: SEVERE CONSITIPATION Bumetanide (Bumex) 2 mg PO BID [facility] Last Admin: 02/14/18 08:21 Dose: 2 mg Calcitriol (Rocaltrol) 0.25 mcg PO EVERY OTHER DAY [facility] Carvedilol (Coreg) 12.5 mg PO BID [facility] Last Admin: 02/14/18 08:21 Dose: 12.5 mg Gabapentin (Neurontin) 300 mg PO QPM [facility] Insulin Detemir (Levemir Inj) 10 unit SQ HS [facility] Lactulose (Lactulose Liq) 30 ml PO DAILY PRN PRN Reason: SEVERE CONSITIPATION Levothyroxine Sodium (Synthroid) 25 mcg PO DAILY@0600 [facility] Pantoprazole Sodium (Protonix) 40 mg PO DAILY [facility] Patient Own Med- Ciclopirox 0.77% Cream 0 each TOPICAL BID [facility] Senna/Docusate Sodium (Conchis-Colace) 1 tab PO BID [facility] Last Admin: 02/14/18 08:21 Dose: 1 tab Sennosides (Senokot) 17.2 mg PO Q12H PRN PRN Reason: Moderate Constipation Sodium Chloride (Ns Flush) 2 ml IV.FLUSH PRN PRN PRN Reason: FLUSH AFTER USING IV ACCESS Allergies Allergy/AdvReac Type Severity Reaction Status Date / Time amoxicillin Allergy Rash Verified 01/21/18 23:42 methylprednisolone Allergy Itching Verified 01/21/18 23:42 lisinopril AdvReac Cough Verified 01/21/18 23:42 MRI PRECAUTION AdvReac Severe PACEMAKER Uncoded 01/21/18 23:42 (RV) 02/08/10 Home Medications Medication Instructions Recorded Confirmed Type acetaminophen [Tylenol] 325 mg PO Q6H PRN 01/10/18 02/13/18 History aspirin [Aspirin Low Dose] 81 mg PO DAILY 01/10/18 02/13/18 History atorvastatin 40 mg PO DAILY 01/10/18 02/13/18 History calcitriol 0.25 mcg PO Q OTHER DAY 01/10/18 02/13/18 History carvedilol 12.5 mg PO BID 01/10/18 02/13/18 History ciclopirox 1 applic TOPICAL BID 01/10/18 02/13/18 History gabapentin 300 mg PO QPM 01/10/18 02/13/18 History insulin glargine [Lantus U-100 10 unit SUB-Q HS 01/10/18 02/13/18 History Insulin] insulin lispro [Humalog KwikPen 100 unit SUB-Q DAILY 01/10/18 02/13/18 History Insulin] levothyroxine 25 mcg PO DAILY 01/10/18 02/13/18 History rivaroxaban [Xarelto] 15 mg PO DAILY 01/10/18 02/13/18 History omeprazole magnesium 40 mg PO DAILY 02/13/18 02/13/18 History Exam Vital signs: Vital Signs 02/13/18 22:17 02/13/18 23:56 02/14/18 02:00 Temperature Pulse Rate 75 70 Respiratory Rate 19 18 19 Blood Pressure 128/60 127/60 Pulse Oximetry 96 96 02/14/18 02:10 02/14/18 04:00 02/14/18 08:00 Temperature 97.3 F L 97.5 F L Pulse Rate 74 77 Respiratory Rate 19 16 16 Blood Pressure 142/61 H 141/61 H Pulse Oximetry 94 L 95 02/14/18 09:00 02/14/18 12:00 Temperature 97.7 F Pulse Rate 77 72 Respiratory Rate 16 Blood Pressure 114/55 L Pulse Oximetry 93 L Intake & Output 02/13/18 02/14/18 02/14/18 18:59 06:59 18:59 Weight 121.6 kg Other: # Incontinent Voids 1 Date of Last Bowel Movement 02/14/18 02/14/18 # Incontinent Bowel Movements 1 Weight On Admission 121.6 kg - Constitutional no acute distress, obese, chronically ill appearing - Routine HEENT Exam Head: Present: normocephalic, atraumatic Eye: Present: EOMI, PERRL ENT: Present: mucous membranes moist - Routine Neck Exam Present: supple, full ROM. Absent: JVD, lymphadenopathy, thyromegaly - Routine Respiratory Exam Present: CTA bilaterally. Absent: accessory muscle use - Routine Cardiovascular Exam Present: RRR, S1, S2 - Routine Abdominal Exam Present: soft, normoactive bowel sounds - Routine Extremities Exam Present: edema - Routine Skin Exam Present: intact - Routine Neurological Exam Present: altered mental status. Absent: sensory deficit lethargic. Results - Lab Results 02/14/18 05:39 02/14/18 05:39 Most recent lab results Calcium 8.7 mg/dL (8.5-10.1) 02/14/18 05:39 Magnesium 2.9 mg/dL (1.5-2.5) H 02/13/18 21:40 Assessment and Plan - Assessment (1) Acute worsening of stage 4 chronic kidney disease Code(s): N28.9 - Disorder of kidney and ureter, unspecified; N18.4 - Chronic kidney disease, stage 4 (severe) Status: Acute Plan: could be due to decompensated CHF, increased renal vein pressure. It is also possible that she has progressive renal dysfunction now reaching stage V CKD, needing dialysis. I will diurese her with IV Bumex and observe response. If renal function worsens , will have to consider initiation of dialysis. Patient wants to proceed with dialysis if it becomes necessary. Avoid nephrotoxic agents. No IVF. Monitor. (2) CHF (congestive heart failure) Code(s): I50.9 - Heart failure, unspecified Status: Acute Plan: Acute on chronic systolic heart failure. EF of 20-25%. (3) Hyponatremia Code(s): E87.1 - Hypo-osmolality and hyponatremia Status: Acute Plan: Hypervolemic, related to non osmotic release of ADH due to CHF. Continue loop diuretic. Improved. During last admission, she was given Tolvaptan. (4) Anemia Code(s): D64.9 - Anemia, unspecified Status: Acute Plan: I will given her a dose of Venofer and Epogen. Monitor. May have anemia of CKD. Seen by GI, note was reviewed. - Attending Attestation Thanks for the consult. I will follow. (4) Anemia Qualifiers: Anemia type: other cause Other causes of anemia: other cause, not classified Qualified Code(s): D64.89 - Other specified anemias
[2018-02-14] MEDS: Gabapentin 300 MG Capsule PO SCH (18:02)
[2018-02-14] MEDS ORDERED: Epoetin Alfa Inj 20,000 UNIT/ML Vial SQ ONE (20:00)
[2018-02-14] MEDS ORDERED: Iron Sucrose Inj 200 MG in Sodium Chlor 0.9% Inj 100 ML IV.SIG ONE (20:00)
[2018-02-14] MEDS: Insulin Detemir Inj 1,000 UNIT/10 ML Vial SQ SCH (21:13)
[2018-02-14] MEDS ORDERED: Dextrose 50% in Water 50 ML Vial IV.PUSH PRN (22:29)
[2018-02-15] MEDS: Insulin NovoLOG Aspart Correctional Sugar Inj SQ SCH ×5 (03:14→20:45)
[2018-02-15 07:50] LABS: Hematocrit 25.3 % (35.0-46.0); Hemoglobin 8.2 gm/dL (11.6-15.3); Mean Corpuscular HGB Conc 32.4 % (32.0-36.0); Mean Corpuscular Hemoglobin 30.7 pg (27.0-34.0); Mean Corpuscular Volume 94.8 fL (80.0-100.0); Platelet Count 302 th/mm3 (150-450); Red Blood Count 2.66 mil/mm3 (4.00-5.30); Red Cell Distribution Width 18.6 % (11.6-17.2); White Blood Count 7.7 th/mm3 (4.0-11.0)
[2018-02-15 08:24] LABS: Albumin 2.1 g/dL (3.4-5.0); Calcium 8.5 mg/dL (8.5-10.1); Carbon Dioxide 25.9 meq/L (21.0-32.0)
[2018-02-15 08:25] LABS: Potassium 5.4 meq/L (3.5-5.1)
[2018-02-15] MEDS: Carvedilol 12.5 MG Tablet PO SCH ×2 (09:10→20:45)
[2018-02-15] MEDS: Calcitriol 0.25 MCG Capsule PO SCH (09:17)
[2018-02-15] MEDS: Senna/Docusate Sodium 8.6/50 MG Tablet PO SCH ×2 (09:17→20:46)
--- NOTE | 2018-02-15 09:25 | P.PNFP ---
Subjective Interval history: Awake alert this am, Denies Cp, No SOB Does voice some right hip discomfort. Results - Labs Result diagrams: 02/15/18 06:38 02/15/18 06:38 Abnormal lab results 02/14/18 02/14/18 02/14/18 Range/Units 14:43 17:13 19:51 RBC (4.00-5.30) mil/mm3 Hgb (11.6-15.3) gm/dL Hct (35.0-46.0) % RDW (11.6-17.2) % Potassium (3.5-5.1) meq/L BUN (7-18) mg/dL Creatinine (0.50-1.00) mg/dL Estimated GFR (>89) mL/min POC Glucose 200 H 146 H 163 H (68-110) mg/dl Albumin (3.4-5.0) g/dL 02/15/18 02/15/18 02/15/18 Range/Units 06:38 06:38 07:47 RBC 2.66 L (4.00-5.30) mil/mm3 Hgb 8.2 L (11.6-15.3) gm/dL Hct 25.3 L (35.0-46.0) % RDW 18.6 H (11.6-17.2) % Potassium 5.4 H (3.5-5.1) meq/L BUN 114 H (7-18) mg/dL Creatinine 3.16 H (0.50-1.00) mg/dL Estimated GFR 17 L (>89) mL/min POC Glucose 120 H (68-110) mg/dl Albumin 2.1 L (3.4-5.0) g/dL Short CBC 02/15/18 Range/Units 06:38 WBC 7.7 (4.0-11.0) th/mm3 Hgb 8.2 L (11.6-15.3) gm/dL Hct 25.3 L (35.0-46.0) % Plt Count 302 (150-450) th/mm3 BMP 02/15/18 06:38 Sodium 136 Potassium 5.4 H Chloride 101 Carbon Dioxide 25.9 BUN 114 H Creatinine 3.16 H Calcium 8.5 Liver Function 02/15/18 Range/Units 06:38 Albumin 2.1 L (3.4-5.0) g/dL Physical Exam Vital signs: Vital Signs 02/14/18 12:00 02/14/18 16:00 02/14/18 20:00 Temperature 97.7 F 97.4 F L 97.4 F L Pulse Rate 70 71 74 Respiratory Rate 16 16 18 Blood Pressure 114/55 L 113/55 L 135/97 H Pulse Oximetry 93 L 94 L 92 L 02/14/18 21:00 02/15/18 00:00 02/15/18 00:39 Temperature 97.3 F L Pulse Rate 93 H Respiratory Rate 19 18 17 Blood Pressure 135/63 Pulse Oximetry 94 L 02/15/18 04:00 02/15/18 08:00 Temperature 98.1 F 97.1 F L Pulse Rate 68 76 Respiratory Rate 18 20 Blood Pressure 115/56 L 100/46 L Pulse Oximetry 96 98 Intake & Output 02/14/18 02/15/18 02/15/18 18:59 06:59 18:59 Intake Total 360 / 360 110 / 110 Output Total 500 / 500 1000 / 1000 Balance -140 / -140 -890 / -890 Weight 120.9 kg Intake: IV 110 / 110 Venofer Inj 200 MG In NS Inj 110 / 110 100 ML @ 110 mls/hr IV.SIG ONCE ONE Rx#:[id number] Oral 360 / 360 Output: Urine 500 / 500 1000 / 1000 Other: # Incontinent Voids 3 Date of Last Bowel Movement 02/14/18 02/14/18 - Constitutional no acute distress - Routine HEENT Exam Eye: Present: PERRL ENT: Present: mucous membranes moist - Routine Neck Exam Present: supple - Routine Respiratory Exam Present: diminished air movement - Routine Cardiovascular Exam Present: S1, S2 - Routine Abdominal Exam Present: soft, normoactive bowel sounds - Routine Extremities Exam Present: edema - Routine Skin Exam Present: dry, warm Comments: Dressing to RLE - Routine Neurological Exam Present: alert - Routine Psychiatric Exam Present: cooperative Assessment and Plan - Assessment (1) Anemia Code(s): D64.9 - Anemia, unspecified Status: Acute Plan: Monitor cbc, trends, positive Hemoccult GI consult pending (2) Anasarca associated with disorder of kidney Code(s): N04.9 - Nephrotic syndrome with unspecified morphologic changes Status: Acute (3) CHF (congestive heart failure) Code(s): I50.9 - Heart failure, unspecified Status: Acute Plan: Stable, cont home medications (4) Diabetes Code(s): E11.9 - Type 2 diabetes mellitus without complications Status: Acute Plan: Monitor BS, SC coverage (5) Acute worsening of stage 4 chronic kidney disease Code(s): N28.9 - Disorder of kidney and ureter, unspecified; N18.4 - Chronic kidney disease, stage 4 (severe) Status: Acute Plan: Renal consulted Dialysis? - Assessment and Plan 02/15/18- No complaints this am, she was seen by GI, is is thought that + Hemoccult r/t internal hemorrhoids. She was recently scoped in December with no pathology noted. Renal following, IV Bumex ordered, future dialysis pending. U/a culture pending, denies dysuria. Follow culture. Will have PT EVELYN banks back to rehab once cleared by Renal.
--- NOTE | 2018-02-15 16:52 | P.PNNP ---
Subjective Interval history: patient is lethargic, weak appearing. Good urine output. Creatinine has improved. Fluid retention, overload persist. Physical Exam Vital signs: Vital Signs 02/14/18 20:00 02/14/18 21:00 02/15/18 00:00 Temperature 97.4 F L 97.3 F L Pulse Rate 74 93 H Respiratory Rate 18 19 18 Blood Pressure 135/97 H 135/63 Pulse Oximetry 92 L 94 L 02/15/18 00:39 02/15/18 04:00 02/15/18 08:00 Temperature 98.1 F 97.1 F L Pulse Rate 68 67 Respiratory Rate 17 18 20 Blood Pressure 115/56 L 100/46 L Pulse Oximetry 96 98 02/15/18 09:28 02/15/18 12:00 02/15/18 14:50 Temperature 97.1 F L Pulse Rate 68 Respiratory Rate 18 Blood Pressure 102/55 L 100/62 102/58 L Pulse Oximetry 95 Intake & Output 02/14/18 02/15/18 02/15/18 18:59 06:59 18:59 Intake Total 360 / 360 110 / 110 Output Total 500 / 500 1000 / 1000 Balance -140 / -140 -890 / -890 Weight 120.9 kg Intake: IV 110 / 110 Venofer Inj 200 MG In NS Inj 110 / 110 100 ML @ 110 mls/hr IV.SIG ONCE ONE Rx#:[id number] Oral 360 / 360 Output: Urine 500 / 500 1000 / 1000 Other: # Incontinent Voids 3 Date of Last Bowel Movement 02/14/18 02/14/18 - Constitutional no acute distress, chronically ill appearing - Routine HEENT Exam Head: Present: normocephalic, atraumatic Eye: Present: EOMI, PERRL - Routine Neck Exam Present: JVD. Absent: lymphadenopathy, thyromegaly - Routine Respiratory Exam Present: CTA bilaterally. Absent: accessory muscle use - Routine Cardiovascular Exam Present: S1, S2 - Routine Extremities Exam Present: edema - Routine Neurological Exam Present: oriented X3 Assessment and Plan - Assessment (1) Acute worsening of stage 4 chronic kidney disease Code(s): N28.9 - Disorder of kidney and ureter, unspecified; N18.4 - Chronic kidney disease, stage 4 (severe) Status: Acute Plan: could be due to decompensated CHF, increased renal vein pressure. She also may have progressive renal dysfunction, may need dialysis soon. I will diurese her with IV Bumex and observe response. Creatinine is slightly better today. Patient wants to proceed with dialysis if it becomes necessary. Avoid nephrotoxic agents. No need for IVF Monitor. (2) CHF (congestive heart failure) Code(s): I50.9 - Heart failure, unspecified Status: Acute Plan: Acute on chronic systolic heart failure. Continue Bumex. EF of 20-25%. (3) Hyponatremia Code(s): E87.1 - Hypo-osmolality and hyponatremia Status: Acute Plan: Hypervolemic, related to non osmotic release of ADH due to CHF. Continue loop diuretic. Improved. During last admission, she was given Tolvaptan. Improved. (4) Anemia Code(s): D64.9 - Anemia, unspecified Status: Acute Qualifiers: Anemia type: other cause Other causes of anemia: other cause, not classified Qualified Code(s): D64.89 - Other specified anemias Plan: Given Venofer and Epogen. (5) Hyperkalemia Code(s): E87.5 - Hyperkalemia Status: Acute Plan: mild. Continue Bumex. Changed diet to low potassium diet.
[2018-02-15] MEDS: Gabapentin 300 MG Capsule PO SCH (17:27)
[2018-02-15] MEDS: Insulin Detemir Inj 1,000 UNIT/10 ML Vial SQ SCH (22:41)
[2018-02-16] MEDS: Insulin NovoLOG Aspart Correctional Sugar Inj SQ SCH ×5 (03:30→20:10)
[2018-02-16] MEDS: Carvedilol 12.5 MG Tablet PO SCH ×2 (08:51→23:24)
[2018-02-16] MEDS: Senna/Docusate Sodium 8.6/50 MG Tablet PO SCH ×2 (08:51→20:08)
[2018-02-16] MEDS ORDERED: Sodium Chloride 0.45 % Inj 500 ML IV.SIG SCH (10:15)
[2018-02-16] MEDS ORDERED: Sodium Chloride 0.45 % Inj 1,000 ML IV.CONT SCH (10:30)
--- NOTE | 2018-02-16 10:36 | P.PNFP ---
Subjective Interval history: She denies pain and tells me she slept well last night. Results - Labs Result diagrams: 02/15/18 06:38 02/15/18 06:38 Abnormal lab results 02/14/18 02/15/18 02/15/18 Range/Units 08:20 11:28 17:29 POC Glucose 139 H 123 H (68-110) mg/dl Urine Clarity Cloudy H (Clear) Ur Leukocyte Esterase Large H (Negative) Urine RBC 4 H (0-3) /hpf Urine WBC 119 H (0-5) /hpf Urine Bacteria Few H (None) /hpf 02/15/18 02/16/18 Range/Units 20:43 03:21 POC Glucose 135 H 138 H (68-110) mg/dl Urine Clarity (Clear) Ur Leukocyte Esterase (Negative) Urine RBC (0-3) /hpf Urine WBC (0-5) /hpf Urine Bacteria (None) /hpf Urine 02/14/18 Range/Units 08:20 Urine Color Yellow (Yellw/Straw) Urine Clarity Cloudy H (Clear) Urine pH 5.0 (5.0-8.5) Ur Specific [place] 1.013 (1.002-1.035) Urine Protein Negative (Neg-Trace) mg/dL Urine Glucose (UA) Negative (Negative) mg/dL Physical Exam Vital signs: Vital Signs 02/15/18 12:00 02/15/18 14:50 02/15/18 16:00 Temperature 97.1 F L 97.2 F L Pulse Rate 68 67 Respiratory Rate 18 18 Blood Pressure 100/62 102/58 L Pulse Oximetry 95 98 02/15/18 20:00 02/16/18 00:00 02/16/18 04:00 Temperature 97.0 F L 97.2 F L 97.2 F L Pulse Rate 71 70 70 Respiratory Rate 16 16 16 Blood Pressure 90/59 L 110/51 L 99/60 L Pulse Oximetry 98 97 99 02/16/18 08:00 Temperature 97.2 F L Pulse Rate 67 Respiratory Rate 15 Blood Pressure 104/45 L Pulse Oximetry 98 Intake & Output 02/15/18 02/16/18 02/16/18 18:59 06:59 18:59 Intake Total 480 / 480 480 / 480 Output Total 1000 / 1000 350 / 350 Balance -520 / -520 130 / 130 Weight 122.9 kg Intake: Oral 480 / 480 480 / 480 Output: Urine 1000 / 1000 350 / 350 Other: Date of Last Bowel Movement 02/14/18 # Bowel Movements 1 - Constitutional no acute distress - Routine HEENT Exam Head: Present: normocephalic Eye: Present: PERRL, normal accommodation ENT: Present: mucous membranes moist - Routine Neck Exam Present: supple, full ROM - Routine Respiratory Exam Present: CTA bilaterally - Routine Cardiovascular Exam Present: RRR, S1, S2 - Routine Abdominal Exam Present: soft, normoactive bowel sounds - Routine Extremities Exam Present: edema - Routine Skin Exam Present: intact - Routine Neurological Exam Present: alert - Detailed Neurological Exam: Coma Scale Eye Opening: Spontaneous Verbal Response: Oriented Motor Response: Obey commands [place] Coma Scale Total: 15 - Routine Psychiatric Exam Present: cooperative - Urinary Catheter Management Indwelling Urethral Catheter Cath placed during this visit: yes Reason for continuing: Acute urinary retention Insertion date: 02/15/18 Insertion time: 17:42 Assessment and Plan - Assessment (1) Anemia Code(s): D64.9 - Anemia, unspecified Status: Acute Plan: Monitor cbc, trends, positive Hemoccult with Hg today 8.2. GI consult pending (2) Anasarca associated with disorder of kidney Code(s): N04.9 - Nephrotic syndrome with unspecified morphologic changes Status: Acute Plan: Renal following and Scr is 3.16. (3) CHF (congestive heart failure) Code(s): I50.9 - Heart failure, unspecified Status: Acute Plan: Stable, cont home medications (4) Diabetes Code(s): E11.9 - Type 2 diabetes mellitus without complications Status: Acute Plan: Monitor BS, SC coverage (5) Acute worsening of stage 4 chronic kidney disease Code(s): N28.9 - Disorder of kidney and ureter, unspecified; N18.4 - Chronic kidney disease, stage 4 (severe) Status: Chronic Plan: Renal consulted Dialysis? Considering Hospice instead. Consult with Hospice is pending. - Assessment and Plan 02/15/18- No complaints this am, she was seen by GI, is is thought that + Hemoccult r/t internal hemorrhoids. She was recently scoped in December with no pathology noted. Renal following, IV Bumex ordered, future dialysis pending. U/a culture pending, denies dysuria. Follow culture. Will have PT eval, DC back to rehab once cleared by Renal. 02/16/18 - Mult issues including GIB, advanced kidney failure and underlying dementia. Will F/U consults and await Hospice decision. (1) Anemia Qualifiers: Anemia type: due to chronic kidney disease (3) CHF (congestive heart failure) Qualifiers: Heart failure type: unspecified (4) Diabetes Qualifiers: Diabetes mellitus type: type 2 Diabetes mellitus complication detail: with chronic kidney disease Chronic kidney disease stage: stage 4 (severe)
--- NOTE | 2018-02-16 11:54 | P.PNNP ---
Subjective Interval history: Sitting up in bed, comfortable. Does not have any complaints. No new labs today. <Lucie Blunt - Last Filed: 02/16/18 11:47> Physical Exam Vital signs: Vital Signs 02/15/18 12:00 02/15/18 14:50 02/15/18 16:00 Temperature 97.1 F L 97.2 F L Pulse Rate 68 67 Respiratory Rate 18 18 Blood Pressure 100/62 102/58 L Pulse Oximetry 95 98 02/15/18 20:00 02/16/18 00:00 02/16/18 04:00 Temperature 97.0 F L 97.2 F L 97.2 F L Pulse Rate 71 70 70 Respiratory Rate 16 16 16 Blood Pressure 90/59 L 110/51 L 99/60 L Pulse Oximetry 98 97 99 02/16/18 08:00 Temperature 97.2 F L Pulse Rate 67 Respiratory Rate 15 Blood Pressure 104/45 L Pulse Oximetry 98 Intake & Output 02/15/18 02/16/18 02/16/18 18:59 06:59 18:59 Intake Total 480 / 480 480 / 480 Output Total 1000 / 1000 350 / 350 Balance -520 / -520 130 / 130 Weight 122.9 kg Intake: Oral 480 / 480 480 / 480 Output: Urine 1000 / 1000 350 / 350 Other: Date of Last Bowel Movement 02/14/18 # Bowel Movements 1 Narrative: GENERAL: Alert and oriented X 2, no obvious signs of distress. SKIN: Warm and dry. NECK: Supple, trachea midline. JVD positive. CARDIOVASCULAR: Regular rate and rhythm without murmurs, gallops, or rubs. RESPIRATORY: Breath sounds diminished bilaterally. No accessory muscle use. GASTROINTESTINAL: Abdomen soft, non-tender, nondistended. MUSCULOSKELETAL: No cyanosis, moderate edema. - Urinary Catheter Management Indwelling Urethral Catheter Cath placed during this visit: yes Reason for continuing: Acute urinary retention Insertion date: 02/15/18 Insertion time: 17:42 <Lucie Blunt - Last Filed: 02/16/18 11:47> Vital signs: Vital Signs 02/15/18 20:00 02/16/18 00:00 02/16/18 04:00 Temperature 97.0 F L 97.2 F L 97.2 F L Pulse Rate 71 70 70 Respiratory Rate 16 16 16 Blood Pressure 90/59 L 110/51 L 99/60 L Pulse Oximetry 98 97 99 02/16/18 08:00 02/16/18 09:00 02/16/18 12:00 Temperature 97.2 F L 97.2 F L Pulse Rate 67 64 64 Respiratory Rate 15 15 Blood Pressure 104/45 L 108/48 L Pulse Oximetry 98 97 02/16/18 16:00 Temperature 97.1 F L Pulse Rate 68 Respiratory Rate 15 Blood Pressure 100/48 L Pulse Oximetry 98 Intake & Output 02/16/18 02/16/18 02/17/18 06:59 18:59 06:59 Intake Total 480 / 480 Output Total 350 / 350 Balance 130 / 130 Weight 122.9 kg Intake: Oral 480 / 480 Output: Urine 350 / 350 Other: Date of Last Bowel Movement 02/14/18 - Urinary Catheter Management Indwelling Urethral Catheter Cath placed during this visit: no <Angel Dowell - Last Filed: 02/16/18 19:03> Assessment and Plan - Assessment (1) Acute worsening of stage 4 chronic kidney disease Code(s): N28.9 - Disorder of kidney and ureter, unspecified; N18.4 - Chronic kidney disease, stage 4 (severe) Status: Chronic Plan: Could be due to decompensated CHF, increased renal vein pressure. She also may have progressive renal dysfunction, may need dialysis soon. Continue Bumex, creatinine yesterday slightly better. I will diurese her with IV Bumex and observe response. Creatinine is slightly better today. No need for IVF's Patient wants to proceed with dialysis if it becomes necessary. Avoid nephrotoxic agents. Hospice consult is pending. (2) CHF (congestive heart failure) Code(s): I50.9 - Heart failure, unspecified Status: Acute Qualifiers: Heart failure type: unspecified Plan: Acute on chronic systolic heart failure. Continue Bumex. EF of 20-25%. (3) Hyponatremia Code(s): E87.1 - Hypo-osmolality and hyponatremia Status: Acute Plan: Improved Hypervolemic, related to non osmotic release of ADH due to CHF. Continue loop diuretic (4) Anemia Code(s): D64.9 - Anemia, unspecified Status: Acute Qualifiers: Anemia type: other cause Other causes of anemia: other cause, not classified Qualified Code(s): D64.89 - Other specified anemias Plan: Given Venofer and Epogen. (5) Hyperkalemia Code(s): E87.5 - Hyperkalemia Status: Acute Plan: Potassium level at 5.4 yesterday Continue Bumex. Low potassium diet. - Plan Hospice consult pending. <Lucie Blunt - Last Filed: 02/16/18 11:47> - Assessment (1) Acute worsening of stage 4 chronic kidney disease Code(s): N28.9 - Disorder of kidney and ureter, unspecified; N18.4 - Chronic kidney disease, stage 4 (severe) Status: Chronic Plan: Patient seen and examine, agree with above. Creatinine is slightly better. Continue Bumex and try to keep in negative fluid balance. (2) CHF (congestive heart failure) Code(s): I50.9 - Heart failure, unspecified Status: Acute Qualifiers: Heart failure type: unspecified (3) Hyponatremia Code(s): E87.1 - Hypo-osmolality and hyponatremia Status: Acute (4) Anemia Code(s): D64.9 - Anemia, unspecified Status: Acute Qualifiers: Anemia type: other cause Other causes of anemia: other cause, not classified Qualified Code(s): D64.89 - Other specified anemias (5) Hyperkalemia Code(s): E87.5 - Hyperkalemia Status: Acute <Angel Dowell - Last Filed: 02/16/18 19:03>
[2018-02-16 17:57] LABS: Hematocrit 24.6 % (35.0-46.0); Hemoglobin 8.2 gm/dL (11.6-15.3); Mean Corpuscular HGB Conc 33.4 % (32.0-36.0); Mean Corpuscular Hemoglobin 31.3 pg (27.0-34.0); Mean Corpuscular Volume 93.8 fL (80.0-100.0); Mean Platelet Volume 6.7 fL (7.0-11.0); Platelet Count 309 th/mm3 (150-450); Red Blood Count 2.62 mil/mm3 (4.00-5.30); Red Cell Distribution Width 19.1 % (11.6-17.2); White Blood Count 10.5 th/mm3 (4.0-11.0)
[2018-02-16] MEDS: Gabapentin 300 MG Capsule PO SCH (17:59)
[2018-02-16 18:20] LABS: Calcium 8.1 mg/dL (8.5-10.1); Potassium 4.5 meq/L (3.5-5.1)
[2018-02-16] MEDS: Insulin Detemir Inj 1,000 UNIT/10 ML Vial SQ SCH (23:15)
[2018-02-17] MEDS: Sodium Chloride 0.9% 2 ML Flush BID IV.FLUSH SCH ×3 (01:03→20:59)
[2018-02-17] MEDS: Insulin NovoLOG Aspart Correctional Sugar Inj SQ SCH ×5 (03:19→21:00)
[2018-02-17 07:01] LABS: Baso # (Auto) 0.1 th/mm3 (0.0-0.2); Eos # (Auto) 0.9 th/mm3 (0.0-0.4); Eos % (Auto) 9.2 % (0.0-4.0); Hematocrit 27.4 % (35.0-46.0); Hemoglobin 8.8 gm/dL (11.6-15.3); Lymph # (Auto) 1.8 th/mm3 (1.0-4.8); Lymph % (Auto) 18.8 % (9.0-44.0); Mean Corpuscular Hemoglobin 30.6 pg (27.0-34.0); Mean Corpuscular Volume 95.7 fL (80.0-100.0); Mean Platelet Volume 6.9 fL (7.0-11.0); Mono # (Auto) 1.3 th/mm3 (0.0-0.9); Mono % (Auto) 13.3 % (0.0-8.0); Neut # (Auto) 5.5 th/mm3 (1.8-7.7); Neut % (Auto) 57.7 % (16.0-70.0); Platelet Count 300 th/mm3 (150-450); Red Blood Count 2.86 mil/mm3 (4.00-5.30); Red Cell Distribution Width 19.3 % (11.6-17.2); White Blood Count 9.6 th/mm3 (4.0-11.0)
[2018-02-17 07:28] LABS: Albumin 2.1 g/dL (3.4-5.0); Calcium 8.2 mg/dL (8.5-10.1); Carbon Dioxide 27.3 meq/L (21.0-32.0); Phosphorus 4.2 mg/dL (2.5-4.9); Potassium 4.8 meq/L (3.5-5.1)
[2018-02-17] MEDS: Calcitriol 0.25 MCG Capsule PO SCH (08:43)
[2018-02-17] MEDS: Senna/Docusate Sodium 8.6/50 MG Tablet PO SCH ×2 (08:43→21:00)
[2018-02-17] MEDS: Carvedilol 12.5 MG Tablet PO SCH ×2 (08:43→21:00)
--- NOTE | 2018-02-17 10:58 | P.PNFP ---
Subjective Interval history: She is alert and tells me she has changed her mind and does not want to consider dialysis if needed. Nevertheless, she has no uremic sx and her GFR was slightly better today. Will recheck labs tomorrow and make no changes in her regimen and F/U with Hospice and daughter. Results - Labs Result diagrams: 02/17/18 05:07 02/17/18 05:07 Abnormal lab results 02/16/18 02/16/18 02/17/18 Range/Units 17:30 17:30 05:07 RBC 2.62 L 2.86 L (4.00-5.30) mil/mm3 Hgb 8.2 L 8.8 L (11.6-15.3) gm/dL Hct 24.6 L 27.4 L (35.0-46.0) % RDW 19.1 H 19.3 H (11.6-17.2) % MPV 6.7 L 6.9 L (7.0-11.0) fL [place] % (Auto) 13.3 H (0.0-8.0) % Eos % (Auto) 9.2 H (0.0-4.0) % [place] # (Auto) 1.3 H (0.0-0.9) th/mm3 Eos # (Auto) 0.9 H (0.0-0.4) th/mm3 Sodium 135 L (136-145) meq/L BUN 109 H (7-18) mg/dL Creatinine 3.03 H (0.50-1.00) mg/dL Estimated GFR 18 L (>89) mL/min Calcium 8.1 L (8.5-10.1) mg/dL Albumin (3.4-5.0) g/dL 02/17/18 Range/Units 05:07 RBC (4.00-5.30) mil/mm3 Hgb (11.6-15.3) gm/dL Hct (35.0-46.0) % RDW (11.6-17.2) % MPV (7.0-11.0) fL [place] % (Auto) (0.0-8.0) % Eos % (Auto) (0.0-4.0) % [place] # (Auto) (0.0-0.9) th/mm3 Eos # (Auto) (0.0-0.4) th/mm3 Sodium (136-145) meq/L BUN 107 H (7-18) mg/dL Creatinine 2.95 H (0.50-1.00) mg/dL Estimated GFR 19 L (>89) mL/min Calcium 8.2 L (8.5-10.1) mg/dL Albumin 2.1 L (3.4-5.0) g/dL Short CBC 02/16/18 02/17/18 Range/Units 17:30 05:07 WBC 10.5 9.6 (4.0-11.0) th/mm3 Hgb 8.2 L 8.8 L (11.6-15.3) gm/dL Hct 24.6 L 27.4 L (35.0-46.0) % Plt Count 309 300 (150-450) th/mm3 BMP 02/16/18 02/17/18 17:30 05:07 Sodium 135 L 136 Potassium 4.5 D 4.8 Chloride 100 99 Carbon Dioxide 27.0 27.3 BUN 109 H 107 H Creatinine 3.03 H 2.95 H Calcium 8.1 L 8.2 L Liver Function 02/17/18 Range/Units 05:07 Albumin 2.1 L (3.4-5.0) g/dL Physical Exam Vital signs: Vital Signs 02/16/18 12:00 02/16/18 16:00 02/16/18 20:00 Temperature 97.2 F L 97.1 F L 97.4 F L Pulse Rate 64 68 68 Respiratory Rate 15 15 16 Blood Pressure 108/48 L 100/48 L 111/41 L Pulse Oximetry 97 98 100 02/17/18 00:00 02/17/18 04:00 02/17/18 08:00 Temperature 97.3 F L 97.1 F L 97.1 F L Pulse Rate 67 68 68 Respiratory Rate 20 16 16 Blood Pressure 110/50 L 90/54 L 101/51 L Pulse Oximetry 99 99 100 02/17/18 09:00 Temperature Pulse Rate 68 Respiratory Rate Blood Pressure Pulse Oximetry Intake & Output 02/16/18 02/17/18 02/17/18 18:59 06:59 18:59 Intake Total 480 / 480 480 / 480 Output Total 350 / 350 550 / 550 Balance 130 / 130 -70 / -70 Weight 122.9 kg Intake: Oral 480 / 480 480 / 480 Output: Urine 350 / 350 550 / 550 Other: Date of Last Bowel Movement 02/16/18 02/16/18 # Bowel Movements 0 - Constitutional no acute distress - Routine HEENT Exam Head: Present: normocephalic Eye: Present: PERRL ENT: Present: mucous membranes moist - Routine Neck Exam Present: supple, full ROM - Routine Respiratory Exam Present: CTA bilaterally - Routine Cardiovascular Exam Present: RRR, S1, S2 - Routine Abdominal Exam Present: soft, normoactive bowel sounds - Routine Extremities Exam Present: edema - Routine Skin Exam Present: intact - Routine Neurological Exam Present: alert - Detailed Neurological Exam: Coma Scale Eye Opening: Spontaneous Verbal Response: Oriented Motor Response: Obey commands [place] Coma Scale Total: 15 - Routine Psychiatric Exam Present: normal affect - Urinary Catheter Management Indwelling Urethral Catheter Cath placed during this visit: yes Reason for continuing: Acute urinary retention Insertion date: 02/15/18 Insertion time: 17:42 Assessment and Plan - Assessment (1) Anemia Code(s): D64.9 - Anemia, unspecified Status: Acute Plan: Monitor cbc, trends, positive Hemoccult with Hg today 8.8. GFR is slightly improved. Now indicating she does not want dialysis if needed. Will need to confirm with daughter if indicated. (2) Anasarca associated with disorder of kidney Code(s): N04.9 - Nephrotic syndrome with unspecified morphologic changes Status: Acute Plan: Renal following and Scr is improved and edema less. Renal following. (3) CHF (congestive heart failure) Code(s): I50.9 - Heart failure, unspecified Status: Acute Plan: Stable, cont home medications and cont to diurese. (4) Diabetes Code(s): E11.9 - Type 2 diabetes mellitus without complications Status: Acute Plan: Monitor BS, SC coverage (5) Acute worsening of stage 4 chronic kidney disease Code(s): N28.9 - Disorder of kidney and ureter, unspecified; N18.4 - Chronic kidney disease, stage 4 (severe) Status: Chronic Plan: Renal consulted and patient has changed her mind about Dialysis; now doesn't want. Considering Hospice instead and though I am told Hospice has seen her and discussed with daughter, I see no note in her record. Will F/U consult with Hospice. - Assessment and Plan 02/15/18- No complaints this am, she was seen by GI, is is thought that + Hemoccult r/t internal hemorrhoids. She was recently scoped in December with no pathology noted. Renal following, IV Bumex ordered, future dialysis pending. U/a culture pending, denies dysuria. Follow culture. Will have PT eval, DC back to rehab once cleared by Renal. 02/16/18 - Mult issues including GIB, advanced kidney failure and underlying dementia. Will F/U consults and await Hospice decision. 02/17 - I am told by patient she has changed her mind about Dialysis if needed and GFR actually improved and daughter is aware. Will cont to monitor renal fx and F/U Hospice, GI and Renal recommendations. (1) Anemia Qualifiers: Anemia type: due to chronic kidney disease Chronic kidney disease stage: stage 4 (severe) Qualified Code(s): N18.4 - Chronic kidney disease, stage 4 ( severe); D63.1 - Anemia in chronic kidney disease (3) CHF (congestive heart failure) Qualifiers: Heart failure type: unspecified (4) Diabetes Qualifiers: Diabetes mellitus type: type 2 Diabetes mellitus complication detail: with chronic kidney disease Chronic kidney disease stage: stage 4 (severe)
--- NOTE | 2018-02-17 11:19 | P.PNNP ---
Subjective Interval history: Reports constipation. Denies any shortness of breath, chest pain, nausea, or vomiting. Continues to have generalized edema. Creatinine continues to improve at 2.95. Patient has expressed that she is interested in hospice. <Lucie Blunt - Last Filed: 02/17/18 11:10> Physical Exam Vital signs: Vital Signs 02/16/18 12:00 02/16/18 16:00 02/16/18 20:00 Temperature 97.2 F L 97.1 F L 97.4 F L Pulse Rate 64 68 68 Respiratory Rate 15 15 16 Blood Pressure 108/48 L 100/48 L 111/41 L Pulse Oximetry 97 98 100 02/17/18 00:00 02/17/18 04:00 02/17/18 08:00 Temperature 97.3 F L 97.1 F L 97.1 F L Pulse Rate 67 68 68 Respiratory Rate 20 16 16 Blood Pressure 110/50 L 90/54 L 101/51 L Pulse Oximetry 99 99 100 02/17/18 09:00 Temperature Pulse Rate 68 Respiratory Rate Blood Pressure Pulse Oximetry Intake & Output 02/16/18 02/17/18 02/17/18 18:59 06:59 18:59 Intake Total 480 / 480 480 / 480 Output Total 350 / 350 550 / 550 Balance 130 / 130 -70 / -70 Weight 122.9 kg Intake: Oral 480 / 480 480 / 480 Output: Urine 350 / 350 550 / 550 Other: Date of Last Bowel Movement 02/16/18 02/16/18 # Bowel Movements 0 Narrative: GENERAL: Alert and oriented, no obvious signs of distress. SKIN: Warm and dry. NECK: Supple, trachea midline. JVD positive. CARDIOVASCULAR: Regular rate and rhythm without murmurs, gallops, or rubs. RESPIRATORY: Breath sounds diminished bilaterally. No accessory muscle use. GASTROINTESTINAL: Abdomen soft, non-tender, nondistended. MUSCULOSKELETAL: No cyanosis, moderate amount of generalized edema. - Urinary Catheter Management Indwelling Urethral Catheter Cath placed during this visit: yes Reason for continuing: Acute urinary retention Insertion date: 02/15/18 Insertion time: 17:42 <Lucie Blunt - Last Filed: 02/17/18 11:10> Vital signs: Vital Signs 02/18/18 20:00 02/18/18 22:00 02/19/18 00:00 Temperature 97.3 F L 97.4 F L 97.3 F L Pulse Rate 73 74 73 Respiratory Rate 18 12 16 Blood Pressure 87/47 L 90/47 L 120/0 L Pulse Oximetry 97 89 L 99 02/19/18 04:00 02/19/18 08:00 02/19/18 10:23 Temperature 97.4 F L 97.2 F L 97.2 F L Pulse Rate 73 71 75 Respiratory Rate 20 16 16 Blood Pressure 101/50 L 94/54 L 94/54 L Pulse Oximetry 100 98 98 02/19/18 12:00 02/19/18 16:00 Temperature Pulse Rate 77 76 Respiratory Rate Blood Pressure Pulse Oximetry Intake & Output 02/18/18 02/19/18 02/19/18 18:59 06:59 18:59 Intake Total 236 / 236 60 / 60 Output Total 250 / 250 300 / 300 Balance -14 / -14 -240 / -240 Weight 121.6 kg Intake: Oral 236 / 236 60 / 60 Output: Urine 250 / 250 300 / 300 Other: Date of Last Bowel Movement 02/18/18 02/18/18 # Bowel Movements 1 - Urinary Catheter Management Indwelling Urethral Catheter Cath placed during this visit: no <Yossi Dowell Q - Last Filed: 02/19/18 17:56> Assessment and Plan - Assessment (1) Acute worsening of stage 4 chronic kidney disease Code(s): N28.9 - Disorder of kidney and ureter, unspecified; N18.4 - Chronic kidney disease, stage 4 (severe) Status: Chronic Plan: Continues to have moderate amount of generalized edema. IVF discontinued yesterday. Recommend to continue Bumex. Creatinine continues to improve at 2.95 today. No current need for hemodialysis. Avoid nephrotoxic agents. Try to keep negative fluid balance. Hospice has been consulted. (2) CHF (congestive heart failure) Code(s): I50.9 - Heart failure, unspecified Status: Acute Qualifiers: Heart failure type: unspecified Plan: Acute on chronic systolic heart failure. Continue Bumex. EF of 20-25%. (3) Hyponatremia Code(s): E87.1 - Hypo-osmolality and hyponatremia Status: Acute Plan: Resolved Hypervolemic, related to non osmotic release of ADH due to CHF. Continue loop diuretic (4) Anemia Code(s): D64.9 - Anemia, unspecified Status: Acute Qualifiers: Anemia type: other cause Other causes of anemia: other cause, not classified Qualified Code(s): D64.89 - Other specified anemias Plan: Given Venofer and Epogen. (5) Hyperkalemia Code(s): E87.5 - Hyperkalemia Status: Acute Plan: Resolved potassium level at 4.8 Continue Bumex. Low potassium diet. - Plan Hospice consult pending. <Lucie Blunt - Last Filed: 02/17/18 11:10> - Assessment (1) Acute worsening of stage 4 chronic kidney disease Code(s): N28.9 - Disorder of kidney and ureter, unspecified; N18.4 - Chronic kidney disease, stage 4 (severe) Status: Chronic Plan: Patient seen and examine, agree with above. Creatinine is slightly better. Continue diuretics. D/W the daughter. Hospice consulted. (2) CHF (congestive heart failure) Code(s): I50.9 - Heart failure, unspecified Status: Acute Qualifiers: Heart failure type: unspecified (3) Hyponatremia Code(s): E87.1 - Hypo-osmolality and hyponatremia Status: Acute (4) Anemia Code(s): D64.9 - Anemia, unspecified Status: Acute Qualifiers: Anemia type: other cause Other causes of anemia: other cause, not classified Qualified Code(s): D64.89 - Other specified anemias (5) Hyperkalemia Code(s): E87.5 - Hyperkalemia Status: Acute <Angel Dowell - Last Filed: 02/19/18 17:56>
[2018-02-17] MEDS: Acetaminophen 325 MG Tablet PO PRN (11:44)
[2018-02-17] MEDS: Gabapentin 300 MG Capsule PO SCH (17:54)
[2018-02-17] MEDS: Insulin Detemir Inj 1,000 UNIT/10 ML Vial SQ SCH (20:59)
[2018-02-18] MEDS: Insulin NovoLOG Aspart Correctional Sugar Inj SQ SCH ×4 (02:56→17:27)
[2018-02-18 07:48] LABS: Baso # (Auto) 0.1 th/mm3 (0.0-0.2); Baso % (Auto) 0.8 % (0.0-2.0); Eos # (Auto) 0.5 th/mm3 (0.0-0.4); Eos % (Auto) 4.4 % (0.0-4.0); Hematocrit 26.5 % (35.0-46.0); Hemoglobin 8.7 gm/dL (11.6-15.3); Lymph # (Auto) 1.6 th/mm3 (1.0-4.8); Lymph % (Auto) 14.5 % (9.0-44.0); Mean Corpuscular HGB Conc 32.7 % (32.0-36.0); Mean Corpuscular Hemoglobin 30.6 pg (27.0-34.0); Mean Corpuscular Volume 93.5 fL (80.0-100.0); Mean Platelet Volume 6.4 fL (7.0-11.0); Mono # (Auto) 1.1 th/mm3 (0.0-0.9); Mono % (Auto) 9.7 % (0.0-8.0); Neut # (Auto) 7.7 th/mm3 (1.8-7.7); Neut % (Auto) 70.6 % (16.0-70.0); Platelet Count 341 th/mm3 (150-450); Red Blood Count 2.83 mil/mm3 (4.00-5.30); Red Cell Distribution Width 19.7 % (11.6-17.2)
[2018-02-18 08:08] LABS: Albumin 2.2 g/dL (3.4-5.0); Anion Gap 11 meq/L (5-15); Aspartate Aminotransferase 11 U/L (15-37); Blood Urea Nitrogen 101 mg/dL (7-18); Calcium 8.3 mg/dL (8.5-10.1); Carbon Dioxide 27.2 meq/L (21.0-32.0); Chloride 100 meq/L (98-107); Glomerular Filtration Rate 21 mL/min (>89); Glucose,Random 145 mg/dL (74-106); Potassium 4.1 meq/L (3.5-5.1); Sodium 138 meq/L (136-145)
[2018-02-18 08:15] LABS: Alanine Aminotransferase 9 U/L (10-53); Alkaline Phosphatase 96 U/L (45-117); Total Protein 6.1 g/dL (6.4-8.2)
[2018-02-18] MEDS: Senna/Docusate Sodium 8.6/50 MG Tablet PO SCH (08:30)
[2018-02-18] MEDS: Carvedilol 12.5 MG Tablet PO SCH (08:30)
[2018-02-18] MEDS: Sodium Chloride 0.9% 2 ML Flush BID IV.FLUSH SCH (08:31)
--- NOTE | 2018-02-18 11:51 | P.PNNP ---
Subjective Interval history: patient is extremely lethargic. Does not respond to verbal cues. Her BUN and creatinine have improved slightly. Family/friends are at the bedside. Discussed with her grandson. Evidently they have spoken to Hospice and the patient does not want aggressive measures such as dialysis. Physical Exam Vital signs: Vital Signs 02/17/18 12:00 02/17/18 16:00 02/17/18 19:30 Temperature 97.3 F L 97.6 F Pulse Rate 73 72 Respiratory Rate 16 16 Blood Pressure 130/93 H 96/46 L Pulse Oximetry 97 96 96 02/17/18 20:00 02/18/18 00:00 02/18/18 03:55 Temperature 97.6 F 97.9 F Pulse Rate 71 72 Respiratory Rate 14 20 20 Blood Pressure 94/50 L 90/46 L Pulse Oximetry 98 97 02/18/18 04:00 02/18/18 08:00 02/18/18 09:00 Temperature 97.9 F 97.4 F L Pulse Rate 69 72 69 Respiratory Rate 14 18 Blood Pressure 94/58 L 103/52 L Pulse Oximetry 93 L 97 Intake & Output 02/17/18 02/18/18 02/18/18 18:59 06:59 18:59 Intake Total 360 / 360 240 / 240 Output Total 650 / 650 800 / 800 Balance -290 / -290 -560 / -560 Weight 121.6 kg Intake: Oral 360 / 360 240 / 240 Output: Urine 650 / 650 Urine Amount (Catheter) 800 / 800 Indwelling Urethral Catheter 800 / 800 Other: Date of Last Bowel Movement 02/16/18 02/16/18 # Bowel Movements 1 Narrative: GENERAL: poorly responsive today. Anasarca. SKIN: Warm and dry. NECK: Supple, trachea midline. JVD positive. CARDIOVASCULAR: Regular rate and rhythm without murmurs, gallops, or rubs. RESPIRATORY: Breath sounds diminished bilaterally. Bibasilar crackles. GASTROINTESTINAL: Abdomen soft, non-tender, nondistended. - Urinary Catheter Management Indwelling Urethral Catheter Cath placed during this visit: yes Reason for continuing: Acute urinary retention Insertion date: 02/15/18 Insertion time: 17:42 Assessment and Plan - Assessment (1) Acute worsening of stage 4 chronic kidney disease Code(s): N28.9 - Disorder of kidney and ureter, unspecified; N18.4 - Chronic kidney disease, stage 4 (severe) Status: Chronic Plan: Continue Bumex. Needs diuresis. Renal function has improved, but she has decompensated CHF. Very poor prognosis. She will not tolerate dialysis because of comorbidities. Apparently will be going to hospice. (2) CHF (congestive heart failure) Code(s): I50.9 - Heart failure, unspecified Status: Acute Qualifiers: Heart failure type: unspecified Plan: Acute on chronic systolic heart failure. Continue Bumex. EF of 20-25%. (3) Hyponatremia Code(s): E87.1 - Hypo-osmolality and hyponatremia Status: Acute Plan: Resolved Hypervolemic, related to non osmotic release of ADH due to CHF. Continue loop diuretic (4) Anemia Code(s): D64.9 - Anemia, unspecified Status: Acute Qualifiers: Anemia type: other cause Other causes of anemia: other cause, not classified Qualified Code(s): D64.89 - Other specified anemias Plan: Given Venofer and Epogen. (5) Hyperkalemia Code(s): E87.5 - Hyperkalemia Status: Acute Plan: Improved. - Plan Hospice consult pending.
--- NOTE | 2018-02-18 12:09 | P.PNFP ---
Subjective Interval history: Delayed entry seen this am She is lethargic, sat's maintained on 2 liters appears comfortable Results - Labs Result diagrams: 02/18/18 05:27 02/18/18 05:27 Abnormal lab results 02/17/18 02/17/18 02/18/18 Range/Units 16:35 20:57 02:54 RBC (4.00-5.30) mil/mm3 Hgb (11.6-15.3) gm/dL Hct (35.0-46.0) % RDW (11.6-17.2) % MPV (7.0-11.0) fL Neut % (Auto) (16.0-70.0) % [place] % (Auto) (0.0-8.0) % Eos % (Auto) (0.0-4.0) % [place] # (Auto) (0.0-0.9) th/mm3 Eos # (Auto) (0.0-0.4) th/mm3 BUN (7-18) mg/dL Creatinine (0.50-1.00) mg/dL Estimated GFR (>89) mL/min POC Glucose 185 H 192 H 164 H (68-110) mg/dl Random Glucose (74-106) mg/dL Calcium (8.5-10.1) mg/dL AST (15-37) U/L ALT (10-53) U/L Total Protein (6.4-8.2) g/dL Albumin (3.4-5.0) g/dL 02/18/18 02/18/18 Range/Units 05:27 05:27 RBC 2.83 L (4.00-5.30) mil/mm3 Hgb 8.7 L (11.6-15.3) gm/dL Hct 26.5 L (35.0-46.0) % RDW 19.7 H (11.6-17.2) % MPV 6.4 L (7.0-11.0) fL Neut % (Auto) 70.6 H (16.0-70.0) % [place] % (Auto) 9.7 H (0.0-8.0) % Eos % (Auto) 4.4 H (0.0-4.0) % [place] # (Auto) 1.1 H (0.0-0.9) th/mm3 Eos # (Auto) 0.5 H (0.0-0.4) th/mm3 BUN 101 H (7-18) mg/dL Creatinine 2.68 H (0.50-1.00) mg/dL Estimated GFR 21 L (>89) mL/min POC Glucose (68-110) mg/dl Random Glucose 145 H (74-106) mg/dL Calcium 8.3 L (8.5-10.1) mg/dL AST 11 L (15-37) U/L ALT 9 L (10-53) U/L Total Protein 6.1 L (6.4-8.2) g/dL Albumin 2.2 L (3.4-5.0) g/dL Short CBC 02/18/18 Range/Units 05:27 WBC 11.0 (4.0-11.0) th/mm3 Hgb 8.7 L (11.6-15.3) gm/dL Hct 26.5 L (35.0-46.0) % Plt Count 341 (150-450) th/mm3 BMP 02/18/18 05:27 Sodium 138 Potassium 4.1 Chloride 100 Carbon Dioxide 27.2 BUN 101 H Creatinine 2.68 H Calcium 8.3 L Liver Function 02/18/18 Range/Units 05:27 Total Bilirubin 0.5 (0.2-1.0) mg/dL AST 11 L (15-37) U/L ALT 9 L (10-53) U/L Alkaline Phosphatase 96 (45-117) U/L Albumin 2.2 L (3.4-5.0) g/dL Physical Exam Vital signs: Vital Signs 02/17/18 16:00 02/17/18 19:30 02/17/18 20:00 Temperature 97.6 F 97.6 F Pulse Rate 72 71 Respiratory Rate 16 14 Blood Pressure 96/46 L 94/50 L Pulse Oximetry 96 96 98 02/18/18 00:00 02/18/18 03:55 02/18/18 04:00 Temperature 97.9 F 97.9 F Pulse Rate 72 69 Respiratory Rate 20 20 14 Blood Pressure 90/46 L 94/58 L Pulse Oximetry 97 93 L 02/18/18 08:00 02/18/18 09:00 Temperature 97.4 F L Pulse Rate 72 69 Respiratory Rate 18 Blood Pressure 103/52 L Pulse Oximetry 97 Intake & Output 02/17/18 02/18/18 02/18/18 18:59 06:59 18:59 Intake Total 360 / 360 240 / 240 Output Total 650 / 650 800 / 800 Balance -290 / -290 -560 / -560 Weight 121.6 kg Intake: Oral 360 / 360 240 / 240 Output: Urine 650 / 650 Urine Amount (Catheter) 800 / 800 Indwelling Urethral Catheter 800 / 800 Other: Date of Last Bowel Movement 02/16/18 02/16/18 # Bowel Movements 1 - Constitutional no acute distress - Routine HEENT Exam Head: Present: normocephalic - Routine Neck Exam Present: supple - Routine Respiratory Exam Present: diminished air movement - Routine Cardiovascular Exam Present: S1, S2 - Routine Abdominal Exam Present: soft - Routine Extremities Exam Present: edema - Routine Skin Exam Present: intact, dry, warm Comments: DSG to RLE - Urinary Catheter Management Indwelling Urethral Catheter Cath placed during this visit: yes Reason for continuing: Acute urinary retention Insertion date: 02/15/18 Insertion time: 17:42 Assessment and Plan - Assessment (1) Anemia Code(s): D64.9 - Anemia, unspecified Status: Acute Plan: Monitor cbc, trends, positive Hemoccult with Hg today 8.8. GFR is slightly improved. Now indicating she does not want dialysis if needed. Will need to confirm with daughter if indicated. (2) Anasarca associated with disorder of kidney Code(s): N04.9 - Nephrotic syndrome with unspecified morphologic changes Status: Acute Plan: Renal following and gfr is improved and edema less. Renal following. (3) CHF (congestive heart failure) Code(s): I50.9 - Heart failure, unspecified Status: Acute Plan: Stable, cont home medications and cont to diurese. (4) Diabetes Code(s): E11.9 - Type 2 diabetes mellitus without complications Status: Acute Plan: Monitor BS, SC coverage (5) Acute worsening of stage 4 chronic kidney disease Code(s): N28.9 - Disorder of kidney and ureter, unspecified; N18.4 - Chronic kidney disease, stage 4 (severe) Status: Chronic Plan: Renal consulted and patient has changed her mind about Dialysis; now doesn't want. Considering Hospice instead and though I am told Hospice has seen her and discussed with daughter, I see no note in her record. Will F/U consult with Hospice. - Assessment and Plan 02/15/18- No complaints this am, she was seen by GI, is is thought that + Hemoccult r/t internal hemorrhoids. She was recently scoped in December with no pathology noted. Renal following, IV Bumex ordered, future dialysis pending. U/a culture pending, denies dysuria. Follow culture. Will have PT [facility] back to rehab once cleared by Renal. 02/16/18 - Mult issues including GIB, advanced kidney failure and underlying dementia. Will F/U consults and await Hospice decision. 02/17 - I am told by patient she has changed her mind about Dialysis if needed and GFR actually improved and daughter is aware. Will cont to monitor renal fx and F/U Hospice, GI and Renal recommendations. 02/18/18- Lethargic this am, on 2 liters, VSS, afebrile Labs how some improvement today, Patient has expressed wish to not proceed with dialysis. Hospice pending. DC back to [facility] after seen by Hospice and when arrangement made. (1) Anemia Qualifiers: Anemia type: due to chronic kidney disease Chronic kidney disease stage: stage 4 (severe) Qualified Code(s): N18.4 - Chronic kidney disease, stage 4 ( severe); D63.1 - Anemia in chronic kidney disease (3) CHF (congestive heart failure) Qualifiers: Heart failure type: unspecified (4) Diabetes Qualifiers: Diabetes mellitus type: type 2 Diabetes mellitus complication detail: with chronic kidney disease Chronic kidney disease stage: stage 4 (severe)
[2018-02-18] MEDS: Gabapentin 300 MG Capsule PO SCH (17:28)
[2018-02-19] MEDS: Insulin NovoLOG Aspart Correctional Sugar Inj SQ SCH ×5 (00:20→17:43)
[2018-02-19] MEDS: Carvedilol 12.5 MG Tablet PO SCH ×2 (00:27→08:52)
[2018-02-19] MEDS: Insulin Detemir Inj 1,000 UNIT/10 ML Vial SQ SCH (00:28)
[2018-02-19] MEDS: Sodium Chloride 0.9% 2 ML Flush BID IV.FLUSH SCH ×2 (00:28→09:19)
[2018-02-19] MEDS: Senna/Docusate Sodium 8.6/50 MG Tablet PO SCH ×2 (00:29→09:19)
--- NOTE | 2018-02-19 08:58 | P.PNFP ---
Subjective Interval history: Resting comfortable Lethargic, family at bedside per family patient wants No aggressive care nurse stats she has been hypotensive Results - Labs Result diagrams: 02/18/18 05:27 02/18/18 05:27 Physical Exam Vital signs: Vital Signs 02/18/18 09:00 02/18/18 12:00 02/18/18 16:00 Temperature 97.2 F L 97.4 F L Pulse Rate 69 70 72 Respiratory Rate 16 18 Blood Pressure 93/44 L 105/54 L Pulse Oximetry 96 96 02/18/18 20:00 02/18/18 22:00 02/19/18 00:00 Temperature 97.3 F L 97.4 F L 97.3 F L Pulse Rate 73 74 73 Respiratory Rate 18 12 16 Blood Pressure 87/47 L 90/47 L 120/0 L Pulse Oximetry 97 89 L 99 02/19/18 04:00 Temperature 97.4 F L Pulse Rate 73 Respiratory Rate 20 Blood Pressure 101/50 L Pulse Oximetry 100 Intake & Output 02/18/18 02/19/18 02/19/18 18:59 06:59 18:59 Intake Total 236 / 236 60 / 60 Output Total 250 / 250 300 / 300 Balance -14 / -14 -240 / -240 Weight 121.6 kg Intake: Oral 236 / 236 60 / 60 Output: Urine 250 / 250 300 / 300 Other: Date of Last Bowel Movement 02/18/18 # Bowel Movements 1 - Constitutional no acute distress - Routine Neck Exam Present: supple - Routine Respiratory Exam Present: CTA bilaterally - Routine Cardiovascular Exam Present: S1, S2 - Routine Abdominal Exam Present: soft, normoactive bowel sounds - Routine Extremities Exam Present: edema - Routine Skin Exam Present: dry, warm - Urinary Catheter Management Indwelling Urethral Catheter Cath placed during this visit: yes Reason for continuing: Acute urinary retention Insertion date: 02/15/18 Insertion time: 17:42 Assessment and Plan - Assessment (1) Anemia Code(s): D64.9 - Anemia, unspecified Status: Acute Plan: Monitor cbc, trends, positive Hemoccult with Hg today 8.8. GFR is slightly improved. Now indicating she does not want dialysis if needed. Will need to confirm with daughter if indicated. (2) Anasarca associated with disorder of kidney Code(s): N04.9 - Nephrotic syndrome with unspecified morphologic changes Status: Acute Plan: Renal following and gfr is improved and edema less. Renal following. (3) CHF (congestive heart failure) Code(s): I50.9 - Heart failure, unspecified Status: Acute Plan: Stable, cont home medications and cont to diurese. (4) Diabetes Code(s): E11.9 - Type 2 diabetes mellitus without complications Status: Acute Plan: Monitor BS, SC coverage (5) Acute worsening of stage 4 chronic kidney disease Code(s): N28.9 - Disorder of kidney and ureter, unspecified; N18.4 - Chronic kidney disease, stage 4 (severe) Status: Chronic Plan: Renal consulted and patient has changed her mind about Dialysis; now doesn't want. Considering Hospice instead and though I am told Hospice has seen her and discussed with daughter, I see no note in her record. Will F/U consult with Hospice. - Assessment and Plan 02/15/18- No complaints this am, she was seen by GI, is is thought that + Hemoccult r/t internal hemorrhoids. She was recently scoped in December with no pathology noted. Renal following, IV Bumex ordered, future dialysis pending. U/a culture pending, denies dysuria. Follow culture. Will have PT EVELYN banks back to rehab once cleared by Renal. 02/16/18 - Mult issues including GIB, advanced kidney failure and underlying dementia. Will F/U consults and await Hospice decision. 02/17 - I am told by patient she has changed her mind about Dialysis if needed and GFR actually improved and daughter is aware. Will cont to monitor renal fx and F/U Hospice, GI and Renal recommendations. 02/18/18- Lethargic this am, on 2 liters, VSS, afebrile Labs how some improvement today, Patient has expressed wish to not proceed with dialysis. Hospice pending. DC back to residential after seen by Hospice and when arrangement made. 02/19/18- grandson "Arnav" at bedside, he voices that patient spoke with him and does not want any aggressive care, does not want dialysis. He states his aunt ROSE has been difficult and is having trouble understanding the process of rehab with Hospice services. palliative care consulted to speak with family. Nurse voices she has been very hypotensive she is inn Bumex 2 mg iv tid, will change to QD. There is discussion of Hospice at [facility] vs rehab. DC when arrangements made. (1) Anemia Qualifiers: Anemia type: due to chronic kidney disease Chronic kidney disease stage: stage 4 (severe) Qualified Code(s): N18.4 - Chronic kidney disease, stage 4 ( severe); D63.1 - Anemia in chronic kidney disease (3) CHF (congestive heart failure) Qualifiers: Heart failure type: unspecified (4) Diabetes Qualifiers: Diabetes mellitus type: type 2 Diabetes mellitus complication detail: with chronic kidney disease Chronic kidney disease stage: stage 4 (severe)
[2018-02-19] MEDS: Calcitriol 0.25 MCG Capsule PO SCH (09:19)
[2018-02-19] MEDS: Acetaminophen 325 MG Tablet PO PRN (12:30)
--- NOTE | 2018-02-19 15:16 | P.DS ---
Date of admission: 02/13/18 23:03 Primary care physician: Kulwinder Bonilla DO Brief History from admission: 82 year old female with history of CHF EF 25-30% by echo 01/24/2018, A fib, DM with CKD III, HTN, nonischemic cardiomyopathy s/p defibrillator placement (2007 ) sent from group home for increased swelling and worsening renal functions. She is stage 4 kidney disease followed by renal. Recently was in hospital for worsening kidney disease and ams, dialysis was discussed but was never started. She is found to be anemic and have positive Hemoccult stool. DS: Diagnosis - Discharge Diagnosis (1) Anemia Status: Acute (2) Anasarca associated with disorder of kidney Status: Acute (3) CHF (congestive heart failure) Status: Acute (4) Diabetes Status: Acute (5) Acute worsening of stage 4 chronic kidney disease Status: Chronic DS: Summary Hospital Course: Sent from [facility] rehab for worsening renal functions, she has had several admission. She was been on the fence with agreeing to Dialysis, she has severe cardiac disease as well. She has decided to not seek aggressive care to sign up with hospice and will be sent DC to care center today. - Time Spent with Patient Total time spent providing and/or coordinating discharge services: 15 Less than 30 minutes - Quality: AMI Clinical Trial Participant: No - Quality: Stroke Symptom Onset Unknown: No - Quality: VTE Is this test being ordered to rule out VTE?: No Deep Vein Thrombosis/Pulmonary Embolism Present on Admission: No Exam Vital signs: Vital Signs 02/18/18 16:00 02/18/18 20:00 02/18/18 22:00 Temperature 97.4 F L 97.3 F L 97.4 F L Pulse Rate 72 73 74 Respiratory Rate 18 18 12 Blood Pressure 105/54 L 87/47 L 90/47 L Pulse Oximetry 96 97 89 L 02/19/18 00:00 02/19/18 04:00 02/19/18 08:00 Temperature 97.3 F L 97.4 F L 97.2 F L Pulse Rate 73 73 71 Respiratory Rate 16 20 16 Blood Pressure 120/0 L 101/50 L 94/54 L Pulse Oximetry 99 100 98 02/19/18 10:23 02/19/18 12:00 Temperature 97.2 F L Pulse Rate 75 77 Respiratory Rate 16 Blood Pressure 94/54 L Pulse Oximetry 98 Intake & Output 02/18/18 02/19/18 02/19/18 18:59 06:59 18:59 Intake Total 236 / 236 60 / 60 Output Total 250 / 250 300 / 300 Balance -14 / -14 -240 / -240 Weight 121.6 kg Intake: Oral 236 / 236 60 / 60 Output: Urine 250 / 250 300 / 300 Other: Date of Last Bowel Movement 02/18/18 02/18/18 # Bowel Movements 1 - Constitutional no acute distress - Routine Neck Exam Present: supple - Routine Respiratory Exam Present: diminished air movement - Routine Cardiovascular Exam Present: S1, S2 - Routine Abdominal Exam Present: soft, normoactive bowel sounds - Routine Extremities Exam Present: edema - Routine Skin Exam Present: dry, warm Results Procedures completed during hospitalization: NA Labs on day of discharge: Labs from last 24 hours 02/19/18 02/19/18 02/18/18 11:44 09:20 17:26 POC Glucose 80 76 108 Discharge Plan - Discharge Disposition Patient Disposition: [facility] Facility - Discharge Condition Condition: Stable - Discharge Order Discharge Orders: Discharge Order (Routine); Ordered 02/19/18 Ordered By: Sherlyn Lew - Discharge Details Anticipated Discharge Date: 02/19/18 - Physicians Team Primary Care Provider: Kulwinder Bonilla Attending Provider: Kulwinder Bonilla Other Providers: Jeremi Domingo MD ; Angel Dowell MD ; Ramiro Rubio ; Lashanda Salazar MD
--- NOTE | 2018-02-19 15:46 | P.CONPAL ---
Consult Service: Palliative Care Requesting Physician: Sherlyn Lew Reason for Consult: a. To assist with evaluation and management of symptoms including: Weakness, pain b. To assist medical decision maker(s) with: better understanding of current medical conditions; weighing benefits/burdens of medical treatment options; making medical treatment decisions. Primary Care Provider: Kulwinder Bonilla DO History of Present Illness History of Present Illness: This is an 82-year-old -Citizen Of [place] female admitted to [facility] 02/13 from the [facility] rehab for evaluation of edema and abnormal kidney function. She has a past medical history of cardiomyopathy, chronic systolic congestive heart failure with EF 25-30% status post Medtronic Evera AICD implantation for sudden cardiac prevention, moderate to severe tricuspid valve regurgitation with pulmonary hypertension at 61.3 mmHg (severe greater than 55), CVA, CKD stage IV, diabetes, hypertension and hypothyroidism. She has had several visits to [facility] since December for diarrhea, hypoglycemia and worsening renal indices. Diagnostic data on admission * WBC 8.3, hemoglobin 8.2, hematocrit 25.7, platelets 309B natruretic peptide 2291, sodium 133, potassium 4.9, BUN 114, creatinine 3.82, calcium 8.3, normal transaminase, albumin 2.3. Nephrology was consulted and noted that she has progressive renal dysfunction which has now reached stage V CKD, requiring dialysis. It was determined that he would attempt diuresis with IV Bumex and then reconsider initiation of dialysis if she continued to remain at stage V failure. He opined that she was hypervolemic related to non-osmotic release of ADH due to CHF and prescribed a dose of Venofer and Epogen for her anemia. She improved slightly with therapy but due to her decompensated CHF, multiple comorbidities and very poor prognosis , it was felt that she was not going to be able to tolerate dialysis due to her multiple comorbidities and hospice was recommended. Patient initially stated she did want dialysis and plan to place support was considered, however since she did start to improve, no port placement was necessary. During that time the patient reconsidered her decision and decided she did not wish to continue with aggressive treatment to include dialysis or resuscitation and made herself a DO NOT RESUSCITATE status. She requested to go to the [facility] in [place]. She appears oriented however lethargic. Her grandson Arnav is at the bedside and states that it is his aunt Stefanie who is the decision maker. Stefanie is the patient's Goddaughter and the healthcare surrogate. Patient was clearly able to state her wishes and answered questions consistently and clearly for the family. She appears to have fair insight into her condition but is very weak and has difficulty signing her name secondary to right-sided weakness from a previous CVA. She complains of generalized pain and specifically back of the head pain. She has received tramadol 50 mg today with no relief of her discomfort. Describes her pain as 8/10, generalized and at the back of her head, not attenuated by tramadol, with no exacerbating factors. She is profoundly weak, barely able to raise her arms off the bed or reposition herself. She dozes off frequently during conversation. When addressed a direct question, she opens her eyes and answers clearly then lays back with her eyes closed. She is unable to continuously participate in the conversation due to her overwhelming weakness. Past medical history Anemia Aortic atherosclerosis Chronic systolic heart failure with EF 25% CVA with residual right weakness Cardiomyopathy Cervicalgia Chronic kidney disease Depression Diabetes GERD Gastroenteritis Hypertension Hyperlipidemia Hypoglycemia Hypothyroid Obesity Cervical disc degeneration Peripheral neuropathy Surgical history History of neck surgery Social history Lifetime non-smoker, non-ethanol abuser, no history of substance abuse Family history both parents in their 80s, the father with cancer and the mother with a brain tumor. . Function/Cognitive Trajectory: She has been steadily becoming weaker and recently required admission to the [facility] rehab for physical therapy, at which she made virtually no progress due to generalized weakness. While her cognition is somewhat limited by lethargy, she is oriented, appears to have fair insight into her medical processes and is sharing decision-making with her Goddaughter, Stefanie. She is able to clearly delineate her decisions on medical treatment at this time is requesting to go to the [facility] for management of pain. . Review of Systems Constitutional: Reports weakness Musculoskeletal: Reports back pain, Reports body aches PMFSH - History History Provided By: Patient, Medical Record - Medical History Medical History: Medical History (Last Reviewed 02/13/18 @ 21:18 by LELE Gill) Anemia Atherosclerosis of aorta CHF (congestive heart failure) CVA (cerebral vascular accident) Cardiac defibrillator in place Cardiomyopathy Cervicalgia Chronic kidney disease Depression Diabetes GERD (gastroesophageal reflux disease) Gastroenteritis HTN (hypertension) Hemiplegia affecting dominant side, post-stroke History of implantable cardiac defibrillator (ICD) Hyperlipidemia Hypoglycemia Hypothyroid Left ventricular failure Morbid obesity Myocardial infarct, old Other cervical disc degeneration, unspecified cervical region Peripheral neuropathy - Surgical History Surgical History: Surgical History (Last Reviewed 01/31/18 @ 16:34 by Lucie Mendoza) History of neck surgery - Tobacco History Second Hand Smoke Exposure: No Tobacco Use In Past 30 Days: No Smoking Status: Never smoker Tobacco Type: Cigarettes - Alcohol History How Often Do You Have a Drink Containing Alcohol: Never - Substance Use History Substance History: No History of Abuse - Immunization History Tetanus Immunization: Unsure Hx Influenza Vaccine This Season: No Medications and Allergies Active Medications: Active Medications Acetaminophen (Tylenol) 325 mg PO Q6H PRN PRN Reason: Pain 1-10 Last Admin: 02/19/18 12:30 Dose: 325 mg Al Hydroxide/Mg Hydroxide (Milk Of Magnesia Liq) 30 ml PO Q12H PRN PRN Reason: Mild Constipation Atorvastatin Calcium (Lipitor) 40 mg PO DAILY [facility] Last Admin: 02/19/18 09:19 Dose: 40 mg Bisacodyl (Dulcolax Supp) 10 mg RECTAL DAILY PRN PRN Reason: SEVERE CONSITIPATION Bumetanide (Bumex Inj) 2 mg IV.PUSH DAILY EDIL Calcitriol (Rocaltrol) 0.25 mcg PO EVERY OTHER DAY [facility] Last Admin: 02/19/18 09:19 Dose: 0.25 mcg Carvedilol (Coreg) 12.5 mg PO BID [facility] Last Admin: 02/19/18 08:52 Dose: Not Given Dextrose (D50w Vial) 50 ml IV.PUSH UNSCH PRN PRN Reason: PER HYPOGLYCEMIA PROTOCOL Gabapentin (Neurontin) 300 mg PO QPM [facility] Last Admin: 02/18/18 17:28 Dose: 300 mg Glucagon (Glucagon Inj) 1 mg OTHER PRN PRN PRN Reason: for Hypoglycemia Protocol Insulin Aspart (Novolog Insulin Correctional Sugar Inj) 0 unit SQ ACHS AND 3AM EDIL; Protocol Last Admin: 02/19/18 11:45 Dose: Not Given Insulin Detemir (Levemir Inj) 10 unit SQ HS [facility] Last Admin: 02/19/18 00:28 Dose: 10 unit Lactulose (Lactulose Liq) 30 ml PO DAILY PRN PRN Reason: SEVERE CONSITIPATION Levothyroxine Sodium (Synthroid) 25 mcg PO DAILY@0600 [facility] Last Admin: 02/19/18 06:33 Dose: 25 mcg Pantoprazole Sodium (Protonix) 40 mg PO DAILY [facility] Last Admin: 02/19/18 09:19 Dose: 40 mg Patient Own Med- Ciclopirox 0.77% Cream 0 each TOPICAL BID [facility] Senna/Docusate Sodium (Conchis-Colace) 1 tab PO BID [facility] Last Admin: 02/19/18 09:19 Dose: 1 tab Sennosides (Senokot) 17.2 mg PO Q12H PRN PRN Reason: Moderate Constipation Last Admin: 02/17/18 11:44 Dose: 17.2 mg Sodium Chloride (Ns Flush) 2 ml IV.FLUSH PRN PRN PRN Reason: FLUSH AFTER USING IV ACCESS Sodium Chloride (Ns Flush) 2 ml IV.FLUSH BID [facility] Last Admin: 02/19/18 09:19 Dose: 2 ml Tramadol HCl (Ultram) 50 mg PO Q6H PRN PRN Reason: PAIN 1-10 Last Admin: 02/19/18 11:42 Dose: 50 mg Allergies Allergy/AdvReac Type Severity Reaction Status Date / Time amoxicillin Allergy Rash Verified 01/21/18 23:42 methylprednisolone Allergy Itching Verified 01/21/18 23:42 lisinopril AdvReac Cough Verified 01/21/18 23:42 MRI PRECAUTION AdvReac Severe PACEMAKER Uncoded 01/21/18 23:42 (RV) 02/08/10 Home Medications Medication Instructions Recorded Confirmed Type acetaminophen [Tylenol] 325 mg PO Q6H PRN 01/10/18 02/13/18 History aspirin [Aspirin Low Dose] 81 mg PO DAILY 01/10/18 02/13/18 History atorvastatin 40 mg PO DAILY 01/10/18 02/13/18 History calcitriol 0.25 mcg PO Q OTHER DAY 01/10/18 02/13/18 History carvedilol 12.5 mg PO BID 01/10/18 02/13/18 History ciclopirox 1 applic TOPICAL BID 01/10/18 02/13/18 History gabapentin 300 mg PO QPM 01/10/18 02/13/18 History insulin glargine [Lantus U-100 10 unit SUB-Q HS 01/10/18 02/13/18 History Insulin] insulin lispro [Humalog KwikPen 100 unit SUB-Q DAILY 01/10/18 02/13/18 History Insulin] levothyroxine 25 mcg PO DAILY 01/10/18 02/13/18 History rivaroxaban [Xarelto] 15 mg PO DAILY 01/10/18 02/13/18 History omeprazole magnesium 40 mg PO DAILY 02/13/18 02/13/18 History Advance Directives Living Will: No Healthcare Surrogate: Yes Health Care Surrogate Name and Number: Stefanie Rodriguez Physical Exam Vital Signs: Vital Signs - 24 hr 02/18/18 16:00 02/18/18 20:00 02/18/18 22:00 Temperature 97.4 F L 97.3 F L 97.4 F L Pulse Rate 72 73 74 Respiratory Rate 18 18 12 Blood Pressure 105/54 L 87/47 L 90/47 L Pulse Oximetry 96 97 89 L 02/19/18 00:00 02/19/18 04:00 02/19/18 08:00 Temperature 97.3 F L 97.4 F L 97.2 F L Pulse Rate 73 73 71 Respiratory Rate 16 20 16 Blood Pressure 120/0 L 101/50 L 94/54 L Pulse Oximetry 99 100 98 02/19/18 10:23 02/19/18 12:00 Temperature 97.2 F L Pulse Rate 75 77 Respiratory Rate 16 Blood Pressure 94/54 L Pulse Oximetry 98 I&O: Intake & Output 02/17/18 02/18/18 02/19/18 02/20/18 06:59 06:59 06:59 06:59 Intake Total 960 / 960 600 / 600 296 / 296 Output Total 900 / 900 1450 / 1450 550 / 550 Balance 60 / 60 -850 / -850 -254 / -254 Weight 270 lb 15.17 oz 268 lb 1.314 oz 268 lb 1.314 oz Physical Exam: CONSTITUTIONAL/GENERAL: This is an obese female patient, in no apparent distress. TUBES/LINES/DRAINS: PIV SKIN: No jaundice, rashes, or lesions. No wounds seen anteriorly. Skin temperature appropriate. Not diaphoretic. HEAD: Atraumatic. Normocephalic. EYES: Pupils equal and round and reactive. Extraocular motions intact. No scleral icterus. No injection or drainage. Fundi not examined. ENT: Hearing grossly normal. Nose without bleeding or purulent drainage. Throat without visible erythema, exudates, masses, or lesions. NECK: Trachea midline. Supple, nontender. No palpable thyroid enlargement or nodularity. CARDIOVASCULAR: Regular rate and rhythm without murmurs, gallops, or rubs. No JVD. Peripheral pulses symmetric. RESPIRATORY/CHEST: Symmetric, unlabored respirations. Clear to auscultation. Breath sounds equal bilaterally. No wheezes, rales, or rhonchi. GASTROINTESTINAL: Abdomen soft, non-tender, nondistended. No hepato-splenomegaly , or palpable masses. No guarding. Bowel sounds present. GENITOURINARY: Without palpable bladder distension. King catheter in place. MUSCULOSKELETAL: Extremities without clubbing or cyanosis, 2+ generalized edema. No joint tenderness or effusion noted. No calf tenderness. No mottling or clubbing. LYMPHATICS: No palpable cervical or supraclavicular adenopathy. NEUROLOGICAL: Mildly lethargic but awakens easily. Motor and sensory grossly within normal limits. Follows commands. Moves all extremities. PSYCHIATRIC: No obvious anxiety/depression. no apparent hallucinations or other psychotic thought process. . Diagnostic Tests Laboratory: Laboratory Results - last 72 hr 02/16/18 02/16/18 02/16/18 17:30 17:30 20:04 WBC 10.5 RBC 2.62 L Hgb 8.2 L Hct 24.6 L MCV 93.8 MCH 31.3 MCHC 33.4 RDW 19.1 H Plt Count 309 MPV 6.7 L Neut % (Auto) Lymph % (Auto) [place] % (Auto) Eos % (Auto) Baso % (Auto) Neut # (Auto) Lymph # (Auto) [place] # (Auto) Eos # (Auto) Baso # (Auto) WBC Differential Differential Comment Sodium 135 L Potassium 4.5 D Chloride 100 Carbon Dioxide 27.0 Anion Gap 8 BUN 109 H Creatinine 3.03 H Estimated GFR 18 L POC Glucose 95 Random Glucose 87 Calcium 8.1 L Phosphorus Total Bilirubin AST ALT Alkaline Phosphatase Total Protein Albumin 02/17/18 02/17/18 02/17/18 05:07 05:07 16:35 WBC 9.6 RBC 2.86 L Hgb 8.8 L Hct 27.4 L MCV 95.7 MCH 30.6 MCHC 32.0 RDW 19.3 H Plt Count 300 MPV 6.9 L Neut % (Auto) 57.7 Lymph % (Auto) 18.8 [place] % (Auto) 13.3 H Eos % (Auto) 9.2 H Baso % (Auto) 1.0 Neut # (Auto) 5.5 Lymph # (Auto) 1.8 [place] # (Auto) 1.3 H Eos # (Auto) 0.9 H Baso # (Auto) 0.1 WBC Differential . Differential Comment Auto diff final Sodium 136 Potassium 4.8 Chloride 99 Carbon Dioxide 27.3 Anion Gap 10 BUN 107 H Creatinine 2.95 H Estimated GFR 19 L POC Glucose 185 H Random Glucose 98 Calcium 8.2 L Phosphorus 4.2 Total Bilirubin AST ALT Alkaline Phosphatase Total Protein Albumin 2.1 L 02/17/18 02/18/18 02/18/18 20:57 02:54 05:27 WBC 11.0 RBC 2.83 L Hgb 8.7 L Hct 26.5 L MCV 93.5 MCH 30.6 MCHC 32.7 RDW 19.7 H Plt Count 341 MPV 6.4 L Neut % (Auto) 70.6 H Lymph % (Auto) 14.5 [place] % (Auto) 9.7 H Eos % (Auto) 4.4 H Baso % (Auto) 0.8 Neut # (Auto) 7.7 Lymph # (Auto) 1.6 [place] # (Auto) 1.1 H Eos # (Auto) 0.5 H Baso # (Auto) 0.1 WBC Differential . Differential Comment Auto diff final Sodium Potassium Chloride Carbon Dioxide Anion Gap BUN Creatinine Estimated GFR POC Glucose 192 H 164 H Random Glucose Calcium Phosphorus Total Bilirubin AST ALT Alkaline Phosphatase Total Protein Albumin 02/18/18 02/18/18 02/19/18 05:27 17:26 09:20 WBC RBC Hgb Hct MCV MCH MCHC RDW Plt Count MPV Neut % (Auto) Lymph % (Auto) [place] % (Auto) Eos % (Auto) Baso % (Auto) Neut # (Auto) Lymph # (Auto) [place] # (Auto) Eos # (Auto) Baso # (Auto) WBC Differential Differential Comment Sodium 138 Potassium 4.1 Chloride 100 Carbon Dioxide 27.2 Anion Gap 11 BUN 101 H Creatinine 2.68 H Estimated GFR 21 L POC Glucose 108 76 Random Glucose 145 H Calcium 8.3 L Phosphorus Total Bilirubin 0.5 AST 11 L ALT 9 L Alkaline Phosphatase 96 Total Protein 6.1 L Albumin 2.2 L 02/19/18 11:44 WBC RBC Hgb Hct MCV MCH MCHC RDW Plt Count MPV Neut % (Auto) Lymph % (Auto) [place] % (Auto) Eos % (Auto) Baso % (Auto) Neut # (Auto) Lymph # (Auto) [place] # (Auto) Eos # (Auto) Baso # (Auto) WBC Differential Differential Comment Sodium Potassium Chloride Carbon Dioxide Anion Gap BUN Creatinine Estimated GFR POC Glucose 80 Random Glucose Calcium Phosphorus Total Bilirubin AST ALT Alkaline Phosphatase Total Protein Albumin Result Diagrams: 02/18/18 05:27 02/18/18 05:27 Microbiology: Microbiology 02/14/18 08:20 Clean Catch Urine Urine Culture - Final Enterococcus faecalis Patient/Family Conference Present at Family Conference: Spoke with patient and grandson Arnav initially and then spoke with healthcare surrogate, Stefanie Rodriguez via telephone and arranged a [id number] meeting at 12:15 PM today. She had multiple complaints regarding poor communication between the facility, the physician and hospital. After extensive review of the patient's records and her discussion with the patient, determined that it was the patient's wish to transfer to hospice for symptom management and to not undergo dialysis or any further aggressive interventions. Relayed to Claudia, hospice product safety coordinator who facilitated consent signing and is arranging transport for the patient to the [facility] later today. The patient does have an active defibrillator and this was discussed with her. Clearly explained the purpose and general sensation of AICD shock and she stated she wished to consider turning that off prior to making that decision. The device is a Medtronic Evera defibrillator implanted by Dr. Espinoza. This information was supplied to [facility] appropriate notifications when the patient makes her decision. . Family Conference Location: Bedside, Telephone Issues Discussed: * Palliative care role, purpose, approach * Additional medical, psychosocial, and spiritual history * Patients general health, functional status, and cognitive changes in the months leading up to the current hospitalization * Patient/family understanding of the current medical problems * Patient/family understanding of prognosis * Patients goals of care as best understood from advance directives and/or conversations and/or values * Current medical treatment options and benefits/burdens of those options * Likely scenarios comparing ongoing aggressive care with a transition to comfort measures only * Questions answered to the best of my ability * Palliative care contact information provided Assessment and Plan - Symptom Scale (1) Weakness 0-10 Scale: 7 (2) Pain 0-10 Scale: 7 Pertinent Non-Medical Issues: Psychosocial: She was born in [facility] and moved to [place] in 1974. She had 2 children, a son from whom she is estranged 1 daughter who previously shortly after giving to her son, Arnav, who was also raised by the patient. She assisted in raising her got daughter Stefanie, whom she has made her healthcare surrogate. She is . Spiritual: She has a large and supportive moravian family and the blending coordinator visits her. Legal: Healthcare surrogate on the chart. Ethical issues impacting care: None noted. . Important Contacts: Healthcare surrogate (Goddaughter)-Stefanie Jennifer . Prognosis: Her prognosis is guarded. She has both heart failure and renal failure, suspicious for cardiorenal syndrome. She has multiple comorbidities, generalized weakness and failure to thrive. She was admitted with hyperkalemia and hyponatremia and is likely to suffer further electrolyte derangements as her kidneys continue to fail. She wishes no further aggressive interventions, however has not yet made the decision to deactivate the defibrillator. The mechanism and sensation of shock has been explained to her and she states she wishes to consider this decision before finalizing. She is at great risk of continued complications and decline. Pending transfer to the hospice care center. . Code Status: No Code DNR Plan: PLAN: Legal decision maker: Patient appears overall capacitated with fair insight into her disease processes is extremely lethargic and is using shared decision making with Stefanie Rodriguez, her healthcare surrogate. Goals: Comfort oriented. CODE STATUS: DO NOT RESUSCITATE. SYMPTOMS: * Weakness: Patient has overall weakness in addition to residual right-sided weakness or CVA. This is likely multifactorial to include congestive heart failure, anemia renal disease, debility previous sedentary behavior. She has not progressed after a course of physical therapy given at the [facility]. Her weakness has been progressive and appears that this will likely continue given her age and comorbidities. * Pain: She is complaining of generalized pain but also pain at the back of her head peers to be chronic as she has history of cervicalgia and cervical disc degeneration. The tramadol has been ineffective in controlling her pain would recommend a stronger opiate such as [place] 5/325 mg every 4 hours as needed. Patient is being transferred to the [facility] today. Summary This is an 82-year-old -Citizen Of [place] female with progressive decline related to age, congestive heart failure and stage IV kidney disease. She had progressed to stage V kidney disease, requiring dialysis, but emergent therapy has slightly improved her renal indices and at this time she is refusing any aggressive measures occluded dialysis or CPR. She has requested transfer to hospice for pain and edema management. She does continue to have an active defibrillator and is considering deactivation at this time. Information has been provided to the hospice [facility] where she will be transferred in case the patient wishes to deactivate. Pending transfer to [facility] later this afternoon. Palliative care will continue to follow the patient during hospital course as condition evolves, to assist patient/decision-maker with understanding of their medical conditions, weighing benefits/burdens of treatment options, for clarification of goals of treatment. Additionally will assist with any symptoms of palliative concern. . Appreciation Thank you for the opportunity to participate in the care of Parul Reid. Attestation Attestation: To help prompt me to consider important information that might be impacting today's encounter and assessment, information from prior notes written by myself or my colleagues may have been "brought forward" into today's note. My signature on this note, however, is an attestation that I personally performed the exam, history, and/or decision-making noted today, and, unless otherwise indicated, the interactions with patient, family, and staff as well as the review of records all occurred today. I also attest that the listed assessment and stated plan reflect my best clinical judgment today based on the combination of historical information, prior notes, and today's exam/ interactions. When time spent is documented, it refers only to time spent today by the signer, or if indicated, combined time spent today by collaborating physician/nurse practitioner. .
[2018-02-19] MEDS: Gabapentin 300 MG Capsule PO SCH (17:39)
[2018-02-19 17:59] VITALS: BP 101/44; PULSE 71; RESP 16; TEMP 97.1; O2SAT 99
== END 2018-02-19 19:21 | disposition hospice, inpatient (51) ==
LOC: NEPC 19:55 → NEDA 23:03 → N04 02-14 01:10
PROVIDERS: ADMIT Family Medicine; ATTEND Family Medicine